=== PATIENT | male | born 1960 | race Caucasian/White ===

== ENCOUNTER 2022-06-15 10:22 | Inpatient (IN) ==
[2022-06-15] MEDS ORDERED: HALOPERIDOL LACTATE 5 MG/ML 1 ML VIAL IM STA (10:47)
[2022-06-15] MEDS ORDERED: CEROVITE ADV FORMULA TAB PO STA (10:47)
[2022-06-15] MEDS ORDERED: THIAMINE HCL 100 MG, FOLIC ACID 1 MG in SODIUM CHLORIDE 0.9% 1000ML 1,000 ML IV STA (10:47)
[2022-06-15] MEDS ORDERED: LORazepam 2 MG/1 ML VIAL IM STA (10:47)
[2022-06-15] MEDS ORDERED: HALOPERIDOL LACTATE 5 MG/ML 1 ML VIAL ONE (10:49)
[2022-06-15] MEDS ORDERED: LORazepam 2 MG/1 ML VIAL ONE (10:50)
--- NOTE | 2022-06-15 10:50 | Emergency Department Note ---
Impression & Plan Alcohol intoxication delirium ADMIT ED Provider Note HPI: The patient is a 61-year-old gentleman who presents emergency department with altered mental status and suspicion for alcohol intoxication. Patient states that he was "drinking Listerine" earlier today. He reportedly was found in an intoxicated appearing state at [facility] trying to get an appo intment with his primary care doctor. Police and EMS were contacted and the patient was transported to the ED for assessment. On arrival here to the ED the patient smells of alcohol, he is disoriented, he is unable to follow instructions clearly. He does not display any focal deficits, no outward evidence of trauma is noted. Patient is hemodynamically stable on arrival ROS: - Per HPI *Outpatient medications and allergy history reviewed. *Pertinent external medical records reviewed. 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 Medical Decision Making: The patient is a 61-year-old gentleman who presented to the emergency department with alcohol intoxication and delirium. Patient was placed on telemetry monitor, shortly after arrival the patient became increasingly agitated and aggressive towards staff, made threatening statements towards staff and then tried to elope, patient was therefore placed in restraints, given Haldol and Ativan for s edation. Alcohol level returned elevated at 399, CT imaging of the head was obtained that does not show any evidence of any acute intracranial process. Patient does have a history of similar visits to the ER for intoxication. Also has a history of passive suicidal thoughts and passive suicide attempt via alcohol ingestion and hiding in the attic of his cousin's house in 2018. Patient does tell me he was drinking mouthwash today. I was able to discuss the case with the patient's mother who does live locally, [place], states that the patient does live in his own efficiency apartment that she pays for, states that patient frequently will drink mouthwash and different kinds of soaps that contain alcohol or anything else he can get his "hands on" as he does not have any money to buy regular a lcohol typically. Given that the patient required sedation, his alcohol level is markedly elevated, I have concern that he is high risk for withdrawal, I do not see that he has a safe disposition from the emergency department now or in the near future. I did discuss the case with the on-call hospitalist, Dr. Cameron, who is in agreement to accept the patient for further management and observation. As the patient does have a stated history per his mother of drinking abnormal substances that contain alcohol I did also send off methanol and ethylene glycol levels. Patient was placed for admission in stable condition. Consultants: Hospitalist service, Dr. Cameron Disposition discussion held by myself with: Patient's mother on the phone * CRITICAL CARE TIME: ( 40 ) minutes -Management of alcohol intoxication with delirium and aggression requiring sedation with intramuscular medications Haldol and Ativan as well as four-point restraints, time spent at the bedside, discussion with family on the phone, interpretation of diagnostic studies, discussion with other physicians and arrangement of admission Diagnosis: 1. Alcohol intoxication with delirium 2. Agitated delirium Disposition: Admission Alber Yuan DO Emergency Medicine Past Med/Surg History Medical History (Updated 06/15/22 @ 14:49 by Alber Yuan DO) Alcoholic intoxication Fx medial malleolus-closed Mood disorder Psoriasis Surgical History (System 06/15/22 @ 12:24 by Yara Hightower) No pertinent past surgical history Family History (System 06/15/22 @ 12:24 by Yara Hightower) Other No pertinent family history Social History (System 06/15/22 @ 12:24 by Yara Hightower) Smoking Status: Never smoker Preferred Language: Congolese Communication Ability: Effective Beliefs That Will Affect Care: None Feels Safe at Home: Yes Assistive Devices: Denture - Upper and Glasses Allergies Allergies Allergy/AdvReac Type Severity Reaction Status Date / Time No Known Allergies Allergy Verified 06/15/22 12:24 Home Meds Home Medications Medication Instructions Recorded Confirmed No Known Home Medications 09/03/20 09/03/20 Results & Data (ED) Vital Signs Vital Signs - 24 hr 06/15/22 10:29 06/15/22 10:35 06/15/22 11:09 Temperature 36.4 C L Temperature Source Oral Pulse Rate 91 H 97 H Pulse Rate from SpO2 Sensor Pulse Rhythm Regular Pulse Strength Normal Respiratory Rate 15 24 Respiratory Effort / Characteristics Non-Labored Spontaneous Respiratory Depth Normal Respiratory Pattern Regular Blood Pressure 149/102 H Blood Pressure Mean 117 Pulse Oximetry 97 95 Oxygen Delivery Method Room Air Room Air Room Air Oxygen Flow Rate 0 Sepsis Recent Fever Within 48 Hours No Sepsis New/Unexplained Change in Mental Status N/A Sepsis Action Taken by Nursing No Action Required Oxygen Flow Rate - Titration 97 06/15/22 10:42 06/15/22 11:00 06/15/22 11:10 Temperature Temperature Source Pulse Rate 94 H 98 H 97 H Pulse Rate from SpO2 Sensor 94 H Pulse Rhythm Pulse Strength Respiratory Rate 18 14 14 Respiratory Effort / Characteristics Respiratory Depth Respiratory Pattern Blood Pressure Blood Pressure Mean Pulse Oximetry 98 Oxygen Delivery Method Oxygen Flow Rate Sepsis Recent Fever Within 48 Hours Sepsis New/Unexplained Change in Mental Status Sepsis Action Taken by Nursing Oxygen Flow Rate - Titration 06/15/22 11:10 06/15/22 12:12 06/15/22 11:30 Temperature Temperature Source Pulse Rate 103 H Pulse Rate from SpO2 Sensor Pulse Rhythm Pulse Strength Respiratory Rate Respiratory Effort / Characteristics Respiratory Depth Respiratory Pattern Blood Pressure 133/90 165/112 H Blood Pressure Mean 104 129 Pulse Oximetry Oxygen Delivery Method Oxygen Flow Rate Sepsis Recent Fever Within 48 Hours Sepsis New/Unexplained Change in Mental Status Sepsis Action Taken by Nursing Oxygen Flow Rate - Titration 06/15/22 11:30 06/15/22 11:45 06/15/22 11:45 Temperature Temperature Source Pulse Rate 103 H 91 H Pulse Rate from SpO2 Sensor 103 H 91 H Pulse Rhythm Pulse Strength Respiratory Rate 19 14 Respiratory Effort / Characteristics Respiratory Depth Respiratory Pattern Blood Pressure 129/88 Blood Pressure Mean 101 Pulse Oximetry 93 88 L Oxygen Delivery Method Nasal Cannula Oxygen Flow Rate 2 Sepsis Recent Fever Within 48 Hours Sepsis New/Unexplained Change in Mental Status Sepsis Action Taken by Nursing Oxygen Flow Rate - Titration 06/15/22 12:00 06/15/22 12:00 06/15/22 12:15 Temperature Temperature Source Pulse Rate 95 H Pulse Rate from SpO2 Sensor 95 H Pulse Rhythm Pulse Strength Respiratory Rate 14 Respiratory Effort / Characteristics Respiratory Depth Respiratory Pattern Blood Pressure 111/73 109/85 Blood Pressure Mean 85 93 Pulse Oximetry 92 Oxygen Delivery Method Oxygen Flow Rate Sepsis Recent Fever Within 48 Hours Sepsis New/Unexplained Change in Mental Status Sepsis Action Taken by Nursing Oxygen Flow Rate - Titration 06/15/22 12:15 06/15/22 12:30 06/15/22 12:30 Temperature Temperature Source Pulse Rate 105 H 112 H Pulse Rate from SpO2 Sensor 105 H 111 H Pulse Rhythm Pulse Strength Respiratory Rate 13 17 Respiratory Effort / Characteristics Respiratory Depth Respiratory Pattern Blood Pressure 98/76 L Blood Pressure Mean 83 Pulse Oximetry 94 94 Oxygen Delivery Method Oxygen Flow Rate Sepsis Recent Fever Within 48 Hours Sepsis New/Unexplained Change in Mental Status Sepsis Action Taken by Nursing Oxygen Flow Rate - Titration 06/15/22 12:45 06/15/22 12:45 06/15/22 13:00 Temperature Temperature Source Pulse Rate 101 H Pulse Rate from SpO2 Sensor 99 H Pulse Rhythm Pulse Strength Respiratory Rate 14 Respiratory Effort / Characteristics Respiratory Depth Respiratory Pattern Blood Pressure 113/66 134/92 Blood Pressure Mean 81 106 Pulse Oximetry 96 Oxygen Delivery Method Oxygen Flow Rate Sepsis Recent Fever Within 48 Hours Sepsis New/Unexplained Change in Mental Status Sepsis Action Taken by Nursing Oxygen Flow Rate - Titration 06/15/22 13:00 06/15/22 13:15 06/15/22 13:15 Temperature Temperature Source Pulse Rate 97 H 97 H Pulse Rate from SpO2 Sensor 96 H 97 H Pulse Rhythm Pulse Strength Respiratory Rate 12 14 Respiratory Effort / Characteristics Respiratory Depth Respiratory Pattern Blood Pressure 112/73 Blood Pressure Mean 86 Pulse Oximetry 98 97 Oxygen Delivery Method Nasal Cannula Oxygen Flow Rate 2 Sepsis Recent Fever Within 48 Hours Sepsis New/Unexplained Change in Mental Status Sepsis Action Taken by Nursing Oxygen Flow Rate - Titration 06/15/22 13:51 06/15/22 13:51 06/15/22 14:00 Temperature Temperature Source Pulse Rate 92 H Pulse Rate from SpO2 Sensor 90 92 H Pulse Rhythm Pulse Strength Respiratory Rate 19 Respiratory Effort / Characteristics Respiratory Depth Respiratory Pattern Blood Pressure 120/76 Blood Pressure Mean 90 Pulse Oximetry 98 97 Oxygen Delivery Method Nasal Cannula Oxygen Flow Rate 2 Sepsis Recent Fever Within 48 Hours Sepsis New/Unexplained Change in Mental Status Sepsis Action Taken by Nursing Oxygen Flow Rate - Titration 06/15/22 14:01 06/15/22 14:01 06/15/22 14:15 Temperature Temperature Source Pulse Rate 90 91 H Pulse Rate from SpO2 Sensor 91 H 90 Pulse Rhythm Pulse Strength Respiratory Rate 13 11 L Respiratory Effort / Characteristics Respiratory Depth Respiratory Pattern Blood Pressure 114/85 Blood Pressure Mean 94 Pulse Oximetry 94 96 Oxygen Delivery Method Oxygen Flow Rate Sepsis Recent Fever Within 48 Hours Sepsis New/Unexplained Change in Mental Status Sepsis Action Taken by Nursing Oxygen Flow Rate - Titration 06/15/22 14:15 06/15/22 14:30 Temperature Temperature Source Pulse Rate 87 Pulse Rate from SpO2 Sensor 86 Pulse Rhythm Pulse Strength Respiratory Rate 12 Respiratory Effort / Characteristics Respiratory Depth Respiratory Pattern Blood Pressure 130/84 Blood Pressure Mean 99 Pulse Oximetry 92 Oxygen Delivery Method Oxygen Flow Rate Sepsis Recent Fever Within 48 Hours Sepsis New/Unexplained Change in Mental Status Sepsis Action Taken by Nursing Oxygen Flow Rate - Titration Laboratory Data 06/15/22 10:37 06/15/22 10:37 Lab Results 06/15/22 06/15/22 06/15/22 Range/Units 10:37 10:37 10:37 WBC 5.78 (4.8-10.8) K/ul RBC 4.28 L (4.70-6.10) M/uL Hgb 13.5 L (14.0-18.0) g/dl Hct 41.0 L (42.0-52.0) % MCV 95.8 (80.0-100.0) fL MCH 31.5 (25.0-34.0) pg MCHC 32.9 (32.0-36.0) g/dL RDW Std Deviation 56.9 H (36.4-46.3) fL RDW Coeff of Ramona 16.3 H (11.5-14.5) % Plt Count 240 (130-400) K/uL MPV 10.7 (9.4-12.4) fL Immature Gran % (Auto) 0.3 % Neut % (Auto) 47.5 % Lymph % (Auto) 37.0 % [place] % (Auto) 10.9 % Eos % (Auto) 1.7 % Baso % (Auto) 2.6 % Neut # (Auto) 2.74 (1.40-6.50) K/uL Lymph # (Auto) 2.14 (1.2-3.4) K/uL [place] # (Auto) 0.63 H (0.11-0.59) K/uL Eos # (Auto) 0.10 (0-0.50) K/uL Baso # (Auto) 0.15 (0-0.2) K/uL Immature Gran # (Auto) 0.02 (0.01-0.20) K/uL Sodium 141 (136-145) mmol/L Potassium 3.4 L (3.5-5.1) mmol/L Chloride 106 (98-107) mmol/L Carbon Dioxide 23 (21-32) mmol/L Anion Gap 12 H (3-11) BUN 6 (6-23) mg/dl Creatinine 0.61 (0.6-1.4) mg/dl Est Cr Clr Drug Dosing 165.5 ml/min Est GFR ( Amer) 126.7 ml/min Est GFR (Non-Af Amer) 109.3 ml/min BUN/Creatinine Ratio 9.8 L (10-20) Glucose 135 H (70-99(Fasting)) mg/dl Osmolality (280-300) mOsm/kg Calcium 9.2 (8.6-10.3) mg/dl Total Bilirubin 0.7 (0.2-1.0) mg/dl AST 65 H (13-39) U/L ALT 66 H (7-52) U/L Alkaline Phosphatase 107 H (34-104) U/L Troponin I High Sens 7.6 (0-20) pg/ml Total Protein 8.7 H (6.0-8.3) gm/dl Albumin 4.0 (3.4-5.0) gm/dl Globulin 4.7 H (2.5-4.0) gm/dl Albumin/Globulin Ratio 0.9 (0.9-2) Ethyl Alcohol mg/dL 399.1 H (<10.0) mg/dl SARS-CoV-2, RNA, NAAT (NEGATIVE) 06/15/22 06/15/22 Range/Units 10:37 Unknown WBC (4.8-10.8) K/ul RBC (4.70-6.10) M/uL Hgb (14.0-18.0) g/dl Hct (42.0-52.0) % MCV (80.0-100.0) fL MCH (25.0-34.0) pg MCHC (32.0-36.0) g/dL RDW Std Deviation (36.4-46.3) fL RDW Coeff of Ramona (11.5-14.5) % Plt Count (130-400) K/uL MPV (9.4-12.4) fL Immature Gran % (Auto) % Neut % (Auto) % Lymph % (Auto) % [place] % (Auto) % Eos % (Auto) % Baso % (Auto) % Neut # (Auto) (1.40-6.50) K/uL Lymph # (Auto) (1.2-3.4) K/uL [place] # (Auto) (0.11-0.59) K/uL Eos # (Auto) (0-0.50) K/uL Baso # (Auto) (0-0.2) K/uL Immature Gran # (Auto) (0.01-0.20) K/uL Sodium (136-145) mmol/L Potassium (3.5-5.1) mmol/L Chloride (98-107) mmol/L Carbon Dioxide (21-32) mmol/L Anion Gap (3-11) BUN (6-23) mg/dl Creatinine (0.6-1.4) mg/dl Est Cr Clr Drug Dosing ml/min Est GFR ( Amer) ml/min Est GFR (Non-Af Amer) ml/min BUN/Creatinine Ratio (10-20) Glucose (70-99(Fasting)) mg/dl Osmolality 397 H* (280-300) mOsm/kg Calcium (8.6-10.3) mg/dl Total Bilirubin (0.2-1.0) mg/dl AST (13-39) U/L ALT (7-52) U/L Alkaline Phosphatase (34-104) U/L Troponin I High Sens (0-20) pg/ml Total Protein (6.0-8.3) gm/dl Albumin (3.4-5.0) gm/dl Globulin (2.5-4.0) gm/dl Albumin/Globulin Ratio (0.9-2) Ethyl Alcohol mg/dL (<10.0) mg/dl SARS-CoV-2, RNA, NAAT NEGATIVE (NEGATIVE) Administered Medications Discontinued Medications Haloperidol Lactate (Haloperidol Lactate 5 Mg/Ml 1 Ml Vial) 10 mg IM NOW STA Stop: 06/15/22 10:48 Last Admin: 06/15/22 11:07 Dose: 10 mg Documented By: AM Haloperidol Lactate (Haloperidol Lactate 5 Mg/Ml 1 Ml Vial) Confirm Administered Dose 10 mg .ROUTE .STK-MED ONE Stop: 06/15/22 10:50 Last Admin: 06/15/22 11:08 Dose: Not Given Documented By: AM Lorazepam (Lorazepam 2 Mg/1 Ml Vial) 2 mg IM NOW STA Stop: 06/15/22 10:48 Last Admin: 06/15/22 11:07 Dose: 2 mg Documented By: AM Lorazepam (Lorazepam 2 Mg/1 Ml Vial) Confirm Administered Dose 2 mg .ROUTE .STK- MED ONE Stop: 06/15/22 10:51 Last Admin: 06/15/22 11:08 Dose: Not Given Documented By: AM Imaging Data Radiologist's Impression: Head CT 06/15/22 10:47 CT head/brain wo con CLINICAL HISTORY: 61 years-old Male with AMS. Acutely altered mental status TECHNIQUE: Multiple axial CT images of the head were obtained without contrast. A dose lowering technique was utilized adhering to the principles of ALARA. CT DOSE: 690.05 mGycm COMPARISON: 09/03/2020 FINDINGS: No acute intracranial hemorrhage, midline shift, intracranial mass, hydrocephalus, territorial ischemia or abnormal extra-axial collection. Minimal white matter hypodensities are again noted which may represent chronic microvascular ischemic disease. The calvarium is intact. Minimal mucosal thickening of the left maxillary sinus. Prior left mastoidectomy. The right mastoid air cells are generally clear. IMPRESSION: No acute intracranial abnormality. ACT 112: Negative or not required by law. The above report was generated using voice recognition software. It may contain grammatical, syntax or spelling errors. Electronically signed by: Wagner Phillips M.D. 06/15/2022 1:52 PM Discharge Plan Visit Data Chief Complaint: Alcohol Intoxication Stated Complaint: ETOH, FALL ED Provider: Alber Yuan Discharge Problem: Alcohol intoxication delirium Forms Stand Alone Forms: [facility] [employer] Prescriptions Prescriptions: No Action No Known Home Medications Referrals Referrals: PCP,NO [Physician] -
[2022-06-15 11:27] LABS: Basophils # (auto) 0.15 K/uL (0-0.2); Basophils % (auto) 2.6 %; Eosinophils % (auto) 1.7 %; Hemoglobin 13.5 g/dl (14.0-18.0); Immature Granulocytes # (auto) 0.02 K/uL (0.01-0.20); Immature Granulocytes % (auto) 0.3 %; Lymphocytes # (auto) 2.14 K/uL (1.2-3.4); Mean Corpuscular Hemoglobin 31.5 pg (25.0-34.0); Mean Corpuscular Hgb Conc 32.9 g/dL (32.0-36.0); Mean Corpuscular Volume 95.8 fL (80.0-100.0); Mean Platelet Volume 10.7 fL (9.4-12.4); Monocytes # (auto) 0.63 K/uL (0.11-0.59); Monocytes % (auto) 10.9 %; Neutrophils # (auto) 2.74 K/uL (1.40-6.50); Neutrophils % (auto) 47.5 %; Platelet Count 240 K/uL (130-400); RDW Coefficient of Variation 16.3 % (11.5-14.5); RDW Standard Deviation 56.9 fL (36.4-46.3); Red Blood Count 4.28 M/uL (4.70-6.10); White Blood Count 5.78 K/ul (4.8-10.8)
[2022-06-15 11:32] LABS: Albumin Globulin Ratio 0.9 (0.9-2); BUN Creatinine Ratio 9.8 (10-20); Bilirubin,Total 0.7 mg/dl (0.2-1.0); Calcium 9.2 mg/dl (8.6-10.3); Creatinine Clr Calc Pharmacy 165.5 ml/min; Est GFR (African American) 126.7 ml/min; Est GFR (Non-African American) 109.3 ml/min; Globulin 4.7 gm/dl (2.5-4.0); Potassium 3.4 mmol/L (3.5-5.1); Total Protein 8.7 gm/dl (6.0-8.3)
[2022-06-15 11:38] LABS: Troponin I High Sensitivity 7.6 pg/ml (0-20)
--- NOTE | 2022-06-15 13:53 | CT Scan Report ---
CT head/brain wo con CLINICAL HISTORY: 61 years-old Male with AMS. Acutely altered mental status TECHNIQUE: Multiple axial CT images of the head were obtained without contrast. A dose lowering tech nique was utilized adhering to the principles of ALARA. CT DOSE: 690.05 mGycm COMPARISON: 09/03/2020 FINDINGS: No acute intracranial hemorrhage, midline shift, intracranial mass, hydrocephalus, territorial ischem ia or abnormal extra-axial collection. Minimal white matter hypodensities are again noted which may r epresent chronic microvascular ischemic disease. The calvarium is intact. Minimal mucosal thickening of the left maxillary sinus. Prior left mastoide ctomy. The right mastoid air cells are generally clear. IMPRESSION: No acute intracranial abnormality. ACT 112: Negative or not required by law. The above report was generated using voice recognition software. It may contain grammatical, syntax o r spelling errors. Electronically signed by: Wagner Phillips M.D. 06/15/2022 1:52 PM
--- NOTE | 2022-06-15 14:49 | History & Physical Report ---
Date of Service June 15, 2022 Assessment & Plan (1) Alcohol intoxication delirium: (2) HTN (hypertension): (3) Alcohol abuse: (4) Mood disorder: Plan Alcohol intoxication -Ethanol level 399 -Patient at high risk of alcohol withdrawal -AWSS ordered -thiamine, folic acid, MVT -psychiatry consulted, CM consulted -monitor on telemetry -UDS pending -Ethylene glycol and methanol levels pending Acute metabolic encephalopathy -due to above -aspiration, delirium protocol -briefly required 4 point restraint but none currently Hypokalemia -NSS +20mEq KCl at 100 cc/hr x 2 bags ordered -repeat BMP tomorrow Mood disorder -Prior hospitalization here in 2018 for treatment but patient had declined medications -uncertain if he is still taking his trazodone, will hold for now -appreciate psychiatry input DVT ppx SQ heparin Disposition PCU Code status -Presumed to be full, this was not discussed with patient due to his current inebriation History of Present Illness Chief Complaint: Intoxication Primary Care Provider: Gee Del Valle DO Mr Owen Kiser is a 61 year old man with a long standing history of alcohol abuse, mood disorder but had declined medications in the past was brought in by EMS after showing up to [facility] intoxicated because he thought he had an appointment with his PCP today (it's scheduled for tomorrow). Patient's last hospitalization here was from 12/28/17-12/30/17 for voluntary psychiatry admission for alcohol abuse and suicidal statements which patient later denied making. He has not been in to see his PCP for quite some time and his last 4 appointments there were "no show". Per ER physician who spoke with his mother, patient lives in an efficiency paid for by her and he continues to use alcohol and drinks anything containing alcohol that he can get himself on including mouthwash, etc. Per bedside nurse, patient had reported he was drinking listerine and isopropyl alcohol today. He was agitated and intoxicated and required to be placed into 4 point restraints. He received 10mg IM haldol and another 2mg IM ativan. He had a CT head which was negative for acute findings. He has since been taken off restraints. His labwork is significant for an ethanol level of 399. Hospitalist service was contacted for admission for further management. Patient currently is calm and not agitated, he knows he is in the hospital. He reports the last time he drank was at 130 (AM). When asked whether he knows why he is in the hospital, he replies "I don't want to talk about it." Allergies Allergy/AdvReac Type Severity Reaction Status Date / Time No Known Allergies Allergy Verified 06/15/22 12:24 Home Medications Medication Instructions Recorded Confirmed Type No Known Home Medications 09/03/20 09/03/20 History Past Med/Surg History Medical History (Updated 06/15/22 @ 14:49 by Alber Yuan DO) Alcoholic intoxication Fx medial malleolus-closed Mood disorder Psoriasis Surgical History (System 06/15/22 @ 12:24 by Yara Hightower) No pertinent past surgical history Family History (System 06/15/22 @ 12:24 by Yara Hightower) Other No pertinent family history Social History (System 06/15/22 @ 12:24 by Yara Hightower) Smoking Status: Never smoker Preferred Language: Dominican Communication Ability: Effective Beliefs That Will Affect Care: None Feels Safe at Home: Yes Assistive Devices: Denture - Upper and Glasses Review of Systems Review of Systems: Limited due to patient's mental status, intoxication Physical Exam Physical Exam: sleeping but arousable, able to answer simple questions, calm ENMT: Normocephalic, atraumatic, mucous membrane dry Respiratory: Breathing comfortably on NC, no wheezing/rhonchi/rales Cardiovascular: Regular rate and rhythm, no murmurs/rubs/gallops Gastrointestinal (Abdomen): soft, non tender, non distended Musculoskeletal: no edema, no cyanosis or clubbing Skin: psoriatic rash on arms, no redness noted, no bruising on face or arms Neurologic: drowsy but arousable, spontaneously moving extremities, answer simple questions, following commands Psychiatric: deferred due to intoxication currently Results & Data Results & Data Vital Signs (Past 12 Hours) Vital Signs Temp Pulse Resp BP Pulse Ox O2 Del Method O2 Flow Rate 06/15/22 14:30 87 12 92 06/15/22 14:15 130/84 06/15/22 14:15 91 H 11 L 96 06/15/22 14:01 90 13 94 06/15/22 14:01 114/85 06/15/22 14:00 92 H 19 97 06/15/22 13:51 98 Nasal Cannula 2 06/15/22 13:51 120/76 06/15/22 13:15 97 H 14 97 Nasal Cannula 2 06/15/22 13:15 112/73 06/15/22 13:00 97 H 12 98 06/15/22 13:00 134/92 06/15/22 12:45 113/66 06/15/22 12:45 101 H 14 96 06/15/22 12:30 112 H 17 94 06/15/22 12:30 98/76 L 06/15/22 12:15 105 H 13 94 06/15/22 12:15 109/85 06/15/22 12:00 95 H 14 92 06/15/22 12:00 111/73 06/15/22 11:45 129/88 06/15/22 11:45 91 H 14 88 L Nasal Cannula 2 06/15/22 11:30 103 H 19 93 06/15/22 11:30 165/112 H 06/15/22 12:12 103 H 06/15/22 11:10 133/90 06/15/22 11:10 97 H 14 06/15/22 11:00 98 H 14 06/15/22 10:42 94 H 18 98 06/15/22 11:09 97 H 24 95 Room Air 06/15/22 10:35 Room Air 0 06/15/22 10:29 36.4 C L 91 H 15 149/102 H 97 Room Air
[2022-06-15] MEDS ORDERED: ONDANSETRON INJ 2 MG/ML 2 ML VIAL IV PRN (17:10)
[2022-06-15] MEDS ORDERED: LORazepam 2 MG/1 ML VIAL IV PRN ×3 (17:10)
[2022-06-15] MEDS ORDERED: POLYETHYLENE (MIRALAX) 17 GM PACK PO PRN (17:10)
[2022-06-15] MEDS ORDERED: GABAPENTIN 1200MG ALCOHOL WITHDRAWAL LOAD PO STA (17:10)
[2022-06-15] MEDS ORDERED: Ativan IV Alcohol Withdrawal--Active Protocol IV PRN (17:10)
[2022-06-15] MEDS ORDERED: GABAPENTIN 600 MG TAB PO ONE (17:15)
[2022-06-15] MEDS: NSS + 20MEQ KCL 20 MEQ/1,000 ML BAG IV SCH (20:37)
[2022-06-15] MEDS: GABAPENTIN 600 MG TAB PO SCH (23:25)
[2022-06-15] MEDS: HEPARIN SOD 5,000 UNIT/0.5 ML VIAL SQ SCH (23:27)
[2022-06-15 23:51] LABS: Amphetamines+Metham, Urine Neg (Neg); Barbiturates, Urine Neg (Neg); Benzodiazepine, Urine Neg (Neg); Cocaine, Urine Neg (Neg); MDMA (Ecstacy), Urine Neg (Neg); Methadone, Urine Neg (Neg); Opiate, Urine Neg (Neg); Phencyclidine, Urine Neg (Neg)
[2022-06-16] MEDS: GABAPENTIN 600 MG TAB PO SCH (04:08)
[2022-06-16] MEDS: HEPARIN SOD 5,000 UNIT/0.5 ML VIAL SQ SCH (05:39)
[2022-06-16] MEDS: NSS + 20MEQ KCL 20 MEQ/1,000 ML BAG IV SCH (06:51)
[2022-06-16 07:44] LABS: Basophils # (auto) 0.13 K/uL (0-0.2); Basophils % (auto) 2.9 %; Hematocrit (blood only) 38.8 % (42.0-52.0); Hemoglobin 13.4 g/dl (14.0-18.0); Immature Granulocytes # (auto) 0.01 K/uL (0.01-0.20); Immature Granulocytes % (auto) 0.2 %; Lymphocytes # (auto) 0.99 K/uL (1.2-3.4); Lymphocytes % (auto) 22.1 %; Mean Corpuscular Hemoglobin 32.1 pg (25.0-34.0); Mean Corpuscular Hgb Conc 34.5 g/dL (32.0-36.0); Mean Corpuscular Volume 92.8 fL (80.0-100.0); Monocytes % (auto) 13.4 %; Neutrophils # (auto) 2.75 K/uL (1.40-6.50); Neutrophils % (auto) 61.4 %; Platelet Count 214 K/uL (130-400); RDW Coefficient of Variation 16.2 % (11.5-14.5); RDW Standard Deviation 55.5 fL (36.4-46.3); Red Blood Count 4.18 M/uL (4.70-6.10); White Blood Count 4.48 K/ul (4.8-10.8)
[2022-06-16 08:04] LABS: Albumin Globulin Ratio 0.9 (0.9-2); Albumin Level 3.7 gm/dl (3.4-5.0); BUN Creatinine Ratio 7.7 (10-20); Bilirubin,Total 0.8 mg/dl (0.2-1.0); Calcium 8.6 mg/dl (8.6-10.3); Creatinine Clr Calc Pharmacy 189.5 ml/min; Est GFR (African American) 135.3 ml/min; Est GFR (Non-African American) 116.7 ml/min; Potassium 3.8 mmol/L (3.5-5.1); Total Protein 7.7 gm/dl (6.0-8.3)
--- NOTE | 2022-06-16 08:52 | Hospitalist Progress Note ---
Date of Service June 16, 2022 Assessment & Plan (1) Alcohol intoxication delirium: Plan: Resolved. Patient recently abstained from ETOH for one month then drank again Tue and . He doesn't remember leaving the PCP office in an ambulance. He is open to rehab. He has some mild ETOH withdrawal evidenced by elevated BP and HR. Will plan to send him home with Librium over the next few days to avoid worsening of withdrawal symptoms. Thiamine, folic acid, MVI (2) HTN (hypertension): Plan: 2/2 ETOH withdrawal and should improve. Follow-up with PCP in one week. (3) Alcohol abuse: Plan: Chronic issue. Important to see counselor and undergo addiction help. He was seen by a counselor here in the hospital who will work with him on setting this up now. (4) Hypokalemia: Plan: likely 2/2 poor nutrition vs ETOH use. No reports of GI losses. Replaced. Heparin-declined Full code Dispo- to home today. Comfort Butt DO [facility] Hospitalist Admission and Anticipated Discharge Date Admission Date: June 15, 2022 Subjective 61 yo M with history of alcoholism presented with delirium 2.2 intoxication. Feels well today Doesn't remember last night at [facility] We had a long discussion about the root causes of his drinking including body shaming from his teeth, missing his "old life in [facility] and being consistently u nemployed. He feel shameful that he is on food stamps at the moment. He has tried counseling with [facility] and has tried rehab in the past but "it has not helped" Specifically the counselor didn't give him advice and only listened and wrote on her tablet. We discussed that he would be open to additional counseling and addiction help if that could be free as his insurance "doesn't cover" those services. He denies drinking anything else yesterday and reports not using any additional street drugs He reports he was at [facility] to see his PCP for a referral to dermatology for his psoriasis Review of Systems Review of Systems: all systems were reviewed and negative except as indicated above. Physical Exam Physical Exam: CONSTITUTIONAL: WNWD, vitals as above, generally well-appearing EYES: normal conjunctivae, no scleral icterus, ENT: external ear and nose normal, MMM, missing front tooth. NECK: trachea midline RESPIRATORY: clear to auscultation bilaterally, no crackles, rales or wheezes, normal respiratory effort CARDIOVASCULAR: regular rate and rhythm, S1 and 2 heard without murmurs, gallops or rubs, no JVD, no peripheral edema CHEST: inspection of chest was normal GASTROINTESTINAL: soft, nontender, no guarding, ND MUSCULOSKELETAL: strength 5/5 throughout, head is normocephalic and atraumatic SKIN: warm and dry, psoriatic plaques on back, extensor surfaces of arms and right hand over fingers. +rosacea on face NEUROLOGIC: CN 2-12 grossly intact, no sensory deficit, normal cognition, normal speech, no tremor PSYCHIATRIC: alert cooperative and oriented to person, place and time. Euthymic mood, makes good eye contact, language grossly intact, recent and remote memory grossly intact. Results & Data Results & Data Vital Signs (Past 12 Hours) Vital Signs Temp Pulse Pulse Resp BP Pulse Ox O2 Del Method 06/16/22 08:19 37.2 C 109 H 18 168/108 H 95 Room Air 06/16/22 07:36 105 H 06/16/22 00:04 88 06/16/22 03:24 36.8 C 99 H 20 167/105 H 96 Room Air 06/15/22 22:00 36.5 C 94 H 18 137/88 94 Room Air 06/15/22 22:45 36.5 C 101 H 16 145/90 H 97 Room Air Laboratory Results Short CBC 06/15/22 06/16/22 Range/Units 10:37 06:29 WBC 5.78 4.48 L (4.8-10.8) K/ul Hgb 13.5 L 13.4 L (14.0-18.0) g/dl Hct 41.0 L 38.8 L (42.0-52.0) % Plt Count 240 214 (130-400) K/uL BMP 06/15/22 06/16/22 10:37 06:29 Sodium 141 139 Potassium 3.4 L 3.8 Chloride 106 107 Carbon Dioxide 23 22 BUN 6 4 L Creatinine 0.61 0.52 L Glucose 135 H 104 H Calcium 9.2 8.6 Liver Function 06/15/22 06/16/22 Range/Units 10:37 06:29 Total Bilirubin 0.7 0.8 (0.2-1.0) mg/dl AST 65 H 83 H (13-39) U/L ALT 66 H 74 H (7-52) U/L Alkaline Phosphatase 107 H 88 (34-104) U/L Albumin 4.0 3.7 (3.4-5.0) gm/dl Medications Administered Current Inpatient Medications Folic Acid ([facility]olic Acid 1 Mg Tab) [facility]: 07/16/22 08:59 Gabapentin (Gabapentin 600 Mg Tab) 600 mg PO Q24H [facility] Stop: 06/19/22 03:46 Gabapentin (Gabapentin 600 Mg Tab) 600 mg PO Q12H [facility] Stop: 06/18/22 03:46 Gabapentin (Gabapentin 600 Mg Tab) 600 mg PO Q8H [facility] Stop: 06/17/22 03:46 Lorazepam (Lorazepam 2 Mg/1 Ml Vial) 2 mg IV UD PRN; Protocol PRN Reason: EtOH Withdrawal AWSS Score 8,9 Stop: 07/15/22 17:09 Lorazepam (Lorazepam 2 Mg/1 Ml Vial) 1 mg IV UD PRN; Protocol PRN Reason: EtOH Withdrawal AWSS Score 6,7 Stop: 07/15/22 17:09 Lorazepam (Lorazepam 2 Mg/1 Ml Vial) 3 mg IV ONCE PRN; Protocol PRN Reason: EtOH Withdrawal AWSS Score 10+ Multivitamins (Multivitamin Tab) 1 tab PO [facility] Stop: 07/16/22 08:59 Ondansetron HCl (Ondansetron Inj 2 Mg/Ml 2 Ml Vial) 4 mg IV Q6H PRN PRN Reason: Nausea Stop: 07/15/22 17:09 Polyethylene Glycol (Polyethylene (Miralax) 17 Gm Pack) 17 gm PO DAILY PRN PRN Reason: Constipation Stop: 07/15/22 17:09 Thiamine HCl (Thiamine Hcl 100 Mg Tab) 100 [facility] Stop: 07/16/22 08:59
[2022-06-16] MEDS ORDERED: FOLIC ACID 1 MG TAB PO SCH (09:00)
[2022-06-16] MEDS ORDERED: THIAMINE HCL 100 MG TAB PO SCH (09:00)
[2022-06-16] MEDS ORDERED: MULTIVITAMIN TAB PO SCH (09:00)
[2022-06-16] MEDS ORDERED: LORazepam 2 MG/1 ML VIAL IV PRN (11:18)
[2022-06-16] MEDS ORDERED: GABAPENTIN 600 MG TAB PO SCH (11:45)
--- NOTE | 2022-06-16 12:32 | Discharge Summary ---
Discharge Summary Date of Service June 16, 2022 Admission HPI Per Admitting Provider Mr Owen Kiser is a 61 year old man with a long standing history of alcohol abuse, mood disorder but had declined medications in the past was brought in by EMS after showing up to [place] intoxicated because he thought he had an appointment with his PCP today (it's scheduled for tomorrow). Patient's last hospitalization here was from 12/28/17-12/30/17 for voluntary psychiatry admission for alcohol abuse and suicidal statements which patient later denied making. He has not been in to see his PCP for quite some time and his last 4 appointments there were "no show". Per ER physician who spoke with his mother, patient lives in an efficiency paid for by her and he continues to use alcohol and drinks anything containing alcohol that he can get himself on including mouthwash, etc. Per bedside nurse, patient had reported he was drinking listerine and isopropyl alcohol today. He was agitated and intoxicated and required to be placed into 4 point rest raints. He received 10mg IM haldol and another 2mg IM ativan. He had a CT head which was negative for acute findings. He has since been taken off restraints. His labwork is significant for an ethanol level of 399. Hospitalist service was contacted for admission for further management. Patient currently is calm and not agitated, he knows he is in the hospital. He reports the last time he drank was at 130 (AM). When asked whether he knows why he is in the hospital, he replies "I don't want to talk about it." Principal Dx & Hospital Course #1 = Principal Diagnosis (1) Alcohol intoxication delirium: Resolved. Patient recently abstained from ETOH for one month then drank again Tue and . He doesn't remember leaving the PCP office in an ambulance. He is open to rehab. He has some mild ETOH withdrawal evidenced by elevated BP and HR. Will plan to send him home with Librium over the next few days to avoid worsening of withdrawal symptoms. Thiamine, folic acid, MVI (2) HTN (hypertension): 2/2 ETOH withdrawal and should improve. Follow-up with PCP in one week. (3) Alcohol abuse: Chronic issue. Important to see counselor and undergo addiction help. He was seen by a counselor here in the hospital who will work with him on setting this up now. (4) Hypokalemia: likely 2/2 poor nutrition vs ETOH use. No reports of GI losses. Replaced. Heparin-declined Full code Dispo- to home today. Comfort Butt DO [facility] Hospitalist Discharge Exam CONSTITUTIONAL: WNWD, vitals as above, generally well-appearing EYES: normal conjunctivae, no scleral icterus, ENT: external ear and nose normal, MMM, missing front tooth. NECK: trachea midline RESPIRATORY: clear to auscultation bilaterally, no crackles, rales or wheezes, normal respiratory effort CARDIOVASCULAR: regular rate and rhythm, S1 and 2 heard without murmurs, gallops or rubs, no JVD, no peripheral edema CHEST: inspection of chest was normal GASTROINTESTINAL: soft, nontender, no guarding, ND MUSCULOSKELETAL: strength 5/5 throughout, head is normocephalic and atraumatic SKIN: warm and dry, psoriatic plaques on back, extensor surfaces of arms and right hand over fingers. +rosacea on face NEUROLOGIC: CN 2-12 grossly intact, no sensory deficit, normal cognition, normal speech, no tremor PSYCHIATRIC: alert cooperative and oriented to person, place and time. Euthymic mood, makes good eye contact, language grossly intact, recent and remote memory grossly intact. Updated Medication List Medication Instructions Recorded Confirmed Type chlordiazepoxide HCl 25 mg capsule 25 mg PO DIRECTED #15 caps 06/16/22 Rx Hospital Stay Data Consultations 06/16/22 11:55 Consult Behavioral Health Liaison Routine 06/16/22 12:11 Consult Behavioral Health Liaison Routine Diagnostic Imagining Performed 06/15/22 10:47 CT head/brain wo con Stat Pending Results Patient Have Any Pending Studies at Discharge: No Discharge Instructions Given to Patient (Per Discharging Provider) Please take the Librium as instructed for alcohol withdrawal and to help keep you off alcohol: Take 25mg every 6 hours x 48 hours, then Take 25mg every 12 hours x 24 hours, then Take 25mg at bedtime, then stop Do not drink on this medication as you can black out and lose consciousness or cease to breathe. Do not drive a car while intoxicated or while using this medication. Please follow-up with your primary care physician in one week and discuss other treatments for alcoholism such as Vivitrol injections and counseling. It was a pleasure taking care of you! Please call if you have any questions or problems. You can reach a [facility] hospitalist on duty at [facility] 24 hours a day by calling [phone]. Take care of yourself. Comfort Butt, [place] Hospitalist Total Time Total Time Spent Total Time Spent (In Minutes): 60
--- NOTE | 2022-06-16 13:06 | Electrocardiogram Report ---
Test Reason : Blood Pressure : / mmHG Vent. Rate : 095 BPM Atrial Rate : 095 BPM P-R Int : 186 ms QRS Dur : 180 ms QT Int : 440 ms P-R-T Axes : 066 -66 057 degrees QTc Int : 552 ms Sinus rhythm with Premature atrial complexes with Aberrant conduction Right bundle branch block Left anterior fascicular block Bifascicular block Minimal voltage criteria for LVH, may be normal variant Abnormal ECG No previous ECGs available Confirmed by Aurelio Chau ([id number]) on 06/16/2022 1:06:15 PM Referred By: Confirmed By:Chemo Chau
[2022-06-17] MEDS ORDERED: GABAPENTIN 600 MG TAB PO SCH (15:45)
[2022-06-18 16:12] LABS: Methyl Alcohol Comment WHOLE BLOOD; Methyl Alcohol Level NONE DETECTED (NONE DETECTED)
[2022-06-19] MEDS ORDERED: GABAPENTIN 600 MG TAB PO SCH (03:45)
== END 2022-06-16 14:47 | disposition home or self-care (01) | DRG 896 ==
LOC: EDBD → ED 10:22 → MERGE 10:22 → SUATTDRO 15:32 → EDINP 15:32 → 2S 19:34

== ENCOUNTER 2023-10-15 18:17 | Inpatient (IN) ==
--- OUTSIDE RECORDS SUMMARY | 2023-10-15 18:24 | External Medical Summary | Summary of Care ---
Author Name Unknown Organization [facility] Address [address] [place] [address] Phone [phone] Care Team Providers Care Bakery Associate Name Role Phone Kamilah Torres MD Primary Care Provider [phone] Reason for Visit * Reason Onset Date Comments No Show 10/13/2023 [facility] No Show Auto mation Encounter Details Date Type Department Care Team (Late st Contact Info) Description 10/13/2023 Telephone Family Practice [facility] [address] [facility] [place] [address] Kamilah Torres MD [address] [place] [address] No Show ([place] No Show Automation) Allergies No known active allergiesdocumented as of this encounter (statuses as of 10/13/2023) Medications Medication Sig Dispensed Refills Start Date End Date Status Vitamin D3 25 MCG (1000 UT) Oral Capsule Take 1 Capsule by mouth once. Active Melatonin 3 MG Oral Tablet Disintegrating Take by mouth. Active hydrOXYzine Pamoate 50 MG Oral Capsule (Vistaril)Indication s:Generalized anxiety disorder Take 1 Capsule by mouth 2 times a day as needed for Anxiety. 60 Capsule 5 07/07/2023 Active Furosemide 40 MG Oral Tablet (Lasix) Take 1 Tablet by mouth daily as needed for Other (edema). 30 Tablet 5 08/03/2023 Active Additional Information Patient not taking.Reported on 08/23/2023 Triamcinolone Acetonide 0.1 % External Cream (Aristocort)Indicati ons:Plaque psoriasis Apply to psoriasis on the arms, legs, chest, and back twice daily 450 g 1 08/03/2023 Active DULoxetine HCl 20 MG Oral Capsule Delayed Release Particles (duloxetine)Indicati ons:Chronic midline low back pain without sciatica,Generalized anxiety disorder Take 1 Capsule by mouth in the morning. Do not cut, crush or chew. 30 Capsule 5 08/03/2023 Active Clobetasol Propionate 0.05 % External Gel (Temovate) Apply topically to affected area 2 times a day. Apply to scalp 60 g 5 08/05/2023 Active traZODone HCl 50 MG Oral Tablet (Desyrel)Indications :Alcohol-induced insomnia (HCC) Take 1 Tablet by mouth at bedtime as needed for Sleep. 30 Tablet 1 08/16/2023 Active documented as of this encounter (statuses as of 10/13/2023) Active Problems Problem Noted Date Diagnosed Date Alcoholic hepatitis without ascites 11/29/2022 Generalized anxiety disorder 11/05/2022 Alcohol abuse 11/05/2022 Plaque psoriasis Insomnia documented as of this encounter (statuses as of 10/13/2023) Immunizations No known immunizationsdocumented as of this encounter Social History Tobacco Use Types Packs/Day Years Used Date Smoking Tobacco: Never Smokeless Tobacco: Never Alcohol Use Standard Drinks/Week Comments No 0 (1 standard drink = 0.6 oz pure alcohol) Pt reports 1 pint of vodka a day for last month PHQ-2 Answer Date Recorded PHQ Adult Total Score 0 07/13/2023 Hunger Vital Sign Answer Date Recorded Within the past 12 months, y ou worried that your food would run out before you got the money to buy more. Never true 07/13/19 24 Within the past 12 months, t he food you bought just didn't last and you didn't have money to get more. Never true 07/13/2023 Childcare Answer Date Recorded Do you feel overwhelmed with taking care of a child, family member or friend? No 07/13/2023 Does your family need help f inding childcare? (Household - for ages 0-17 years) Not on file 07/13/2023 Clothing Answer Date Recorded Have you been unable to get clothing when it was really needed? No 07/13/2023 Is your family able to get c lothes or diapers when needed? (Household - for ages 0-17 years) Not on file 07/13/2023 Personal Safety Answer Date Recorded Do you feel unsafe or have concerns for your saf ety? No 07/13/2023 Do you have concerns for you r family's safety? (Household - for ages 0-17 years) Not on file 07/13/2023 Utilities Answer Date Recorded Do you have trouble paying y our heating, water, or electric bill? No 07/13/2023 Is your family able to pay t he heat, water, or electric bill? (Household - for ages 0-17 years) Not on file 07/13/2023 Does your family have access to good internet? (Household - for ages 0-17 years) Not on file 07/13/2023 Employment Status Answer Date Recorded Are you unemployed or without regular income? No 07/13/2023 Does the household have a [facility] source [facility] income? (Household - for ages 0-17 years) Not on file 07/13/2023 Social Connections Answer Date Recorded How often do you feel lonely or isolated from th ose around you? Never 07/13/2023 Financial Resource Strain Answer Date R ecorded Do you have any trouble payi ng for your medications, or do you think you might in the future? No 07/13/2023 Does your family have troubl e paying for medicine? (Household - for ages 0-17 years) Not on file 07/13/2023 Transportation Needs Answer Date Record ed READ ONLY Do you have troubl e getting a ride to medical visits or work? Never True 07/13/2023 Does your family have a hard time getting a ride to doctors visits? (Household - for ages 0-17 years) Not on file 07/13/2023 Has lack of transportation k ept you from medical appointments, meetings, work, or from getting things needed for daily living? Check all that apply. (Adult - for ages 18 years and over) Not on file 07/13/2023 Do you (or your family) have trouble finding or paying for a ride (transportation)? (Household - for ages 0-17 years) Not on file 07/13/2023 Housing Stability Answer Date Recorded Do you currently live in a s helter or have no steady place to sleep at night? No 07/13/2023 READ ONLY Do you think you a re at risk of becoming homeless? No 07/13/2023 Does your family worry about paying for your home or becoming homeless? (Household - for ages 0-17 years) Not on file 0 07/13/2023 Are you homeless or worried that you might be in the future? (Adult - for ages 18 years and over) Not on file Are you (or your family) brennan eless or worried that you might be in the future? (Household - for ages 0-17 years) Not on file Food Insecurity Answer Date Recorded Do you need food for this week? No 07/13/2023 Are you able to get enough f ood for your family? (Household - for ages 0-17 years) Not on file 07/13/2023 Does your family need food t his week? (Household - for ages 0-17 years) Not on file 07/13/2023 Do you always have enough fo od for your family? (Household - for ages 0-17 years) Not on file 07/13/2023 Sex and Gender Information Value Date Recorded Sex Assigned at Not on file Gender Identity Not on file Sexual Orientation Not on file Job Start Date Occupation Industry Not on file Not on file Not on file documented as of this encounter Miscellaneous Notes * Telephone Encounter - [facility], No Show - 10/13/2023 8:21 AM EDT Dear Owen Kiser, Looks like you missed an appointment with KAMILAH TORRES on 10/10/2023 at 12:40 PM. If you haven't already rescheduled, you have a couple of options: Reschedule in [email or web address] Call us at [phone] Can't make a future appointment? Cancel and let someone else have your spot! It's easy to do via [employer] or by calling us. Thanks for trusting [facility] with your care. We hope to see you back in our office soon. Sincerely, KAMILAH TORRES documented in this encounter Plan of Treatment Upcoming Encounters Date Type Department Care Team (Late st Contact Info) Description 11/24/2023 8:00 AM EDT Office Visit Interventional Pain Center, [facility] [address] [place] [address] August Brooks, DO [address] [place] [address] 11/30/2023 3:20 PM EDT Office Visit Family Practice [facility] [address] [facility] [place] [address] Gee Del Valle, DO [address] [facility] [place] [address] 12/09/2023 9:20 AM EDT Office Visit Hepatology, [facility] [address] [place] [address] Marah Bonner MD [address] [place] [id number] Health Maintenance Due Date Last Done Comments Pneumococcal Vaccine: Pediatrics (0 to 5 Years) and At-Risk Patients (6 to 64 Years) (1 of 2 - PCV) 1968 DTaP,Tdap,and Td Vaccines (1 - Tdap) 1981 Cologuard 12/29/2007 Colonoscopy 12/29/2007 Colorectal Cancer Screening 12/29/2007 Fecal Occult Blood Test 12/29/2007 Sigmoidoscopy 12/29/2007 Zoster Vaccines (1 of 2) 2012 COVID-19 Vaccine (1 - 2022-24 season) 2022 Hepatitis B Vaccine (1 of 3 - Risk 3-dose series) 2022 Influenza Vaccine (FLU shot) (#1) 2023 Depression Screening 07/12/2024 07/13/2023 Diabetes Screening 08/02/2026 08/03/2023, 0 07/07/2023, 07/07/2023, Additional history exists Lipid Panel 11/06/2027 11/05/2022, 11/15/2014 HPV (Gardasil) Vaccine Aged Out No lo nger eligible based on patient's age to complete this topic MENINGOCOCCAL (MENACTRA/MENVEO) Aged Out No longer eligible based on patient's age to complete this topic documented as of this encounter Medical Devices Not on filedocumented as of this encounter Care Teams Bakery Associate Relationship Specialty Start Date End Date Kamilah Torres MD [address] [facility] [place] [address] PCP - General Family Medicine 11/05/22 documented as of this encounter
--- OUTSIDE RECORDS SUMMARY | 2023-10-15 18:24 | External Medical Summary | Summary of Care ---
Author Name Unknown Organization [facility] Address [address] [place] [address] Phone [phone] Care Team Providers Care Featheredger And Reducer Machine Name Role Phone Kamilah Torres MD Primary Care Provider [phone] Reason for Visit * Reason Onset Date Comments Call Back 07/14/2023 Encounter Details Date Type Department Care Team (Late st Contact Info) Description 07/14/2023 Telephone Family Practice [facility] [address] [facility] [place] [address] Kamilah Torres MD [address] [place] [address] Call Back Allergies No known active allergiesdocumented as of this encounter (statuses as of 10/13/2023) Medications Medication Sig Dispensed Refills Start Date End Date Status Vitamin D3 25 MCG (1000 UT) Oral Capsule Take 1 Capsule by mouth once. Active Melatonin 3 MG Oral Tablet Disintegrating Take by mouth. Active hydrOXYzine Pamoate 50 MG Oral Capsule (Vistaril)Indications: Generalized anxiety disorder Take 1 Capsule by mouth 2 times a day as needed for Anxiety. 60 Capsule 5 07/07/2023 Active documented as of this encounter (statuses [...] No 07/13/2023 Does the household have a re gular source of income? (Household - for ages [...] encounter Miscellaneous Notes * Telephone Encounter - Renetta Connor LPN - 07/14/2023 2:53 PM EDT [place], father is calling. He lost Sofy's phone number. She is the case assembler. Would like a callback from her. documented in this encounter Plan of Treatment Upcoming Encounters Date Type Department Care Team (Late st Contact Info) Description 11/24/2023 8:00 AM EDT Office Visit Interventional Pain Center, [facility] [address] [place] [address] [facility] Brooks, DO [address] [facility] [address] 11/30/2023 3:20 PM EDT Office Visit Family Practice [facility] [address] [place] [address] Gee Del Valle DO [address] [facility] [place] [address] 12/09/2023 9:20 AM EDT Office Visit Hepatology, [facility] [address] [place] [address] Marah Bonner MD [address] [place] [id number] Health Maintenance Due Date Last Done Comments Pneumococcal Vaccine: Pediatrics (0 to 5 Years) and At-Risk Patients (6 to 64 Years) (1 of 2 - PCV) 1968 DTaP,Tdap,and Td Vaccines (1 - Tdap) 1981 Cologuard 12/29/2007 Colonoscopy 12/29/2007 Colorectal Cancer Screening 12/29/2007 Fecal Occult Blood Test 12/29/2007 Sigmoidoscopy 12/29/2007 Zoster Vaccines (1 of 2) 2012 COVID-19 Vaccine ( - 2023-24 season) 2022 Hepatitis B Vaccine (1 of [...] filedocumented as of this encounter Care Teams Featheredger And Reducer Machine Relationship Specialty Start Date End Date Kamilah Torres MD [address] [place] [address] PCP - General Family Medicine 11/05/22 documented as of this encounter
--- OUTSIDE RECORDS SUMMARY | 2023-10-15 18:25 | External Medical Summary | Summary of Care ---
Author Name Unknown Organization [facility] Address [address] [place] [address] Phone [phone] Care Team Providers Care Logistics Supply Officer Name Role Phone Kamilah Torres MD Primary Care Provider [phone] Reason for Visit * Reason Onset Date Comments Pre Cert/Prior Auth 09/23/2023 Encounter Details Date Type Department Care Team (Late st Contact Info) Description 09/23/2023 Telephone [facility] [address] [facility] [place] [address] Gee Del Valle, DO [address] [facility] [place] [address] Pre Cert/Prior Auth Allergies No known active allergiesdocumented as of this encounter (statuses as of 09/27/2023) Medications Medication Sig Dispensed Refills Start Date [...] as of this encounter (statuses as of 09/27/2023) Active Problems Problem Noted Date Diagnosed Date Alcoholic hepatitis without ascites 11/29/2022 Generalized anxiety disorder 11/05/2022 Alcohol abuse 11/05/2022 Plaque psoriasis Insomnia documented as of this encounter (statuses as of 09/27/2023) Immunizations No known immunizationsdocumented as of this [...] No 07/13/2023 Does the household have a [place] source of income? (Household - for ages [...] on file Are you (or your family) rbennan eless or worried that you might be [...] encounter Miscellaneous Notes * Telephone Encounter - Taran Mendez MED ASSIST - 09/27/2023 11:30 AM EDT Prior Auth ([facility]) ID: [id number] [facility] [place] family 24 hr turnover time. * Telephone Encounter - Katie Kaye PHARM Tech - 09/27/2023 9:54 AM EDT Pt calling to check on status of pa. Caller can be reached at [phone]. Thanks, Katie Kaye Wall [facility]aper [facility] 09/27/2023,9:54 AM * Telephone Encounter - Gee Del Valle DO - 09/26/2023 9:08 AM EDT Please complete prior auth * Telephone Encounter - Jossy Sanders CPhT - 09/23/2023 11:57 AM EDT Patient calling to inform doctor that the patient's insurance will not pay for this medication without a completed prior authorization. Did not confirm this information with the pharmacy. Out of medication Pt's current insurance information is as follows: Patient name: Owen Kiser ID number: [id number] BIN number: [id number] PCN number: [id number] Group number: [id number] Subscriber name: Owen Kiser Primary or Secondary Insurance:Primary Medication: Clobetasol Propionate Reason for Request: [place] Pharmacy and phone number: [id number] [address] [facility] Rx plan and phone number: na What alternative medications does the pharmacy have in stock?: na Thank you, Jossy Sanders Wall Taper I [facility] documented in this encounter Plan of Treatment Upcoming Encounters Date Type Department Care Team (Late st Contact Info) Description 10/10/2023 12:40 PM EDT Office Visit [facility] [address] [facility] [place] [address] Kamilah Torres MD [address] [facility] [place] [address] 11/30/2023 3:20 PM EDT Office Visit [facility] [address] [facility] [place] [address] Gee Del Valle DO [address] [facility] [place] [address] 12/09/2023 9:20 AM EDT Office Visit Hepatology, [facility] [address] [facility] [place] [address] Marah Bonner MD [address] [place], [place] [address] [address] Health Maintenance Due Date Last Done Comments [...] history exists Lipid Panel 11/06/2027 11/05/2022, 11/15/2014 HIV Screening Completed 11/05/2022 Hepatitis C Screening Completed 08/03/2023 , 11/05/2022, 11/05/2022, Additional history exists HPV (Gardasil) Vaccine Aged Out No lo nger eligible based on patient's age to complete this topic MENINGOCOCCAL (MENACTRA/MENVEO) Aged Out No longer eligible based on patient's age to complete this topic documented as of this encounter Medical Devices Not on filedocumented as of this encounter Care Teams Logistics Supply Officer Relationship Specialty Start Date End Date Kamilah Torres MD [address] [place] [address] PCP - General Family Medicine 11/05/22 documented as of this encounter
--- OUTSIDE RECORDS SUMMARY | 2023-10-15 18:25 | External Medical Summary | Summary of Care ---
Author Name Unknown Organization [facility] Address [address] [place] [address] Phone [phone] Care Team Providers Care Epic Analyst Name Role Phone Kamilah Torres MD Primary Care Provider [phone] Reason for Visit * Reason Onset Date Comments Advice 09/20/2023 Appointment 09/20/2023 Encounter Details Date Type Department Care Team (Late st Contact Info) Description 09/20/2023 Telephone Orthopaedics Spine Surgery, [facility] [address] [place] [address] Services, Scheduling [address] [place] [address] Advice; Appointment Allergies No known active allergiesdocumented as of this encounter (statuses as of 09/22/2023) Medications Medication Sig Dispensed Refills Start Date [...] as of this encounter (statuses as of 09/22/2023) Active Problems Problem Noted Date Diagnosed Date Alcoholic hepatitis without ascites 11/29/2022 Generalized anxiety disorder 11/05/2022 Alcohol abuse 11/05/2022 Plaque psoriasis Insomnia documented as of this encounter (statuses as of 09/22/2023) Immunizations No known immunizationsdocumented as of this [...] encounter Miscellaneous Notes * Telephone Encounter - Deneen Rivera OSA - 09/22/2023 8:40 AM EDT LMOM with updated appointment from a clinic visit to a telephone call. * Telephone Encounter - Niya Mcelroy LPN - 09/20/2023 2:53 PM EDT Patient was called message was left for patient to call the office Patient's appt was changed to Telemed on 09/27/2023 at 8:00 am please advised patient. * Telephone Encounter - Genevieve Valdez OSA - 09/20/2023 1:16 PM EDT Marvin says PAR told him he would get a phone call regarding the MRI results that he did not have to come back to the office. He does not have transportation for appt on 09/26 Please advise documented in this encounter Plan of Treatment Upcoming Encounters Date Type Department Care Team (Late st Contact Info) Description 09/27/2023 8:00 AM EDT Telemedicine Orthopaedics Spine Surgery, [facility] [address] [place] [address] [place] [address] Beny Troy MD [address] [place] [address] 10/10/2023 12:40 PM EDT Office Visit [facility] [address] [facility] [place] [address] Kamilah Torres MD [address] [facility] [place] [address] 12/09/2023 9:20 AM EDT Office Visit Hepatology, [facility] [address] [facility] [place] [address] Marah Bonner MD [address] [place] [address] Health Maintenance Due Date Last Done Comments Pneumococcal Vaccine: Pediatrics (0 to 5 Years) and At-Risk Patients (6 to 64 Years) (1 of 2 - PCV) 1968 DTaP,Tdap,and Td Vaccines (1 - Tdap) 1981 Cologuard 12/29/2007 Colonoscopy 12/29/2007 Colorectal Cancer Screening 12/29/2007 Fecal Occult Blood Test 12/29/2007 Sigmoidoscopy 12/29/2007 Zoster Vaccines (1 of 2) 2012 COVID-19 Vaccine (1 - 2022- season) 2022 Hepatitis B Vaccine (1 of [...] filedocumented as of this encounter Care Teams Epic Analyst Relationship Specialty Start Date End Date Kamilah Torres MD [address] [place] [address] PCP - General Family Medicine 11/05/22 documented as of this encounter
--- OUTSIDE RECORDS SUMMARY | 2023-10-15 18:25 | External Medical Summary | Summary of Care ---
Author Name Unknown Organization [facility] Address [address] [place] [address] Phone [phone] Care Team Providers Care Water Pump Assembler Name Role Phone Kamilah Torres MD Primary Care Provider [phone] Reason for Referral * Evaluate & Treat - Unlimited Visits (Within 10 days (routine)) - Authorized Specialty Diagnoses / Procedures Referred By Contac t Referred To Contact Physical Therapy / Physical Medicine And Rehab Diagnoses Lumbar back pain Beny Troy MD [address] [address] Referral ID Status Reason Start Date Expiration Date Visits Requested Visits Authorized [id number] Authorized Specialty Services Required 08/23/2023 999 999 Question Answer Referral Priority Within 10 days (routine) Where should this appointment be scheduled? Delores Comments Plan: Back core strengthening, stretching, ROM, conditioning, lower extremity strengthening as needed, topicals as needed 2 x a week for 6 weeks Modalities for pain relief * Precert (Within 10 days (routine)) - Pending Review Specialty Diagnoses / Procedures Referred By Contac t Referred To Contact Radiology Diagnoses Compression fracture of lumbar vertebra, unspecified lumbar vertebral level, initial encounter (HCC) Lumbar back pain Osteoporotic compression fracture of vertebra, initial encounter ([facility]) Procedures MRI L SPINE WO CONTRAST Beny Troy MD [address] [place] [address] Referral ID Status Reason Start Date Expiration Date V isits Requested Visits Authorized [id number] Pending Review 08/23/2023 999 999 Encounter Details Date Type Department Care Team (Late st Contact Info) Description 08/23/2023 1:30 PM EDT Office Visit Orthopaedics Spine Surgery, [facility] [address] [place] [address] [place] [address] Beny Troy MD [address] [place] [address] Lumbar back pain*; Compression fracture of lumbar vertebra, unspecified lumbar vertebral level, initial encounter (HCC); Osteoporotic compression fracture of vertebra, initial encounter (HCC) Allergies No known active allergiesdocumented as of this encounter (statuses as of 09/02/2023) Medications Medication Sig Dispensed Refills Start Date [...] as of this encounter (statuses as of 09/02/2023) Active Problems Problem Noted Date Diagnosed Date Alcoholic hepatitis without ascites 11/29/2022 Generalized anxiety disorder 11/05/2022 Alcohol abuse 11/05/2022 Plaque psoriasis Insomnia documented as of this encounter (statuses as of 09/02/2023) Immunizations No known immunizationsdocumented as of this [...] on file documented as of this encounter Progress Notes * Beny Troy MD - 08/23/2023 1:44 PM EDT Date of service: 08/23/2023 CHIEF COMPLAINT: Owen Kiser is a 62 year old male presents with complaints/concerns of persistent back pain in relation to multiple falls over the last few months. Patient [facility] by [facility] as well as by his primary care and was diagnosed to have a L1 compression fracture. He continues to have back pain and was referred to us for evaluation of the same. Patient denies any acute progressive neurological deficit, bowel bladder disturbances or constitutional symptoms New Referring physician: compression fracture of body of L1 vertebr 11/09/2022 Seen At [facility] ED HPI: Back - If both what is severe: Which side extremity: none Injury and date:11/09/2022 Onset, progress and duration: form fall Balance problems: none Bladder or bowel disturbances:none Hand dominance for cervical and hand function:right Workman compensation/ Litigation/ Lead Producer: Spine investigations done and date: Xray:08/03/2023 Mild L1 superior endplate compression fracture, age indeterminate. MRI: CT scan: EMG/ NCV: Spine treatment so far: Medications: Physical therapy within last year:none Chiropractor therapy:none Brace use:none Pain management and Spinal epidural injections:none Spine surgery - Surgeon and year:none Significant Medical history: If diabetic HbA1c:none On blood thinners:none Osteoporosis screening:none Tobacco/ Illicit drug use:none Work profile photography Allergies: Patient has no known allergies. The past medical, surgical, medication, family and social history was reviewed and is documented elsewhere in the chart. ROS: Negative except as outlined in HPI Vitals: There were no vitals taken for this visit. There is no height or weight on file to calculate BMI. Physical Exam: General: alert, healthy and no distress. The general appearance appears normal. Cardiovascular system: Vascularity grossly preserved Spine evaluation Cervical, thoracic and lumbar spine: No paraspinal swelling. No deformity. Mild tenderness in the lumbar spine. Neurological examination: Motor power upper extremities - Bilateral shoulder abductors, elbow flexors, triceps, wrist flexorsand extensors and intrinsic muscles of the hand is 5/5. Motor power lower extremities - Bilateral hip flexors, knee extensors, ankle dorsiflexors, plantar flexors, EHL/EDL, FHL/FDL is 5/5. The deep tendon reflexes - Bilateral Biceps, triceps, brachioradialis, Patellar tendon, Achilles tendon are 2+ Sensation are grossly preserved bilaterally in upper extremities. Sensation are grossly preserved bilaterally in the lower extremities. Radiological imaging: I independently reviewed the relevant radiological imaging including x-rays ordered at this visit and discussed it with the patient X-rays of the thoraco-lumbar spine show presence of age indeterminate L1 compression fracture. The fractures continues to be unchanged since the x-rays from 08/02/2023. There is anterolisthesis of L4-5. Assessment & Plan: Pt is a 62 year old male here for the following problems/concerns: Lumbar compression fracture Osteoporotic compression fracture Lumbar back pain Degenerative spondylolisthesis We discussed the diagnosis, the natural history and the treatment options. Based on the findings various treatment options including the risks, benefits and alternatives were discussed. Patient is neurologically stable but is symptomatic in relation to his back and possibly the L1 compression fracture. MRI of the lumbar spine will be beneficial in evaluating the cause of his symptoms and the fracturehealing. Patient was given a back brace for stabilization and support and the brace was applied under my supervision. Physical therapy was ordered and can be done as tolerated. Additional recommendations: Activity modification as tolerated Pain medications as per the primary care. If the patient has persistence or worsening of symptoms additional investigations will be recommended. Warning signs have been discussed. Follow up: 3-4 weeks . Reach out earlier if any neurological worsening. The patient expressed understanding and agreement to the plan. Complexity of decision making: High I spent 45 minutes on 08/23/2023 in preparation, delivery and documentation of the care provided to the patient, excluding any time spent on the performance of the procedure are separately billable service. Beny Troy MD This chart was completed in part utilizing [employer] Speech Voice Recognition Software. Grammatical errors, random word insertions, prounoun errors and incomplete sentences are an occasional consequence of this system due to software limitations, ambient noise, and hardware issues. Any formal questions or concerns about the content, text, or information contained within the body of this dictation should be directly addressed to the provider for clarification. documented in this encounter Nursing Notes * Niya Mcelroy LPN - 08/23/2023 1:25 PM EDT New Referring physician: compression fracture of body of L1 vertebr 11/09/2022 Seen At [facility] ED HPI: Back - If both what is severe: Which side extremity: none Injury and date:11/09/2022 Onset, progress and duration: form fall Balance problems: none Bladder or bowel disturbances:none Hand dominance for cervical and hand function:right Workman compensation/ Litigation/ Lead Producer: Spine investigations done and date: Xray:08/03/2023 Mild L1 superior endplate compression fracture, age indeterminate. MRI: CT scan: EMG/ NCV: Spine treatment so far: Medications: Physical therapy within last year:none Chiropractor therapy:none Brace use:none Pain management and Spinal epidural injections:none Spine surgery - Surgeon and year:none Significant Medical history: If diabetic HbA1c:none On blood thinners:none Osteoporosis screening:none Tobacco/ Illicit drug use:none Work profile photography documented in this encounter Miscellaneous Notes * Addendum Note - Varinder Collins CMA - 09/02/2023 2:57 PM EDTAddended by: VARINDER COLLINS on: 09/02/2023 02:57 PM Modules accepted: Orders documented in this encounter Plan of Treatment Upcoming Encounters Date Type Department Care Team (Late st Contact Info) Description 09/15/2023 2:15 PM EDT Imaging Radiology [address] [facility] [place] [address] 09/27/2023 8:00 AM EDT Office Visit Orthopaedics Spine Surgery, [facility] [address] [place] [address] [place] [address] Beny Troy MD [address] [place] [address] 10/10/2023 12:40 PM EDT Office Visit Family Practice [facility] [address] [facility] [place] [address] Kamilah Torres MD [address] [facility] [place] [address] 12/09/2023 9:20 AM EDT Office Visit Hepatology, [facility] [address] [facility] [place] [address] Marah Bonner MD [address] [place] [address] Scheduled Orders Name Type Priority Associated Diagnoses Orde r Schedule MRI L SPINE WO CONTRAST Medical Imaging Routine Compression fracture of lumbar vertebra, unspecified lumbar vertebral level, initial encounter (HCC) Lumbar back pain Osteoporotic compression fracture of vertebra, initial encounter (HCC) Expected: 08/23/2023, Expires: 09/21/2024 Scheduled Referrals Name Type Priority Associated Diagnoses Orde r Schedule PHYSICAL THERAPY REFERRAL OP Referral Within 10 days (routine) Lumbar back pain Ordered: 08/23/2023 Health Maintenance Due Date Last Done Comments Pneumococcal Vaccine: Pediatrics (0 to 5 Years) and At-Risk Patients (6 to 64 Years) (1 of 2 - PCV) 1968 DTaP,Tdap,and Td Vaccines (1 - Tdap) 1981 Cologuard 12/29/2007 Colonoscopy 12/29/2007 Colorectal Cancer Screening 12/29/2007 Fecal Occult Blood Test 12/29/2007 Sigmoidoscopy 12/29/2007 Zoster Vaccines (1 of 2) 2012 COVID-19 Vaccine (1 - season) 2022 Hepatitis B Vaccine (1 of [...] Not on filedocumented as of this encounter Procedures Procedure Name Priority Date/Time Associated Diagnosis Comments XR THORACOLUMBAR SPINE MIN 2 VIEWS Routine 08/23/2023 2:11 PM EDT Compression fracture of lumbar vertebra, unspecified lumbar vertebral level, initial encounter (HCC) Lumbar back pain documented in this encounter Results * XR THORACOLUMBAR SPINE MIN 2 VIEWS (08/23/2023 2:11 PM EDT) Anatomical Region Laterality Modality Vertebra, Spine, Tspine, Lspine Digital Radiography 08/30/2023 8:59 AM EDT Impressions 08/30/2023 8:56 AM EDT IMPRESSION 1. Unchanged L1 compression deformity. 2. Degenerative findings as above. Narrative 08/30/2023 8:56 AM EDT EXAM XR THORACOLUMBAR SPINE MIN 2 VIEWS- 08/23/2023 2:11 pm HISTORY Provided clinical history: "L1 compression fracture" TECHNIQUE AP and lateral views of the thoracolumbar spine were obtained. COMPARISON Lumbar spine radiographs dated August 03, 2023. FINDINGS Unchanged L1 compression deformity. Mild retrolisthesis of L1 on L2, L2 on L3, and L3 on L4. Mild grade 1 anterolisthesis of L4 on L5. Multilevel intervertebral disc degeneration, moderate near the thoracolumbar junction. Multilevel facet osteoarthritis, greatest near the lumbosacral junction. Procedure Note Sarbjit, Graeme Riley MD - 08/30/2023 EXAM XR THORACOLUMBAR SPINE MIN 2 VIEWS- 08/23/2023 2:11 pm HISTORY Provided clinical history: "L1 compression fracture" TECHNIQUE AP and lateral views of the thoracolumbar spine were obtained. COMPARISON Lumbar spine radiographs dated August 03, 2023. FINDINGS Unchanged L1 compression deformity. Mild retrolisthesis of L1 on L2, L2on L3, and L3 on L4. Mild grade 1 anterolisthesis of L4 on L5. Multilevelintervertebral disc degeneration, moderate near the thoracolumbarjunction. Multilevel facet osteoarthritis, greatest near the lumbosacraljunction. IMPRESSION IMPRESSION 1. Unchanged L1 compression deformity. 2. Degenerative findings as above. Beny Troy MD RADIOLOGY ([facility]) documented in this encounter Visit Diagnoses Diagnosis Lumbar back pain- Primary Lumbago Compression fracture of lumbar vertebra, unspecified lumbar vertebral level, initial encounter (HCC) Osteoporotic compression fracture of vertebra, initial encounter (HCC) documented in this encounter Care Teams Water Pump Assembler Relationship Specialty Start Date End Date Kamilah Torres MD [address] [place] [address] PCP - General Family Medicine 11/05/22 documented as of this encounter
--- OUTSIDE RECORDS SUMMARY | 2023-10-15 18:25 | External Medical Summary | Summary of Care ---
Author Name Unknown Organization [facility] Address [address] [place] [address] Phone [phone] Care Team Providers Care Ski Patrol Name Role Phone Kamilah Torres MD Primary Care Provider [phone] Reason for Visit * Reason Onset Date Comments Physical Therapy 09/27/2023 Encounter Details Date Type Department Care Team (Late st Contact Info) Description 09/27/2023 Telephone Orthopaedics Spine Surgery, [employer] Shirley Hernández [address] [place] [address] Beny Troy MD [address] [place] [id number] Physical Therapy Allergies No known active allergiesdocumented as of [...] No 07/13/2023 Does the household have a [facility] [facility] source of income? (Household - for ages [...] encounter Miscellaneous Notes * Telephone Encounter - Ivette Becker OSA - 09/27/2023 10:22 AM EDT Called and left a message to see where patient wants to go to PT. Patient is going to call back to let us know. Our office also gave patient the phone number to our office and to pain management. documented in this encounter Plan of Treatment Upcoming Encounters Date Type Department Care Team (Late st Contact Info) Description 10/10/2023 12:40 PM EDT Office Visit [facility] [address] [place] [address] [address] Kamilah Torres MD [address] [place] [address] [address] 11/30/2023 3:20 PM EDT Office Visit [facility] [place] [address] [place] [address] Gee Del Valle DO [address] [place] [address] 12/09/2023 9:20 AM EDT Office Visit Hepatology, [facility] [address] [place] [address] Marah Bonner MD [address] [place] [address] Health Maintenance Due Date Last Done Comments [...] filedocumented as of this encounter Care Teams Ski Patrol Relationship Specialty Start Date End Date Kamilah Torres MD [address] [place] [address] PCP - General Family Medicine 11/05/22 documented as of this encounter
--- OUTSIDE RECORDS SUMMARY | 2023-10-15 18:25 | External Medical Summary | Summary of Care ---
Author Name Unknown Organization [facility] Address [address] [place] [address] Phone [phone] Care Team Providers Care Youth Care Worker Name Role Phone Kamilah Torres MD Primary Care Provider [phone] Reason for Visit * Reason Onset Date Comments Appointment 08/18/2023 Closed compressi on fracture of body of L1 vertebra (HCC) [S32.010A] Encounter Details Date Type Department Care Team (Late st Contact Info) Description 08/18/2023 Telephone Access Center, [place] [address] [facility] *DO NOT REMOVE THIS DEPARTMENT* [place] [address] Services, Scheduling [address] [place] [address] Appointment (Closed compression fracture o... Allergies No known active allergiesdocumented as of this encounter (statuses as of 08/18/2023) Medications Medication Sig Dispensed Refills Start Date End Date Status Vitamin D3 25 MCG (1000 UT) Oral Capsule Take 1 Capsule by mouth once. Active Melatonin 3 MG Oral Tablet Disintegrating Take by mouth. Active hydrOXYzine Pamoate 50 MG Oral Capsule (Vistaril)Indications :Generalized anxiety disorder Take 1 Capsule by mouth 2 times a day as needed for Anxiety. 60 Capsule 5 07/07/2023 Active Furosemide 40 MG Oral Tablet (Lasix) Take 1 Tablet by mouth daily as needed for Other (edema). 30 Tablet 5 08/03/2023 Active Triamcinolone Acetonide 0.1 % External Cream (Aristocort)Indicatio ns:Plaque psoriasis Apply to psoriasis on the arms, legs, chest, and back twice daily 450 g 1 08/03/2023 Active DULoxetine HCl 20 MG Oral Capsule Delayed Release Particles (duloxetine)Indicatio ns:Chronic midline low back pain without sciatica,Generalized anxiety disorder Take 1 Capsule by mouth in the morning. Do not cut, crush or chew. 30 Capsule 5 08/03/2023 Active Clobetasol Propionate 0.05 % External Gel (Temovate) Apply topically to affected area 2 times a day. Apply to scalp 60 g 5 08/05/2023 Active traZODone HCl 50 MG Oral Tablet (Desyrel)Indications: Alcohol-induced insomnia (HCC) Take 1 Tablet by mouth at bedtime as needed for Sleep. 30 Tablet 1 08/16/2023 Active documented as of this encounter (statuses as of 08/18/2023) Active Problems Problem Noted Date Diagnosed Date Alcoholic hepatitis without ascites 11/29/2022 Generalized anxiety disorder 11/05/2022 Alcohol abuse 11/05/2022 Plaque psoriasis Insomnia documented as of this encounter (statuses as of 08/18/2023) Immunizations No known immunizationsdocumented as of this [...] 07/13/2023 Does the household have a re lar source of income? (Household - for ages [...] encounter Miscellaneous Notes * Telephone Encounter - Starla Morales OSA - 08/18/2023 11:37 AM EDT Patient is calling back and would like the 1:30 slot now if it is still available? Please advise Thank you, EDEN Luna * Telephone Encounter - Ivette Becker OSA - 08/18/2023 10:54 AM EDT Patient is scheduled. * Telephone Encounter - Ivette Becker OSA - 08/18/2023 9:54 AM EDT Images from the original note were not included. Beny Troy MD Robinson, Sarah, MED ASSIST; iNya Mcelroy LPN1 hour ago (8:32 AM) Good morning. We can see her on Tuesday08/23/2023 either at 12 noon or 1:30 p.m. at [place]. A in-person visit will be ideal but if the patient is not able to travel, a telephonic visit to at least start the management. Unfortunately the [facility] would schedule is already over booked at present. Thank you Called and left a message for patient if he could come for an appt on 08/22 at 12 Noon or 1:30 pm. * Telephone Encounter - Julianne Machado OSA - 08/18/2023 8:09 AM EDT Pt has a referral for Closed compression fracture of body of L1 vertebra (HCC) [S32.010A] Per his PCP x-ray does show the continued presence of the compression fracture in your back but that it is minor. If your pain is persisting we could send you to spnal surgery to consider kyphoplasty Pt is asking for the [facility] due to transportation. I didn't see any appointments until months out. Imaging in epic. No history of surgery. Pt states he has fallen a couple of times. Last one in the fall. Pt can't walk well. documented in this encounter Plan of Treatment Upcoming Encounters Date Type Department Care Team (Late st Contact Info) Description 08/23/2023 12:00 PM EDT Office Visit Orthopaedics Spine Surgery, [facility] [place] [address] [place] [address] Beny Troy MD [address] [place] [address] 10/10/2023 12:40 PM EDT Office Visit [facility] Gabriel [place] [address] [facility] [place] [address] Kamilah Torres MD [address] [facility] [place] [address] 12/09/2023 9:20 AM EDT Office Visit Hepatology, [facility] [address] [place] [address] Marah Bonner MD [address] [place] [address] Health Maintenance Due Date Last Done Comments Pneumococcal Vaccine: Pediatrics (0 to 5 Years) and At-Risk Patients (6 to 64 Years) (1 of 2 - PCV) 1968 DTaP,Tdap,and Td Vaccines (1 - Tdap) 1981 Cologuard 12/29/2007 Colonoscopy 12/29/2007 Colorectal Cancer Screening 12/29/2007 Fecal Occult Blood Test 12/29/2007 Sigmoidoscopy 12/29/2007 Zoster Vaccines (1 of 2) 2012 COVID-19 Vaccine (1 - season) 2022 Hepatitis B (1 of 3 - Risk 3-dose series) 2022 Influenza Vaccine (FLU shot) (Season Ended) 2023 Depression Screening 07/12/2024 07/13/2023 Diabetes Screening 08/02/2026 08/03/2023, 0 07/07/2023, 07/07/2023, Additional history exists Lipid Panel 11/06/2027 11/05/2022, 11/15/2014 GARDASIL-HPV IMMUNIZATION SERIES Aged Out No longer eligible based on patient's age to complete this topic MENINGOCOCCAL (MENACTRA/MENVEO) Aged Out No longer eligible based on patient's age to complete this topic documented as of this encounter Medical Devices Not on filedocumented as of this encounter Care Teams Youth Care Worker Relationship Specialty Start Date End Date Kamilah Torres MD [address] [facility] [place] [address] PCP - General Family Medicine 11/05/22 documented as of this encounter
--- OUTSIDE RECORDS SUMMARY | 2023-10-15 18:25 | External Medical Summary | Summary of Care ---
Author Name Unknown Organization [facility] Address [address] [place] [address] Phone [phone] Care Team Providers Care Nozzle Worker Name Role Phone Kamilah Torres MD Primary Care Provider [phone] Reason for Referral * Evaluate & Treat - Unlimited Visits (Within 10 days (routine)) - Authorized Specialty Diagnoses / Procedures Referred By Contac t Referred To Contact Physical Therapy / Physical Medicine And Rehab Diagnoses Lumbar back pain Beny Troy MD [address] [place] [address] Referral ID Status Reason Start Date Expiration Date Visits Requested Visits Authorized [id number] Authorized Specialty Services Required 08/23/2023 999 999 [...] Osteoporotic compression fracture of vertebra, initial encounter ([facility]) Procedures MRI L SPINE WO CONTRAST Beny Troy MD [address] [place] [address] Referral ID Status Reason Start Date Expiration Date V isits Requested Visits Authorized [id number] Pending Review 08/23/2023 999 999 Encounter Details Date Type Department Care Team (Late st Contact Info) Description 08/23/2023 1:30 PM EDT Office Visit Orthopaedics Spine Surgery, [place] Nino [address] [place] [address] Beny Troy MD [address] [place] [address] Lumbar back pain*; Compression fracture of lumbar vertebra, unspecified lumbar vertebral level, initial encounter (HCC); Osteoporotic compression fracture of vertebra, initial encounter (HCC) Allergies No known active allergiesdocumented as of this encounter (statuses as of 08/23/2023) Medications Medication Sig Dispensed Refills Start Date End Date Status Vitamin D3 25 MCG (1000 UT) Oral Capsule Take 1 Capsule by mouth once. Active Melatonin 3 MG Oral Tablet Disintegrating Take by mouth. Active hydrOXYzine Pamoate 50 MG Oral Capsule (Vistaril)Indication s:Generalized anxiety disorder Take 1 Capsule by mouth 2 times a day as needed for Anxiety. 60 Capsule 07/07/2023 Active Furosemide 40 MG Oral Tablet [...] as of this encounter (statuses as of 08/23/2023) Active Problems Problem Noted Date Diagnosed Date Alcoholic hepatitis without ascites 11/29/2022 Generalized anxiety disorder 11/05/2022 Alcohol abuse 11/05/2022 Plaque psoriasis Insomnia documented as of this encounter (statuses as of 08/23/2023) Immunizations No known immunizationsdocumented as of this [...] seen by for thisin the ED at [facility] as well as by his primary care and was diagnosed to have a L1 compression fracture. He continues to have back pain and was referred to us for evaluation of the same. Patient denies any acute progressive neurological deficit, bowel bladder disturbances or constitutional symptoms New Referring physician: compression fracture of body of L1 vertebr 11/09/2022 Seen At [facility] ED HPI: Back - If both what is severe: Which side extremity: none Injury and date:11/09/2022 Onset, progress and duration: form fall Balance problems: none Bladder or bowel disturbances:none Hand dominance for cervical and hand function:right Workman compensation/ Litigation/ Heavy Repairer: Spine investigations done and date: Xray:08/03/2023 Mild [...] This chart was completed in part utilizing [employer] Speech Voice Recognition Software. Grammatical errors, random [...] body of L1 vertebr 11/09/2022 Seen At [facility] ED HPI: Back - If both what is severe: Which side extremity: none Injury and date:11/09/2022 Onset, progress and duration: form fall Balance problems: none Bladder or bowel disturbances:none Hand dominance for cervical and hand function:right Workman compensation/ Litigation/ Heavy Repairer: Spine investigations done and date: Xray:08/03/2023 Mild [...] Work profile photography documented in this encounter Plan of Treatment Upcoming Encounters Date Type Department Care Team (Late st Contact Info) Description 09/15/2023 2:15 PM EDT Imaging Radiology [address], [address] [place] [address] 10/10/2023 12:40 PM EDT Office Visit Family Practice [facility] Radha [place] [address] [facility] [place] [address] Kamilah Torres MD 200 [facility] [place] [address] 12/09/2023 9:20 AM EDT Office Visit Hepatology, [facility] 132 [facility] [place] [address] Marah Bonner MD [address] [place] [address] Pending Results Name Type Priority Associated Diagnoses Date /Time XR THORACOLUMBAR SPINE MIN 2 VIEWS Medical Imaging Routine Compression fracture of lumbar vertebra, unspecified lumbar vertebral level, initial encounter (HCC) Lumbar back pain 08/23/2023 2:11 PM EDT Scheduled Orders Name Type Priority Associated Diagnoses [...] (1 - 2022- season) 2022 Hepatitis B (1 of 3 [...] Not on filedocumented as of this encounter Visit Diagnoses Diagnosis Lumbar back pain- Primary Lumbago Compression fracture of lumbar vertebra, unspecified lumbar vertebral level, initial encounter (HCC) Osteoporotic compression fracture of vertebra, initial encounter (HCC) documented in this encounter Care Teams Nozzle Worker Relationship Specialty Start Date End Date Kamilah Torres MD [address] [place] [address] PCP - General Family Medicine 11/05/22 documented as of this encounter
--- OUTSIDE RECORDS SUMMARY | 2023-10-15 18:25 | External Medical Summary | Summary of Care ---
Author Name Unknown Organization [facility] Address [address] [place] [address] Phone [phone] Care Team Providers Care Project Development Manager Name Role Phone Kamilah Torres MD Primary Care Provider [phone] Reason for Visit * Reason Onset Date Comments Pre Cert/Prior Auth 09/23/2023 Encounter Details Date Type Department Care Team (Late st Contact Info) Description 09/23/2023 Telephone [facility] 200 [facility] [place] [address] Gee Del Valle, DO [address] [facility] [place] [address] Pre Cert/Prior Auth Allergies No known active [...] No 07/13/2023 Does the household have a [facility] source of income? (Household - for ages [...] encounter Miscellaneous Notes * Telephone Encounter - Katie Kaye PHARM Tech - 09/27/2023 9:54 AM EDT Pt calling to check on status of pa. Caller can be reached at [phone]. ThanksKatie Stock Shaper [facility] 09/27/2023,9:54 AM [...] follows: Patient name: Owen Kiser ID number: [id number] BIN number: [id number] PCN number: [id number] Group number: [id number] Subscriber name: Owen Kiser Primary or Secondary Insurance:Primary Medication: Clobetasol Propionate Reason for Request: [place] Pharmacy and phone number: [id number] [address] [facility] Rx plan and phone number: na What alternative medications does the pharmacy have in stock?: na Thank you, Jossy Sanders Stock Shaper I [facility] documented in this encounter Plan of Treatment Upcoming Encounters Date Type Department Care Team (Late st Contact Info) Description 10/10/2023 12:40 PM EDT Office Visit [facility] [address] [facility] [place] [address] Kamilah Torres MD 200 [place] [address] 11/30/2023 3:20 PM EDT Office Visit [facility] 200 [facility] [place] [address] Gee Del Valle DO 200 [place] [address] 12/09/2023 9:20 AM EDT Office Visit Hepatology, [facility] 132 [facility] [place] [address] Marah Bonner MD 310 [facility] [place] [phone] Health Maintenance Due Date Last Done Comments [...] filedocumented as of this encounter Care Teams Project Development Manager Relationship Specialty Start Date End Date Kamilah Torres MD 200 [facility] [place] [address] PCP - General Family Medicine 11/05/22 documented as of this encounter
--- OUTSIDE RECORDS SUMMARY | 2023-10-15 18:25 | External Medical Summary | Summary of Care ---
Author Name Unknown Organization [facility] Address [address] [place] [address] Phone [phone] Care Team Providers Care Measurer Name Role Phone Kamilah Torres MD Primary Care Provider [phone] Reason for Visit * Reason Onset Date Comments Appointment 08/18/2023 Closed compressi on fracture of body of L1 vertebra (HCC) [S32.010A] Encounter Details Date Type Department Care Team (Late st Contact Info) Description 08/18/2023 Telephone Access Center, [place] [address] [facility] *DO NOT REMOVE THIS DEPARTMENT* [place] [address] Services, Scheduling [address] [place] [address] Appointment (Closed compression fracture o... Allergies No [...] Encounter - Ivette Becker OSA - 08/18/2023 11:55 AM EDT Patient was moved to 1:30 at 08/22 * Telephone Encounter - Starla Morales OSA [...] Beny Troy MD Robinson, Sarah, MED ASSIST; Niya Mcelroy, LPN1 hour ago (8:32 AM) Good morning. We can see her on Tuesday08/23/2023 either at 12 noon or 1:30 p.m. at [place]. A in-person visit will be ideal but if the patient is not able to travel, a telephonic visit to at least start the management. Unfortunately the [facility] would schedule is already over booked at [...] Nino [address] [place] [address] Beny Troy MD [address] [place] [address] 10/10/2023 12:40 PM EDT Office Visit Family Practice [facility] [place]ha [place] [address] [place] [address] Kamilah Torres MD [address] [place] [address] [address] 12/09/2023 9:20 AM EDT Office Visit [facility] [address] [facility] [place] [address] Marah Bonner MD [address] [place] [phone] Health Maintenance Due Date Last Done Comments [...] filedocumented as of this encounter Care Teams Measurer Relationship Specialty Start Date End Date Kamilah Torres MD [address] [place] [address] PCP - General Family Medicine 11/05/22 documented as of this encounter
--- OUTSIDE RECORDS SUMMARY | 2023-10-15 18:25 | External Medical Summary | Summary of Care ---
Author Name Unknown Organization [facility] Address [address] [place] [address] Phone [phone] Care Team Providers Care J2Ee Engineer Name Role Phone Kamilah Torres MD Primary Care Provider [phone] Reason for Visit * Reason Onset Date Comments Appointment 08/18/2023 Closed compressi on fracture of body of L1 vertebra (HCC) [S32.010A] Encounter Details Date Type Department Care Team (Late st Contact Info) Description 08/18/2023 Telephone Access Center, [place] [address] [facility] *DO NOT REMOVE THIS DEPARTMENT* [place] [address] Services, Scheduling [address] [place] [address] Appointment (Closed compression fracture o... Allergies No [...] at 12 noon or 1:30 p.m. at [place]. A in-person visit will be ideal but if the patient is not able to travel, a telephonic visit to at least start the management. Unfortunately the [facility] schedule is already over booked at present. [...] consider kyphoplasty Pt is asking for the [facility] due to transportation. I didn't see any [...] [address] [place] [address] Beny Troy MD [address] [place] [address] 10/10/2023 12:40 PM EDT Office Visit [facility] [place] [address] Kamilah Torres MD [address] [place] [address] 12/09/2023 9:20 AM EDT Office Visit Hepatology, [facility] 132 [facility] [place] [address] Marah Bonner MD [address] [place] [address] Health Maintenance Due Date Last Done Comments [...] filedocumented as of this encounter Care Teams J2Ee Engineer Relationship Specialty Start Date End Date Kamilah Torres MD [address] [facility] [place] [address] PCP - General Family Medicine 11/05/22 documented as of this encounter
--- OUTSIDE RECORDS SUMMARY | 2023-10-15 18:25 | External Medical Summary | Summary of Care ---
Author Name Unknown Organization [facility] Address [address] [place] [address] Phone [phone] Care Team Providers Care Respiratory Medicine Physician Name Role Phone Kamilah Torres MD Primary Care Provider [phone] Encounter Details Date Type Department Care Team (Latest Contact Info) Description 08/23/2023 1:53 PM EDT - 08/23/2023 11:59 PM EDT [facility] [address] [place], [place] [phone] Arrived Discharge Disposition: Home - Self Care Allergies No known active allergiesdocumented as of this encounter (statuses as of 08/24/2023) Medications Medication Sig Dispensed Refills Start Date [...] as of this encounter (statuses as of 08/24/2023) Active Problems Problem Noted Date Diagnosed Date Alcoholic hepatitis without ascites 11/29/2022 Generalized anxiety disorder 11/05/2022 Alcohol abuse 11/05/2022 Plaque psoriasis Insomnia documented as of this encounter (statuses as of 08/24/2023) Immunizations No known immunizationsdocumented as of this [...] on file documented as of this encounter Plan of Treatment Upcoming Encounters Date Type Department Care Team (Late st Contact Info) Description 09/15/2023 2:15 PM EDT Imaging Radiology [address] 132 [facility] [place] [address] 09/27/2023 8:00 AM EDT Office Visit Orthopaedics Spine Surgery, [place] Nino [address] [place] [address] Beny Troy MD [address] [place] [address] 10/10/2023 12:40 PM EDT Office Visit Family Practice [facility] [place] [address] [place] [address] Kamilah Torres MD [address] [place] [place] [address] 12/09/2023 9:20 AM EDT Office Visit Hepatology, [facility] [address] [place] [address] Marah Bonner MD [address] [place] [address] Pending Results Name Type Priority Associated Diagnoses Date /Time XR THORACOLUMBAR SPINE MIN 2 VIEWS Medical Imaging Routine Compression fracture of lumbar vertebra, unspecified lumbar vertebral level, initial encounter (HCC) Lumbar back pain 08/23/2023 2:11 PM EDT Health Maintenance Due Date Last Done Comments [...] filedocumented as of this encounter Care Teams Respiratory Medicine Physician Relationship Specialty Start Date End Date Kamilah Torres MD [address] [place] [address] PCP - General Family Medicine 11/05/22 documented as of this encounter
--- OUTSIDE RECORDS SUMMARY | 2023-10-15 18:25 | External Medical Summary | Summary of Care ---
Author Name Unknown Organization [facility] Address [address] [place] [address] Phone [phone] Care Team Providers Care Financial Director Name Role Phone Kamilah Torres MD Primary Care Provider [phone] Reason for Visit * Reason Onset Date Comments Appointment 08/18/2023 Closed compressi on fracture of body of L1 vertebra (HCC) [S32.010A] Encounter Details Date Type Department Care Team (Late st Contact Info) Description 08/18/2023 Telephone Access Center, [place] [address] [facility] *DO NOT REMOVE THIS DEPARTMENT* [place] [address] Services, Scheduling [address] [place] [address] Appointment (Closed compression fracture o... Allergies No [...] Troy MD Robinson, Sarah, MED ASSIST; Niya Mcelroy LPN1 hour ago (8:32 AM) Good morning. We can see her on Tuesday08/23/2023 either at 12 noon or 1:30 p.m. at [place]. A in-person visit will be ideal but [...] [address] [place] [address] Beny Troy MD [address] [place] [address] 10/10/2023 12:40 PM EDT Office Visit [facility] [place] 200 [facility] [place] [address] Kamilah Torres MD 200 [facility] [place] [address] 12/09/2023 9:20 AM EDT Office Visit Hepatology, [facility] [address] [place] [address] Marah Bonner MD [address] [place] [address] Health Maintenance Due Date Last Done Comments [...] filedocumented as of this encounter Care Teams Financial Director Relationship Specialty Start Date End Date Kamilah Torres MD 200 [facility] [place] [address] PCP - General Family Medicine 11/05/22 documented as of this encounter
--- OUTSIDE RECORDS SUMMARY | 2023-10-15 18:25 | External Medical Summary | Summary of Care ---
Author Name Unknown Organization [facility] Address [address] [place] [address] Phone [phone] Care Team Providers Care Planner Chief Name Role Phone Kamilah Torres MD Primary Care Provider [phone] Reason for Visit * Reason Onset Date Comments Appointment 09/14/2023 Encounter Details Date Type Department Care Team (Late st Contact Info) Description 09/14/2023 Telephone Radiology [address], [place] 132 [facility] [place] [address] Myesha Pascual, RT (M) Appointment Allergies No known active allergiesdocumented as of this encounter (statuses as of 09/14/2023) Medications Medication Sig Dispensed Refills Start Date [...] as of this encounter (statuses as of 09/14/2023) Active Problems Problem Noted Date Diagnosed Date Alcoholic hepatitis without ascites 11/29/2022 Generalized anxiety disorder 11/05/2022 Alcohol abuse 11/05/2022 Plaque psoriasis Insomnia documented as of this encounter (statuses as of 09/14/2023) Immunizations No known immunizationsdocumented as of this [...] encounter Miscellaneous Notes * Telephone Encounter - Myesha Pascual RT (M) - 09/14/2023 4:26 PM EDT If you answer "yes" to any of the following, please give us a call at before coming to your MRI appointment: Do you have a pacemaker/defibrillator? Do you have any electronic or mechanical implants? Have you had a recent colonoscopy in the last 30 days? Are you or ? Do you work around metal or ever gotten metal in your eyes? Any dermals or body piercing you cannot remove? Do you wear an insulin pump or diabetic monitor? Have you had any tattoos or permanent makeup in the last 4 weeks? LM to arrive at 1:45 PM on 09/15/23 documented in this encounter Plan of Treatment Upcoming Encounters Date Type Department Care Team (Late st Contact Info) Description 09/15/2023 2:15 PM EDT Imaging Radiology [address] 132 [place] [address] 09/27/2023 8:00 AM EDT Office Visit Orthopaedics Spine Surgery, Shirley Nino [address] [place] [address] [place] [address] Beny Troy MD [address] [place] [address] 10/10/2023 12:40 PM EDT Office Visit Family Practice [facility] 200 [place] [address] Kamilah Torres MD 200 [facility] [place] [address] 12/09/2023 9:20 AM EDT Office Visit Hepatology, [facility] 132 [facility] [place] [address] Marah Bonner MD [address] [place] [address] Health Maintenance Due Date Last Done Comments [...] filedocumented as of this encounter Care Teams Planner Chief Relationship Specialty Start Date End Date Kamilah Torres MD [address] [place] [address] PCP - General Family Medicine 11/05/22 documented as of this encounter
--- OUTSIDE RECORDS SUMMARY | 2023-10-15 18:25 | External Medical Summary | Summary of Care ---
Author Name Unknown Organization [facility] Address [address] [place] [address] Phone [phone] Care Team Providers Care Business Services Tech Name Role Phone Kamilah Torres MD Primary Care Provider [phone] Reason for Visit * Reason Onset Date Comments Fax 09/30/2023 Physical Therapy Encounter Details Date Type Department Care Team (Late st Contact Info) Description 09/30/2023 Telephone Orthopaedics Spine Surgery, [employer] Shirley Hernández [address] [place] [address] Beny Troy MD [address] [place] [phone] Fax (Physical Therapy) Allergies No known active allergiesdocumented as of this encounter (statuses as of 10/03/2023) Medications Medication Sig Dispensed Refills Start Date [...] as of this encounter (statuses as of 10/03/2023) Active Problems Problem Noted Date Diagnosed Date Alcoholic hepatitis without ascites 11/29/2022 Generalized anxiety disorder 11/05/2022 Alcohol abuse 11/05/2022 Plaque psoriasis Insomnia documented as of this encounter (statuses as of 10/03/2023) Immunizations No known immunizationsdocumented as of this [...] encounter Miscellaneous Notes * Telephone Encounter - Fidelia Meadows LPN - 10/03/2023 3:12 PM EDT Pt calling due to [employer] didn't receive the referral. Faxed to [email or web address], received confirmation that the transmission was successful. * Telephone Encounter - Ivette Becker OSA - 09/30/2023 9:29 AM EDT PT referral was sent successfully to [email or web address] * Telephone Encounter - Ashley Barraza OSA - 09/30/2023 8:53 AM EDT Caller requesting the following information to be faxed: Name/Company of caller: [employer] Information requested to be faxed: Physical Therapy Referral Fax number: [phone] Attention to Name/Company: [facility] Any additional information?: referral is required to schedule patient documented in this encounter Plan of Treatment Upcoming Encounters Date Type Department Care Team (Late st Contact Info) Description 10/10/2023 12:40 PM EDT Office Visit [facility] [address] [place] [address] Kamilah Torres MD 200 [facility] [place] [address] 11/24/2023 8:00 AM EDT Office Visit Interventional Pain Center, [facility] [address] [facility] [place] [address] August Brooks DO 132 [facility] [place] [phone] 11/30/2023 3:20 PM EDT Office Visit [facility] [address] [place] [address] Gee Del Valle, DO 200 [facility] [place] [address] 12/09/2023 9:20 AM EDT Office Visit Hepatology, [facility] [address] [place] [address] Marah Bonner MD [address] [place] [address] Health Maintenance Due Date Last Done Comments [...] filedocumented as of this encounter Care Teams Business Services Tech Relationship Specialty Start Date End Date Kamilah Torres MD [address] [place] [address] PCP - General Family Medicine 11/05/22 documented as of this encounter
--- OUTSIDE RECORDS SUMMARY | 2023-10-15 18:25 | External Medical Summary | Summary of Care ---
Author Name Unknown Organization [facility] Address [address] [place] [address] Phone [phone] Care Team Providers Care Aircraft Part Assembler Name Role Phone Kamilah Torres MD Primary Care Provider [phone] Reason for Visit * Reason Onset Date Comments TRIAGE 09/27/2023 Encounter Details Date Type Department Care Team (Late st Contact Info) Description 09/27/2023 Telephone Access Center, [place] 100 [address] [facility] *DO NOT REMOVE THIS DEPARTMENT* [place] [address] Services, Scheduling [address] [place] [address] TRIAGE Allergies No known active allergiesdocumented as of this encounter (statuses as of 09/28/2023) Medications Medication Sig Dispensed Refills Start Date [...] as of this encounter (statuses as of 09/28/2023) Active Problems Problem Noted Date Diagnosed Date Alcoholic hepatitis without ascites 11/29/2022 Generalized anxiety disorder 11/05/2022 Alcohol abuse 11/05/2022 Plaque psoriasis Insomnia documented as of this encounter (statuses as of 09/28/2023) Immunizations No known immunizationsdocumented as of this [...] 18 years and over) Not on file 4 Are you (or your family) brennan eless [...] encounter Miscellaneous Notes * Telephone Encounter - Micaela Garcia OSA - 09/27/2023 6:34 PM EDT Please triage referral for compression fracture. documented in this encounter Plan of Treatment Upcoming Encounters Date Type Department Care Team (Late st Contact Info) Description 10/10/2023 12:40 PM EDT Office Visit [facility] [address] [place] [address] Kamilah Torres MD [address] [place] [address] 11/30/2023 3:20 PM EDT Office Visit [facility] Radha [place] [address] [place] [address] [address] Gee Del Valle DO [address] [facility] [place] [address] 12/09/2023 9:20 AM EDT Office Visit Hepatology, [facility] 132 [place] [address] Marah Bonner MD [address] [place] [address] Health Maintenance Due Date Last Done Comments [...] filedocumented as of this encounter Care Teams Aircraft Part Assembler Relationship Specialty Start Date End Date Kamilah Torres MD [address] [place] [address] PCP - General Family Medicine 11/05/22 documented as of this encounter
--- OUTSIDE RECORDS SUMMARY | 2023-10-15 18:25 | External Medical Summary | Summary of Care ---
Author Name Unknown Organization [facility] Address [address] [place] [address] Phone [phone] Care Team Providers Care Safety Risk Lead Name Role Phone Kamilah Torres MD Primary Care Provider [phone] Reason for Visit * Reason Onset Date Comments Appointment 08/18/2023 Closed compressi on fracture of body of L1 vertebra (HCC) [S32.010A] Encounter Details Date Type Department Care Team (Late st Contact Info) Description 08/18/2023 Telephone Access Center, [place] 100 [address] [facility] *DO NOT REMOVE THIS DEPARTMENT* [place] [address] Services, Scheduling [address] [place] [address] Appointment (Closed compression fracture o... Allergies No [...] at 12 noon or 1:30 p.m. at [facility]. A in-person visit will be ideal but if the patient is not able to travel, a telephonic visit to at least start the management. Unfortunately the [facility] schedule is already over booked at present. [...] consider kyphoplasty [facility]. I didn't see any appointments until months out. Imaging in epic. No history of surgery. Pt states he has fallen a couple of times. Last one in the fall. Pt can't walk well. documented in this encounter Plan of Treatment Upcoming Encounters Date Type Department Care Team (Late st Contact Info) Description 10/10/2023 12:40 PM EDT Office Visit Family Practice [facility] 200 [facility] [place] [address] Kamilah Torres MD 200 [place] [address] 12/09/2023 9:20 AM EDT Office Visit Hepatology, [facility] 132 [facility] [place] [address] Marah Bonner MD [address] [place] [address] Health Maintenance Due Date Last Done Comments Pneumococcal Vaccine: Pediatrics (0 to 5 Years) and At-Risk Patients (6 to 64 Years) (1 of 2 - PCV) 1968 DTaP,Tdap,and Td Vaccines (1 - Tdap) 1981 Cologuard 12/29/2007 Colonoscopy 12/29/2007 Colorectal Cancer Screening 12/29/2007 Fecal Occult Blood Test 12/29/2007 Sigmoidoscopy 12/29/2007 Zoster Vaccines (1 of 2) 2012 COVID-19 Vaccine (1 - 24 season) 2022 Hepatitis B (1 of 3 [...] filedocumented as of this encounter Care Teams Safety Risk Lead Relationship Specialty Start Date End Date Kamilah Torres MD 200 [facility] [place] [address] PCP - General Family Medicine 11/05/22 documented as of this encounter
--- OUTSIDE RECORDS SUMMARY | 2023-10-15 18:25 | External Medical Summary | Summary of Care ---
Author Name Unknown Organization [facility] Address [address] [place] [address] Phone [phone] Care Team Providers Care Banquet Pilot Name Role Phone Kamilah Torres MD Primary Care Provider [phone] Reason for Visit * Reason Onset Date Comments Fax 09/30/2023 Physical Therapy Encounter Details Date Type Department Care Team (Late st Contact Info) Description 09/30/2023 Telephone Orthopaedics Spine Surgery, [employer] Shirley Hernández [address] [place] [address] Beny Troy MD [address] [place] [phone] Fax (Physical Therapy) Allergies No known active allergiesdocumented as of this encounter (statuses as of 09/30/2023) Medications Medication Sig Dispensed Refills Start Date [...] as of this encounter (statuses as of 09/30/2023) Active Problems Problem Noted Date Diagnosed Date Alcoholic hepatitis without ascites 11/29/2022 Generalized anxiety disorder 11/05/2022 Alcohol abuse 11/05/2022 Plaque psoriasis Insomnia documented as of this encounter (statuses as of 09/30/2023) Immunizations No known immunizationsdocumented as of this [...] EDT PT referral was sent successfully to [facility] * Telephone Encounter - Ashley Barraza OSA - 09/30/2023 8:53 AM EDT Caller requesting the following information to be faxed: Name/Company of caller: [facility] Information requested to be faxed: Physical Therapy Referral Fax number: [phone] Attention to Name/Company: [facility] Any additional information?: referral is required to schedule patient documented in this encounter Plan of Treatment Upcoming Encounters Date Type Department Care Team (Late st Contact Info) Description 10/10/2023 12:40 PM EDT Office Visit [facility] [address] [place] [address] Kamilah Torres MD [address] [place] [address] 11/24/2023 8:00 AM EDT Office Visit Interventional Pain Center, [facility] [address] [facility] [place] [address] August Brooks, DO 132 [facility] [place] [address] 11/30/2023 3:20 PM EDT Office Visit [facility] [address] [place] [address] Gee Del Valle DO 200 [facility] [place] [address] 12/09/2023 9:20 AM EDT Office Visit Hepatology, [facility] 132 [facility] [place] [address] Marah Bonner MD [address] [place] [address] [place] [id number] Health Maintenance Due Date Last Done Comments [...] filedocumented as of this encounter Care Teams Banquet Pilot Relationship Specialty Start Date End Date Kamilah Torres MD [address] [place] [address] PCP - General Family Medicine 11/05/22 documented as of this encounter
--- OUTSIDE RECORDS SUMMARY | 2023-10-15 18:25 | External Medical Summary | Summary of Care ---
Author Name Unknown Organization [facility] Address [address] [place] [address] Phone [phone] Care Team Providers Care Hotel Reservation Agent Name Role Phone Kamilah Torres MD Primary Care Provider [phone] Reason for Visit * Reason Onset Date Comments Pre Cert/Prior Auth 09/23/2023 Encounter Details Date Type Department Care Team (Late st Contact Info) Description 09/23/2023 Telephone [facility] Practice [facility] 200 [place] [address] Gee Del Valle, DO 200 [facility] [place] [address] Pre Cert/Prior Auth Allergies No known active [...] No 07/13/2023 Does the household have a [facility] source of income? (Household - for ages [...] - 09/27/2023 11:30 AM EDT Prior Auth ([facility]) ID: [id number] [facility] family 24 hr turnover time. * Telephone Encounter - Katie Kaye PHARM Tech - 09/27/2023 9:54 AM EDT Pt calling to check on status of pa. Caller can be reached at [phone]. Thanks, Katie Kaye Adult Basic Studies Teacher [facility] ([facility]) 09/27/2023,9:54 AM [...] follows: Patient name: Owen Kiser ID number: [id number] BIN number: [id number] PCN number: [id number] Group number: [id number] Subscriber name: Owen Kiser Primary or Secondary Insurance:Primary Medication: Clobetasol Propionate Reason for Request: [place] Pharmacy and phone number: [id number] [facility] Rx plan and phone number: na What alternative medications does the pharmacy have in stock?: na Thank you, Jossy Sanders Adult Basic Studies Teacher I [facility] documented in this encounter Plan of Treatment Upcoming Encounters Date Type Department Care Team (Late st Contact Info) Description 10/10/2023 12:40 PM EDT Office Visit [facility] 200 [facility] [place] [address] Kamilah Torres MD 200 [facility] [place] [address] 11/30/2023 3:20 PM EDT Office Visit [facility] 200 [facility] [place] [address] Gee Del Valle DO 200 [facility] [place] [address] 12/09/2023 9:20 AM EDT Office Visit Hepatology, [facility] 132 [facility] [place] [address] Marah Bonner MD [address] [place], [place] [address] [address] Health Maintenance Due Date Last Done Comments [...] filedocumented as of this encounter Care Teams Hotel Reservation Agent Relationship Specialty Start Date End Date Kamilah Torres MD [address] [place] [address] PCP - General Family Medicine 11/05/22 documented as of this encounter
--- OUTSIDE RECORDS SUMMARY | 2023-10-15 18:25 | External Medical Summary | Summary of Care ---
Author Name Unknown Organization [facility] Address [address] [place] [address] Phone [phone] Care Team Providers Care Bread Molder Name Role Phone Kamilah Torres MD Primary Care Provider [phone] Reason for Referral * Evaluate & Treat - Unlimited Visits (Within 10 days (routine)) - Authorized Specialty Diagnoses / Procedures Referred By Contac t Referred To Contact Physical Therapy / Physical Medicine And Rehab Diagnoses Lumbar back pain Degenerative spondylolisthesis Beny Troy MD [facility] [employer] [place] [address] Referral ID Status Reason Start Date Expiration Date Visits Requested Visits Authorized [id number] Authorized Specialty Services Required 09/27/2023 999 999 Question Answer Referral Priority Within 10 days (routine) Where should this appointment be scheduled? [facility] Comments Plan: Back core strengthening, stretching, ROM, conditioning, lower extremity strengthening as needed, topicals as needed 2 x a week for 6 weeks Modalities for pain relief * Evaluate & Treat - Unlimited Visits (Within 30 days (routine)) - Authorized Specialty Diagnoses / Procedures Referred By Contac t Referred To Contact Pain Management / Pain Medicine Diagnoses Compression fracture of lumbar vertebra, unspecified lumbar vertebral level, initial encounter (HCC) Lumbar back pain Osteoporotic compression fracture of vertebra, initial encounter ([facility]) Beny Troy MD [facility] [employer] [place] [address] Referral ID Status Reason Start Date Expiration Date Visits Requested Visits Authorized [id number] Authorized Specialty Services Required 09/27/2023 999 999 Question Answer Referral Priority Within 30 days (routine) [facility] this [facility] be scheduled? [facility] Reason for referral? Interventional Pain Management - (Injection) What condition is the patient being referred for? Back Axial What is the preferred location to have this test performed? [facility] Comments Patient Name: Owen Kiser Date of : 1960 Department Phone Number: MRI or CT (if unable to have a MRI) is recommended if any of the following apply: 1. Patient has neck or back pain with radiation to extremities. A previous MRI will be accepted if symptoms unchanged since prior MRI. 2. Spinal surgery since last MRI. If yes, order a MRI with and without contrast. 3. Hx or ongoing cancer treatment. Patient will need spine x-ray (Ap/Lat) for axial neck or back pain if not done previously. Fax No. [facility] [phone] or contact lockstitch front edge tape sewer [phone] Fax No. [facility] [phone] or contact lockstitch front edge tape sewer [phone] Fax No. [facility] [phone] or contact lockstitch front edge tape sewer [phone] Reason for Visit * Reason Comments Follow Up F/u the L1 compressi on fracture. Back brace MRI 4Patient is feeling about the same, back brace is helping a lot, able to walk with brace. Encounter Details Date Type Department Care Team (Late st Contact Info) Description 09/27/2023 8:00 AM EDT Telemedicine Orthopaedics Spine Surgery, Shirley Nino [address] [place] [address] Beny Troy MD 310 [place] [address] Degenerative spondylolisthesis*; Compression fracture of lumbar vertebra, unspecified lumbar vertebral level, initial encounter (HCC); Lumbar back pain; Osteoporotic compression fracture of vertebra, initial encounter [...] Progress Notes * Beny Troy MD - 09/27/2023 9:11 AM EDT After connecting to the patient via telephone, the patient was identified by name and date of . Patient was then informed that this was a telephone call only visit. The patient agreed to participate. Visit Disposition: Routine follow-up Total call duration was 12 minutes. This is a telephonic follow-up visit. Patient has a history of chronic low back pain. He had a history of fall last year which was treated conservatively. He most likely developed a L1 compression fracture in relation to that injury. He was referred to me as this fracture was found at the last ER visit at [facility]. Patient denies any new neurological worsening or acute worsening of his symptoms. He has chronic back pain. He is trying home based exercises. We discussed the diagnosis and treatment options. At this point of time it was agreed to try further conservative measures. Physical therapy and painmanagement referral was made. Role of back brace discussed. No urgent spine intervention indicated. Role of elective intervention was discussed. At this point patient is going to reach out as needed. He is going to reach out to his primary careto discuss various medical and social issues. Radiological imaging: I independently reviewed the relevant radiological imaging including x-rays ordered at this visit and discussed it with the patient X-rays of the thoraco-lumbar spine show presence of age indeterminate L1 compression fracture. The fractures continues to be unchanged since the x-rays from 08/02/2023. There is anterolisthesis of L4-5. MRI lumbar 09/15/2023: 1. Mild multilevel degenerative disc disease is seen throughout the lumbar spine, but is greatest at the L3-4 and L4-5 levels where results in mild narrowing of the spinal canal and mild bilateral neuroforaminal stenosis. 2. Chronic appearing compression deformity of L1. Assessment & Plan: Pt is a 62 year old male here for the following problems/concerns: Lumbar compression fracture Chronic Osteoporotic compression fracture Lumbar back pain Degenerative spondylolisthesis We discussed the diagnosis, the natural history and the treatment options. Based on the findings various treatment options including the risks, benefits and alternatives were discussed. documented in this encounter Nursing Notes * Niya Mcelroy LPN - 09/27/2023 7:40 AM EDT F/u the L1 compression fracture. Back brace MRI 09/15/2023 Patient is feeling about the same, back brace is helping a lot, able to walk with brace. documented in this encounter Plan of Treatment Upcoming Encounters Date Type Department Care Team (Late st Contact Info) Description 10/10/2023 12:40 PM EDT Office Visit Family Practice [facility] 200 [facility] [place] [address] Kamilah Torres MD 200 [facility] [place] [address] 12/09/2023 9:20 AM EDT Office Visit Hepatology, [facility] 132 [facility] [place] [address] Marah Bonner MD [address] [place] [address] Scheduled Referrals Name Type Priority Associated Diagnoses Orde r Schedule PAIN MEDICINE REFERRAL OP Referral Within 30 days (routine) Compression fracture of lumbar vertebra, unspecified lumbar vertebral level, initial encounter (HCC) Lumbar back pain Osteoporotic compression fracture of vertebra, initial encounter (HCC) Ordered: 09/27/2023 PHYSICAL THERAPY REFERRAL OP Referral Within 10 days (routine) Lumbar back pain Degenerative spondylolisthesis Ordered: 09/27/2023 Health Maintenance Due Date Last Done Comments [...] as of this encounter Visit Diagnoses Diagnosis Degenerative spondylolisthesis- Primary Acquired spondylolisthesis Compression fracture of lumbar vertebra, unspecified lumbar vertebral level, initial encounter (HCC) Lumbar back pain Lumbago Osteoporotic compression fracture of vertebra, initial encounter (HCC) documented in this encounter Care Teams Bread Molder Relationship Specialty Start Date End Date Kamilah Torres MD 200 [place] [address] PCP - General Family Medicine 11/05/22 documented as of this encounter
--- OUTSIDE RECORDS SUMMARY | 2023-10-15 18:26 | External Medical Summary | Summary of Care ---
Author Name Unknown Organization [facility] Address [address] [place] [address] Phone [phone] Care Team Providers Care Blanket Cutting Machine Operator Name Role Phone Kamilah Torres MD Primary Care Provider [phone] Reason for Visit * Reason Onset Date Comments Appointment 07/07/2023 New PT Hepatolog y Encounter Details Date Type Department Care Team (Late st Contact Info) Description 07/07/2023 Telephone Family Practice [facility] [address] [facility] [place] [address] Kamilah Torres MD [address] [place] [facility] [place] [address] Appointment (New PT Hepatology) Allergies No known active allergiesdocumented as of this encounter (statuses as of 07/27/2023) Medications Medication Sig Dispensed Refills Start Date End Date Status Vitamin D3 25 MCG (1000 UT) Oral Capsule Take 1 Capsule by mouth once. Active Clobetasol Propionate 0.05 % External SolutionIndications:P laque psoriasis Apply to psoriasis in scalp daily 50 mL 5 05/26/2023 Active Triamcinolone Acetonide 0.1 % External Cream (Aristocort)Indicatio ns:Plaque psoriasis Apply to psoriasis on the arms, legs, chest, and back twice daily 450 g 1 05/26/2023 Active Furosemide 40 MG Oral Tablet (Lasix) Take 1 Tablet by mouth in the morning. 06/20/2023 Active Melatonin 3 MG Oral Tablet Disintegrating Take by mouth. Active hydrOXYzine Pamoate 50 MG Oral Capsule (Vistaril)Indications :Generalized anxiety disorder Take 1 Capsule by mouth 2 times a day as needed for Anxiety. 60 Capsule 5 07/07/2023 Active traZODone HCl 50 MG Oral Tablet (Desyrel)Indications: Alcohol-induced insomnia (HCC) Take 1 Tablet by mouth at bedtime as needed for Sleep. 30 Tablet 1 07/07/2023 Active documented as of this encounter (statuses as of 07/27/2023) Active Problems Problem Noted Date Diagnosed Date Alcoholic hepatitis without ascites 11/29/2022 Generalized anxiety disorder 11/05/2022 Alcohol abuse 11/05/2022 Plaque psoriasis Insomnia documented as of this encounter (statuses as of 07/27/2023) Immunizations No known immunizationsdocumented as of this [...] money to get more. Never true 07/13/2023 Sex and Gender Information Value Date Recorded Sex Assigned at Not on file Gender Identity Not on file Sexual Orientation Not on file Job Start Date Occupation Industry Not on file Not on file Not on file documented as of this encounter Miscellaneous Notes * Telephone Encounter - Mary Wood OSA - 07/27/2023 10:24 AM EDT R/s'd EDEN Land 07/27/2023 10:24 AM * Telephone Encounter - Mary Wood OSA - 07/08/2023 11:59 AM EDT Lmm ED[place] 07/08/2023 12:00 PM * Telephone Encounter - Becky Meadows OSA - 07/07/2023 9:26 AM EDT When checking out the patient asked about the Hepatology appt that was previously scheduled in April. He would like to get this rescheduled but I am not able to schedule an appointment. Thank you! documented in this encounter Plan of Treatment Upcoming Encounters Date Type Department Care Team (Late st Contact Info) Description 07/27/2023 1:00 PM EDT Nurse Only Dermatology [facility] [address] [place] [address] Sp, Nurse Dermatology [facility] [address] [place] [address] 07/29/2023 1:30 PM EDT Nurse Only Dermatology [facility] [address] [place] [address] Sp, Nurse Dermatology [address] [place], [place] [address] 08/03/2023 11:00 AM EDT Office Visit [facility] [address] [place] [address] Gee Del Valle, [address] [place] [address] 10/10/2023 12:40 PM EDT Office Visit [facility] [address] [address] Kamilah Torres MD [address] [place] [address] 12/09/2023 9:20 AM EDT Office Visit Hepatology, [facility] [address] [facility] [place] [id number] Marah Bonner MD [address] [place] [address] [place] [id number] Health Maintenance Due Date Last Done Comments [...] 2023 Depression Screening 07/12/2024 07/13/2023 Diabetes Screening 07/06/2026 07/07/2023, 0 07/07/2023, 03/24/2023, Additional history exists Lipid Panel 11/06/2027 11/05/2022, 11/15/2014 GARDASIL-HPV IMMUNIZATION SERIES Aged Out No longer eligible based on patient's age to complete this topic MENINGOCOCCAL (MENACTRA/MENVEO) Aged Out No longer eligible based on patient's age to complete this topic documented as of this encounter Medical Devices Not on filedocumented as of this encounter Care Teams Blanket Cutting Machine Operator Relationship Specialty Start Date End Date Kamilah Torres MD [address] [place] [address] PCP - General Family Medicine 11/05/22 documented as of this encounter
--- OUTSIDE RECORDS SUMMARY | 2023-10-15 18:26 | External Medical Summary ---
Author Name Unknown Address Unknown Organization K01:[facility] [address] [place] [address] Laboratory Report Ordering Provider Test Date Status TAQUERIA HELMS 08/03/2023 11:56:53 Final Observation Date Value Abnormality Reference (Units) Status Hepatitis B virus surface Ab [Units/volume] in Serum or Plasma by Immunoassay 08/03/2023 11:56:53 <3.5 (mIU/mL) Final Hepatitis B virus surface Ab [Presence] in Serum by Immunoassay 08/03/2023 11:56:53 Negative Final HEPATITIS B SURFACE ANTIBODY, INTERPRETATION 08/03/2023 11:56:53 NOT immune to Hepatitis B Virus Final POSITIVE: >=11.5 mIU/mL
INDETERMINATE: 8.5-<11.5 mIU/mL
NEGATIVE: <8.5 mIU/mL Performing Location [facility] [address] [place] [address]
--- OUTSIDE RECORDS SUMMARY | 2023-10-15 18:26 | External Medical Summary | Summary of Care ---
Author Name Unknown Organization [facility] Address [address] [place] [address] Phone [phone] Care Team Providers Care Ward Nurse Name Role Phone Kamilah Torres MD Primary Care Provider [phone] Reason for Visit * Reason Onset Date Comments Medication Refill 08/05/2023 Encounter Details Date Type Department Care Team (Late st Contact Info) Description 08/05/2023 Telephone Family Practice [facility] 200 [facility] [place] [address] Kamilah Torres MD [address] [place] [address] Medication Refill Allergies No known active allergiesdocumented as of this encounter (statuses as of 08/05/2023) Medications Medication Sig Dispensed Refills Start Date [...] for Sleep. 30 Tablet 1 07/07/2023 Active Furosemide 40 MG Oral Tablet [...] to scalp 60 g 5 08/05/2023 Active documented as of this encounter (statuses as of 08/05/2023) Active Problems Problem Noted Date Diagnosed Date Alcoholic hepatitis without ascites 11/29/2022 Generalized anxiety disorder 11/05/2022 Alcohol abuse 11/05/2022 Plaque psoriasis Insomnia documented as of this encounter (statuses as of 08/05/2023) Immunizations No known immunizationsdocumented as of this [...] encounter Miscellaneous Notes * Telephone Encounter - Jcarlos Granger PHARM Tech - 08/05/2023 12:30 PM EDT Patient requesting refills for MG217 PSORIASIS MULTI-SYMPTOM 2 % OINT. Upon chart review, medication is listed as discontinued, with discontinuation reason as "none". Please advise if you wish to continue this therapy for the patient. Thank you, Low Granger, Post Hole Digging Machine Operator Sales Support Technician 1 [facility] ([facility]) (Formerly Telepharmacy) 08/05/2023,12:34 PM documented in this encounter Plan of Treatment Upcoming Encounters Date Type Department Care Team (Late st Contact Info) Description 10/10/2023 12:40 PM EDT Office Visit Family Practice [facility] 200 [facility] [place] [address] Kamilah Torres MD [address] [facility] [place] [address] 12/09/2023 9:20 AM EDT Office Visit Hepatology, [facility] [address] [facility] [place] [address] Marah Bonner MD [address] [place] [id number] Health Maintenance Due Date Last Done Comments [...] as of this encounter Visit Diagnoses Diagnosis Alcohol-induced insomnia (HCC) Alcohol induced sleep disorders Plaque psoriasis Other psoriasis documented in this encounter Care Teams Ward Nurse Relationship Specialty Start Date End Date Kamilah Torres MD [address] [place] [address] PCP - General Family Medicine 11/05/22 documented as of this encounter
--- OUTSIDE RECORDS SUMMARY | 2023-10-15 18:26 | External Medical Summary | Summary of Care ---
Author Name Unknown Organization [facility] Address [address] [place] [address] Phone [phone] Care Team Providers Care Bridge Maintainer Name Role Phone Kamilah Torres MD Primary Care Provider [phone] Reason for Referral * Evaluate & Treat - Unlimited Visits (Within 30 days (routine)) - Authorized Specialty Diagnoses / Procedures Referred By Syed t Referred To Contact Neuro/Ortho Surgery - Spine. / Neurological Surgery Diagnoses Closed compression fracture of body of L1 vertebra (HCC) Milton Looney DO [address] [place] [address] Referral ID Status Reason Start Date Expiration Date Visits Requested Visits Authorized [id number] Authorized Specialty Services Required 08/16/2023 999 999 Question Answer Referral Priority Within 30 days (routine) Where should this appointment be scheduled? [facility] spine region: Back - Thoracic/Lumbar Do you have any recent complete loss of bladder or bowel function? No Reason for Visit * Reason Onset Date Comments Test Results 08/05/2023 Referral for Kyp hoplasty Encounter Details Date Type Department Care Team (Late st Contact Info) Description 08/05/2023 Telephone Family Practice [facility] [place] [address] [place] [address] Milton Looney DO [address] [facility] [place] [address] Test Results (Referral for Kyphoplasty ) Allergies No known active allergiesdocumented as of this encounter (statuses as of 08/16/2023) Medications Medication Sig Dispensed Refills Start Date [...] as needed for Other (edema). 30 Tablet 08/03/2023 Active Triamcinolone Acetonide 0.1 % External Cream (Aristocort)Indicati ons:Plaque psoriasis Apply to psoriasis on the arms, legs, chest, and back twice daily 450 g 1 08/03/2023 Active DULoxetine HCl 20 MG Oral Capsule Delayed Release Particles (duloxetine)Indicati ons:Chronic midline low back pain without sciatica,Generalized anxiety disorder Take 1 Capsule by mouth in the morning. Do not cut, crush or chew. 30 Capsule 08/03/2023 Active Clobetasol Propionate 0.05 % External Gel (Temovate) Apply topically to affected area 2 times a day. Apply to scalp 60 g 08/05/2023 Active traZODone HCl 50 MG Oral Tablet (Desyrel)Indications :Alcohol-induced insomnia (HCC) Take 1 Tablet by mouth at bedtime as needed for Sleep. 30 Tablet 1 08/16/2023 Active traZODone HCl 50 MG Oral Tablet (Desyrel)Indications :Alcohol-induced insomnia (HCC) Take 1 Tablet by mouth at bedtime as needed for Sleep. 30 Tablet 1 07/07/2023 Discontinue d(Refill) documented as of this encounter (statuses as of 08/16/2023) Active Problems Problem Noted Date Diagnosed Date Alcoholic hepatitis without ascites 11/29/2022 Generalized anxiety disorder 11/05/2022 Alcohol abuse 11/05/2022 Plaque psoriasis Insomnia documented as of this encounter (statuses as of 08/16/2023) Immunizations No known immunizationsdocumented as of this [...] as of this encounter Miscellaneous Notes * Addendum Note - Milton Looney DO - 08/16/2023 4:09 PM EDTAddended by: MILTON LOONEY on: 08/16/2023 04:09 PM Modules accepted: Orders * Telephone Encounter - Milton Looney DO - 08/16/2023 4:09 PM EDT Please call to schedule with spine surgery * Addendum Note - Shelia Hammer LPN - 08/16/2023 12:11 PM EDTAddended by: SHELIA HAMMER on: 08/16/2023 12:11 PM Modules accepted: Orders * Telephone Encounter - Cindi Campuzano OSA - 08/15/2023 3:08 PM EDT Owen called, and he would like to go forward with the referral for the kyphoplasty. Also the trazodone was not sent into the pharmacy. Please send a refill on this medication, for hisinsomnia. Please call Owen at [phone], you can leave a message. * Telephone Encounter - Nahum Mcintyre, MED ASSIST - 08/05/2023 3:01 PM EDT ----- Message from Milton Looney DO sent at 08/05/2023 2:28 PM EDT ----- Letter: Your x-ray does show the continued presence of the compression fracture in your back but that it isminor. If your pain is persisting we could send you to spnal surgery to consider kyphoplasty if youare open to talking to them. Let me know if you want a referral placed? * Telephone Encounter - Nahum Mcintyre MED ASSIST - 08/05/2023 2:58 PM EDT ----- Message from Milton Looney DO sent at 08/05/2023 2:28 PM EDT ----- Letter: Your x-ray does show the continued presence of the compression fracture in your back but that it isminor. If your pain is persisting we could send you to spnal surgery to consider kyphoplasty if youare open to talking to them. Let me know if you want a referral placed? documented in this encounter Plan of Treatment Upcoming Encounters Date Type Department Care Team (Late st Contact Info) Description 10/10/2023 12:40 PM EDT Office Visit Family Practice [facility] 200 [facility] [place] [address] Kamilah Torres MD 200 [facility] [place] [address] 12/09/2023 9:20 AM EDT Office Visit Hepatology, [facility] 132 [facility] [place] [address] Marah Bonner MD [address] [place] [phone] Scheduled Referrals Name Type Priority Associated Diagnoses Orde r Schedule SPINE SURGERY REFERRAL OP Referral Within 30 days (routine) Closed compression fracture of body of L1 vertebra (HCC) Ordered: 08/16/2023 Health Maintenance Due Date Last Done Comments Pneumococcal Vaccine: Pediatrics (0 to 5 Years) and At-Risk Patients (6 to 64 Years) (1 of 2 - PCV) 1968 DTaP,Tdap,and Td Vaccines (1 - Tdap) 1981 Cologuard 12/29/2007 Colonoscopy 12/29/2007 Colorectal Cancer Screening 12/29/2007 Fecal Occult Blood Test 12/29/2007 Sigmoidoscopy 12/29/2007 Zoster Vaccines (1 of 2) 2012 COVID-19 Vaccine ( season) 2022 Hepatitis B (1 of 3 [...] as of this encounter Visit Diagnoses Diagnosis Closed compression fracture of body of L1 vertebra (HCC)- Primary Alcohol-induced insomnia (HCC) Alcohol induced sleep disorders documented in this encounter Care Teams Bridge Maintainer Relationship Specialty Start Date End Date Kamilah Torres MD [address] [place] [address] PCP - General Family Medicine 11/05/22 documented as of this encounter
--- OUTSIDE RECORDS SUMMARY | 2023-10-15 18:26 | External Medical Summary | Summary of Care ---
Author Name Unknown Organization [facility] Address [address] [place] [address] Phone [phone] Care Team Providers Care Machine Operator Hay Stacker Name Role Phone Kamilah Torres MD Primary Care Provider [phone] Reason for Visit * Reason Comments Outpatient Testing Encounter Details Date Type Department Care Team (Late st Contact Info) Description 08/03/2023 12:00 PM EDT Laboratory Laboratory [facility] [address] [place] [address] [facility] [address] [place] [address] Alcohol abuse Allergies No known active allergiesdocumented as of this encounter (statuses as of 08/03/2023) Medications Medication Sig Dispensed Refills Start Date [...] twice daily 450 g 1 08/03/2023 Active Clobetasol Propionate 0.05 % External SolutionIndications:P laque psoriasis Apply to psoriasis in scalp daily 50 mL 5 08/03/2023 Active DULoxetine HCl 20 MG Oral Capsule Delayed Release Particles (duloxetine)Indicatio ns:Chronic midline low back pain without sciatica,Generalized anxiety disorder Take 1 Capsule by mouth in the morning. Do not cut, crush or chew. 30 Capsule 5 08/03/2023 Active documented as of this encounter (statuses as of 08/03/2023) Active Problems Problem Noted Date Diagnosed Date Alcoholic hepatitis without ascites 11/29/2022 Generalized anxiety disorder 11/05/2022 Alcohol abuse 11/05/2022 Plaque psoriasis Insomnia documented as of this encounter (statuses as of 08/03/2023) Immunizations No known immunizationsdocumented as of this [...] 12:40 PM EDT Office Visit [facility] [address] [place] [address] Kamilah Torres MD [address] [place] [address] 12/09/2023 9:20 AM EDT Office Visit Hepatology, [facility] [address] [place] [address] Marah Bonner MD [address] [place] [address] Pending Results Name Type Priority Associated Diagnoses Date /Time PT INR Lab Routine Alcohol abuse 08/03/2023 11:56 AM EDT Health Maintenance Due Date Last Done [...] as of this encounter Visit Diagnoses Diagnosis Alcohol abuse Alcohol abuse, unspecified documented in this encounter Care Teams Machine Operator Hay Stacker Relationship Specialty Start Date End Date Kamilah Torres MD [address] [place] [address] PCP - General Family Medicine 11/05/22 documented as of this encounter
--- OUTSIDE RECORDS SUMMARY | 2023-10-15 18:26 | External Medical Summary | Summary of Care ---
Author Name Unknown Organization [facility] Address [address] [place] [address] Phone [phone] Care Team Providers Care Economic Research Assistant Name Role Phone Kamilah Torres MD Primary Care Provider [phone] Reason for Visit * Reason Onset Date Comments Medication Refill 08/04/2023 Advice 08/04/2023 Encounter Details Date Type Department Care Team (Late st Contact Info) Description 08/04/2023 Refill Family Practice [facility] 200 [place] [address] Kamilah Torres MD [address] [place] [address] Allergies No known active allergiesdocumented as of [...] encounter Miscellaneous Notes * Telephone Encounter - Alyssa Wesley PHARM Tech - 08/05/2023 10:27 AM EDT Pt calling in to request a dose change on their traZODone HCl 50 MG Oral Tablet (Desyrel) . Current dose: 50mg at bedtime Requested dose: 100mg at bedtime Reason for request: no longer working Preferred pharmacy: [id number] [address] [facility] Warm-transferred pt to pharmacist for consultation. Thank you, Alyssa Wesley CPhT Geographic Information Systems Analyst Flea Market Seller [facility] ([facility]) 08/05/2023,10:27 AM * Telephone Encounter - Katelyn Avilez CPhT - 08/04/2023 3:32 PM EDT [facility]15 for 30 days. Scheduled for 08/12 Pt calling to request trazodone. Informed pt that RX is available at their pharmacy. Pt verbalized understanding and stated they will check with their pharmacy regarding this medication. Thank you, Katelyn Avilez CPhT II Ground Products Director [facility] ([facility]) 08/04/2023, 3:32 PM documented in this encounter Plan of Treatment Upcoming Encounters Date Type Department Care Team (Late st Contact Info) Description 10/10/2023 12:40 PM EDT Office Visit Family Practice [facility] 200 [facility] [place] [address] Kamilah Torres MD [address] [facility] [place] [address] 12/09/2023 9:20 AM EDT Office Visit Hepatology, [facility] 132 [facility] [place] [address] Marah Bonner MD [address] [place] [address] Health Maintenance Due Date Last Done Comments Pneumococcal Vaccine: Pediatrics (0 to 5 Years) and At-Risk Patients (6 to 64 Years) (1 of 2 - PCV) 1968 DTaP,Tdap,and Td Vaccines (1 - Tdap) 1981 Cologuard 12/29/2007 Colonoscopy 12/29/2007 Colorectal Cancer Screening 12/29/2007 Fecal Occult Blood Test 12/29/2007 Sigmoidoscopy 12/29/2007 Zoster Vaccines (1 of 2) 2012 COVID-19 Vaccine ( - season) 2022 Hepatitis B (1 of [...] filedocumented as of this encounter Care Teams Economic Research Assistant Relationship Specialty Start Date End Date Kamilah Torres MD [address] [place] [address] PCP - General Family Medicine 11/05/22 documented as of this encounter
--- OUTSIDE RECORDS SUMMARY | 2023-10-15 18:26 | External Medical Summary | Summary of Care ---
Author Name Unknown Organization [facility] Address [address] [place] [address] Phone [phone] Care Team Providers Care Principal Technical Architect Name Role Phone Kamilah Torres MD Primary Care Provider [phone] Reason for Visit * Reason Comments Outpatient Testing Encounter Details Date Type Department Care Team (Late st Contact Info) Description 07/07/2023 9:10 AM EDT Laboratory Laboratory [facility] [address] [place] [address] [facility] [address] [place] [address] Elevated glucose; Alcohol abuse; Alcoholic hepatitis without ascites; Lower extremity edema; Plaque psoriasis; Erythroderma Allergies No known active allergiesdocumented as of this encounter (statuses as of 07/21/2023) Medications Medication Sig Dispensed Refills Start Date [...] as of this encounter (statuses as of 07/21/2023) Active Problems Problem Noted Date Diagnosed Date Alcoholic hepatitis without ascites 11/29/2022 Generalized anxiety disorder 11/05/2022 Alcohol abuse 11/05/2022 Plaque psoriasis Insomnia documented as of this encounter (statuses as of 07/21/2023) Immunizations No known immunizationsdocumented as of this encounter Social History Tobacco Use Types Packs/Day Years Used Date Smoking Tobacco: Never Smokeless Tobacco: Never Alcohol Use Standard Drinks/Week Comments No 0 (1 standard drink = 0.6 oz pure alcohol) Pt reports 1 pint of vodka a day for last month PHQ-2 Answer Date Recorded PHQ-2 Score 9 01/04/2018 Sex and Gender Information Value Date Recorded Sex Assigned at Not on file Gender Identity Not on file Sexual Orientation Not on file Job Start Date Occupation Industry Not on file Not on file Not on file documented as of this encounter Plan of Treatment Upcoming Encounters Date Type Department Care Team (Late st Contact Info) Description 07/22/2023 1:00 PM EDT Nurse Only Dermatology [facility] [address] [place] [address] Sp, Nurse Dermatology [address] [facility] [place] [address] 07/27/2023 1:00 PM EDT Nurse Only Dermatology [facility] [address] [place] [address] Sp, Nurse Dermatology [address] [place] [address] 07/29/2023 1:30 PM EDT Nurse Only Dermatology [facility] [place] [address] [place] [address] Sp, Nurse Dermatology [address] [place] [address] 10/10/2023 12:40 PM EDT Office Visit Family Practice [facility] [address] [facility] [place] [address] Kamilah Torres MD [address] [place] [address] 12/09/2023 9:20 AM EDT Office Visit Hepatology, [facility] [address] [place] [address] Marah Bonner MD [address] [place] [id number] Scheduled Orders Name Type Priority Associated Diagnoses Orde r Schedule CBC Lab Routine Plaque psoriasis Erythroderma Ordered: 07/07/2023 DIFFERENTIAL, AUTOMATED Lab Routine Plaque psoriasis Erythroderma Ordered: 07/07/2023 Health Maintenance Due Date Last Done Comments [...] Procedure Name Priority Date/Time Associated Diagnosis Comments HEMOGLOBIN A1C Routine 07/07/2023 9:19 AM EDT Elevated glucose COMPREHENSIVE METABOLIC PANEL Routine 07/07/2023 9:19 AM EDT Alcohol abuse Alcoholic hepatitis without ascites Lower extremity edema documented in this encounter Results * (ABNORMAL) COMPREHENSIVE METABOLIC PANEL (07/07/2023 9:19 AM EDT) BUN 9 6 - 20 mg/dL 07/07/2023 11:08 AM EDT [place] [address] Creatinine 0.7 0.6 - 1.2 mg/dL 07/07/2023 11:08 AM EDT [place] [address] Estimated Glomerular Filtration Rate >90 >=60 mL/min 07/07/2023 11:08 AM T [place] [address] Comment:eGFR is calculated b ased on the CKD-EPI 2020 equation Sodium 137 135 - 146 mmol/L 07/07/2023 11:[address] Potassium 4.3 3.5 - 5.1 mmol/L 07/07/2023 11:08 AM T [address] Chloride 100 98 - 107 mmol/L 07/07/2023 11:08 AM EDT [facility] 56 CO2 25 22 - 32 mmol/L 07/07/2023 11:08 AM T [address] Anion Gap 12 7 - 15 mmol/L 07/07/2023 11:08 AM T [address] Glucose 132(H) 70 - 120 mg/dL 07/07/2023 11:08 AM T [address] Albumin 3.4(L) 3.8 - 5.0 g/dL 07/07/2023 11:08 AM T [address] AST 38 10 - 50 U/L 07/07/2023 11:08 AM EDT [address] Alkaline Phosphatase 135(H) 35 - 130 U/L 07/07/2023 11:08 AM T [address] Bilirubin, Total 0.8 <=1.2 mg/dL 07/07/2023 11:08 AM EDT [facility] 56- Calcium 9.4 8.4 - 10.2 mg/dL 07/07/2023 11:08 AM EDT [facility] 56- Protein 9.1(H) 6.0 - 8.3 g/dL 07/07/2023 11:08 AM EDT [facility] 56- ALT 19 10 - 50 U/L 07/07/2023 11:08 AM EDT [facility] 56- Blood Venous blood specimen / Unknown Venipuncture / Unknown 07/07/2023 9:19 AM EDT 07/07/2023 9:19 AM EDT Kamilah Torres MD LAB BLOOD ORDERABLES [facility] [address] [place] [address] * HEMOGLOBIN A1C (07/07/2023 9:19 AM EDT) Pathologist [facility] Hemoglobin A1C 5.5 4.0 - 5.6 % 07/07/2023 2:22 PM EDT [facility] Comment:The use of HbA1c to monitor glycemic status is based on normal hemoglobin and HbA composition. This test should not be used in patients with abnormal hemoglobin that affects the half life of the red blood cell or the in vivo glycation rates. Estimated Average Glucose 111 <126 mg/dL 07/07/2023 2:22 PM EDT [facility] Blood Venous blood specimen / Unknown Venipuncture / Unknown 07/07/2023 9:19 AM EDT 07/07/2023 9:19 AM EDT Kamilah Torres MD LAB BLOOD ORDERABLES [facility] [address] [place] [address] documented in this encounter Visit Diagnoses Diagnosis Elevated glucose Other abnormal glucose Alcohol abuse Alcohol abuse, unspecified Alcoholic hepatitis without ascites Acute alcoholic hepatitis Lower extremity edema Edema Plaque psoriasis Other psoriasis Erythroderma Unspecified erythematous condition documented in this encounter Care Teams Principal Technical Architect Relationship Specialty Start Date End Date Kamilah Torres MD [address] [place] [address] PCP - General Family Medicine 11/05/22 documented as of this encounter
--- OUTSIDE RECORDS SUMMARY | 2023-10-15 18:26 | External Medical Summary ---
Author Name Unknown Address Unknown Organization K09:[facility] [address] [place] [address] Laboratory Report Ordering Provider Test Date Status TAQUERIA HELMS 08/03/2023 11:56:53 Final Observation Date Value Abnormality Reference (Units ) Status BUN 08/03/2023 11:56:53 11 6-20 (mg/dL) Final Creatinine 08/03/2023 11:56:53 0.7 0.6-1.2 (mg/dL) Final Glomerular filtration rate/1.73 sq M.predicted [Volume Rate/Area] in Serum, Plasma or Blood by Creatinine-based formula (CKD-EPI) 08/03/2023 11:56:53 >90 >=60 (mL/min) Final eGFR is calculated based on the CKD-EPI 2020 equation Sodium 08/03/2023 11:56:53 140 135-146 (m mol/L) Final Potassium 08/03/2023 11:56:53 4.7 3.5-5.1 (m mol/L) Final Cl 08/03/2023 11:56:53 101 98-107 (mm ol/L) Final CO2 08/03/2023 11:56:53 29 22-32 (mmo l/L) Final Anion gap 08/03/2023 11:56:53 10 7-15 (mmol /L) Final Glucose 08/03/2023 11:56:53 121 Above high normal 70 -120 (mg/dL) Final Albumin 08/03/2023 11:56:53 3.8 3.8-5.0 (g /dL) Final AST (Aspartate aminotransferase) 08/03/2023 11:56:53 31 10-50 (U/L) Fin al Alk Phos 08/03/2023 11:56:53 103 35-130 (U/ L) Final Bilirubin, Total 08/03/2023 11:56:53 0.6 <=1 .2 (mg/dL) Final Calcium 08/03/2023 11:56:53 9.1 8.4-10.2 ( mg/dL) Final Protein 08/03/2023 11:56:53 8.4 Above high normal 6. 0-8.3 (g/dL) Final ALT (Alanine aminotransferase) 08/03/2023 11:56:53 15 10-50 (U/L) Mahad ignacio Performing Location [facility] [address] [place] [address]
--- OUTSIDE RECORDS SUMMARY | 2023-10-15 18:26 | External Medical Summary ---
Author Name Unknown Address Unknown Organization K01:[facility] [address] [place] [address] [place] [address] Laboratory Report Ordering Provider Test Date Status TAQUERIA HELMS 08/03/2023 11:56:53 Final Observation Date Value Abnormality Reference (Units ) Status Hep A IgM 08/03/2023 11:56:53 Negative Negative Final Hep B Core IgM 08/03/2023 11:56:53 Negative Negat elena Final Hep B surface Ag 08/03/2023 11:56:53 Negative Neg ative Final Hep C Ab 08/03/2023 11:56:53 Negative Negative Final Performing Location [facility] - [address] [place] [address]
--- OUTSIDE RECORDS SUMMARY | 2023-10-15 18:26 | External Medical Summary | Summary of Care ---
Author Name Unknown Organization [facility] Address [address] [place] [address] Phone [phone] Care Team Providers Care Woodwind Reeds Cutter Name Role Phone Kamilah Torres MD Primary Care Provider [phone] Reason for Visit * Reason Onset Date Comments Test Results 08/05/2023 Encounter Details Date Type Department Care Team (Late st Contact Info) Description 08/05/2023 Telephone Family Practice [facility] [address] [place] [address] Gee Del Valle, DO [address] [place] [address] Test Results Allergies No known active allergiesdocumented as of [...] encounter Miscellaneous Notes * Telephone Encounter - Nahum Mcintyre MED MERVIN - 08/05/2023 3:01 PM EDT ----- Message from Gee Del Valle DO sent at 08/05/2023 2:28 PM EDT [...] 08/05/2023 2:58 PM EDT ----- Message from Gee Del Valle DO sent at 08/05/2023 2:28 PM EDT [...] 12:40 PM EDT Office Visit Family Practice [facility] [address] [facility] [place] [address] Kamilah Torres MD [address] [facility] [place] [address] 12/09/2023 9:20 AM EDT Office Visit Hepatology, [facility] [address] [facility] [place] [address] Marah Bonner MD [address] [place] [address] Health Maintenance Due Date Last Done Comments [...] filedocumented as of this encounter Care Teams Woodwind Reeds Cutter Relationship Specialty Start Date End Date Kamilah Torres MD [address] [place] [address] PCP - General Family Medicine 11/05/22 documented as of this encounter
--- OUTSIDE RECORDS SUMMARY | 2023-10-15 18:26 | External Medical Summary | Summary of Care ---
Author Name Unknown Organization [facility] Address [address] [place] [address] Phone [phone] Care Team Providers Care Legal Instruments Examiner Name Role Phone Kamilah Torres MD Primary Care Provider [phone] Reason for Visit * Reason Onset Date Comments Test Results 08/05/2023 Referral for Kyp hoplasty Encounter Details Date Type Department Care Team (Late st Contact Info) Description 08/05/2023 Telephone Family Practice [facility] [place] [address] [place] [address] Gee Del Valle, DO [address] [place] [address] Test Results (Referral for Kyphoplasty ) Allergies No known active allergiesdocumented as of this encounter (statuses as of 08/15/2023) Medications Medication Sig Dispensed Refills Start Date [...] as of this encounter (statuses as of 08/15/2023) Active Problems Problem Noted Date Diagnosed Date Alcoholic hepatitis without ascites 11/29/2022 Generalized anxiety disorder 11/05/2022 Alcohol abuse 11/05/2022 Plaque psoriasis Insomnia documented as of this encounter (statuses as of 08/15/2023) Immunizations No known immunizationsdocumented as of this [...] encounter Miscellaneous Notes * Telephone Encounter - Cindi Campuzano OSA - 08/15/2023 3:08 PM EDT Owen called, and he would like to go forward with the referral for the kyphoplasty. Also the trazodone was not sent into the pharmacy. Please send a refill on this medication, for hisinsomnia. Please call Owen at [phone], you can leave a message. * Telephone Encounter - Nahum Mcintyre MED ASSIST - 08/05/2023 3:01 PM EDT [...] EDT Office Visit Family Practice [facility] [place] [address] [place] [address] Kamilah Torres MD [address] [place] [address] 12/09/2023 9:20 AM EDT Office Visit Hepatology, [facility] [address] [place] [address] Marah Bonner MD [address] [place] [address] Health Maintenance Due Date Last Done Comments [...] filedocumented as of this encounter Care Teams Legal Instruments Examiner Relationship Specialty Start Date End Date Kamilah Torres MD [address] [address] PCP - General Family Medicine 11/05/22 documented as of this encounter
--- OUTSIDE RECORDS SUMMARY | 2023-10-15 18:26 | External Medical Summary ---
Author Name Unknown Address Unknown Organization [facility] [address] [place] [address] Laboratory Report Ordering Provider Test Date Status TAQUERIA HELMS 08/03/2023 11:56:53 Final Observation Date Value Abnormality Reference (Units ) Status WBC, Total 08/03/2023 11:56:53 4.04 4.00-10.8 0 (K/uL) Final RBC 08/03/2023 11:56:53 3.88 4.50-5.25 (M/uL) Final Hemoglobin 08/03/2023 11:56:53 11.1 Below low normal 14 .0-16.8 (g/dL) Final HCT 08/03/2023 11:56:53 34.9 Below low normal 40. 0-48.4 (%) Final MCV 08/03/2023 11:56:53 89.9 82.0-99.5 (fL) Final MCH 08/03/2023 11:56:53 28.6 27.0-34.0 (pg) Final MCHC 08/03/2023 11:56:53 31.8 32.0-36.0 (g/dL) Final RDW 08/03/2023 11:56:53 18.0 11.5-15.5 (%) Final Platelets 08/03/2023 11:56:53 135 Below low normal 140 -400 (K/uL) Final MPV 08/03/2023 11:56:53 8.4 6.6-11.1 ( fL) Final Performing Location [facility] [address] [place] [address]
--- OUTSIDE RECORDS SUMMARY | 2023-10-15 18:26 | External Medical Summary | Summary of Care ---
Author Name Unknown Organization [facility] Address [address] [place] [address] Phone [phone] Care Team Providers Care Review Consultant Name Role Phone Kamilah Torres MD Primary Care Provider [phone] Reason for Visit * Reason Onset Date Comments Other 08/05/2023 Encounter Details Date Type Department Care Team (Late st Contact Info) Description 08/05/2023 Telephone Care Coordination and Integration [address] [place] [address] Perlita Cody OSA [address] [place], [place] [id number] Other Allergies No known active allergiesdocumented as of [...] encounter Miscellaneous Notes * Telephone Encounter - Perlita Cody OSA - 08/05/2023 2:05 PM EDT Received a PC from with the members dad on the back line looking to speak to the Sofy Lemus. CM is not available right now. I leyt the CS Rep know I would send this to the CM and have her call him when she is able His best contact number is [phone] documented in this encounter Plan of Treatment Upcoming Encounters Date Type Department Care Team (Late st Contact Info) Description 10/10/2023 12:40 PM EDT Office Visit Family Practice [facility] [address] [place] [address] Kamilah Torres MD [address] [place] [address] 12/09/2023 9:20 AM EDT Office Visit Hepatology, [facility] [address] [facility] [place] [address] Marah Bonner MD [address] [place] [address] Health Maintenance Due Date Last Done Comments [...] filedocumented as of this encounter Care Teams Review Consultant Relationship Specialty Start Date End Date Kamilah Torres MD [address] [place] [address] PCP - General Family Medicine 11/05/22 documented as of this encounter
--- OUTSIDE RECORDS SUMMARY | 2023-10-15 18:26 | External Medical Summary | Summary of Care ---
Author Name Unknown Organization [facility] Address [address] [place] [address] Phone [phone] Care Team Providers Care Machine Boss Name Role Phone Kamilah Torres MD Primary Care Provider [phone] Reason for Visit * Reason Onset Date Comments Medication Refill 08/04/2023 Advice 08/04/2023 Encounter Details Date Type Department Care Team (Late st Contact Info) Description 08/04/2023 Telephone Family Practice [facility] 200 [facility] [place] [address] Kamilah Torres MD 200 [place] [address] Medication Refill; Advice Allergies No known active allergiesdocumented as of [...] encounter Miscellaneous Notes * Telephone Encounter - Portia Owusu, [facility] - 08/05/2023 12:10 PM EDT Tried calling patient LMOVM. IF patient returns call to [facility] Please transfer to [facility] Attempt to schedule OV if patient amenable to this to discuss trazodone Assess willingness to est with psych. Thank you, Portia Owusu PharmD Clinical Pharmacist [facility] 08/05/23 12:10 PM [phone] * Telephone Encounter - Kamilah Torres MD - 08/05/2023 10:55 AM EDT Discussed at last appointment that trazodone meant to be a short-term medication while he continuesto address alcohol abuse which is causing the insomnia. I will not increase the dose without seeinghim or refill especially if he sounds intoxicated. He has the option of seeing psychiatry if he would like a referral. * Telephone Encounter - Portia Owusu RPh - 08/05/2023 10:30 AM EDT Trazodone 50mg effective for about 4 hrs Waking up every night at 2-3 am. Tried doubling dose a couple nights with no improvement in sleep Patient sounded intoxicated or confused on the phone. Difficult to gather any additional information as he kept going off on tangents as well. Please advise. Thank you, Portia Owusu PharmD Clinical Pharmacist [facility] 08/05/23 10:38 AM [phone] * Telephone Encounter - Alyssa Wesley PHARM Tech - 08/05/2023 10:27 AM EDT Pt calling in to request a dose change on their traZODone HCl 50 MG Oral Tablet (Desyrel) . Current dose: 50mg at bedtime Requested dose: 100mg at bedtime Reason for request: no longer working Preferred pharmacy: [id number] [place] [address] Warm-transferred pt to pharmacist for consultation. Thank you, Alyssa Wesley, [facility] Machine Sign Writer Foot Doctor [facility] 08/05/2023,10:27 AM [...] medication. Thank you, Katelyn Avilez CPhT II Restaurant And Bar Manager [facility] 08/04/2023, 3:32 PM documented in this encounter Plan of Treatment Upcoming Encounters Date Type Department Care Team (Late st Contact Info) Description 10/10/2023 12:40 PM EDT Office Visit Family Practice [facility] [address] [facility] [place] [address] Kamilah Torres MD [address] [facility] [place] [address] 12/09/2023 9:20 AM EDT Office Visit Hepatology, [facility] [address] [facility] [place] [address] Marah Bonner MD [address] [place] [...] (1 - 2022-24 season) 2022 Hepatitis B (1 of 3 [...] filedocumented as of this encounter Care Teams Machine Boss Relationship Specialty Start Date End Date Kamilah Torres MD [address] [facility] [place] [address] PCP - General Family Medicine 11/05/22 documented as of this encounter
--- OUTSIDE RECORDS SUMMARY | 2023-10-15 18:26 | External Medical Summary | Summary of Care ---
Author Name Unknown Organization [facility] Address [address] [place] [address] Phone [phone] Care Team Providers Care Hem Marker Name Role Phone Kamilah Torres MD Primary Care Provider [phone] Reason for Visit * Reason Onset Date Comments Medication Refill 08/04/2023 Advice 08/04/2023 Encounter Details Date Type Department Care Team (Late st Contact Info) Description 08/04/2023 Telephone Family Practice [facility] 200 [facility] [place] [address] Kamilah Torres MD 200 [place] [address] Medication Refill; Advice Allergies No known active [...] encounter Miscellaneous Notes * Telephone Encounter - Blaine Maher PHARM Tech - 08/05/2023 12:25 PM EDT Pt calling back, xfrd to scheduling Blaine Guadalupe CPht Railroad Supervisor Of Engines [facility] 08/05/2023,12:25 PM * Telephone Encounter - Portia Owusu [facility] - 08/05/2023 12:10 PM EDT Tried calling patient LMOVM. IF patient returns call to [facility] Please transfer to [facility] Attempt to schedule OV if patient amenable to this to discuss trazodone Assess willingness to est with psych. Thank you, Portia Owusu PharmD Clinical Pharmacist [facility] 08/05/23 12:10 PM [phone] * Telephone Encounter - Kamilah Torres MD [...] referral. * Telephone Encounter - Portia Owusu [facility] - 08/05/2023 10:30 AM EDT Trazodone 50mg [...] Clinical Pharmacy Services ([facility]) 08/05/23 10:38 AM [phone] * Telephone Encounter - Alyssa Wesley PHARM Tech - 08/05/2023 10:27 AM EDT Pt calling in to request a dose change on their traZODone HCl 50 MG Oral Tablet (Desyrel) . Current dose: 50mg at bedtime Requested dose: 100mg at bedtime Reason for request: no longer working Preferred pharmacy: [id number] [facility] Warm-transferred pt to pharmacist for consultation. Thank you, Alyssa Wesley CPhT Administrative Judge Smash Hand [facility] 08/05/2023,10:27 AM * Telephone Encounter - Katelyn Avilez CPhT - 08/04/2023 3:32 PM EDT Called [facility]- last filled 07/15 for 30 days. Scheduled for 08/12 Pt calling to request trazodone. Informed pt that RX is available at their pharmacy. Pt verbalized understanding and stated they will check with their pharmacy regarding this medication. Thank you, Katelyn Avilez CPhT II Railroad Supervisor Of Engines [facility] 08/04/2023, 3:32 PM documented in this encounter Plan of Treatment Upcoming Encounters Date Type Department Care Team ([facility] st Contact Info) Description 10/10/2023 12:40 PM EDT Office Visit Family Practice [facility] 200 [facility] [place] [address] Kamilah Torres MD 200 [place] [address] 12/09/2023 9:20 AM EDT Office Visit Hepatology, [facility] [address] [place] [address] Marah Bonner MD [address] [facility] [place] [address] Health Maintenance Due Date [...] filedocumented as of this encounter Care Teams Hem Marker Relationship Specialty Start Date End Date Kamilah Torres MD [address] [place] [address] PCP - General Family Medicine 11/05/22 documented as of this encounter
--- OUTSIDE RECORDS SUMMARY | 2023-10-15 18:26 | External Medical Summary | Summary of Care ---
Author Name Unknown Organization [facility] Address [address] [place] [address] Phone [phone] Care Team Providers Care Customer Care Consultant Name Role Phone Kamilah Torers MD Primary Care Provider [phone] Reason for Visit * Reason Onset Date Comments Medication Refill 08/04/2023 Advice 08/04/2023 Encounter Details Date Type Department Care Team (Late st Contact Info) Description 08/04/2023 Telephone Family Practice [facility] [address] [facility] [place] [place] [address] Kamilah Torres MD [address] [facility] [address] Medication Refill; Advice Allergies No known active [...] encounter Miscellaneous Notes * Telephone Encounter - Kamilah Torres MD [...] Clinical Pharmacy Services ([facility]PS) 08/05/23 10:38 AM [phone] * Telephone Encounter - Alyssa Wesley PHARM Tech - 08/05/2023 10:27 AM EDT Pt calling in to request a dose change on their traZODone HCl 50 MG Oral Tablet (Desyrel) . Current dose: 50mg at bedtime Requested dose: 100mg at bedtime Reason for request: no longer working Preferred pharmacy: [id number] [address] [place] [address] Warm-transferred pt to pharmacist for consultation. Thank you, Alyssa Wesley CPhT Management Intern Fence Erector Supervisor Centralized Clinical Pharmacy Services ([facility]PS) 08/05/2023,10:27 AM * Telephone Encounter - Katelyn Avilez CPhT - 08/04/2023 3:32 PM EDT Called [facility]- last filled 07/15 for 30 days. Scheduled for 08/12 Pt calling to request trazodone. Informed pt that RX is available at their pharmacy. Pt verbalized understanding and stated they will check with their pharmacy regarding this medication. Thank you, Katelyn Avilez CPhT II Mixing Plant Operator Centralized Clinical Pharmacy Services ([facility]PS) 08/04/2023, 3:32 PM documented in this encounter Plan of Treatment Upcoming Encounters Date Type Department Care Team (Late st Contact Info) Description 10/10/2023 12:40 PM EDT Office Visit Family Practice [facility] 200 [facility] [place] [address] Kamilah Torres MD 200 [facility] [place] [address] 12/09/2023 9:20 AM EDT Office Visit Hepatology, [facility] [address] [facility] [place] [address] Marah Bonner MD [address] [place] [id number] Health Maintenance Due Date Last Done Comments [...] filedocumented as of this encounter Care Teams Customer Care Consultant Relationship Specialty Start Date End Date Kamilah Torres MD [address] [place] [address] PCP - General Family Medicine 11/05/22 documented as of this encounter
--- OUTSIDE RECORDS SUMMARY | 2023-10-15 18:26 | External Medical Summary | Summary of Care ---
Author Name Unknown Organization [facility] Address [address] [place] [address] Phone [phone] Care Team Providers Care Measurement And Sensing Technician Name Role Phone Kamilah Torres MD Primary Care Provider [phone] Reason for Visit * Reason Onset Date Comments Medication Refill 08/04/2023 Encounter Details Date Type Department Care Team (Late st Contact Info) Description 08/04/2023 Refill Family [facility] [address] [facility] [place] [address] Kamilah Torres MD 200 [place] [address] Allergies No known active allergiesdocumented as of this encounter (statuses as of 08/04/2023) Medications Medication Sig Dispensed Refills Start Date [...] as of this encounter (statuses as of 08/04/2023) Active Problems Problem Noted Date Diagnosed Date Alcoholic hepatitis without ascites 11/29/2022 Generalized anxiety disorder 11/05/2022 Alcohol abuse 11/05/2022 Plaque psoriasis Insomnia documented as of this encounter (statuses as of 08/04/2023) Immunizations No known immunizationsdocumented as of this [...] encounter Miscellaneous Notes * Telephone Encounter - Katelyn Avilez CPhT - 08/04/2023 3:32 PM EDT Called [facility]- last filled 07/15 for 30 days. Scheduled for 08/12 Pt calling to request trazodone. Informed pt that RX is available at their pharmacy. Pt verbalized understanding and stated they will check with their pharmacy regarding this medication. Thank you, Katelyn Avilez CPhT II Barrel Endshake Adjuster Centralized Clinical Pharmacy Services ([facility]PS) 08/04/2023, 3:32 PM documented in this encounter Plan of Treatment Upcoming Encounters Date Type Department Care Team (Late st Contact Info) Description 10/10/2023 12:40 PM EDT Office Visit [facility] [address] [facility] [place] [address] Kamilah Torres MD [address] [facility] [place] [address] 12/09/2023 9:20 AM EDT Office Visit Hepatology, [facility] 132 [facility] [place] [address] Marah Bonner MD [address] [place] [id number] Health Maintenance Due Date Last Done Comments [...] filedocumented as of this encounter Care Teams Measurement And Sensing Technician Relationship Specialty Start Date End Date Kamilah Torres MD 200 [facility] [place] [address] PCP - General Family Medicine 11/05/22 documented as of this encounter
--- OUTSIDE RECORDS SUMMARY | 2023-10-15 18:26 | External Medical Summary | Summary of Care ---
Author Name Unknown Organization [facility] Address [address] [place] [address] Phone [phone] Care Team Providers Care Lettuce Trimmer Name Role Phone Kamilah Torres MD Primary Care Provider [phone] Encounter Details Date Type Department Care Team (Late st Contact Info) Description 07/12/2023 Telephone Family [facility] 200 [facility] [address] Kamilah Torres MD 200 [facility] [place] [address] Allergies No known active allergiesdocumented as of this encounter (statuses as of 07/20/2023) Medications Medication Sig Dispensed Refills Start Date [...] as of this encounter (statuses as of 07/20/2023) Active Problems Problem Noted Date Diagnosed Date Alcoholic hepatitis without ascites 11/29/2022 Generalized anxiety disorder 11/05/2022 Alcohol abuse 11/05/2022 Plaque psoriasis Insomnia documented as of this encounter (statuses as of 07/20/2023) Immunizations No known immunizationsdocumented as of this [...] encounter Miscellaneous Notes * Telephone Encounter - Sofy Lemus RN - 07/12/2023 3:55 PM EDT T/C from Jenny at [facility]. They do not take any medicaid insurance at this time. * Telephone Encounter - Sofy Lemus RN - 07/12/2023 3:46 PM EDT Orders for home health PT/OT faxed to [facility]: [phone] and to [facility]: [phone] T/C to pt and VMM left. If he calls back in you can provide with CM's direct number: [phone] Thanks! * Telephone Encounter - Kamilah Torres MD - 07/12/2023 2:59 PM EDT Looks like case management (Aby) left a message for Owen today. He frequently does not answer hisphone. She can also check on home health PT for him. Would need follow-up to discuss BP, falls, nosebleeds. From cirrhosis, may be low platelets/INR. I ordered lab work for him but appears only some of it was done? * Telephone Encounter - Fidelia Meadows LPN - 07/12/2023 1:46 PM EDT Father calling with many concerns about pt. Pt was seen on 07/06 for hospital f/u. 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 physical therapy was to be set up. He has never been contacted. 3. He has not able to get the trazodone from the pharm. [facility] indicates trazodone was sent to an in house pharm at [facility] in [place] on 07/04. [facility] is not able to fill until 07/20. Father has attempted to contact [facility] but has never been able to get a response back. Pt is having trouble sleeping without the trazodone. 4. Pt had a fall last night he tripped over is untie shojoesph lace. Pt has to call EMT to get up. He refused to eval at Er. No injury from the fall. He didn't hit his head. EMT check Bp 150/98. This his second fall in last 7 days. He is concerned as pt gets weak and lightheaded prior to fall. Father did give the pt a walker to use but at the time of falls he was not using it. 5. Lastly pt has c/o of frequent nosebleeds that start while admitted to [facility] for rehab. He is not currently having nosebleed. Last bleed occurred while in bed last night. He gets slight headache prior to bleed. Father concerned it is his Bp. At last OV bp was 128/90, he doesn't check Bp himself. Acute or chronic problem: chronic Nosebleed started 1 month(s) ago. While admitted to [facility] for rehab Were you able to stop the bleeding: Yes How long did it take to stop the bleeding // how long has nose been bleeding: few minutes Any injury to the nose: No Any current cold symptoms: No Any medication changes recently: No Migraine or headache prior to or with nosebleed: Yes mild headache Hx of nasal abnormalities: No Hx of high blood pressure: Yes If applicable, taking medications as prescribed: No (review med list) BP readin/98 checked by EMT on 07/10. Hx of blood clotting disorders: No Currently taking any blood thinners, Aspirin, NSAIDs, cold or allergy medications, steroid nasal sprays, or using oxygen: No What have you done or taken for this problem? Uses tissue into nostril to pack and apply pressure. Call Dad back at [phone] documented in this encounter Plan of Treatment Upcoming Encounters Date Type Department Care Team (Late st Contact Info) Description 07/21/2023 7:20 AM EDT Laboratory Lab Mobile Phlebotomy [facility] [address] [address] [facility], [facility] Mobile Home Draw [address] [address] 07/22/2023 1:00 PM EDT Nurse Only Dermatology [facility] [place] [address] [place] [address] Sp, Nurse Dermatology 200 [facility] [place] [address] 07/27/2023 1:00 PM EDT Nurse Only Dermatology [facility] [address] [place] [address] Sp, Nurse Dermatology 200 [facility] [place] [address] 07/29/2023 1:30 PM EDT Nurse Only Dermatology [facility] 200 [facility] [place] [address] Sp, Nurse Dermatology 200 [facility] [place] [address] 10/10/2023 12:40 PM EDT Office Visit Family Practice [facility] 200 [facility] [place] [address] Kamilah Torres MD 200 [facility] [place] [address] 12/09/2023 9:20 AM EDT Office Visit Hepatology, [facility] 132 [facility] [place] [address] Marah Bonner MD [address] [place] [id number] Health Maintenance Due Date Last Done Comments [...] filedocumented as of this encounter Care Teams Lettuce Trimmer Relationship Specialty Start Date End Date Kamilah Torres MD [address] [place] [address] PCP - General Family Medicine 11/05/22 documented as of this encounter
--- OUTSIDE RECORDS SUMMARY | 2023-10-15 18:26 | External Medical Summary ---
Author Name Unknown Address Unknown Organization [facility] [place] [address] Laboratory Report Ordering Provider Test Date Status TAQUERIA HELMS 08/03/2023 11:56:53 Final Observation Date Value Abnormality Reference (Units ) Status SYNC LEUKOCYTES IN BLOOD BY AUTOMATED COUNT 08/03/2023 11:56:53 4.04 4.00-10.80 (K/uL) Final Segs 08/03/2023 11:56:53 46.8 40.0-75.0 (%) Final Lymphs % 08/03/2023 11:56:53 33.4 18.0-42.0 (%) Final Monos 08/03/2023 11:56:53 10.1 1.0-11.0 (%) Final Eosinophils 08/03/2023 11:56:53 8.2 Above high normal 0.0-6.0 (%) Final Basos 08/03/2023 11:56:53 1.5 0.0-2.0 (%) Final Absolute Segs 08/03/2023 11:56:53 1.89 1.80-7.70 (K/uL) Final Lymphs, absolute 08/03/2023 11:56:53 1.35 1.00-4.80 (K/ul) Final Monos, Abs 08/03/2023 11:56:53 0.41 0.00-1.10 (K/uL) Final Eos, Abs 08/03/2023 11:56:53 0.33 0.00-0.70 (K/uL) Final Basos, Abs 08/03/2023 11:56:53 0.06 0.00-0.20 (K/uL) Final Performing Location [facility] [place] [address]
--- OUTSIDE RECORDS SUMMARY | 2023-10-15 18:26 | External Medical Summary | Summary of Care ---
Author Name Unknown Organization [facility] Address [address] [place] [address] Phone [phone] Care Team Providers Care Embalmer Assistant Name Role Phone Kamilah Torres MD Primary Care Provider [phone] Reason for Visit * Reason Onset Date Comments Medication Refill 08/04/2023 Advice 08/04/2023 Encounter Details Date Type Department Care Team (Late st Contact Info) Description 08/04/2023 Telephone Family Practice [facility] 200 [facility] [place] [address] Kamilah Torres MD 200 [place] [address] Medication Refill; Advice Allergies No known active [...] Notes * Telephone Encounter - Portia Owusu, [facility] - 08/05/2023 10:30 AM EDT Trazodone 50mg [...] Clinical Pharmacy Services (CCPS) 08/05/23 10:38 AM [phone] * Telephone Encounter - Alyssa Wesley PHARM Tech - 08/05/2023 10:27 AM EDT Pt calling in to request a dose change on their traZODone HCl 50 MG Oral Tablet (Desyrel) . Current dose: 50mg at bedtime Requested dose: 100mg at bedtime Reason for request: no longer working Preferred pharmacy: [id number] Warm-transferred pt to pharmacist for consultation. Thank you, Alyssa Wesley CPhT Senior C Software Engineer Banquet Waiter/Waitress Centralized Clinical Pharmacy Services ([facility]PS) 08/05/2023,10:27 AM * Telephone Encounter - Katelyn Avilez CPhT - 08/04/2023 3:32 PM EDT Called [facility]- last filled 07/15 for 30 days. Scheduled for 08/12 Pt calling to request trazodone. Informed pt that RX is available at their pharmacy. Pt verbalized understanding and stated they will check with their pharmacy regarding this medication. Thank you, Katelyn Avilez CPhT II White Washer Centralized Clinical Pharmacy Services ([facility]PS) 08/04/2023, 3:32 PM documented in this encounter Plan of Treatment Upcoming Encounters Date Type Department Care Team ([facility] st Contact Info) Description 10/10/2023 12:40 PM EDT Office Visit Family Practice [facility] [place] [address] [place] [address] Kamilah Torres MD [address] [place] [address] 12/09/2023 9:20 AM EDT Office Visit Hepatology, [facility] [address] [place] [address] Marah Bonner MD [address] [place] [address] Health Maintenance Due Date Last Done Comments [...] filedocumented as of this encounter Care Teams Embalmer Assistant Relationship Specialty Start Date End Date Kamilah Torres MD 200 [facility] [place] [address] PCP - General Family Medicine 11/05/22 documented as of this encounter
--- OUTSIDE RECORDS SUMMARY | 2023-10-15 18:26 | External Medical Summary | Summary of Care ---
Author Name Unknown Organization [facility] Address [address] [place] [address] Phone [phone] Care Team Providers Care Atm Manager Name Role Phone Kamilah Torres MD Primary Care Provider [phone] Reason for Visit * Reason Onset Date Comments Medication Refill 08/04/2023 Encounter Details Date Type Department Care Team (Late st Contact Info) Description 08/04/2023 Telephone Family Practice [facility] [address] [place] [address] Gee Del Valle, DO [address] [place] [address] Medication Refill Allergies No known active allergiesdocumented as of this encounter (statuses as of 08/05/2023) Medications Medication Sig Dispensed Refills Start Date End Date Status Vitamin D3 25 MCG (1000 UT) Oral Capsule Take 1 Capsule by mouth once. Active Melatonin 3 MG Oral Tablet Disintegrating Take by mouth. Active hydrOXYzine Pamoate 50 MG Oral Capsule (Vistaril)Indicatio ns:Generalized anxiety disorder Take 1 Capsule by mouth 2 times a day as needed for Anxiety. 60 Capsule 5 07/07/2023 Active traZODone HCl 50 MG Oral Tablet (Desyrel)Indication s:Alcohol-induced insomnia (HCC) Take 1 Tablet by mouth at bedtime as needed for Sleep. 30 Tablet 1 07/07/2023 Active Furosemide 40 MG Oral Tablet (Lasix) Take 1 Tablet by mouth daily as needed for Other (edema). 30 Tablet 5 08/03/2023 Active Triamcinolone Acetonide 0.1 % External Cream (Aristocort)Indicat ions:Plaque psoriasis Apply to psoriasis on the arms, legs, chest, and back twice daily 450 g 1 08/03/2023 Active DULoxetine HCl 20 MG Oral Capsule Delayed Release Particles (duloxetine)Indicat ions:Chronic midline low back pain without sciatica,Generalize d anxiety disorder Take 1 Capsule by mouth in the morning. Do not cut, crush or chew. 30 Capsule 5 08/03/2023 Active Clobetasol Propionate 0.05 % External Gel (Temovate) Apply topically to affected area 2 times a day. Apply to scalp 60 g 5 08/05/2023 Active Clobetasol Propionate 0.05 % External SolutionIndications :Plaque psoriasis Apply to psoriasis in scalp daily 50 mL 5 08/03/2023 08/05/19 24 Discontinued documented as of this encounter (statuses as [...] encounter Miscellaneous Notes * Telephone Encounter - Gee Del Valle DO - 08/05/2023 12:38 PM EDT Clobetasol gel sent * Telephone Encounter - Gemma Benavides LPN - 08/05/2023 10:33 AM EDT Patient called in stating he would rather have gel/ ointment not solution. Please advise if willingto send new script for gel * Telephone Encounter - Alyssa Wesley PHARM Tech - 08/05/2023 10:20 AM EDT Pt requesting as high priority. Pt stating that the solution is not what he was looking for. Pt says he needs gel/ointment. Pt calling to check on status of clobetasol 0.05% gel . Caller can be reached at [phone]. Thank you, Alyssa Wesley CPhT Detail Supervisor Manager Advertising Centralized Clinical Pharmacy Services ([facility]) 08/05/2023,10:20 AM * Telephone Encounter - Katelyn Avilez CPhT - 08/04/2023 3:24 PM EDT Pt calling in - he thought he was supposed to be getting clobetasol 0.05% gel for his face called in. Please advise- [id number] [facility] Thank you, Katelyn Avilez CPhT II Polymerization Oven Tender Centralized Clinical Pharmacy Services ([facility]PS) 08/04/2023, 3:29 PM documented in this encounter Plan of Treatment Upcoming Encounters Date Type Department Care Team ([facility] st Contact Info) Description 10/10/2023 12:40 PM EDT Office Visit Family [facility] [place] [address] [place] [address] Kamilah Torres MD [address] [place] [address] 12/09/2023 9:20 AM EDT Office Visit Hepatology, [facility] [address] [place] [address] Marah Bonner MD [address] [...] filedocumented as of this encounter Care Teams Atm Manager Relationship Specialty Start Date End Date Kamilah Torres MD [address] [place] [address] PCP - General Family Medicine 11/05/22 documented as of this encounter
--- OUTSIDE RECORDS SUMMARY | 2023-10-15 18:26 | External Medical Summary | Summary of Care ---
Author Name Unknown Organization [facility] Address [address] [place] [address] Phone [phone] Care Team Providers Care Edger Technician Name Role Phone Kamilah Torres MD Primary Care Provider [phone] Reason for Visit * Reason Onset Date Comments Test Results 08/05/2023 Referral for Kyp hoplasty Encounter Details Date Type Department Care Team (Late st Contact Info) Description 08/05/2023 Telephone Family Practice [facility] [place] [address] [place] [address] Gee eDl Valle, DO [address] [place] [address] Test Results (Referral for Kyphoplasty ) Allergies [...] encounter Miscellaneous Notes * Addendum Note - Shelia Hammer LPN [...] medication, for hisinsomnia. Please call Owen at [phone], you can leave a message. * Telephone [...] 10/10/2023 12:40 PM EDT Office Visit Family [facility] [place] 200 [facility] [place] [address] Kamilah Torres MD [address] [place] [address] 12/09/2023 9:20 AM EDT Office Visit Hepatology, [facility] [address] [place] [address] Marah Bonner MD [address] [place] [...] disorders documented in this encounter Care Teams Edger Technician Relationship Specialty Start Date End Date Kamilah Torres MD [address] [place] [address] PCP - General Family Medicine 11/05/22 documented as of this encounter
--- OUTSIDE RECORDS SUMMARY | 2023-10-15 18:26 | External Medical Summary ---
Author Name Unknown Address Unknown Organization : Laboratory Report Ordering Provider Test Date Status TAQUERIA HELMS 08/03/2023 11:56:53 Final Observation Date Value Abnormality Reference (Units ) Status Mycobacterium tuberculosis stimulated gamma interferon [Interpretation] in Blood Qualitative 08/03/2023 11:56:53 NEGATIVE NEGATIVE Final Negative test result. M. tub erculosis complex
infection unlikely. Gamma interferon background [Units/volume] in Blood by Immunoassay 08/03/2023 11:56:53 0.08 (IU/mL) Final Mitogen stimulated gamma int erferon [Units/volume] corrected for background in Blood 08/03/2023 11:56:53 6.08 (IU/mL) Final Mycobacterium tuberculosis s timulated gamma interferon release by CD4+ T-cells [Units/volume] corrected for background in Blood 08/03/2023 11:56:53 <0.00 (IU/mL) Final Mycobacterium tuberculosis s timulated gamma interferon release by CD4+ and CD8+ T-cells [Units/volume] corrected for background in Blood 08/03/2023 11:56:53 <0.00 (IU/mL) Final The Nil tube value reflects the background interferon
gamma immune response of the patient's blood sample.
This value has been subtracted from the patient's
displayed TB and Mitogen results.
Lower than expected results with the Mitogen tube
prevent false-negative Quantiferon readings by detect-
ing a patient with a potential immune suppressive
condition and/or suboptimal pre-analytical specimen
handling.
The TB1 Antigen tube is coated with the M.
tuberculosis-specific antigens designed to elicit
responses from TB antigen primed CD4+ helper
T-lymphocytes.
The TB2 Antigen tube is coated with the M.
tuberculosis-specific antigens designed to elicit
responses from TB antigen primed CD4+ helper and CD8+
cytotoxic T-lymphocytes.
For additional information, please refer to
http://education.SUNDAYTOZ.DwellAware/faq/XOZ995
(This link is being provided for information/
educational purposes only.)

Test Performed at:
[facility]
[address] [facility]
[place] [address]
Joe Montenegro M.D., Ph.D.,Director of Laboratories Performing Location
--- OUTSIDE RECORDS SUMMARY | 2023-10-15 18:26 | External Medical Summary ---
Author Name Unknown Address Unknown Organization K[facility] [place] [place] [address] Laboratory Report Ordering Provider Test Date Status AURE ROSE 08/03/2023 11:56:53 Final Warfarin Therapy
INR: 2 .0-3.0 conventional anticoagulation
INR: 2.5- 3.5 high intensity anticoagulation Observation Date Value Abnormality Reference (Units ) Status PT 08/03/2023 11:56:53 16.3 Above high normal 11 .6-15.2 (seconds) Final INR 08/03/2023 11:56:53 1.3 Above high normal 0. 8-1.2 Final Performing Location [facility] [place] [address]
--- OUTSIDE RECORDS SUMMARY | 2023-10-15 18:26 | External Medical Summary | Summary of Care ---
Author Name Unknown Organization [facility] Address [address] [place] [address] Phone [phone] Care Team Providers Care Manager Field Name Role Phone Kamilah Torres MD Primary Care Provider [phone] Reason for Visit * Reason Comments Hospital Follow-Up Encounter Details Date Type Department Care Team (Late st Contact Info) Description 08/03/2023 11:00 AM EDT Office Visit Family [facility] [address] [place] [address] Gee Del Valle, DO [address] [place] [address] Alcohol abuse*; Plaque psoriasis; Chronic midline low back pain without sciatica; Generalized anxiety disorder Allergies No known active allergiesdocumented as of [...] 08/03/2023 Active Clobetasol Propionate 0.05 % External SolutionIndications: Plaque psoriasis Apply to psoriasis in scalp daily 50 mL 5 08/03/2023 Active DULoxetine HCl 20 MG Oral Capsule Delayed Release Particles (duloxetine)Indicati ons:Chronic midline low back pain without sciatica,Generalized anxiety disorder Take 1 Capsule by mouth in the morning. Do not cut, crush or chew. 30 Capsule 5 08/03/2023 Active Clobetasol Propionate 0.05 % External SolutionIndications: Plaque psoriasis Apply to psoriasis in scalp daily 50 mL 5 05/26/2023 4 Discontinue d(Refill) Triamcinolone Acetonide 0.1 % External Cream (Aristocort)Indicati ons:Plaque psoriasis Apply to psoriasis on the arms, legs, chest, and back twice daily 450 g 1 05/26/2023 4 Discontinue d(Refill) Furosemide 40 MG Oral Tablet (Lasix) Take 1 Tablet by mouth in the morning. 06/20/2023 4 Discontinue d(Refill) documented as of this encounter [...] Date Smoking Tobacco: Never Smokeless Tobacco: Never Tobacco Cessation:Counseling Given: Not Answered Alcohol Use Standard Drinks/Week Comments No 0 [...] on file documented as of this encounter Last Filed Vital Signs Vital Sign Reading Time Taken Comments Blood Pressure 124/83 08/03/2023 11:05 AM EDT Pulse 85 08/03/2023 11:05 AM EDT Temperature 37 C (98.6 F) 08/03/2023 11:05 AM EDT Respiratory Rate 16 08/03/2023 11:05 AM EDT Oxygen Saturation - - Inhaled Oxygen Concentration - - Weight 102.1 kg (225 lb) 08/03/2023 11:05 AM EDT Height - - Body Mass Index 32.28 07/07/2023 8:29 AM EDT documented in this encounter Progress Notes * Gee Del Valle, DO - 08/03/2023 11:23 AM EDT Subjective: Owen Kiser is a 62 year old male. Chief Complaint Patient presents with Hospital Follow-Up HPI: Pt here in follow-up. He says he is getting near daily nosebleeds. He stopped Furosemide because of urinary issues. He isworried about supplements that were stopped. He fell getting out of the shower to get a towel back in November. HE says he had 3 cracked ribs. He asks about his spine. He is keeping his legs up and that is helping. He asks about Vistaril and it was sent a month ago. He did get it he says. He is doing better with alcohol then before he says. He does not drink every day. We discussed thathe should not be drinking at all. We discussed the potential for Wernicke's. He relates this to his low back. HE is having chrnic pain overall. Mood discussed. He tries to remain optimistic. He does try to do stretching. His mother brings up disability. She talked to a test pilot who said to give them paperwork but didn't say what or from where. PMHx, meds, and allergies reviewed Patient Active Problem List Diagnosis Plaque psoriasis Insomnia Generalized anxiety disorder Alcohol abuse Alcoholic hepatitis without ascites Current Outpatient Medications Medication Sig Dispense Refill Vitamin D3 25 MCG (1000 UT) Oral Capsule Take 1 Capsule by mouth once. Clobetasol Propionate 0.05 % External Solution Apply to psoriasis in scalp daily 50 mL 5 Triamcinolone Acetonide 0.1 % External Cream (Aristocort) Apply to psoriasis on the arms, legs, chest, and back twice daily 450 g 1 Melatonin 3 MG Oral Tablet Disintegrating Take by mouth. hydrOXYzine Pamoate 50 MG Oral Capsule (Vistaril) Take 1 Capsule by mouth 2 times a day as needed for Anxiety. 60 Capsule 5 traZODone HCl 50 MG Oral Tablet (Desyrel) Take 1 Tablet by mouth at bedtime as needed for Sleep. 30Tablet 1 Furosemide 40 MG Oral Tablet (Lasix) Take 1 Tablet by mouth in the morning. (Patient not taking: Reported on 08/03/2023) No current facility-administered medications for this visit. Review of patient's allergies indicates: No Known Allergies OBJECTIVE: BP 124/83 | Pulse 85 | Temp 37 C (98.6 F) | Resp 16 | Wt 102.1 kg (225 lb) | BMI 32.28 kg/m |BSA 2.25 m Estimated body mass index is 32.28 kg/m as calculated from the following: Height as of 07/07/23: 1.778 m (5' 10"). Weight as of this encounter: 102.1 kg (225 lb). BP Readings from Last 3 Encounters: 08/03/23 124/83 07/07/23 128/90 03/24/23 132/88 Wt Readings from Last 3 Encounters: 08/03/23 102.1 kg (225 lb) 07/07/23 96.2 kg (212 lb) 03/24/23 98 kg (216 lb 0.6 oz) ROS: Negative except for above PHYSICAL EXAM: General: alert, healthy, and no distress Head: Normocephalic, No masses, lesions, tenderness or abnormalities Skin: B/L hands with silvery plaques ASSESSMENT/Plan Alcohol abuse (Primary) - COMPREHENSIVE METABOLIC PANEL; Future; Expected date: 08/03/2023 - PT INR; Future; Expected date: 08/03/2023 - CBC; Future; Expected date: 08/03/2023 Plaque psoriasis - Triamcinolone Acetonide 0.1 % External Cream (Aristocort); Apply to psoriasis on the arms, legs, chest, and back twice daily - Clobetasol Propionate 0.05 % External Solution; Apply to psoriasis in scalp daily Chronic midline low back pain without sciatica - XR L SPINE COMPLETE - DULoxetine HCl 20 MG Oral Capsule Delayed Release Particles (duloxetine); Take 1 Capsule by mouthin the morning. Do not cut, crush or chew. Generalized anxiety disorder - DULoxetine HCl 20 MG Oral Capsule Delayed Release Particles (duloxetine); Take 1 Capsule by mouthin the morning. Do not cut, crush or chew. Other orders - Furosemide 40 MG Oral Tablet (Lasix); Take 1 Tablet by mouth daily as needed for Other (edema). I spent a total of 45 minutes on the date of service in preparation, delivery, and documentation ofthe care provided to this patient, excluding any time spent on the performance of any procedure or separately billable services. Owen is still drinking and we discussed that he needs to go to none. It is obvious how much it effects his memory now as our conversations veer in different directions without a chance to complete them. I need to do a lot of redirecting. I do think that working would be very difficult for him at this point. We discussed getting forms from the social security office if he would like me to fill them out. Owen can be somewhat refractory towards services and people trying to help him. He does not like medications or medical staff telling him what to take. I do think his mood and pain are part of this and I'm hoping that Cymbalta can make a difference for him. The above was discussed and understanding was expressed. Gee Del Valle DO * Blanka Patel RN - 08/03/2023 11:05 AM EDT Pt was at [facility] re[facility] in [place] last month. Wants clobetasol gel prescribed. Has been having daily nosebleeds. documented in this encounter Plan of Treatment Upcoming Encounters Date Type Department Care Team (Late st Contact Info) Description 10/10/2023 12:40 PM EDT Office Visit Family Practice [facility] [place] [address] [facility] [place] [address] Kamilah Torres MD [address] [place] [address] 12/09/2023 9:20 AM EDT Office Visit Hepatology, [facility] [address] [facility] [place] [address] Marah Bonner MD [address] [place] [address] Pending Results Name Type Priority Associated Diagnoses Date /Time PT INR Lab Routine Alcohol abuse 08/03/2023 11:56 AM EDT XR L SPINE COMPLETE Medical Imaging Routine Chronic midline low back pain without sciatica 08/03/2023 11:50 AM EDT Scheduled Orders Name Type Priority Associated Diagnoses Orde r Schedule PT INR Lab Routine Alcohol abuse Expected: 08/03/2023 (Approximate), Expires: 08/02/2024 Health Maintenance Due Date Last Done Comments [...] of this encounter Visit Diagnoses Diagnosis Alcohol abuse- Primary Alcohol abuse, unspecified Plaque psoriasis Other psoriasis Chronic midline low back pain without sciatica Generalized anxiety disorder documented in this encounter Care Teams Manager Field Relationship Specialty Start Date End Date Kamilah Torres MD [address] [place] [address] PCP - General Family Medicine 11/05/22 documented as of this encounter
--- OUTSIDE RECORDS SUMMARY | 2023-10-15 18:26 | External Medical Summary | Summary of Care ---
Author Name Unknown Organization [facility] Address [address] [place] [address] Phone [phone] Care Team Providers Care Buyer Tobacco Head Name Role Phone Kamilah Torres MD Primary Care Provider [phone] Reason for Visit * Reason Onset Date Comments Medication Question 08/04/2023 Encounter Details Date Type Department Care Team (Late st Contact Info) Description 08/04/2023 Telephone Family Practice [facility] [address] [place] [address] Gee Del Valle, DO [address] [place] [address] Medication Question Allergies No known active allergiesdocumented as of [...] Encounter - Katelyn Avilez CPhT - 08/04/2023 3:27 PM EDT Pt asking if he can have grapefruit with duloxetine. Spoke with [facility]acorta, informed me to inform ptto avoid grapefruit. Thank you, Katelyn Avilez CPhT II Childbirth Educator [facility] 08/04/2023, 3:28 PM documented in this encounter Plan of Treatment Upcoming Encounters Date Type Department Care Team (Late st Contact Info) Description 10/10/2023 12:40 PM EDT Office Visit Family Practice [facility] [address] [facility] [place] [address] Kamilah Torres MD [address] [facility] [place] [address] 12/09/2023 9:20 AM EDT Office Visit Hepatology, [facility] [address] [facility] [place] [address] Marah Bonner MD [address] [place] [id number] Health Maintenance Due Date Last Done Comments [...] filedocumented as of this encounter Care Teams Buyer Tobacco Head Relationship Specialty Start Date End Date Kamilah Torres MD [address] [place] [address] PCP - General Family Medicine 11/05/22 documented as of this encounter
--- OUTSIDE RECORDS SUMMARY | 2023-10-15 18:27 | External Medical Summary | Summary of Care ---
Author Name Unknown Organization [facility] Address [address] [place] [address] Phone [phone] Care Team Providers Care Larriman Helper Name Role Phone Kamilah Torres MD Primary Care Provider [phone] Reason for Referral * Evaluate & Treat - Unlimited Visits (Within 30 days (routine)) - Authorized Specialty Diagnoses / Procedures Referred By Contac t Referred To Contact [facility] Nurse / Home Care Diagnoses Alcohol abuse Alcoholic hepatitis without ascites Lower extremity edema Generalized anxiety disorder Alcohol-induced insomnia (HCC) Elevated glucose Generalized weakness Kamilah Torres MD [address] [facility] [place] [address] Referral ID Status Reason Start Date Expiration Date Visits Requested Visits Authorized [id number] Authorized Specialty Services Required 07/07/2023 999 999 Question Answer Referral Priority Within 30 days (routine) Where should this appointment be scheduled? [facility] Comments Referred for Medical Home Care Management * Evaluate & Treat - Unlimited Visits (Within 10 days (routine)) - Authorized Specialty Diagnoses / Procedures Referred By Contac t Referred To Contact HOME CARE / Home Care Diagnoses Generalized weakness Kamilah Torres MD [address] [facility] [place] [address] Referral ID Status Reason Start Date Expiration Date Visits Requested Visits Authorized [id number] Authorized Specialty Services Required 07/07/2023 999 999 Question Answer Referral Priority Within 10 days (routine) Where should this appointment be scheduled? [facility] Comments Documentation of Skkd-cp-Aack Encounter Addendum Patient Name: Owen Alonsoney I certify that this patient is under my care and that I, or a nurse practitioner or physician's bricklayer's assistant working with me, had a [id number] encounter that meets the physician syzd-[id number] encounter requirements with this patient on: 07/07/23 The encounter with the patient was in whole, or in part, for the following medical condition, which is the primary reason for home health care (List medical condition): Gait dysfunction I certify that, based on my findings, the following services are medically necessary home health services: Physical Therapy To provide the following care/treatments: (All hospitalists not following the patient after discharge should complete this section): PT Primary Care Physician to follow home care plan of care after discharge: Dr. Torres My clinical findings support the need for the above services because: Generalized weakness, deconditioning from alcohol use and hospitalization Further, I certify that my clinical findings support that this patient is homebound (i.e. Absences from home require considerable and taxing effort and are for medical reasons or taoist services or infrequently or of short duration when for other reason) because: Unable to leave house/drive due to alcohol use Physician Signature: Date of Signature: Physician Printed Name: Kamilah Torres MD Reason for Visit * Reason Comments Hospital Follow-Up Encounter Details Date Type Department Care Team (Late st Contact Info) Description 07/07/2023 8:20 AM EDT Office Visit [facility] [address] [place] [address] Kamilah Torres MD [address] [place] [id number] Alcohol abuse*; Alcoholic hepatitis without ascites; Lower extremity edema; Generalized anxiety disorder; Alcohol-induced insomnia (HCC); Elevated glucose; Generalized weakness Allergies No known active allergiesdocumented as of this encounter (statuses as of 07/07/2023) Medications Medication Sig Dispensed Refills Start Date End Date Status Vitamin D3 25 MCG (1000 UT) Oral Capsule Take 1 Capsule by mouth once. 0 Active Clobetasol Propionate 0.05 % External SolutionIndication s:Plaque psoriasis Apply to psoriasis in scalp daily 50 mL 5 4 Active Triamcinolone Acetonide 0.1 % External Cream (Aristocort)Indica tions:Plaque psoriasis Apply to psoriasis on the arms, legs, chest, and back twice daily 450 g 1 4 Active Furosemide 40 MG Oral Tablet (Lasix) Take 1 Tablet by mouth in the morning. 0 4 Active Melatonin 3 MG Oral Tablet Disintegrating Take by mouth. 0 Active hydrOXYzine Pamoate 50 MG Oral Capsule (Vistaril)Indicati ons:Generalized anxiety disorder Take 1 Capsule by mouth 2 times a day as needed for Anxiety. 60 Capsule 5 4 Active traZODone HCl 50 MG Oral Tablet (Desyrel)Indicatio ns:Alcohol-induced insomnia (HCC) Take 1 Tablet by mouth at bedtime as needed for Sleep. 30 Tablet 1 4 Active Vitamin B-1 100 MG Oral Tablet Take 1 Tablet by mouth in the morning. 0 3 07/07/19 24 Discontinued Milk Thistle 200 MG Oral Capsule Take by mouth. 0 07/07/19 24 Discontinued NAC 600 MG Oral Capsule (Acetylcysteine) Take 1 Capsule by mouth in the morning. 0 07/07/19 24 Discontinued Turmeric 450 MG Oral Capsule Take 1 Capsule by mouth once. 0 07/07/19 24 Discontinued cloNIDine HCl 0.1 MG Oral Tablet (Catapres) Take 1 Tablet by mouth 2 times a day as needed. 0 4 07/07/19 24 Discontinued hydrOXYzine Pamoate 50 MG Oral Capsule (Vistaril) Take 1 Capsule by mouth 4 times a day as needed for Anxiety. 0 4 07/07/19 24 Discontinued(Ref ill) traZODone HCl 50 MG Oral Tablet (Desyrel) Take 1 Tablet by mouth at bedtime as needed for Sleep. 0 4 07/07/19 24 Discontinued(Ref ill) documented as of this encounter (statuses as of 07/07/2023) Active Problems Problem Noted Date Diagnosed Date Alcoholic hepatitis without ascites 11/29/2022 Generalized anxiety disorder 11/05/2022 Alcohol abuse 11/05/2022 Plaque psoriasis Insomnia documented as of this encounter (statuses as of 07/07/2023) Immunizations No known immunizationsdocumented as of this [...] Sign Reading Time Taken Comments Blood Pressure 128/90 07/07/2023 8:29 AM EDT Pulse 82 07/07/2023 8:29 AM EDT Temperature 36.7 C (98.1 F) 07/07/2023 8:29 AM ED T Respiratory Rate 16 07/07/2023 8:29 AM EDT Oxygen Saturation - - Inhaled Oxygen Concentration - - Weight 96.2 kg (212 lb) 07/07/2023 8:29 AM EDT Height 177.8 cm (5' 10") 07/07/2023 8:29 AM EDT Body Mass Index 30.42 07/07/2023 8:29 AM EDT documented in this encounter Progress Notes * Kamilah Torres MD - 07/07/2023 8:30 AM EDT Subjective Chief Complaint Patient presents with Hospital Follow-Up HPI: Owen Kiser is a 62 year old male. Patient is accompanied by his father. The following issues were addressed today: Patient with alcohol use disorder, history of alcoholic hepatitis presents today for hospital follow-up. I do not have any records. States he was at [facility] for detox program. Was there for about 3 weeks and got back on Tuesday. Dad states he went to visit him yesterday and found him on the floor next to his bed. Feeling very weak and unsteady. Has increased edema in his legs that is making it more difficult to get around. Overall improving some with Lasix. Was told at [facility] his blood glucose was >400. Hgb A1c in October 2022 was 5.7%. Will update. Was started on trazodone for insomnia and hydroxyzine 50mg BID PRN for anxiety. Would like to continue these medications. He was also prescribed clonidine 0.1mg, written to take as needed for blood pressure. Unclear of when he is to take this and does not take his blood pressure at home. Will discontinue. Review of Systems: See HPI Objective BP 128/90 | Pulse 82 | Temp 36.7 C (98.1 F) | Resp 16 | Ht 1.778 m (5' 10") | Wt 96.2 kg (212 lb) | BMI 30.42 kg/m | BSA 2.18 m Wt Readings from Last 3 Encounters: 07/07/23 96.2 kg (212 lb) 03/24/23 98 kg (216 lb 0.6 oz) 01/13/23 97.1 kg (214 lb) BP Readings from Last 3 Encounters: 07/07/23 128/90 03/24/23 132/88 01/13/23 132/84 General: No acute distress Head: Normocephalic and atraumatic Eyes: No conjunctival injection, (+) scleral icterus, extraocular movements are intact Cardiovascular: Regular rate and rhythm, no murmur Respiratory: Good respiratory effort, breath sounds equal and clear to auscultation bilaterally Extremities: 1+ bilateral edema in ankles and feet Skin: Scattered psoriatic plaques on hands and lower extremities, telangiectasis on face Neurological: Alert and oriented Psychiatric: Appropriate mood and affect, somewhat tangential speech but redirectable Assessment & Plan 1. Alcohol abuse - COMPREHENSIVE METABOLIC PANEL; Future - MEDICAL HOME CASE MANAGEMENT REFERRAL OP 2. Alcoholic hepatitis without ascites - COMPREHENSIVE METABOLIC PANEL; Future - MEDICAL HOME CASE MANAGEMENT REFERRAL OP 3. Lower extremity edema - COMPREHENSIVE METABOLIC PANEL; Future - MEDICAL HOME CASE MANAGEMENT REFERRAL OP 4. Generalized anxiety disorder - MEDICAL HOME CASE MANAGEMENT REFERRAL OP - hydrOXYzine Pamoate 50 MG Oral Capsule (Vistaril); Take 1 Capsule by mouth 2 times a day as needed for Anxiety. Dispense: 60 Capsule; Refill: 5 5. Alcohol-induced insomnia (HCC) - MEDICAL HOME CASE MANAGEMENT REFERRAL OP - traZODone HCl 50 MG Oral Tablet (Desyrel); Take 1 Tablet by mouth at bedtime as needed for Sleep.Dispense: 30 Tablet; Refill: 1 6. Elevated glucose - HEMOGLOBIN A1C; Future - MEDICAL HOME CASE MANAGEMENT REFERRAL OP 7. Generalized weakness - HOME HEALTH REFERRAL OP - MEDICAL HOME CASE MANAGEMENT REFERRAL OP Update labs. We discussed establishing with case management and patient is agreeable. Also recommended home PT due to deconditioning and generalized weakness. He is not interested in inpatient rehab. Referral ordered. Encouraged to re-establish with hepatology. He missed initial appointment. Return in about 3 months (around 10/07/2023) for routine follow-up. This note was electronically signed by Kamilah Torres MD documented in this encounter Nursing Notes * Chaparrita Hebert LPN - 07/07/2023 8:29 AM EDT The patient has been properly identified by confirmation of name and date of . Chief Complaint Patient presents with Hospital Follow-Up documented in this encounter Plan of Treatment Upcoming Encounters Date Type Department Care Team (Late st Contact Info) Description 10/10/2023 12:40 PM EDT Office Visit Family [facility] [place] [address] [place] [place] [address] Kamilah Torres MD [address] [facility] [place] [address] Pending Results Name Type Priority Associated Diagnoses Date /Time HEMOGLOBIN A1C Lab Routine Elevated glucose 07/07/2023 9:19 AM EDT Scheduled Orders Name Type Priority Associated Diagnoses Orde r Schedule HEMOGLOBIN A1C Lab Routine Elevated glucose Expected: 07/07/2023 (Approximate), Expires: 07/06/2024 Scheduled Referrals Name Type Priority Associated Diagnoses Orde r Schedule HOME HEALTH REFERRAL OP Referral Within 10 days (routine) Generalized weakness Ordered: 07/07/2023 MEDICAL HOME CASE MANAGEMENT REFERRAL OP Referral Within 30 days (routine) Alcohol abuse Alcoholic hepatitis without ascites Lower extremity edema Generalized anxiety disorder Alcohol-induced insomnia (HCC) Elevated glucose Generalized weakness Ordered: 07/07/2023 Health Maintenance Due Date Last Done Comments Pneumococcal Vaccine: Pediatrics (0 to 5 Years) and At-Risk Patients (6 to 64 Years) (1 of 2 - PCV) 1968 DTaP,Tdap,and Td Vaccines (1 - Tdap) 1981 Cologuard 12/29/2007 Colonoscopy 12/29/2007 Colorectal Cancer Screening 12/29/2007 Fecal Occult Blood Test 12/29/2007 Sigmoidoscopy 12/29/2007 Zoster Vaccines (1 of 2) 2012 Depression Screening 01/18/2018 01/18/2017 COVID-19 Vaccine (1 - season) 2022 Hepatitis B (1 of 3 - Risk 3-dose series) 2022 Influenza Vaccine (FLU shot) (Season Ended) 2023 Diabetes Screening 07/06/2026 07/07/2023, 0 03/24/2023, 12/10/2022, Additional history exists Lipid Panel 11/06/2027 11/05/2022, 11/15/2014 GARDASIL-HPV IMMUNIZATION SERIES Aged Out No longer eligible based on patient's age to complete this topic MENINGOCOCCAL (MENACTRA/MENVEO) Aged Out No longer eligible based on patient's age to complete this topic documented as of this encounter Medical Devices Not on filedocumented as of this encounter Results * (ABNORMAL) COMPREHENSIVE METABOLIC PANEL (07/07/2023 9:19 AM EDT) BUN 9 6 - 20 mg/dL 07/07/2023 11:08 AM EDT [facility] Creatinine 0.7 0.6 - 1.2 mg/dL 07/07/2023 11:08 AM EDT [facility] Estimated Glomerular Filtration Rate >90 >=60 mL/min 07/07/2023 11:08 AM EDT [facility] Comment:eGFR is calculated b ased on the CKD-EPI 2020 equation Sodium 137 135 - 146 mmol/L 07/07/2023 11:[address] Potassium 4.3 3.5 - 5.1 mmol/L 07/07/2023 11:08 AM T [address] Chloride 100 98 - 107 mmol/L 07/07/2023 11:08 [address] CO2 25 22 - 32 mmol/L 07/07/2023 11:08 AM T [address] Anion Gap 12 7 - 15 mmol/L 07/07/2023 11:08 AM EDT [address] Glucose 132(H) 70 - 120 mg/dL 07/07/2023 11:[address] Albumin 3.4(L) 3.8 - 5.0 g/dL 07/07/2023 11:[address] AST 38 10 - 50 U/L 07/07/2023 11:[address] Alkaline Phosphatase 135(H) 35 - 130 U/L 07/07/2023 11:08 [address] Bilirubin, Total 0.8 <=1.2 mg/dL 07/07/2023 11:08 AM T [address] Calcium 9.4 8.4 - 10.2 mg/dL 07/07/2023 11:[address] Protein 9.1(H) 6.0 - 8.3 g/dL 07/07/2023 11:[address] ALT 19 10 - 50 U/L 07/07/2023 11:08 [address] Blood Venous blood specimen / Unknown Venipuncture / Unknown 07/07/2023 9:19 AM EDT 07/07/2023 9:19 AM EDT Kamilah Torres MD LAB BLOOD ORDERABLES [facility] [address] [place] [address] documented in this encounter Visit Diagnoses Diagnosis Alcohol abuse- Primary Alcohol abuse, unspecified Alcoholic hepatitis without ascites Acute alcoholic hepatitis Lower extremity edema Edema Generalized anxiety disorder Alcohol-induced insomnia (HCC) Alcohol induced sleep disorders Elevated glucose Other abnormal glucose Generalized weakness Other malaise and fatigue documented in this encounter Care Teams Larriman Helper Relationship Specialty Start Date End Date Kamilah Torres MD [address] [place] [id number] PCP - General Family Medicine 11/05/22 documented as of this encounter
--- OUTSIDE RECORDS SUMMARY | 2023-10-15 18:27 | External Medical Summary | Summary of Care ---
Author Name Unknown Organization [facility] Address [address] [place] [address] Phone [phone] Care Team Providers Care Minister Name Role Phone Kamilah Torres MD Primary Care Provider [phone] Reason for Referral * Evaluate & Treat - Unlimited Visits (Within 10 days (routine)) - Authorized Specialty Diagnoses / Procedures Referred By Contac t Referred To Contact Physical Therapy / Physical Medicine And Rehab Diagnoses Alcohol abuse Physical deconditioning Generalized weakness Kamilah Torres MD [address] [facility] [place] [address] Referral ID Status Reason Start Date Expiration Date Visits Requested Visits Authorized [id number] Authorized Specialty Services Required 07/13/2023 999 999 Question Answer Referral Priority Within 10 days (routine) Where should this appointment be scheduled? [facility] Reason for Visit * Reason Onset Date Comments FYI 07/06/2023 Encounter Details Date Type Department Care Team (Late st Contact Info) Description 07/06/2023 Telephone Family Practice [facility] [address] [place] [address] [address] Kamilah Torres MD [address] [facility] [place] [address] FY Allergies No known active allergiesdocumented as of this encounter (statuses as of 07/13/2023) Medications Medication Sig Dispensed Refills Start Date End Date Status Vitamin D3 25 MCG (1000 UT) Oral Capsule Take 1 Capsule by mouth once. 0 Active Clobetasol Propionate 0.05 % External SolutionIndications:P laque psoriasis Apply to psoriasis in scalp daily 50 mL 5 05/26/2023 Active Triamcinolone Acetonide 0.1 % External Cream (Aristocort)Indicatio ns:Plaque psoriasis Apply to psoriasis on the arms, legs, chest, and back twice daily 450 g 1 05/26/2023 Active documented as of this encounter (statuses as of 07/13/2023) Active Problems Problem Noted Date Diagnosed Date Alcoholic hepatitis without ascites 11/29/2022 Generalized anxiety disorder 11/05/2022 Alcohol abuse 11/05/2022 Plaque psoriasis Insomnia documented as of this encounter (statuses as of 07/13/2023) Immunizations No known immunizationsdocumented as of this [...] encounter Miscellaneous Notes * Addendum Note - Kamilah Torres MD - 07/13/2023 8:30 PM EDTAddended by: KAMILAH TORRES on: 07/13/2023 08:30 PM Modules accepted: Orders * Telephone Encounter - Kamilah Torres MD - 07/13/2023 8:28 PM EDT PT referral ordered. Please follow-up with him on location of back pain, length of symptoms, any red flags (fever, chills, trauma or injury, urinary incontinence or retention, fecal incontinence, saddle anesthesia, or lower extremity weakness). Has the incontinence stopped since he stopped the Lasix? He can take ibuprofen as needed for pain. * Telephone Encounter - Sofy Lemus RN - 07/13/2023 11:10 AM EDT Can you put in an order for outpatient PT as well? I'm having a had time finding home health that takes his insurance but there are some outpatient PT providers who will work with patients in their home like [facility] or [facility]. Patient is not taking his lasix d/t incontinence of bowel and bladder-which is embarrassing. He does have briefs he is wearing. Also, pt is complaining of having a lot of back pain and wants to know 1. Can he get his back looked at to see what is going on and 2. What he can take. He can't take tylenol d/t his liver. Could he take Ibuprofen or aleve? Thank you again in advanced! * Telephone Encounter - Kamilah Torres MD - 07/07/2023 10:00 AM EDT He does not want to do inpatient therapy so I think home PT would be fine. Thank you! * Telephone Encounter - Sofy Lemus RN - 07/07/2023 9:31 AM EDT I got the referral for this pt. Do you think he needs home health or somewhere like [facility]? I'm also going to get the addiction coordinator involved with him as well. * Telephone Encounter - Fidelia Meadows LPN - 07/06/2023 3:02 PM EDT Dad [place] calling about appt tomorrow, pt is having trouble walking. His legs are very weak. Dad and pt spoke about the need for physical therapy to strengthen his legs. Pt would be willing to be admitted to a rehab center like [facility] for in patient therapy or doing HH therapy. Dad would like this discussed at his appt tomorrow. This is FYI documented in this encounter Plan of Treatment Upcoming Encounters Date Type Department Care Team (Late st Contact Info) Description 07/15/2023 2:30 PM EDT Nurse Only Dermatology [facility] [place] [address] [place] [address] Sp, Nurse Dermatology [address] [place] [address] 07/20/2023 1:00 PM EDT Nurse Only Dermatology [facility] [place] [address] [place] [address] Sp, Nurse Dermatology [address] [place] [address] 07/22/2023 1:00 PM EDT Nurse Only Dermatology [facility] [place] [address] [place] [address] Sp, Nurse Dermatology [address] [place] [address] 07/27/2023 1:00 PM EDT Nurse Only Dermatology [facility] [place] [address] [place] [address] Sp, Nurse Dermatology [address] [place] [address] 07/29/2023 1:30 PM EDT Nurse Only Dermatology [facility] [place] [address] [place] [address] Sp, Nurse Dermatology [address] [place] [address] 10/10/2023 12:40 PM EDT Office Visit Family Practice [facility] [place] [address] [facility] [place] [address] Kamilah Torres MD [address] [facility] [place] [address] 12/09/2023 9:20 AM EDT Office Visit Hepatology, [facility] [address] [facility] [place] [address] Marah Bonner MD [address] [place] [address] Scheduled Referrals Name Type Priority Associated Diagnoses Orde r Schedule PHYSICAL THERAPY REFERRAL OP Referral Within 10 days (routine) Alcohol abuse Physical deconditioning Generalized weakness Ordered: 07/13/2023 Health Maintenance Due Date Last Done Comments [...] Diagnosis Alcohol abuse- Primary Alcohol abuse, unspecified Physical deconditioning Debility, unspecified Generalized weakness Other malaise and fatigue documented in this encounter Care Teams Minister Relationship Specialty Start Date End Date Kamilah Torres MD [address] [facility] [place] [address] PCP - General Family Medicine 11/05/22 documented as of this encounter
--- OUTSIDE RECORDS SUMMARY | 2023-10-15 18:27 | External Medical Summary | Summary of Care ---
Author Name Unknown Organization [facility] Address [address] [place] [address] Phone [phone] Care Team Providers Care Warp Hand Name Role Phone Kamilah Torres MD Primary Care Provider [phone] Reason for Visit * Reason Onset Date Comments Medication Refill 07/14/2023 Encounter Details Date Type Department Care Team (Late st Contact Info) Description 07/13/2023 Refill General Internal Medicine [facility] [address] [place] [address] Emory Marroquin, RN [address] [place] [address] Plaque psoriasis Allergies No known active allergiesdocumented as of this encounter (statuses as of 07/14/2023) Medications Medication Sig Dispensed Refills Start Date [...] Tablet by mouth in the morning. 0 06/20/2023 Active Melatonin 3 MG Oral Tablet [...] as of this encounter (statuses as of 07/14/2023) Active Problems Problem Noted Date Diagnosed Date Alcoholic hepatitis without ascites 11/29/2022 Generalized anxiety disorder 11/05/2022 Alcohol abuse 11/05/2022 Plaque psoriasis Insomnia documented as of this encounter (statuses as of 07/14/2023) Immunizations No known immunizationsdocumented as of this [...] encounter Miscellaneous Notes * Addendum Note - Emory Marroquin RN - 07/14/2023 8:32 AM EDTAddended by: EMORY MARROQUIN on: 07/14/2023 08:32 AM Modules accepted: Orders * Telephone Encounter - Emory Marroquin RN - 07/14/2023 8:32 AM EDT Order pended below. Thank you! * Telephone Encounter - Kamilah Torres MD - 07/14/2023 8:14 AM EDT I don't see the mobile phlebotomy order pended and not sure of the correct order details-- can you pend again in this encounter? Should just need those labs you listed. * Telephone Encounter - Bethany Ma PA-C - 07/13/2023 3:11 PM EDT Pt has refills on the scripts, can get it refilled at the pharmacy * Telephone Encounter - Bethany Ma PA-C - 07/13/2023 3:11 PM EDT Refused Prescriptions: Disp Refills Clobetasol Propionate 0.05 % External Solu*50 mL 5 Sig: Apply to psoriasis in scalp daily Refused By: BETHANY MA Reason for Refusal: Too soon Triamcinolone Acetonide 0.1 % External Cre*450 g 1 Sig: Apply to psoriasis on the arms, legs, chest, and back twice daily Refused By: BETHANY MA Reason for Refusal: Too soon * Telephone Encounter - Emory Marroquin RN - 07/13/2023 12:32 PM EDT Could we order the labs that were not collected through mobile phlebotomy. It's not easy for dad toget him here. I pended the mobile lab order (Acute Hepatitis panel, Quantiferon TB, CBC with Diff, Hepatitis B surface antibody) Do we need any other labs done for him? documented in this encounter Plan of Treatment Upcoming Encounters Date Type Department Care Team (Late st Contact Info) Description 07/15/2023 2:30 PM EDT Nurse Only Dermatology [facility]jandro Radha [place] [address] [place] [address] Sp, Nurse Dermatology [address] [place] [address] 07/20/2023 1:00 PM EDT Nurse Only Dermatology Alejandro Radha [place] [address] [place] [address] Sp, Nurse Dermatology [address] [place] [address] 07/22/2023 1:00 PM EDT Nurse Only Dermatology Gabriel Garcia [place] [address] [place] [address] Sp, Nurse Dermatology [address] [place] [address] 07/27/2023 1:00 PM EDT Nurse Only Dermatology Gabriel Garcia [place] [address] [place] [address] Sp, Nurse Dermatology [address] [place] [address] 07/29/2023 1:30 PM EDT Nurse Only Dermatology Gabriel Garcia [place] [address] [place] [address] Sp, Nurse Dermatology [address] [place] [address] 10/10/2023 12:40 PM EDT Office Visit Family [facility] Alejandro Radha [place] [address] [place] [address] Kamilah Torres MD [address] [place] [address] 12/09/2023 9:20 AM EDT Office Visit Hepatology, [facility] [address] [place] [address] Marah Bonner MD [address] [place] [address] Health Maintenance Due Date Last Done Comments [...] as of this encounter Visit Diagnoses Diagnosis Plaque psoriasis Other psoriasis documented in this encounter Care Teams Warp Hand Relationship Specialty Start Date End Date Kamilah Torres MD [address] [place] [address] PCP - General Family Medicine 11/05/22 documented as of this encounter
--- OUTSIDE RECORDS SUMMARY | 2023-10-15 18:27 | External Medical Summary | Summary of Care ---
Author Name Unknown Organization [facility] Address [address] [place] [address] Phone [phone] Care Team Providers Care Household Chores Name Role Phone Kamilah Torres MD Primary Care Provider [phone] Reason for Visit * Reason Comments Light treatment Areas of body covere d or protected during treatment: eyes and genitals. Narrow Band UVB 101millijoules. Patient receives treatment three times weekly. Narrow Band UVB dose to be increased by 100 millijoules each treatment. The patient has not been seen in over a month and the treatment was resent to 100mj. Encounter Details Date Type Department Care Team (Late st Contact Info) Description 07/13/2023 1:00 PM EDT Nurse Only Dermatology [facility] [address] [place] [address] Sp, Nurse Dermatology [address] [place] [address] Light treatment ( Areas of body covered or... Allergies No known active allergiesdocumented as of [...] 07/15/2023 2:30 PM EDT Nurse Only Dermatology [place] [address] [place] [address] Sp, Nurse Dermatology 200 [facility] [place] [address] 07/20/2023 1:00 PM EDT Nurse Only Dermatology [facility] [address] [place] [address] Sp, Nurse Dermatology [address] [place] [place] [address] 07/22/2023 1:00 PM EDT Nurse Only Dermatology [facility] [place] [address] [place] [place] [address] Sp, Nurse Dermatology [address] [place] [address] 07/27/2023 1:00 PM EDT Nurse Only Dermatology [facility] [place] [address] [place] [address] Sp, Nurse Dermatology [address] [place] [address] 07/29/2023 1:30 PM EDT Nurse Only Dermatology [facility] [place] [address] [place] [address] Sp, Nurse Dermatology 200 [facility] [place] [address] 10/10/2023 12:40 PM EDT Office Visit Family Practice [facility] [address] [place] [address] Kamilah Torres MD [address] [place] [address] 12/09/2023 9:20 AM EDT Office Visit Hepatology, [facility] [address] [facility] [place] [address] Marah Bonner MD 310 [facility] [place] [address] Health Maintenance Due Date [...] as of this encounter Visit Diagnoses Diagnosis Psoriasis vulgaris- Primary Other psoriasis documented in this encounter Care Teams Household Chores Relationship Specialty Start Date End Date Kamilah Torres MD [address] [facility] [place] [address] PCP - General Family Medicine 11/05/22 documented as of this encounter
--- OUTSIDE RECORDS SUMMARY | 2023-10-15 18:27 | External Medical Summary | Summary of Care ---
Author Name Unknown Organization [facility] Address [address] [place] [address] Phone [phone] Care Team Providers Care Cooker Sulfate Name Role Phone Kamilah Torres MD Primary Care Provider [phone] Reason for Visit * Reason Comments Outpatient Testing Encounter Details Date Type Department Care Team (Late st Contact Info) Description 07/07/2023 9:10 AM EDT Laboratory Laboratory [facility] [address] [place] [address] [facility] [address] [place] [address] Elevated glucose; Alcohol abuse; Alcoholic hepatitis without [...] 12:40 PM EDT Office Visit [facility] [address] [place] [address] Kamilah Torres MD 200 [facility] [place] [address] Pending Results Name Type Priority Associated Diagnoses Date /Time HEMOGLOBIN A1C Lab Routine Elevated glucose 07/07/2023 9:19 AM EDT COMPREHENSIVE METABOLIC PANEL Lab Routine Alcohol abuse Alcoholic hepatitis without ascites Lower extremity edema 07/07/2023 9:19 AM EDT Scheduled Orders Name [...] (FLU shot) (Season Ended) 2023 Diabetes Screening 03/24/2026 03/24/2023, 1 , 11/05/2022, Additional history exists Lipid Panel 11/06/2027 11/05/2022, 11/15/2014 GARDASIL-HPV IMMUNIZATION SERIES Aged Out No longer eligible based on patient's age to complete this topic MENINGOCOCCAL (MENACTRA/MENVEO) Aged Out No longer eligible based on patient's age to complete this topic documented as of this encounter Medical Devices Not on filedocumented as of this encounter Visit Diagnoses Diagnosis Elevated glucose Other abnormal glucose Alcohol abuse Alcohol abuse, unspecified Alcoholic hepatitis without ascites Acute alcoholic hepatitis Lower extremity edema Edema Plaque psoriasis Other psoriasis Erythroderma Unspecified erythematous condition documented in this encounter Care Teams Cooker Sulfate Relationship Specialty Start Date End Date Kamilah Torres MD [address] [place] [address] PCP - General Family Medicine 11/05/22 documented as of this encounter
--- OUTSIDE RECORDS SUMMARY | 2023-10-15 18:27 | External Medical Summary | Summary of Care ---
Author Name Unknown Organization [facility] Address [address] [place] [address] Phone [phone] Care Team Providers Care Helmet Hat Puncher Name Role Phone Kamilah Torres MD Primary Care Provider Encounter Details Date Type Department Care Team (Late st Contact Info) Description 07/12/2023 Telephone Family [facility] 200 [facility] [place] [address] Kamilah Torres MD 200 [facility] [place] [address] Allergies No known active allergiesdocumented as of [...] 3:55 PM EDT T/C from Jenny at [facility]. They do not take any medicaid insurance at this time. * Telephone Encounter - Sofy Lemus RN - 07/12/2023 3:46 PM EDT Orders for home health PT/OT faxed to [facility]: [phone] and to [facility]: [phone] T/C to pt and VMM left. If he calls back in you can provide with CM's direct number: [phone] Thanks! * Telephone Encounter - Kamilah Torres [...] f/u. Pt was to be assigned a child welfare caseworker, he has never heard anything about this. physical therapy was to be set up. He has never been contacted. 3. He has not able to get the trazodone from the pharm. [facility] indicates trazodone was sent to an in house pharm at [facility] in [place] on 07/04. [facility] is not able to fill until 07/20. Father has attempted to contact [facility] but has never been able to get [...] frequent nosebleeds that start while admitted to [facility] for rehab. He is not currently having nosebleed. Last bleed occurred while in bed last night. He gets slight headache prior to bleed. Father concerned it is his Bp. At last OV bp was 128/90, he doesn't check Bp himself. Acute or chronic problem: chronic Nosebleed started 1 month(s) ago. While admitted to [facility] for rehab Were you able to stop [...] and apply pressure. Call Dad back at [phone] documented in this encounter Plan of Treatment Upcoming Encounters Date Type Department Care Team (Late st Contact Info) Description 07/21/2023 7:20 AM EDT Laboratory Lab Mobile Phlebotomy [facility] [address] [place] [address] [facility] [address] [place] [address] 07/22/2023 1:00 PM EDT Nurse Only Dermatology [facility] Radha [place] [address] [place] [address] Sp, Nurse Dermatology 200 [facility] [place] [address] 07/27/2023 1:00 PM EDT Nurse Only Dermatology [place] [address] [place] [address] Sp, Nurse Dermatology 200 [facility] [place] [address] 07/29/2023 1:30 PM EDT Nurse Only Dermatology [facility] [address] [facility] [place] [address] Sp, Nurse Dermatology 200 [facility] [place] [address] 10/10/2023 12:40 PM EDT Office Visit Family Practice [facility] 200 [facility] [place] [address] Kamilah Torres MD 200 [facility] [place] [address] 12/09/2023 9:20 AM EDT Office Visit Hepatology, [facility] 132 [facility] [place] [address] Marah Bonner MD [address] [place] [id number] Health Maintenance Due Date Last Done Comments [...] filedocumented as of this encounter Care Teams Helmet Hat Puncher Relationship Specialty Start Date End Date Kamilah Torres MD [address] [place] [address] PCP - General Family Medicine 11/05/22 documented as of this encounter
--- OUTSIDE RECORDS SUMMARY | 2023-10-15 18:27 | External Medical Summary | Summary of Care ---
Author Name Unknown Organization [facility] Address [address] [place] [address] Phone [phone] Care Team Providers Care Bowling Alley Manager Name Role Phone Kamilah Torres MD Primary Care Provider [phone] Reason for Visit * Reason Onset Date Comments FYI 07/06/2023 Encounter Details Date Type Department Care Team (Late st Contact Info) Description 07/06/2023 Telephone Family Practice [facility] 200 [place] [address] Kamilah Torres MD 200 [place] [address] FYI Allergies No known active allergiesdocumented as of [...] work with patients in their home like [employer] or [employer]. Patient is not taking his lasix d/t [...] LPN - 07/06/2023 3:02 PM EDT Dad Newton calling about appt tomorrow, pt is having trouble walking. His legs are very weak. Dad and pt spoke about the need for physical therapy to strengthen his legs. Pt would be willing to be admitted to a rehab center like [facility] for in patient therapy or doing HH therapy. Dad would like this discussed at his appt tomorrow. This is FYI documented in this encounter Plan of Treatment Upcoming Encounters Date Type Department Care Team (Late st Contact Info) Description 07/13/2023 1:00 PM EDT Nurse Only Dermatology [facility] [address] [place] [address] Sp, Nurse Dermatology [address] [place] [address] 10/10/2023 12:40 PM EDT Office Visit Family Practice [facility] [address] [facility] [place] [address] Kamilah Torres MD 200 [place] [address] 12/09/2023 9:20 AM EDT Office Visit Hepatology, [facility] [address] [facility] [place] [address] Marah Bonner MD [address] [place] [...] Ended) 2023 Diabetes Screening 07/06/2026 07/07/2023, 0 07/07/2023, 03/24/2023, Additional history exists Lipid Panel 11/06/2027 11/05/2022, 11/15/2014 GARDASIL-HPV IMMUNIZATION SERIES Aged Out No longer eligible based on patient's age to complete this topic MENINGOCOCCAL (MENACTRA/MENVEO) Aged Out No longer eligible based on patient's age to complete this topic documented as of this encounter Medical Devices Not on filedocumented as of this encounter Care Teams Bowling Alley Manager Relationship Specialty Start Date End Date Kamilah Torres MD [address] [place] [address] PCP - General Family Medicine 11/05/22 documented as of this encounter
--- OUTSIDE RECORDS SUMMARY | 2023-10-15 18:27 | External Medical Summary | Summary of Care ---
Author Name Unknown Organization [facility] Address [address] [place] [address] Phone [phone] Care Team Providers Care Senior Quality Control Inspector Name Role Phone Kamilah Torres MD Primary Care Provider [phone] Reason for Visit * Reason Onset Date Comments Medication Pre-auth 05/26/2023 Dupixent Encounter Details Date Type Department Care Team (Late st Contact Info) Description 05/26/2023 Telephone Dermatology [facility] [place] [address] [place] [id number] Brady Vega MD [address] [place] [address] Medication Pre-auth (Dupixent) Allergies No known active allergiesdocumented as of this encounter (statuses as of 06/24/2023) Medications Medication Sig Dispensed Refills Start Date End Date Status Vitamin B-1 100 MG Oral Tablet Take 1 Tablet by mouth in the morning. 0 11/29/2022 Active Milk Thistle 200 MG Oral Capsule Take by mouth. 0 Active NAC 600 MG Oral Capsule (Acetylcysteine) Take 1 Capsule by mouth in the morning. 0 Active Vitamin D3 25 MCG (1000 UT) Oral Capsule Take 1 Capsule by mouth once. 0 Active Turmeric 450 MG Oral Capsule Take 1 [...] as of this encounter (statuses as of 06/24/2023) Active Problems Problem Noted Date Diagnosed Date Alcoholic hepatitis without ascites 11/29/2022 Generalized anxiety disorder 11/05/2022 Alcohol abuse 11/05/2022 Plaque psoriasis Insomnia documented as of this encounter (statuses as of 06/24/2023) Immunizations No known immunizationsdocumented as of this [...] encounter Miscellaneous Notes * Telephone Encounter - Abe Nelson RPh - 06/24/2023 9:06 AM EDT Loulou Vega, We are routing you to make aware that despite 3+ attempts to reach patient, labs have not been completed. We will close out this case but will be available to re-open once patient obtains labs Abe Nelson RPh [facility] Clinical Pharmacist Rheumatology/Dermatology Department 06/24/2023,9:06 AM * Telephone Encounter - Babar Madison RPh - 06/17/2023 10:11 AM EDT 3rd voicemail left to remind patient to obtain labs. Babar Madison, ReneeD Medication Therapy Disease Management Dermatology/Rheumatology Clinical Pharmacist 06/17/2023, 10:11 AM * Telephone Encounter - Babar Madison RPh - 06/10/2023 11:55 AM EDT 2nd voicemail left for patient to obtain labs. Babar Madison PharmD Medication Therapy Disease Management Dermatology/Rheumatology Clinical Pharmacist 06/10/2023, 12:02 PM * Telephone Encounter - Babar Madison RPh - 06/03/2023 9:55 AM EDT Called and left message reminding patient to obtain labs. Babar Madison PharmD Medication Therapy Disease Management Dermatology/Rheumatology Clinical Pharmacist 06/03/2023, 9:56 AM * Telephone Encounter - Babar Madison RPh - 05/30/2023 8:19 AM EDT Will submit upon completion of labs. Babar Madison PharmD Medication Therapy Disease Management Dermatology/Rheumatology Clinical Pharmacist 05/30/2023, 8:19 AM * Telephone Encounter - Abe Nelson [facility] - 05/27/2023 11:54 AM EDT [facility] Dermatology Pre-cert Request Medication/Disease State Information: Medication: Ixekizumab (Taltz) Initiation PsO - 80mg/ml Pen - 160mg x 1 dose then, 80mg every 2 weeks x 6 doses then, 80mg every 4 weeks [3mL per 28 day supply] Diagnosis (including ICD-10): Psoriasis - Psoriasis vulgaris L40.0 Office Information: Prescriber: Brady Vega MD Additional Clinical Information: Face, scalp, chest, back, arms, legs - thick pink coalescing plaques with silvery micaceous scale BSA: 46-55%, Therapies previously tried: Avoiding Methotrexate due to Use of alcohol and potential hepatotoxicity Starting UVB therapy but recommended systemic treatment Clobetasol 0.05% ointment Triamcinolone 0.1% ointment Required Screening Information: Labs: PPD/Quant: ordered CBC/D: ordered CMP: ordered Acute Hepatitis Panel: ordered Hep B Surface Antibody: ordered Immunizations: Up to date immunizations: None Facilitated administration of: Influenza, Pneumonia - , HepB series, and Shingles Vaccination(s): Plan in place for CDC/ACIP vaccination guidelines using Health Maintenance Topics, Best Practice Alerts, and Anticipatory Management Reports within EHR Abe Nelson RPh Medication Therapy Disease Management Dermatology Department 05/27/2023, 11:55 AM * Telephone Encounter - Abe Nelson RPh - 05/27/2023 8:[address] Vega: Taltz is the formulary preference for [employer] Plans. Can we submit for Taltz instead? Waiting for labs to be completed. * Telephone Encounter - Brady Vega MD - 05/26/2023 9:20 PM EDT Dermatology Pre-Cert Request Medication/Disease State Information: Medication: Secukinumab (Cosentyx) Initiation 150mg/ml Pen - 300mg weekly x 5 doses (Day Supply: 8mL per 28 days) then 300mg every 4 weeks (Day Supply: 2mL per 28 day supply) Diagnosis (including ICD-10): Psoriasis - Psoriasis vulgaris L40.0 Site of Care: specialty medication - route to [id number]. Referral to pharmacist for: Pharmacist Co-management See corresponding visit note(s) for additional supporting clinical information. Administration Location if Injection: Patient Administered at Home Is the patient in a facility?: No Nearly erythrodermic psoriasis. Awaiting labs Office Information: Prescriber: Brady Vega MD documented in this encounter Plan of Treatment Health Maintenance Due Date Last Done Comments [...] filedocumented as of this encounter Care Teams Senior Quality Control Inspector Relationship Specialty Start Date End Date Kamilah Torres MD [address] [facility] [place] [address] PCP - General Family Medicine 11/05/22 documented as of this encounter
--- OUTSIDE RECORDS SUMMARY | 2023-10-15 18:27 | External Medical Summary | Summary of Care ---
Author Name Unknown Organization [facility] Address [address] [place] [address] Phone [phone] Care Team Providers Care Bisque Grader Name Role Phone Kamilah Torres MD Primary Care Provider [phone] Encounter Details Date Type Department Care Team (Late st Contact Info) Description 07/12/2023 Telephone Family Practice [facility] [address] [place] [address] Kamilah Torres MD [address] [place] [address] Allergies No known active allergiesdocumented as of this encounter (statuses as of 07/12/2023) Medications Medication Sig Dispensed Refills Start Date [...] as of this encounter (statuses as of 07/12/2023) Active Problems Problem Noted Date Diagnosed Date Alcoholic hepatitis without ascites 11/29/2022 Generalized anxiety disorder 11/05/2022 Alcohol abuse 11/05/2022 Plaque psoriasis Insomnia documented as of this encounter (statuses as of 07/12/2023) Immunizations No known immunizationsdocumented as of this [...] 3:55 PM EDT T/C from Jenny at [facility]. They do not take any medicaid insurance at this time. * Telephone Encounter - Sofy Lemus RN - 07/12/2023 3:46 PM EDT Orders for home health PT/OT faxed to [facility]: [phone] and to [facility]: [phone] T/C to pt and VMM left. If he calls back in you can provide with ARMANDO's direct number: [phone] Thanks! * Telephone Encounter - Kamilah Torres MD - 07/12/2023 2:59 PM EDT Looks like case management (Aby) left a message for [place] today. He frequently does not answer hisphone. She can also check on home health PT for him. Would need follow-up to discuss BP, falls, nosebleeds. From cirrhosis, may be low platelets/INR. I ordered lab work for him but appears only some of it was done? * Telephone Encounter - AbdielFidelia LPN - 07/12/2023 1:46 PM EDT Father calling with many concerns about pt. Pt was seen on 07/06 for hospital f/u. Pt was to be assigned a case monitor, he has never heard anything about this. physical therapy was to be set up. He has never been contacted. 3. He has not able to get the trazodone from the pharm. [facility] indicates trazodone was sent to an in house pharm at [facility] in [place] on 07/04. [facility] is not able to fill until 07/20. Father has attempted to contact [facility] but has never been able to get a response back. Pt is having trouble sleeping without the trazodone. 4. Pt had a fall last night he tripped over is untie shoe lace. Pt has to call EMT to [...] frequent nosebleeds that start while admitted to [facility] for rehab. He is not currently having nosebleed. Last bleed occurred while in bed last night. He gets slight headache prior to bleed. Father concerned it is his Bp. At last OV bp was 128/90, he doesn't check Bp himself. Acute or chronic problem: chronic Nosebleed started 1 month(s) ago. While admitted to [facility] for rehab Were you able to stop [...] and apply pressure. Call Dad back at [phone] documented in this encounter Plan of Treatment Upcoming Encounters Date Type Department Care Team (Late st Contact Info) Description 07/13/2023 1:00 PM EDT Nurse Only Dermatology [address] [place] [address] Sp, Nurse Dermatology [address] [place] [address] [place] [address] 10/10/2023 12:40 PM EDT Office Visit Family Practice [facility] [address] [facility] [place] [address] Kamilah Torres MD [address] [place] [address] 12/09/2023 9:20 AM EDT Office Visit Hepatology, [facility] 132 [facility] [place] [address] Marah Bonner MD 310 [facility] [place] [id number] Health Maintenance Due Date Last Done Comments [...] filedocumented as of this encounter Care Teams Bisque Grader Relationship Specialty Start Date End Date Kamilah Torres MD [address] [place] [address] PCP - General Family Medicine 11/05/22 documented as of this encounter
--- OUTSIDE RECORDS SUMMARY | 2023-10-15 18:27 | External Medical Summary | Summary of Care ---
Author Name Unknown Organization [facility] Address [address] [place] [address] Phone [phone] Care Team Providers Care Cow Tester Name Role Phone Kamilah Torres MD Primary Care Provider [phone] Reason for Visit * Reason Onset Date Comments Information 07/15/2023 Encounter Details Date Type Department Care Team (Late st Contact Info) Description 07/15/2023 Telephone Family Practice [facility] 200 [facility] [place] [address] Kamilah Torres MD 200 [place] [address] Information Allergies No known active allergiesdocumented as of this encounter (statuses as of 07/15/2023) Medications Medication Sig Dispensed Refills Start Date [...] as of this encounter (statuses as of 07/15/2023) Active Problems Problem Noted Date Diagnosed Date Alcoholic hepatitis without ascites 11/29/2022 Generalized anxiety disorder 11/05/2022 Alcohol abuse 11/05/2022 Plaque psoriasis Insomnia documented as of this encounter (statuses as of 07/15/2023) Immunizations No known immunizationsdocumented as of this [...] encounter Miscellaneous Notes * Telephone Encounter - Bernie Little PHARM Tech - 07/15/2023 10:00 AM EDT Pt called stating that there was an issue with his trazodone, [facility]. Pt is aware and understands Thank you, Bernie Littlewaitstaff captain Short Filler Bunch Machine Operator II [facility] ([facility]) 07/15/2023,10:01 AM documented in this encounter Plan of Treatment Upcoming Encounters Date Type Department Care Team (Late st Contact Info) Description 07/18/2023 7:00 AM EDT Laboratory Lab Mobile Phlebotomy [facility] [address] [facility] [place] [address] [facility], [facility] Mobile Home Draw [address] [facility] [place] [address] 07/20/2023 1:00 PM EDT Nurse Only Dermatology [facility] [place] [address] [place] [address] Sp, Nurse Dermatology [address] [place] [address] 07/22/2023 1:00 PM EDT Nurse Only Dermatology [facility] [place] [address] [place] [address] Sp, Nurse Dermatology [address] [place] [address] 07/27/2023 1:00 PM EDT Nurse Only Dermatology [facility] [place] [address] [place] [address] Sp, Nurse Dermatology [address] [place] [address] 07/29/2023 1:30 PM EDT Nurse Only Dermatology [facility] [place] [address] [place] [address] Sp, Nurse Dermatology [address] [place] [address] 10/10/2023 12:40 PM EDT Office Visit Family Practice [facility] [address] [address] Kamilah Torres MD [address] [place] [address] 12/09/2023 9:20 AM EDT Office Visit Hepatology, [facility] 132 [facility] [place] [address] Marah Bonner MD [address] [place] [address] [place] [address] Health Maintenance Due Date [...] filedocumented as of this encounter Care Teams Cow Tester Relationship Specialty Start Date End Date Kamilah Torres MD [address] [place] [address] PCP - General Family Medicine 11/05/22 documented as of this encounter
--- OUTSIDE RECORDS SUMMARY | 2023-10-15 18:27 | External Medical Summary | Summary of Care ---
Author Name Unknown Organization [facility] Address [address] [place] [address] Phone [phone] Care Team Providers Care Cosmetic Manager Name Role Phone Kamilah Torres MD Primary Care Provider [phone] Reason for Visit * Reason Onset Date Comments Appointment 07/07/2023 New PT Hepatolog y Encounter Details Date Type Department Care Team (Late st Contact Info) Description 07/07/2023 Telephone Family Practice [facility] 200 [place] [address] Kamilah Torres MD 200 [facility] [place] [address] Appointment (New PT Hepatology) Allergies No known active allergiesdocumented as of this encounter (statuses as of 07/08/2023) Medications Medication Sig Dispensed Refills Start Date [...] as of this encounter (statuses as of 07/08/2023) Active Problems Problem Noted Date Diagnosed Date Alcoholic hepatitis without ascites 11/29/2022 Generalized anxiety disorder 11/05/2022 Alcohol abuse 11/05/2022 Plaque psoriasis Insomnia documented as of this encounter (statuses as of 07/08/2023) Immunizations No known immunizationsdocumented as of this [...] Description 10/10/2023 12:40 PM EDT Office Visit [address] [place] [address] Kamilah Torres MD [address] [place] [address] Health Maintenance Due Date Last Done Comments [...] filedocumented as of this encounter Care Teams Cosmetic Manager Relationship Specialty Start Date End Date Kamilah Torres MD [address] [place] [address] PCP - General Family Medicine 11/05/22 documented as of this encounter
--- OUTSIDE RECORDS SUMMARY | 2023-10-15 18:27 | External Medical Summary | Summary of Care ---
Author Name Unknown Organization [facility] Address [address] [place] [address] Phone [phone] Care Team Providers Care Shuttle Preparation Supervisor Name Role Phone Kamilah Torres MD Primary Care Provider [phone] Reason for Visit * Reason Comments Light [...] 07/13/2023 1:00 PM EDT Nurse Only Dermatology [facility] 200 [place] [address] Sp, Nurse Dermatology [address] [place] [phone] Light treatment ( Areas of body covered [...] Only Dermatology [place] [facility] [place] [address] [place] [address] [address] Sp, Nurse Dermatology 200 [facility] [place] [address] 07/20/2023 1:00 PM EDT Nurse Only Dermatology [facility] [address] [place] [address] Sp, Nurse Dermatology [address] [place] [address] 07/22/2023 1:00 PM EDT Nurse Only Dermatology [facility] [place] [address] [place] [address] Sp, Nurse Dermatology [address] [place] [address] 07/27/2023 1:00 PM EDT Nurse Only Dermatology [facility] [place] [address] [place] [address] Sp, Nurse Dermatology [address] [place] [address] 07/29/2023 1:30 PM EDT Nurse Only Dermatology [facility] [place] [address] [place] [address] Sp, Nurse Dermatology 200 [facility] [place] [address] 10/10/2023 12:40 PM EDT Office Visit Family Practice [facility] [address] [place] [address] Kamilah Torres MD [address] [place] [address] 12/09/2023 9:20 AM EDT Office Visit [facility] 132 [facility] [place] [address] Marah Bonner MD 310 [facility] [place] [address] Health Maintenance Due Date [...] psoriasis documented in this encounter Care Teams Shuttle Preparation Supervisor Relationship Specialty Start Date End Date Kamilah Torres MD 200 [facility] [place] [address] PCP - General Family Medicine 11/05/22 documented as of this encounter
--- OUTSIDE RECORDS SUMMARY | 2023-10-15 18:27 | External Medical Summary ---
Author Name Unknown Address Unknown Organization K01:LABORATORY [facility] - [address] [facility] [address] Laboratory Report Ordering Provider Test Date Status JASE AMARO 07/07/2023 09:19:23 Final Observation Date Value Abnormality Reference (Units ) Status HbA1C 07/07/2023 09:19:23 5.5 4.0-5.6 (% ) Final The use of HbA1c to monitor glycemic status is based on normal hemoglobin and HbA composition. This test should not be used in patients with abnormal hemoglobin that affects the half life of the red blood cell or the in vivo glycation rates. Glucose, estimated average 07/07/2023 09:19:23 111 <126 (mg/dL) Final Performing Location LABORATORY [facility] - [address] [facility] [address]
--- OUTSIDE RECORDS SUMMARY | 2023-10-15 18:27 | External Medical Summary ---
Author Name Unknown Address Unknown Organization K09:[facility]ATORY [place] [facility] - [address] [place] [address] Laboratory Report Ordering Provider Test Date Status JASE AMARO 07/07/2023 09:19:23 Final Observation Date Value Abnormality Reference (Units ) Status BUN 07/07/2023 09:19:23 9 6-20 (mg/dL) Final Creatinine 07/07/2023 09:19:23 0.7 0.6-1.2 (mg/dL) Final Glomerular filtration rate/1.73 sq M.predicted [Volume Rate/Area] in Serum, Plasma or Blood by Creatinine-based formula (CKD-EPI) 07/07/2023 09:19:23 >90 >=60 (mL/min) Final eGFR is calculated based on the CKD-EPI 2020 equation Sodium 07/07/2023 09:19:23 137 135-146 (m mol/L) Final Potassium 07/07/2023 09:19:23 4.3 3.5-5.1 (m mol/L) Final Cl 07/07/2023 09:19:23 100 98-107 (mm ol/L) Final CO2 07/07/2023 09:19:23 25 22-32 (mmo l/L) Final Anion gap 07/07/2023 09:19:23 12 7-15 (mmol /L) Final Glucose 07/07/2023 09:19:23 132 Above high normal 70 -120 (mg/dL) Final Albumin 07/07/2023 09:19:23 3.4 Below low normal 3.8 -5.0 (g/dL) Final AST (Aspartate aminotransferase) 07/07/2023 09:19:23 38 10-50 (U/L) Fin al Alk Phos 07/07/2023 09:19:23 135 Above high normal 35 -130 (U/L) Final Bilirubin, Total 07/07/2023 09:19:23 0.8 <=1 .2 (mg/dL) Final Calcium 07/07/2023 09:19:23 9.4 8.4-10.2 ( mg/dL) Final Protein 07/07/2023 09:19:23 9.1 Above high normal 6. 0-8.3 (g/dL) Final ALT (Alanine aminotransferase) 07/07/2023 09:19:23 19 10-50 (U/L) Mahad ignacio Performing Location LABORATORY [place] [address] [place] [address]
--- OUTSIDE RECORDS SUMMARY | 2023-10-15 18:27 | External Medical Summary | Summary of Care ---
Author Name Unknown Organization [facility] Address [address] [place] [address] Phone [phone] Care Team Providers Care Fly Fishing Guide Name Role Phone Kamilah Torres MD Primary Care Provider [phone] Reason for Visit * Reason Onset Date Comments Medication Refill 07/14/2023 Encounter Details Date Type Department Care Team (Late st Contact Info) Description 07/13/2023 Refill General Internal Medicine [facility] [address] [place] [address] Sofy Lemus, RN [address] [place] [address] Plaque psoriasis Allergies No known [...] at the pharmacy * Telephone Encounter - Btehany Ma PA-C - 07/13/2023 3:11 PM EDT [...] Refusal: Too soon * Telephone Encounter - Sofy Lemus RN - 07/13/2023 12:32 PM EDT Could [...] 07/15/2023 2:30 PM EDT Nurse Only Dermatology Gabriel Garcia [address] [place] [address] Sp, Nurse Dermatology [address] [place] [address] [place] [address] 07/20/2023 1:00 PM EDT Nurse Only Dermatology Gabriel Garcia [place] [address] [place] [address] Sp, Nurse Dermatology [address] [place], [place] [address] 07/22/2023 1:00 PM EDT Nurse Only Dermatology [facility] [place] [address] [place] [address] Sp, Nurse Dermatology [address] [place] [address] 07/27/2023 1:00 PM EDT Nurse Only Dermatology [facility] [place] [address] [place] [address] Sp, Nurse Dermatology [address] [place] [address] 07/29/2023 1:30 PM EDT Nurse Only Dermatology [facility] [place] [address] [place] [address] Sp, Nurse Dermatology [address] [place] [address] 10/10/2023 12:40 PM EDT Office Visit Family Practice [facility] [place] [address] [place] [address] Kamilah Torres MD [address] [place], [place] [address] 12/09/2023 9:20 AM EDT Office Visit Hepatology, [facility] 132 [facility] [place] [address] Marah Bonner MD [address] [place] [id number] Health Maintenance Due Date Last Done Comments [...] psoriasis documented in this encounter Care Teams Fly Fishing Guide Relationship Specialty Start Date End Date Kamilah Torres MD [address] [place] [address] PCP - General Family Medicine 11/05/22 documented as of this encounter
--- OUTSIDE RECORDS SUMMARY | 2023-10-15 18:27 | External Medical Summary | Summary of Care ---
Author Name Unknown Organization [facility] Address [address] [place] [address] Phone [phone] Care Team Providers Care Cloth Cutting Machine Operator Name Role Phone Sondra Torres MD Primary Care Provider [phone] Reason for Referral * Ancillary Services (Within 10 days (routine)) - Authorized Specialty Diagnoses / Procedures Referred By Contac t Referred To Contact Tug Hand Diagnoses Alcoholic hepatitis without ascites Sondra Torres MD [address] [place] [address] Referral ID Status Reason Start Date Expiration Date Visits Requested Visits Authorized [id number] Authorized Ancillary Services Required 07/14/2023 999 999 Question Answer Referral Priority Within 10 days (routine) Where should this appointment be scheduled? [facility]ores Comments Is Patient homebound? Yes All sections of this form must be filled out completely. Forms with missing or illegible information will be returned for completion. This form should not be modified in any way. Forms that have been modified will be returned. This form may not be submitted by a home health agency. It must be complete and submitted by the ordering provider. One full business day lead time is required and service will be scheduled based on the next service day for the [facility] Home Phlebotomy does not service every geographical location on a daily basis. Contact [facility] Client Services at to find out service days for a specific location. Medical Laboratory [facility] Patient Name: Owen Kiser : 1960 Sex: male Address [address] [facility] [address] Provider: None? Sondra Torres MD? Diagnosis: L40.0 Plaque psoriasis Tests Requested Acute Hepatitis panel, Quantiferon TB, CBC with Diff, Hepatitis B surface antibody - Once Reason for Visit * Reason Onset Date Comments Medication Refill 07/14/2023 Encounter Details Date Type Department Care Team (Late st Contact Info) Description 07/13/2023 Refill General Internal Medicine [facility] [place] [address] [place] [address] Sofy Marroquin, SONJA [address] [place] [address] Alcoholic hepatitis without ascites*; Plaque psoriasis Allergies No known active allergiesdocumented [...] Miscellaneous Notes * Telephone Encounter - Sofy Marroquin RN - 07/14/2023 1:25 PM EDT Please see orders for mobile lab below. Please contact pt's father, Irving ([place]), to arrange as pt often sleeps and does not hear his phone: [phone] Thank you! * Addendum Note - Sondra Torres MD - 07/14/2023 10:28 AM EDTAddended by: SONDRA TORRES on: 07/14/2023 10:28 AM Modules accepted: Orders * Addendum Note - Sofy Marroquin RN - 07/14/2023 8:32 AM EDTAddended by: SOFY MARROQUIN on: 07/14/2023 08:32 AM Modules accepted: Orders * Telephone Encounter - Sofy Marroquin RN - 07/14/2023 8:32 AM EDT Order pended below. Thank you! * Telephone Encounter - Sondra Torres MD - 07/14/2023 8:14 AM EDT I don't see the mobile phlebotomy order pended and not sure of the correct order details-- can you pend again in this encounter? Should just need those labs you listed. * Telephone Encounter - Zoya Ma PA-C - 07/13/2023 3:11 PM EDT Pt has refills on the scripts, can get it refilled at the pharmacy * Telephone Encounter - Zoya Ma PA-C - 07/13/2023 3:11 PM EDT Refused Prescriptions: Disp Refills Clobetasol Propionate 0.05 % External Solu*50 mL 5 Sig: Apply to psoriasis in scalp daily Refused By: ZOYA MA Reason for Refusal: Too soon Triamcinolone Acetonide 0.1 % External Cre*450 g 1 Sig: Apply to psoriasis on the arms, legs, chest, and back twice daily Refused By: ZOYA MA Reason for Refusal: Too soon * Telephone Encounter - Sofy Marroquin RN - 07/13/2023 12:32 PM EDT [...] PM EDT Nurse Only Dermatology [place] [address] [place] [address] Sp, Nurse Dermatology [address] [place] [address] 07/18/2023 7:00 AM EDT Laboratory Lab Mobile Phlebotomy [facility] [address] [place] [address] [facility], [facility] Mobile Home Draw [address] [place] [address] 07/20/2023 1:00 PM EDT Nurse Only Dermatology Gabriel Garcia [place] [address] [place] [address] Sp, Nurse Dermatology [address] [place] [address] 07/22/2023 1:00 PM EDT Nurse Only Dermatology Gabriel Garcia [place] [address] [place] [address] Sp, Nurse Dermatology [address] [place] [address] 07/27/2023 1:00 PM EDT Nurse Only Dermatology Gabriel Garcia [place] [address] [place] [address] Sp, Nurse Dermatology [address] [place] [address] 07/29/2023 1:30 PM EDT Nurse Only Dermatology [place]ha [place] [address] [place] [address] Sp, Nurse Dermatology 200 [facility] [place] [address] 10/10/2023 12:40 PM EDT Office Visit Family Practice [facility] [place] 200 [facility] [place] [address] Sondra Torres MD 200 [facility] [place] [address] 12/09/2023 9:20 AM EDT Office Visit Hepatology, [facility] 132 [facility] [place] [address] Marah Bonner MD [address] [place] [address] Scheduled Referrals Name Type Priority Associated Diagnoses Orde r Schedule HOME PHLEBOTOMY REFERRAL OP Referral Within 10 days (routine) Alcoholic hepatitis without ascites Ordered: 07/14/2023 Health Maintenance Due Date Last Done Comments [...] as of this encounter Visit Diagnoses Diagnosis Alcoholic hepatitis without ascites- Primary Acute alcoholic hepatitis Plaque psoriasis Other psoriasis documented in this encounter Care Teams Cloth Cutting Machine Operator Relationship Specialty Start Date End Date Sondra Torres MD [address] [place] [address] PCP - General Family Medicine 11/05/22 documented as of this encounter
--- OUTSIDE RECORDS SUMMARY | 2023-10-15 18:27 | External Medical Summary | Summary of Care ---
Author Name Unknown Organization [facility] Address [address] [place] [address] Phone [phone] Care Team Providers Care Algebraist Name Role Phone Kamilah Torres MD Primary Care Provider [phone] Reason for Visit * Reason Comments Light [...] 07/13/2023 1:00 PM EDT Nurse Only Dermatology [facility] 200 [place] [address] Sp, Nurse Dermatology [address] [place] [address] Light treatment ( Areas of body covered [...] [place] [address] [place] [address] Sp, Nurse Dermatology 200 [facility] [place] [address] 07/20/2023 1:00 PM EDT Nurse Only Dermatology [facility] [address] [place] [address] Sp, Nurse Dermatology [address] [place] [address] 07/22/2023 1:00 PM EDT Nurse Only Dermatology [facility] [place] [address] [place] [place] [address] Sp, Nurse Dermatology [address] [place] [address] 07/27/2023 1:00 PM EDT Nurse Only Dermatology [facility] [place] [address] [place] [address] Sp, Nurse Dermatology [address] [place] [address] 07/29/2023 1:30 PM EDT Nurse Only Dermatology [facility] [place] [address] [place] [address] Sp, Nurse Dermatology 200 [facility] [place] [address] 10/10/2023 12:40 PM EDT Office Visit Family Practice [facility] [address] [address] Kamilah Torres MD [address] [place] [address] 12/09/2023 9:20 AM EDT Office Visit Hepatology, [facility] 132 [facility] [place] [address] Marah Bonner MD 310 [facility] [place] [address] Health Maintenance Due Date [...] psoriasis documented in this encounter Care Teams Algebraist Relationship Specialty Start Date End Date Kamilah Torres MD 200 [facility] [place] [address] PCP - General Family Medicine 11/05/22 documented as of this encounter
--- OUTSIDE RECORDS SUMMARY | 2023-10-15 18:27 | External Medical Summary | Summary of Care ---
Author Name Unknown Organization [facility] Address [address] [place] [address] Phone [phone] Care Team Providers Care Clinical Quality Assurance Associate Name Role Phone Kamilah Torres MD Primary Care Provider [phone] Encounter Details Date Type Department Care Team (Late st Contact Info) Description 07/12/2023 Telephone Family Practice [facility] [address] [facility] [place] [address] Kamilah Torres MD [address] [place] [address] Allergies No known active allergiesdocumented as of [...] f/u. Pt was to be assigned a transplant case manager, he has never heard anything about this. physical therapy was to be set up. He has never been contacted. 3. He has not able to get the trazodone from the pharm. [facility] to an [facility] pharm at [facility] in [place] on [facility]04[facility]. Father has attempted to contact [facility] but has never been able [...] frequent nosebleeds that start while admitted to [facility] for rehab. He is not currently having nosebleed. Last bleed occurred while in bed last night. He gets slight headache prior to bleed. Father concerned it is his Bp. At last OV bp was 128/90, he doesn't check Bp himself. Acute or chronic problem: chronic Nosebleed started 1 month(s) ago. While admitted to [facility] for rehab Were you able [...] and apply pressure. Call Dad back at [phone] documented in this encounter Plan of Treatment Upcoming Encounters Date Type Department Care Team (Late st Contact Info) Description 07/13/2023 1:00 PM EDT Nurse Only Dermatology [facility] [address] [facility] [place] [address] Sp, Nurse Dermatology [address] [facility] [place] [address] 10/10/2023 12:40 PM EDT Office Visit Family Practice [facility] [address] [facility] [place] [address] Kamilah Torres MD [address] [facility] [place] [address] 12/09/2023 9:20 AM EDT Office Visit Hepatology, [facility] [address] [facility] [place] [address] Marah Bonner MD [address] [place] [address] Health Maintenance Due Date Last Done Comments Pneumococcal Vaccine: Pediatrics (0 to 5 Years) and At-Risk Patients (6 to 64 Years) (1 of 2 - PCV) 1968 DTaP,Tdap,and Td Vaccines (1 - Tdap) 1981 Cologuard 12/29/2007 Colonoscopy 12/29/2007 Colorectal Cancer Screening 12/29/2007 Fecal Occult Blood Test 12/29/2007 Sigmoidoscopy 12/29/2007 Zoster Vaccines (1 of 2) 2012 Depression Screening 01/18/2018 01/18/2017 COVID-19 Vaccine ( - season) 2022 Hepatitis [...] filedocumented as of this encounter Care Teams Clinical Quality Assurance Associate Relationship Specialty Start Date End Date Kamilah Torres MD [address] [place] [address] PCP - General Family Medicine 11/05/22 documented as of this encounter
--- OUTSIDE RECORDS SUMMARY | 2023-10-15 18:27 | External Medical Summary | Summary of Care ---
Author Name Unknown Organization [facility] Address [address] [place] [address] Phone [phone] Care Team Providers Care Travel Agent Name Role Phone Kamilah Torres MD Primary Care Provider [phone] Reason for Visit * Reason Onset Date Comments Medication Pre-auth 05/26/2023 Dupixent Encounter Details Date Type Department Care Team (Late st Contact Info) Description 05/26/2023 Telephone Dermatology [facility] [place] [address] [place] [id number] Brady Vega MD [address] [place] [address] Medication Pre-auth (Dupixent) Allergies No known active allergiesdocumented as of this encounter (statuses as of 06/17/2023) Medications Medication Sig Dispensed Refills Start Date [...] as of this encounter (statuses as of 06/17/2023) Active Problems Problem Noted Date Diagnosed Date Alcoholic hepatitis without ascites 11/29/2022 Generalized anxiety disorder 11/05/2022 Alcohol abuse 11/05/2022 Plaque psoriasis Insomnia documented as of this encounter (statuses as of 06/17/2023) Immunizations No known immunizationsdocumented as of this [...] encounter Miscellaneous Notes * Telephone Encounter - Babar Madison RPh - 06/17/2023 10:11 AM EDT 3rd voicemail left to remind patient to obtain labs. Babar Madison PharmD [...] Encounter - Abe Nelson RPh - 05/27/2023 11:54 AM EDT [facility] Dermatology Pre-cert Request Medication/Disease State Information: Medication: [...] for [employer] Plans. Can we submit for Gabinotz instead? Waiting for labs to be completed. Electronically signed by Abe Nelson [facility] at 05/27/2023 8:35 AM EDT * Telephone Encounter - Brady Vega MD [...] of Care: specialty medication - route to [id number]. Referral to pharmacist for: Pharmacist Co-management See corresponding visit note(s) for additional supporting clinical information. Administration Location if Injection: Patient Administered at Home Is the patient in a facility?: No Nearly erythrodermic psoriasis. Awaiting labs Office Information: Prescriber: Brady Vega MD documented in this encounter Plan of Treatment Upcoming Encounters Date Type Department Care Team (Late st Contact Info) Description 06/17/2023 11:00 AM EDT Nurse Only Dermatology [place] [address] [facility] [place] [address] Sp, Nurse Dermatology 200 [facility] [place] [address] 06/17/2023 11:45 AM EDT Office Visit Dermatology [place] [address] [facility] [place] [address] Brady Vega MD 200 [facility] [place] [address] Health Maintenance Due Date Last Done Comments [...] filedocumented as of this encounter Care Teams Travel Agent Relationship Specialty Start Date End Date Kamilah Torres MD [address] [place] [address] PCP - General Family Medicine 11/05/22 documented as of this encounter
--- OUTSIDE RECORDS SUMMARY | 2023-10-15 18:27 | External Medical Summary | Summary of Care ---
Author Name Unknown Organization [facility] Address [address] [place] [address] Phone [phone] Care Team Providers Care Diesel Truck Technician Name Role Phone Kamilah Torres MD Primary Care Provider Reason for Visit * Reason Onset Date Comments FYI 07/06/2023 Encounter Details Date Type Department Care Team (Late st Contact Info) Description 07/06/2023 Telephone Family Practice [facility] 200 [facility] [place] [address] Kamilah Torres MD 200 [place] [address] FYI Allergies No known active allergiesdocumented as [...] he needs home health or somewhere like [facility]? I'm also going to get the addiction coordinator involved with him as well. * Telephone Encounter - Fidelia Meadows LPN - 07/06/2023 3:02 PM EDT Dad Mehoopany calling about appt tomorrow, pt is having trouble walking. His legs are very weak. Dad and pt spoke about the need for physical therapy to strengthen his legs. Pt would be willing to be admitted to a rehab center like [facility] for in patient therapy or doing HH therapy. Dad would like this discussed at his appt tomorrow. This is FYI documented in this encounter Plan of Treatment Upcoming Encounters Date Type Department Care Team (Late st Contact Info) Description 10/10/2023 12:40 PM EDT Office Visit Family Practice [facility] [place] [address] [place] [address] Kamilah Torres MD [address] [place] [address] Health Maintenance Due Date Last Done Comments [...] filedocumented as of this encounter Care Teams Diesel Truck Technician Relationship Specialty Start Date End Date Kamilah Torres MD [address] [place] [address] PCP - General Family Medicine 11/05/22 documented as of this encounter
--- OUTSIDE RECORDS SUMMARY | 2023-10-15 18:27 | External Medical Summary | Summary of Care ---
Author Name Unknown Organization [facility] Address [address] [place] [address] Phone [phone] Care Team Providers Care Animal Husbandry Teacher Name Role Phone Kamilah Torres MD Primary Care Provider [phone] Encounter Details Date Type Department Care Team (Late st Contact Info) Description 07/12/2023 Telephone Family Practice [facility] [address] [facility] [place] [address] Kamilah Torres MD 200 [place] [address] Allergies No known active allergiesdocumented as of [...] PT/OT faxed to [facility]: [phone] and to [facility]: [phone] T/C to pt and VMM left. If he calls back in you can provide with 's direct number: [phone] Thanks! * Telephone Encounter - Kamilah Torres [...] was done? * Telephone Encounter - Fidelia Meadows, BILL OF LADING CLERK - 07/12/2023 1:46 PM EDT Father calling with many concerns about pt. Pt was seen on 07/06 for hospital f/u. Pt was to be assigned a caseworker, he has never heard anything about this. physical therapy was to be set up. He has never been contacted. 3. He has not able to get the trazodone from the pharm. [facility] to an in house pharm at [facility] in [place] on 07/04. [facility] is not able to fill until 07/20. Father has attempted to contact [facility] but has never been able to [...] frequent nosebleeds that start while admitted to [facility] for rehab. He is not currently having nosebleed. Last bleed occurred while in bed last night. He gets slight headache prior to bleed. Father concerned it is his Bp. At last OV bp was 128/90, he doesn't check Bp himself. Acute or chronic problem: chronic Nosebleed started 1 month(s) ago. While [facility] Were you able to [...] and apply pressure. Call Dad back at [phone] documented in this encounter Plan of Treatment Upcoming Encounters Date Type Department Care Team (Late st Contact Info) Description 07/13/2023 1:00 PM EDT Nurse Only Dermatology [facility] [address] [place] [address] Sp, Nurse Dermatology [address] [facility] [place] [address] 10/10/2023 12:40 PM EDT Office Visit Family Practice [facility] [address] [facility] [place] [address] Kamilah Torres MD [address] [facility] [place] [address] 12/09/2023 9:20 AM EDT Office Visit Hepatology, [facility] [address] [facility] [place] [id number] Marah Bonner MD [address] [place] [address] Health Maintenance Due Date [...] Screening 01/18/2018 01/18/2017 COVID-19 Vaccine (1 - 2022-24 season) 2022 [...] filedocumented as of this encounter Care Teams Animal Husbandry Teacher Relationship Specialty Start Date End Date Kamilah Torres MD [address] [place] [address] PCP - General Family Medicine 11/05/22 documented as of this encounter
--- OUTSIDE RECORDS SUMMARY | 2023-10-15 18:27 | External Medical Summary | Summary of Care ---
Author Name Unknown Organization [facility] Address [address] [place] [address] Phone [phone] Care Team Providers Care Publishing Director Name Role Phone Kamilah Torres MD Primary Care Provider [phone] Reason for Referral * Ancillary Services (Within 10 days (routine)) - Authorized Specialty Diagnoses / Procedures Referred By Contac t Referred To Contact Paint Prep Technician Diagnoses Alcoholic hepatitis without ascites Kamilah Torres MD [address] [place] [address] Referral ID Status Reason Start Date Expiration Date Visits Requested Visits Authorized [id number] Authorized Ancillary Services Required 07/14/2023 999 999 [...] on the next service day for the [facility] Home Phlebotomy does not service every geographical location on a daily basis. Contact [facility] Client Services at to find out service days for a specific location. [facility] Name: Owen Kiser : 1960 Sex: male Address [address] [facility] [address] Provider: None? Kamilah Torres MD? Diagnosis: L40.0 Plaque psoriasis Tests Requested Acute Hepatitis panel, Quantiferon TB, CBC with Diff, Hepatitis B surface antibody - Once Reason for Visit * Reason Onset Date Comments Medication Refill 07/14/2023 Encounter Details Date Type Department Care Team (Late st Contact Info) Description 07/13/2023 Refill General Internal Medicine [facility] [place] [address] [place] [address] Emory Marroquin, SONJA [address] [place] [address] Alcoholic hepatitis without ascites*; Plaque psoriasis Allergies [...] Addendum Note - Kamilah Torres MD - 07/14/2023 10:28 AM EDTAddended by: KAMILAH TORRES on: 07/14/2023 10:28 AM Modules accepted: Orders * Addendum Note - Emory Marroquin RN [...] 07/15/2023 2:30 PM EDT Nurse Only Dermatology [facility] [place] [address] [place] [address] Sp, Nurse Dermatology [address] [place] [place] [address] 07/20/2023 1:00 PM EDT Nurse Only Dermatology [facility] [place] [address] [place] [address] Sp, Nurse Dermatology [address] [place] [address] 07/22/2023 1:00 PM EDT Nurse Only Dermatology [facility] [place] [address] [place] [address] Sp, Nurse Dermatology [address] [place] [address] 07/27/2023 1:00 PM EDT Nurse Only Dermatology [facility] [place] [address] [place] [address] Sp, Nurse Dermatology [address] [place] [address] 07/29/2023 1:30 PM EDT Nurse Only Dermatology [facility] [place] [address] [place] [address] Sp, Nurse Dermatology [address] [place] [address] 10/10/2023 12:40 PM EDT Office Visit Family Practice [facility] [place] [address] [place] [address] Kamilah Torres MD [address] [place] [address] 12/09/2023 9:20 AM EDT Office Visit Hepatology, [facility] [address] [facility] [place] [address] Marah Bonner MD [address] [place] [address] Scheduled Referrals Name Type Priority Associated Diagnoses [...] psoriasis documented in this encounter Care Teams Publishing Director Relationship Specialty Start Date End Date Kamilah Torres MD [address] [place] [address] PCP - General Family Medicine 11/05/22 documented as of this encounter
--- OUTSIDE RECORDS SUMMARY | 2023-10-15 18:27 | External Medical Summary | Summary of Care ---
Author Name Unknown Organization [facility] Address [address] [place] [address] Phone [phone] Care Team Providers Care Stock Plan Administrator Name Role Phone Kamilah Torres MD Primary Care Provider [phone] Encounter Details Date Type Department Care Team (Late st Contact Info) Description 07/12/2023 Telephone Family Practice [facility] 200 [facility] [place] [address] Kamilah Torres MD [address] [place] [address] Allergies No known active allergiesdocumented as of [...] Pt was to be assigned a case packer and sealer, he has never heard anything about this. physical therapy was to be set up. He has never been contacted. 3. He has not able to get the trazodone from the pharm. [facility] to an in house pharm at [facility] in [place] on 07[facility]04. [facility]. Father has attempted to contact [facility] but has never been able to get a response back. Pt is having trouble sleepingwithout the trazodone. 4. Pt had a fall [...] frequent nosebleeds that start while admitted to [facility] for rehab. He is not currently having nosebleed. Last bleed occurred while in bed last night. He gets slight headache prior to bleed. Father concerned it is his Bp. At last OV bp was 128/90, he doesn't check Bp himself. Acute or chronic problem: chronic Nosebleed started 1 month(s) ago. While admitted to [facility] for rehab Were you able [...] and apply pressure. Call Dad back at [phone] documented in this encounter Plan of Treatment Upcoming Encounters Date Type Department Care Team (Late st Contact Info) Description 07/13/2023 1:00 PM EDT Nurse Only Dermatology [facility] 200 [facility] [place] [address] Sp, Nurse Dermatology 200 [facility] [place] [address] 10/10/2023 12:40 PM EDT Office Visit Family Practice [facility] 200 [facility] [place] [address] Kamilah Torres MD 200 [facility] [place] [address] 12/09/2023 9:20 AM EDT Office Visit Hepatology, [facility] [address] [facility] [place] [address] Marah Bonner MD [address] [place] [address] Health Maintenance Due Date Last Done Comments [...] filedocumented as of this encounter Care Teams Stock Plan Administrator Relationship Specialty Start Date End Date Kamilah Torres MD [address] [place] [address] PCP - General Family Medicine 11/05/22 documented as of this encounter
--- NOTE | 2023-10-15 18:28 | Emergency Department Note ---
Impression & Plan Alcohol abuse, Alcoholic intoxication ADMIT ED Provider Note HPI: History obtained from patient and EMS report. The patient is a 62-year-old gentleman who presents the emergency department over concern for intoxication. Patient reportedly was slurring his words and having some ambulatory issues today when he was at the grocery store. He was picked up by a bus that took him home and he fell in his yard when he was trying to get back into the house. EMS was contacted and the patient was brought to the ED for assessment. On arrival here to the ED the patient does appear to be intoxicated, per EMS they found him with a bottle of mouthwash in his bag that was partially consumed. Patient is otherwise cooperative on arrival, he does appear to be well-groomed, he otherwise appears to be in no acute distress, he does ambulate his extremities spontaneously without issue. ROS: - Per HPI Differential Diagnosis: Alcohol intoxication, stroke, intracranial hemorrhage, critical electrolyte abnormalities, amongst other potential pathologies. *Outpatient medications and allergy history reviewed. PE: General: Alert, intoxicated appearing, smells of alcohol HEENT: Normocephalic, trachea midline Eyes: Extraocular eye movement is intact, no scleral erythema Pulmonary: Clear to auscultation bilaterally, no wheezing Cardio: Regular rate and rhythm GI: Abdomen is soft to palpation : No suprapubic tenderness MSK: No evidence of trauma or malformation of the extremities, no edema Skin: No evidence of rash Neuro: Alert, no focal deficits, equal bilateral reproductive endocrinologist strength, symmetrical facial movements are appreciated, patient ambulates all extremities without issue Psychiatric: Intoxicated, overall cooperative INDEPENDENT INTERPRETATIONS: surveillance monitor: (As interpreted by myself): - An order was placed for continuous cardiac monitoring - Patient was noted to be in sinus rhythm with a rate of 90 Interventions provided in ED: -IV fluid bolus, IV folic acid, IV thiamine Medical Decision Making: IV was established and lab work obtained, patient was placed on hospital monitor. Lab work shows no leukocytosis, hemoglobin is stable at 11.5, platelet count is slightly reduced at 121, CMP does not show any evidence of any critical findings. Lab work does confirm suspicions of alcohol intoxication with ethyl alcohol level markedly elevated at 347. CT imaging of the head was obtained that does not show any evidence of any acute process. Patient did become agitated during his stay and demanded to leave. He was redirectable and I explained to him that this is not possible because he is intoxicated. He does not have any family that lives in the area aside from his mother who he states lives several hours away. I did attempt to contact her by phone and there was no answer. I do not feel the patient will be safe for discharge at any point this evening I feel it would be best for him to be admitted to the hospital for overnight observation given his intoxication. I do also have concern that he may go into withdrawal. Patient was given Haldol and Ativan for his agitation to help assist with his admission. I discussed the patient's presentation to the on-call hospitalist, Dr. Rebolledo, the patient was placed for admission in stable condition. Consultants/Discussions held with other healthcare providers: -Hospitalist, Dr. Rebolledo Disposition discussion held by myself with: -Patient * CRITICAL CARE TIME: ( 36 ) minutes -Administration of Ativan and Haldol for agitation associated with alcohol intoxication ultimately requiring admission overnight for observation and safety concerns. Discussion with other physicians and arrangement of admission. Diagnosis: 1. Alcohol intoxication, acute 2. Agitation, acute Disposition: Admission Alber Yuan DO Emergency Medicine Past Med/Surg History Problem List (Updated 10/15/23 @ 20:48 by Alber Yuan DO) Alcoholic intoxication (Acute) Alcoholic hepatitis Acute hypokalemia (Acute) Transaminitis (Acute) Hypokalemia Lab test negative for COVID-19 virus (Acute) Alcohol intoxication delirium (Acute) HTN (hypertension) Alcohol abuse (Acute) Mood disorder (Acute) Medical History Alcoholic intoxication Fx medial malleolus-closed Hypokalemia Mood disorder Psoriasis Surgical History No pertinent past surgical history Family History Other Colorectal cancer No pertinent family history Social History Smoking Status: Never smoker Second Hand Exposure: Yes; Do You Dip or Chew Tobacco: No; Hx Alcohol Use: Yes Alcohol type: hard liquor Alcohol Intake Frequency: 4 or More x per/Week Hx Substance Use: No Preferred Language: [place] Communication Ability: Effective Websphere Commerce Developer Required: No Beliefs That Will Affect Care: None Current Living Situation: Alone Feels Safe at Home: Yes Assistive Devices: None Allergies Allergies Allergy/AdvReac Type Severity Reaction Status Date / Time No Known Allergies Allergy Verified 10/15/23 19:56 Home Meds Home Medications Medication Instructions Recorded Confirmed furosemide 40 mg tablet 40 mg PO DAILY PRN Edema 10/15/23 10/15/23 hydroxyzine pamoate 50 mg capsule 50 mg PO BID PRN Anxiety 10/15/23 10/15/23 trazodone 50 mg tablet 50 mg PO HS PRN Sleep 10/15/23 10/15/23 Results & Data (ED) Vital Signs Vital Signs - 24 hr 10/15/23 18:25 10/15/23 19:07 10/15/23 19:30 Temperature 36.7 C Temperature Source Oral Pulse Rate 92 H 89 Pulse Rate from SpO2 Sensor 91 H Respiratory Rate 18 18 Blood Pressure 114/79 Blood Pressure Mean 90 Pulse Oximetry 98 95 Oxygen Delivery Method Room Air Sepsis Recent Fever Within 48 Hours No Sepsis New/Unexplained Change in Mental Status No Sepsis Action Taken by Nursing No Action Required 10/15/23 20:12 Temperature Temperature Source Pulse Rate Pulse Rate from SpO2 Sensor 94 H Respiratory Rate Blood Pressure 120/84 Blood Pressure Mean 96 Pulse Oximetry 93 Oxygen Delivery Method Sepsis Recent Fever Within 48 Hours Sepsis New/Unexplained Change in Mental Status Sepsis Action Taken by Nursing Laboratory Data 10/15/23 19:00 10/15/23 19:00 Lab Results 10/15/23 Range/Units 19:00 WBC 4.86 (4.8-10.8) K/ul RBC 4.14 L (4.70-6.10) M/uL Hgb 11.5 L (14.0-18.0) g/dl Hct 35.0 L (42.0-52.0) % MCV 84.5 (80.0-100.0) fL MCH 27.8 (25.0-34.0) pg MCHC 32.9 (32.0-36.0) g/dL RDW Std Deviation 62.2 H (36.4-46.3) fL RDW Coeff of Ramona 20.3 H (11.5-14.5) % Plt Count 121 L (130-400) K/uL MPV 8.9 L (9.4-12.4) fL Immature Gran % (Auto) 0.2 % Neut % (Auto) 53.5 % Lymph % (Auto) 32.9 % Gaines % (Auto) 11.1 % Eos % (Auto) 0.2 % Baso % (Auto) 2.1 % Neut # (Auto) 2.60 (1.40-6.50) K/uL Lymph # (Auto) 1.60 (1.20-3.40) K/uL Gaines # (Auto) 0.54 (0.11-0.59) K/uL Eos # (Auto) 0.01 (0.00-0.50) K/uL Baso # (Auto) 0.10 (0.00-0.20) K/uL Immature Gran # (Auto) 0.01 (0.01-0.20) K/uL Polychromasia 1+ Anisocytosis Present PT 11.9 (9.0-12.0) Seconds INR 1.1 (0.9-1.1) Sodium 134 L (136-145) mmol/L Potassium 3.9 (3.5-5.1) mmol/L Chloride 103 (98-107) mmol/L Carbon Dioxide 23 (21-32) mmol/L Anion Gap 8 (3-11) BUN 12 (6-23) mg/dl Creatinine 0.69 (0.6-1.4) mg/dl Est Cr Clr Drug Dosing Not Reportable Est GFR ( Amer) 119.6 ml/min Est GFR (Non-Af Amer) 103.2 ml/min BUN/Creatinine Ratio 17.4 (10-20) Glucose 129 H (70-99(Fasting)) mg/dl Calcium 8.7 (8.6-10.3) mg/dl Total Bilirubin 0.5 (0.2-1.0) mg/dl AST 52 H (13-39) U/L ALT 28 (7-52) U/L Alkaline Phosphatase 119 H (34-104) U/L Troponin I High Sens 21.2 H (0-20) pg/ml Total Protein 8.6 H (6.0-8.3) gm/dl Albumin 4.1 (3.4-5.0) gm/dl Globulin 4.5 H (2.5-4.0) gm/dl Albumin/Globulin Ratio 0.9 (0.9-2) Lipase 18 (11-82) U/L Ethyl Alcohol mg/dL 347.2 H (<10.0) mg/dl Administered Medications Discontinued Medications Haloperidol Lactate (Haloperidol Lactate 5 Mg/Ml 1 Ml Vial) 5 mg IV NOW STA Stop: 10/15/23 20:18 Last Admin: 10/15/23 20:41 Dose: 5 mg Documented By: DANELLE Sodium Chloride (Nss) 1,000 mls @ 999 mls/hr IV .Q1H1M STA Stop: 10/15/23 19:23 Last Admin: 10/15/23 19:00 Dose: 999 mls/hr Documented By: BS Thiamine HCl 100 mg/ Syringe 10 mls @ 2 mls/min IV NOW STA Stop: 10/15/23 19:59 Last Admin: 10/15/23 20:33 Dose: 2 mls/min Documented By: DANELLE Folic Acid 1 mg/ Syringe 10 mls @ 5 mls/min IV NOW STA Stop: 10/15/23 19:56 Last Admin: 10/15/23 20:41 Dose: 5 mls/min Documented By: DANELLE Lorazepam (Lorazepam 1 Mg/1 Ml Syr Ed Inj Use) 1 mg IV ONE STA Stop: 10/15/23 20:18 Last Admin: 10/15/23 20:31 Dose: 1 mg Documented By: DANELLE Imaging Data Radiologist's Impression: Head CT 10/15/23 18:23 CT SCAN OF THE BRAIN WITHOUT IV CONTRAST CLINICAL HISTORY: Change in mental status. COMPARISON STUDY: CT of the brain dated 11/14/2022. TECHNIQUE: Unenhanced axial CT scan of the brain is performed from the vertex to the skull base. A dose lowering technique was utilized adhering to the principles of ALARA. CT DOSE: 625.8 mGy.cm FINDINGS: Brain parenchyma: There is minimal microangiopathic change. There is no hemorrhage, mass effect, or evidence of acute territorial ischemia by CT criteria. Sotelo-white matter differentiation is preserved. No extra-axial fluid collection is seen. Ventricles, sulci, cisterns: Normal in configuration. Intracranial vasculature: There is moderate atherosclerotic calcification of the cavernous carotid arteries. Calvarium: Unremarkable. Sinuses and mastoids: The visualized paranasal sinuses are clear. There is evidence of previous left mastoid surgery. The right mastoid air cells are well pneumatized. Orbits: The bony orbits are grossly intact. IMPRESSION: There is no hemorrhage, mass effect, or evidence of acute territorial ischemia by CT criteria. ACT 112: Negative or not required by law. Electronically signed by: Adam Hercules M.D. 10/15/2023 7:03 PM Discharge Plan Visit Data Chief Complaint: Alcohol Intoxication Stated Complaint: ETOH ED Provider: Alber Yuan Discharge Problem: Alcohol abuse, Alcoholic intoxication Forms Stand Alone Forms: [facility] Prescriptions Prescriptions: No Action furosemide 40 mg tablet 40 mg PO DAILY PRN (Reason: Edema) hydroxyzine pamoate 50 mg capsule 50 mg PO BID PRN (Reason: Anxiety) trazodone 50 mg tablet 50 mg PO HS PRN (Reason: Sleep) Referrals Referrals: PCP,NO [Physician] -
--- OUTSIDE RECORDS SUMMARY | 2023-10-15 18:28 | External Medical Summary | Summary of Care ---
Author Name Unknown Organization [facility] Address [address] [place] [address] Phone [phone] Care Team Providers Care Tail Dogger Name Role Phone Kamilah Torres MD Primary Care Provider [phone] Reason for Visit * Reason Onset Date Comments Medication Pre-auth 05/26/2023 Dupixent Encounter Details Date Type Department Care Team (Late st Contact Info) Description 05/26/2023 Telephone Dermatology [facility] [place] [address] [place] [id number] Brady Vega MD [address] [place] [address] Medication Pre-auth (Dupixent) Allergies No known active allergiesdocumented as of this encounter (statuses as of 06/03/2023) Medications Medication Sig Dispensed Refills Start Date [...] as of this encounter (statuses as of 06/03/2023) Active Problems Problem Noted Date Diagnosed Date Alcoholic hepatitis without ascites 11/29/2022 Generalized anxiety disorder 11/05/2022 Alcohol abuse 11/05/2022 Plaque psoriasis Insomnia documented as of this encounter (statuses as of 06/03/2023) Immunizations No known immunizationsdocumented as of this [...] Notes * Telephone Encounter - Babar Madison [facility] - 06/03/2023 9:55 AM EDT Called and left message reminding patient to obtain labs. Babar Madison PharmD Medication Therapy Disease Management Dermatology/Rheumatology Clinical Pharmacist 06/03/2023, 9:56 AM * Telephone Encounter - Babar Madison [facility] - 05/30/2023 8:19 AM EDT Will submit upon completion of labs. Babar Madison PharmD Medication Therapy Disease Management Dermatology/Rheumatology Clinical Pharmacist 05/30/2023, 8:19 AM * Telephone Encounter - Abe Nelson [facility] - 05/27/2023 11:54 AM EDT [facility] Dermatology Pre-cert Request Medication/Disease State Information: Medication: [...] of Care: specialty medication - route to [id number]. Referral to pharmacist for: Pharmacist Co-management See corresponding visit note(s) for additional supporting clinical information. Administration Location if Injection: Patient Administered at Home Is the patient in a facility?: No Nearly erythrodermic psoriasis. Awaiting labs Office Information: Prescriber: Brady Vega MD documented in this encounter Plan of Treatment Upcoming Encounters Date Type Department Care Team (Late st Contact Info) Description 06/06/2023 11:00 AM EDT Nurse Only Dermatology [facility] [place] [address] [place] [address] Sp, Nurse Dermatology [address] [place] [address] 06/08/2023 11:00 AM EDT Nurse Only Dermatology [facility] [place] [address] [place] [address] Sp, Nurse Dermatology [address] [place] [address] 06/10/2023 11:00 AM EDT Nurse Only Dermatology [facility] [place] [address] [place] [address] Sp, Nurse Dermatology [address] [place] [address] 06/13/2023 11:00 AM EDT Nurse Only Dermatology [place] [address] [place] [address] Sp, Nurse Dermatology [address] [place] [address] 06/15/2023 10:30 AM EDT Nurse Only Dermatology [place] [address] [place] [address] Sp, Nurse Dermatology [address] [place] [address] 06/15/2023 11:00 AM EDT [facility] [address] [place] [address] Negra Meeks MD [address] [place] [address] 06/17/2023 11:00 AM EDT Nurse Only Dermatology [facility] [place] [address] [place] [address] Sp, Nurse Dermatology 200 [facility] [place] [address] 06/17/2023 11:45 AM EDT Office Visit Dermatology [facility] [place] [address] [place] [address] Brady Vega MD [address] [place] [address] Health Maintenance Due Date Last Done Comments Pneumococcal Vaccine: Pediatrics (0 to 5 Years) and At-Risk Patients (6 to 64 Years) (1 of 2 - PCV) 1968 DTaP,Tdap,and Td Vaccines (1 - Tdap) 1981 Cologuard 12/29/2007 Colonoscopy 12/29/2007 Colorectal Cancer Screening 12/29/2007 Fecal Occult Blood Test 12/29/2007 Sigmoidoscopy 12/29/2007 Zoster Vaccines (1 of 2) 2012 Depression Screening 01/18/2018 01/18/2017 COVID-19 Vaccine (1 - 2022- season) 2022 [...] filedocumented as of this encounter Care Teams Tail Dogger Relationship Specialty Start Date End Date Kamilah Torres MD [address] [place] [address] PCP - General Family Medicine 11/05/22 documented as of this encounter
--- OUTSIDE RECORDS SUMMARY | 2023-10-15 18:28 | External Medical Summary | Summary of Care ---
Author Name Unknown Organization [facility] Address [address] [place] [address] Phone [phone] Care Team Providers Care Esol Teacher Assistant Name Role Phone Kamilah Torres MD Primary Care Provider [phone] Encounter Details Date Type Department Care Team (Late st Contact Info) Description 05/26/2023 Telephone Dermatology [facility] [address] [place] [id number] Brady Vega MD [address] [facility] [place] [phone] Allergies No known active allergiesdocumented as of this encounter (statuses as of 05/26/2023) Medications Medication Sig Dispensed Refills Start Date [...] as of this encounter (statuses as of 05/26/2023) Active Problems Problem Noted Date Diagnosed Date Alcoholic hepatitis without ascites 11/29/2022 Generalized anxiety disorder 11/05/2022 Alcohol abuse 11/05/2022 Plaque psoriasis Insomnia documented as of this encounter (statuses as of 05/26/2023) Immunizations No known immunizationsdocumented as of this [...] encounter Miscellaneous Notes * Telephone Encounter - Brady Vega MD [...] of Care: specialty medication - route to [id number]. Referral to pharmacist for: Pharmacist Co-management See corresponding visit note(s) for additional supporting clinical information. Administration Location if Injection: Patient Administered at Home Is the patient in a facility?: No Nearly erythrodermic psoriasis. Awaiting labs Office Information: Prescriber: Brady Vega MD documented in this encounter Plan of Treatment Upcoming Encounters Date Type Department Care Team (Late st Contact Info) Description 05/30/2023 11:30 AM EDT Nurse Only Dermatology [facility] [address] [place] [address] Sp, Nurse Dermatology 200 [facility] [place] [address] 06/01/2023 11:30 AM EDT Nurse Only Dermatology [facility] [place] [address] [place] [address] Sp, Nurse Dermatology [address] [place] [address] 06/06/2023 11:00 AM EDT Nurse Only D[facility] [place] [address] [place] [address] Sp, Nurse Dermatology [address] [place] [address] 06/08/2023 11:00 AM EDT Nurse Only Dermatology [facility] [place] [address] [place] [address] Sp, Nurse Dermatology [address] [place] [address] 06/10/2023 11:00 AM EDT Nurse Only Dermatology [facility] [place] [address] [place] [address] Sp, Nurse Dermatology [address] [place] [address] 06/13/2023 11:00 AM EDT Nurse Only Dermatology [facility] [place] [address] [place] [address] Sp, Nurse Dermatology [address] [place] [address] 06/15/2023 11:00 AM EDT Office Visit Infectious Disease [facility] [address] [place] [address] Negra Meeks MD [address] [place] [address] 06/17/2023 11:45 AM EDT Office Visit Dermatology [facility] [address] [place] [address] Brady Vega MD [address] [place] [address] Health Maintenance Due Date Last Done Comments [...] COVID-19 Vaccine (1 - 2022- season) 2022 Influenza Vaccine (FLU shot) (#1) 2022 Hepatitis B (1 of 3 - Risk 3-dose series) 2022 Diabetes Screening 03/24/2026 03/24/2023, 1 , 11/05/2022, Additional history exists Lipid Panel 11/06/2027 11/05/2022, 11/15/2014 GARDASIL-HPV IMMUNIZATION SERIES Aged Out No longer eligible based on patient's age to complete this topic MENINGOCOCCAL (MENACTRA/MENVEO) Aged Out No longer eligible based on patient's age to complete this topic documented as of this encounter Medical Devices Not on filedocumented as of this encounter Care Teams Esol Teacher Assistant Relationship Specialty Start Date End Date Kamilah Torres MD [address] [place] [address] PCP - General Family Medicine 11/05/22 documented as of this encounter
--- OUTSIDE RECORDS SUMMARY | 2023-10-15 18:28 | External Medical Summary | Summary of Care ---
Author Name Unknown Organization [facility] Address [address] [place] [address] Phone [phone] Care Team Providers Care Department Head [employer] Name Role Phone Kamilah Torres MD Primary Care Provider [phone] Reason for Visit * Reason Onset Date Comments Medication Pre-auth 05/26/2023 Dupixent Encounter Details Date Type Department Care Team (Late st Contact Info) Description 05/26/2023 Telephone Dermatology [facility] [place] [address] [place] [phone] Brayd Vega MD [address] [place] [address] Medication Pre-auth (Dupixent) Allergies No known active allergiesdocumented as of this encounter (statuses as of 05/30/2023) Medications Medication Sig Dispensed Refills Start Date [...] as of this encounter (statuses as of 05/30/2023) Active Problems Problem Noted Date Diagnosed Date Alcoholic hepatitis without ascites 11/29/2022 Generalized anxiety disorder 11/05/2022 Alcohol abuse 11/05/2022 Plaque psoriasis Insomnia documented as of this encounter (statuses as of 05/30/2023) Immunizations No known immunizationsdocumented as of this [...] Will submit upon completion of labs. Babar Madison, PharmD Medication Therapy Disease Management Dermatology/Rheumatology Clinical Pharmacist 05/30/2023, 8:19 AM * Telephone Encounter - Abe Nelson [facility] - 05/27/2023 11:54 AM EDT [facility] Dermatology Pre-cert Request Medication/Disease State Information: Medication: [...] of Care: specialty medication - route to [id number]. Referral to pharmacist for: Pharmacist Co-management See corresponding visit note(s) for additional supporting clinical information. Administration Location if Injection: Patient Administered at Home Is the patient in a facility?: No Nearly erythrodermic psoriasis. Awaiting labs Office Information: Prescriber: Brady Vega MD documented in this encounter Plan of Treatment Upcoming Encounters Date Type Department Care Team (Fletcher Contact Info) Description 05/30/2023 11:30 AM EDT Nurse Only Dermatology [facility] [place] [address] [place] [address] Sp, Nurse Dermatology [address] [place] [address] 06/01/2023 11:30 AM EDT Nurse Only Dermatology [facility] [place] [address] [place] [address] Sp, Nurse Dermatology [address] [place] [address] 06/06/2023 11:00 AM EDT Nurse Only Dermatology [facility] [place] [address] [place] [address] Sp, Nurse Dermatology [address] [place] [address] 06/08/2023 11:00 AM EDT Nurse Only Dermatology [facility] [place] [address] [place] [address] Sp, Nurse Dermatology [address] [place] [address] 06/10/2023 11:00 AM EDT Nurse Only Dermatology [facility] [place] [address] [place] [address] Sp, Nurse Dermatology [address] [place] [address] 06/13/2023 11:00 AM EDT Nurse Only Dermatology [facility] [place] [address] [place] [address] Sp, Nurse Dermatology [address] [place] [address] 06/15/2023 11:00 AM EDT Office Visit Infectious Disease [facility] [place] [address] [place] [address] Ngera Meeks MD [address] [place] [address] 06/17/2023 11:45 AM EDT Office Visit Dermatology [facility] [address] [place] [address] Brady Vega MD [address] [place] [address] Health Maintenance Due Date Last Done Comments [...] filedocumented as of this encounter Care Teams Department Head College [employer] Relationship Specialty Start Date End Date Kamilah Torres MD [address] [place] [address] PCP - General Family Medicine 11/05/22 documented as of this encounter
--- OUTSIDE RECORDS SUMMARY | 2023-10-15 18:28 | External Medical Summary | Summary of Care ---
Author Name Unknown Organization [facility] Address [address] [place] [address] Phone [phone] Care Team Providers Care Concrete Stone Finishing Supervisor Name Role Phone Kamilah Torres MD Primary Care Provider [phone] Reason for Visit * Reason Onset Date Comments Medication Pre-auth 05/26/2023 Encounter Details Date Type Department Care Team (Late st Contact Info) Description 05/26/2023 Telephone Dermatology [facility] [address] [place] [address] Brady Vega MD [address] [place] [address] Medication Pre-auth Allergies No known active allergiesdocumented as of this encounter (statuses as of 05/27/2023) Medications Medication Sig Dispensed Refills Start Date [...] as of this encounter (statuses as of 05/27/2023) Active Problems Problem Noted Date Diagnosed Date Alcoholic hepatitis without ascites 11/29/2022 Generalized anxiety disorder 11/05/2022 Alcohol abuse 11/05/2022 Plaque psoriasis Insomnia documented as of this encounter (statuses as of 05/27/2023) Immunizations No known immunizationsdocumented as of this [...] of Care: specialty medication - route to [id number]. Referral to pharmacist for: Pharmacist Co-management See [...] 05/30/2023 11:30 AM EDT Nurse Only Dermatology [facility] [address] [place] [address] Sp, Nurse Dermatology [address] [place] [address] 06/01/2023 11:30 AM EDT Nurse Only Dermatology [facility] [place] [address] [place] [address] Sp, Nurse Dermatology [address] [place] [address] 06/06/2023 11:00 AM EDT Nurse Only Dermatology [facility] [place] [address] [place] [address] Sp, Nurse Dermatology [address] [place] [address] 06/08/2023 11:00 AM EDT Nurse Only Dermatology [facility] [place] [address] [place] [address] Sp, Nurse Dermatology [address] [place] [address] 06/10/2023 11:00 AM EDT Nurse Only Dermatology [facility] [place] [address] [place] [address] Sp, Nurse Dermatology [address] [place] [address] 06/13/2023 11:00 AM EDT Nurse Only Dermatology [facility] [place] [address] [place] [address] Sp, Nurse Dermatology [address] [place] [address] 06/15/2023 11:00 AM EDT Office Visit Infectious Disease [facility] [place] [address] [place] [address] Negra Meeks MD [address] [facility] [address] 06/17/2023 11:45 AM EDT Office Visit Dermatology [facility] [place] [address] [place] [address] Brady Vega MD [address] [place] [address] Health Maintenance Due Date Last Done Comments [...] filedocumented as of this encounter Care Teams Concrete Stone Finishing Supervisor Relationship Specialty Start Date End Date Kamilah Torres MD [address] [place] [address] PCP - General Family Medicine 11/05/22 documented as of this encounter
--- OUTSIDE RECORDS SUMMARY | 2023-10-15 18:28 | External Medical Summary | Summary of Care ---
Author Name Unknown Organization [facility] Address [address] [place] [address] Phone [phone] Care Team Providers Care Loop Puller Name Role Phone Kamilah Torres MD Primary Care Provider [phone] Reason for Visit * Reason Comments NEW PATIENT Discuss Psoriasis Light treatment Areas of body covere d or protected during treatment: eyes and genitals. Narrow Band UVB 101millijoules. Patient receives treatment three times weekly. Narrow Band UVB dose to be increased by 100 millijoules each treatment. Today was the patient's first treatment. The treatment was started at 100mj, increasing by 100mj 3x per week. The patient is skin type 2. The patient states he is not taking any antibiotics at this time. * Evaluate & Treat - Unlimited Visits (Within 30 days (routine)) - Authorized Specialty Diagnoses / Procedures Referred By Syed tineo Referred To Contact Dermatology Diagnoses Plaque psoriasis Kamilah Torres MD [address] [facility] [address] Referral ID Status Reason Start Date Expiration Date Visits Requested Visits Authorized [id number] Authorized Specialty Services Required 03/24/2023 [id number] Encounter Details Date Type Department Care Team (Late st Contact Info) Description 05/26/2023 8:00 AM EDT Office Visit Dermatology [facility] [place] [address] [place] [address] Brady Vega MD [address] [place] [address] Plaque psoriasis*; Erythroderma; Scalp psoriasis Allergies No known active allergiesdocumented as of this encounter (statuses as of 05/26/2023) Medications Medication Sig Dispensed Refills Start Date End Date Status Vitamin B-1 100 MG Oral Tablet Take 1 Tablet by mouth in the morning. 0 11/29/2022 Active Milk Thistle 200 MG Oral Capsule Take by mouth. 0 Activ e NAC 600 MG Oral Capsule (Acetylcysteine) Take 1 Capsule by mouth in the morning. 0 Active Vitamin D3 25 MCG (1000 UT) Oral Capsule Take 1 Capsule by mouth once. 0 Active Turmeric 450 MG Oral Capsule Take 1 Capsule by mouth once. 0 Active Clobetasol Propionate 0.05 % External SolutionIndicatio ns:Plaque psoriasis Apply to psoriasis in scalp daily 50 mL 5 05/26/2023 Active Triamcinolone Acetonide 0.1 % External Cream (Aristocort)Indic ations:Plaque psoriasis Apply to psoriasis on the arms, legs, chest, and back twice daily 450 g 1 05/26/2023 Active Clobetasol Propionate 0.05 % External Ointment (Temovate) Apply topically to affected area 2 times a day. 15 g 1 04/05/2023 05/26/2023 Discontinued Triamcinolone Acetonide 0.1 % External Cream (Aristocort)Indic ations:Plaque psoriasis Apply to psoriasis on the arms, legs, chest, and back twice daily 450 g 1 05/26/2023 05/26/2023 Discontinued Clobetasol Propionate 0.05 % External SolutionIndicatio ns:Plaque psoriasis Apply to psoriasis in scalp daily 50 mL 5 05/26/2023 05/26/2023 Discontinued documented as of this encounter (statuses [...] as of this encounter Progress Notes * Brady Veag MD - 05/26/2023 8:16 AM EDT SUBJECTIVE: Chief Complaint: Chief Complaint Patient presents with NEW PATIENT Discuss Psoriasis HPI: Owen Kiser is a 62 year old male seen for psoriasis. Tells me he's had this for years. Off and on. Seems to go away mostly in the summer. Scalp, hands, back, ankles, and feet However has flared over last 2 weeks. Worse then it's ever been. Almost all over body Lots of stress in life. Feels this has caused it to flare Was hospitalized in the fall Treating with clobetasol currently but small container, not enough OBJECTIVE: GEN: Alert, tearful, but in no distress, appears oriented, pleasant, and cooperative SKIN: Problem focused exam reveals: Face, scalp, chest, back, arms, legs - thick pink coalescing plaques with silvery micaceous scale BSA: 46-55%, Special Site: Scalp: moderate, Genitalia/Buttocks; moderate, and Face; moderate; Status: initial. ASSESSMENT/PLAN: Severe plaque psoriasis - Approaching erythroderma - will need aggressive treatment - topicals: Start TMC to whole body, clobetasol soln to scalp - will start light therapy today. Three times weekly - Will need systemic treatment. Limited by severe alcohol abuse - Recommend cosentyx based on safety profile and speed of improvement - CBC,CMP, quant gold, Hepatitis panel today - stressed to patient that he needs to get labs done jose. Recommended he walk upstairs immediatelyto lab to get this done so that prior auth can be filed Brady Vega MD Ref: KAMILAH TORRES[[id number]] [address] [facility] [place] [address] (office) [phone] (fax) PCP: KAMILAH TORRES [address] [facility] [place] [address] [phone] documented in this encounter Nursing Notes * Franca Guzman LPN - 05/26/2023 8:09 AM EDT Patient identified by name and date of . Do you have any concerns about pain management for today's visit? No Living Will or Advance Directive for Health Care as noted on problem list. [employer] is a way you can talk to your provider online through e-mail. Would you like to sign up? I can activate it for you? NO Chief Complaint Patient presents with NEW PATIENT Discuss Psoriasis documented in this encounter Plan of Treatment Upcoming Encounters Date Type Department Care Team (Late st Contact Info) Description 05/30/2023 11:30 AM EDT Nurse Only Dermatology [facility] [place] [address] [place] [address] Sp, Nurse Dermatology [address] [facility] [place] [address] 06/01/2023 11:30 AM EDT Nurse Only Dermatology [facility] [place] [address] [place] [address] Sp, Nurse Dermatology [address] [facility] [place] [address] 06/06/2023 11:00 AM EDT Nurse Only Dermatology [facility] [place] [address] [place] [address] Sp, Nurse Dermatology [address] [place] [address] 06/08/2023 11:00 AM EDT Nurse Only Dermatology [facility] [place] [address] [place] [address] Sp, Nurse Dermatology [address] [place] [address] 06/10/2023 11:00 AM EDT Nurse Only Dermatology [facility] [place] [address] [place] [address] Sp, Nurse Dermatology [address] [place] [address] 06/13/2023 11:00 AM EDT Nurse Only Dermatology [facility] [place] [address] [place] [address] Sp, Nurse Dermatology [address] [place] [address] 06/15/2023 11:00 AM EDT Office Visit Infectious Disease [facility] [place] [address] [place] [address] Negra Meeks MD [address] [place] [address] 06/17/2023 11:45 AM EDT Office Visit Dermatology [facility] [place] [address] [place] [address] Brady Vega MD [address] [place] [address] Scheduled Orders Name Type Priority Associated Diagnoses Orde r Schedule ACUTE HEPATITIS PANEL Lab Routine Plaque psoriasis Erythroderma Expected: 05/26/2023, Expires: 05/25/2024 HEPATITIS B SURFACE ANTIBODY Lab Routine Plaque psoriasis Erythroderma Expected: 05/26/2023, Expires: 05/25/2024 QUANTIFERON TB GOLD PLUS Lab Routine Plaque psoriasis Erythroderma Expected: 05/26/2023, Expires: 05/25/2024 CBC WITH WBC DIFFERENTIAL Lab Routine Plaque psoriasis Erythroderma Expected: 05/26/2023, Expires: 05/25/2024 COMPREHENSIVE METABOLIC PANEL Lab Routine Plaque psoriasis Erythroderma Expected: 05/26/2023, Expires: 05/25/2024 ACTINOTHERAPY (ULTRAVIOLET LIGHT) Procedures Routine Plaque psoriasis Other, Please specify in Comments field for 36 Occurrences starting 05/26/2023 until 05/25/2024 Health Maintenance Due Date Last Done Comments [...] COVID-19 Vaccine (1 - 2022-24 season) 2022 Influenza Vaccine (FLU shot) (#1) [...] of this encounter Visit Diagnoses Diagnosis Plaque psoriasis- Primary Other psoriasis Erythroderma Unspecified erythematous condition Scalp psoriasis Other psoriasis documented in this encounter Care Teams Loop Puller Relationship Specialty Start Date End Date Kamilah Torres MD [address] [place] [address] PCP - General Family Medicine 11/05/22 documented as of this encounter
--- OUTSIDE RECORDS SUMMARY | 2023-10-15 18:28 | External Medical Summary | Summary of Care ---
Author Name Unknown Organization [facility] Address [address] [place] [address] Phone [phone] Care Team Providers Care Resaw Operator Name Role Phone Kamilah Torres MD Primary Care Provider [phone] Reason for Visit * Reason Onset Date Comments Medication Pre-auth 05/26/2023 Dupixent Encounter Details Date Type Department Care Team (Late st Contact Info) Description 05/26/2023 Telephone Dermatology [facility] [place] [address] [place] [id number] Brady Vega MD [address] [place] [address] Medication Pre-auth (Dupixent) Allergies No known active allergiesdocumented as of this encounter (statuses as of 06/10/2023) Medications Medication Sig Dispensed Refills Start Date [...] as of this encounter (statuses as of 06/10/2023) Active Problems Problem Noted Date Diagnosed Date Alcoholic hepatitis without ascites 11/29/2022 Generalized anxiety disorder 11/05/2022 Alcohol abuse 11/05/2022 Plaque psoriasis Insomnia documented as of this encounter (statuses as of 06/10/2023) Immunizations No known immunizationsdocumented as of this [...] AM * Telephone Encounter - Abe Nelson [facility] - 05/27/2023 11:54 AM EDT [facility] Dermatology Pre-cert Request Medication/Disease State Information: Medication: [...] AM * Telephone Encounter - Abe Nelson RP - 05/27/2023 8:[address] Vega: Kiersten is the formulary preference for [facility] Plans. [...] of Care: specialty medication - route to [id number]. Referral to pharmacist for: Pharmacist Co-management See corresponding visit note(s) for additional supporting clinical information. Administration Location if Injection: Patient Administered at Home Is the patient in a facility?: No Nearly erythrodermic psoriasis. Awaiting labs Office Information: Prescriber: Brady Vega MD documented in this encounter Plan of Treatment Upcoming Encounters Date Type Department Care Team (Late st Contact Info) Description 06/13/2023 11:00 AM EDT Nurse Only Dermatology [facility] [place] [address] [place] [address] Sp, Nurse Dermatology 200 [facility] [place] [address] 06/15/2023 10:30 AM EDT Nurse Only Dermatology [facility] [place] [address] [place] [address] Sp, Nurse Dermatology [address] [facility] [place] [address] 06/15/2023 11:00 AM EDT Office Visit Infectious Disease [facility] [place] [address] [place] [address] Negra Meeks MD [address] [place] [address] 06/17/2023 11:00 AM EDT Nurse Only Dermatology [facility] [place] [address] [place] [address] Sp, Nurse Dermatology [address] [place] [address] 06/17/2023 11:45 AM EDT Office Visit Dermatology [facility] [address] [place] [address] Brady Vega MD [address] [place] [address] [address] Health Maintenance Due Date Last Done Comments [...] filedocumented as of this encounter Care Teams Resaw Operator Relationship Specialty Start Date End Date Kamilah Torres MD [address] [place] [address] [address] PCP - General Family Medicine 11/05/22 documented as of this encounter
--- OUTSIDE RECORDS SUMMARY | 2023-10-15 18:28 | External Medical Summary | Summary of Care ---
Author Name Unknown Organization [facility] Address [address] [place] [address] Phone [phone] Care Team Providers Care Executive Office Manager Name Role Phone Kamilah Torres MD Primary Care Provider [phone] Reason for Visit * Reason Onset Date Comments Medication Pre-auth 05/26/2023 Encounter Details Date Type Department Care Team (Late st Contact Info) Description 05/26/2023 Telephone Dermatology [facility] [address] [place] [address] Brady Vega MD [address] [place] [address] Medication Pre-auth Allergies No known active allergiesdocumented [...] of Care: specialty medication - route to [id number]. Referral to pharmacist for: Pharmacist Co-management See [...] 05/30/2023 11:30 AM EDT Nurse Only Dermatology [facility] [place] [address] [place], [place] [id number] Sp, Nurse Dermatology [address] [place] [address] 06/01/2023 11:30 AM EDT Nurse Only Dermatology [facility] [place] [address] [place] [address] Sp, Nurse Dermatology [address] [place] [address] 06/06/2023 11:00 AM EDT Nurse Only Dermatology [facility] [place] [address] [place] [address] Sp, Nurse Dermatology [address] [place] [address] 06/08/2023 11:00 AM EDT Nurse Only Dermatology [facility] [place] [address] [place] [address] Sp, Nurse Dermatology [address] [place] [address] 06/10/2023 11:00 AM EDT Nurse Only Dermatology [facility] [place] [address] [place] [address] Sp, Nurse Dermatology [address] [place] [address] 06/13/2023 11:00 AM EDT Nurse Only Dermatology [facility] [place] [address] [place] [address] Sp, Nurse Dermatology [address] [place] [address] 06/15/2023 11:00 AM EDT Office Visit Infectious Disease [facility] [address] [place] [address] Negra Meeks MD [address] [place] [address] 06/17/2023 11:45 AM EDT Office Visit Dermatology [facility] 200 [facility] [place] [address] Brady Vega MD [address] [place] [place] [address] Health Maintenance Due Date Last Done Comments [...] filedocumented as of this encounter Care Teams Executive Office Manager Relationship Specialty Start Date End Date Kamilah Torres MD [address] [facility] [address] PCP - General Family Medicine 11/05/22 documented as of this encounter
--- OUTSIDE RECORDS SUMMARY | 2023-10-15 18:28 | External Medical Summary | Summary of Care ---
Author Name Unknown Organization [facility] Address [address] [place] [address] Phone [phone] Care Team Providers Care Proof Technician Helper Name Role Phone Kamilah Torres MD Primary Care Provider [phone] Encounter Details Date Type Department Care Team (Late st Contact Info) Description 04/27/2023 Telephone Family Practice [facility] 200 [facility] [place] [address] Kamilah Torres MD [address] [place] [address] Allergies No known active allergiesdocumented as of this encounter (statuses as of 05/02/2023) Medications Medication Sig Dispensed Refills Start Date [...] 0 Active Clobetasol Propionate 0.05 % External Ointment (Temovate) Apply topically to affected area 2 times a day. 15 g 1 04/05/2023 Active documented as of this encounter (statuses as of 05/02/2023) Active Problems Problem Noted Date Diagnosed Date Alcoholic hepatitis without ascites 11/29/2022 Generalized anxiety disorder 11/05/2022 Alcohol abuse 11/05/2022 Plaque psoriasis Insomnia documented as of this encounter (statuses as of 05/02/2023) Immunizations No known immunizationsdocumented as of this [...] Telephone Encounter - Kamilah Torres MD - 05/02/2023 3:53 PM EST Can discuss with Dr. Del Valle at appointment on 05/24/23. Scheduled with dermatology 08/03/23. * Telephone Encounter - Snow Snyder OSA - 04/27/2023 1:19 PM EST Pt's dad Irving calling in about his Clobetasol ointment. Stating that the ointment isn't working at all for him and wondering if there is anything else you could recommend. Please advise. documented in this encounter Plan of Treatment Upcoming Encounters Date Type Department Care Team (Late st Contact Info) Description 05/24/2023 1:40 PM EDT Office Visit Family Practice [facility] [place] [address] [place] [address] Gee Del Valel, DO [address] [place] [address] 06/15/2023 11:00 AM EDT Office Visit Infectious Disease [facility] [place] [address] [place] [address] Negra Meeks MD [address] [place] [address] 08/03/2023 9:20 AM EDT Office Visit Dermatology [facility] [address] [place] [address] Zoya Yuan PA-C [address] [place] [address] Health Maintenance Due Date Last Done Comments [...] filedocumented as of this encounter Care Teams Proof Technician Helper Relationship Specialty Start Date End Date Kamilah Torres MD [address] [place] [address] PCP - General Family Medicine 11/05/22 documented as of this encounter
--- OUTSIDE RECORDS SUMMARY | 2023-10-15 18:28 | External Medical Summary | Summary of Care ---
Author Name Unknown Organization [facility] Address [address] [place] [address] Phone [phone] Care Team Providers Care Nickel Plant Operator Name Role Phone Kamilah Torres MD Primary Care Provider [phone] Reason for Visit * Reason Comments NEW [...] Diagnoses Plaque psoriasis Kamilah Torres MD 200 [facility] [place] [address] Referral ID Status Reason Start Date Expiration Date Visits Requested Visits Authorized [id number] Authorized Specialty Services Required 03/24/2023 [id number] Encounter Details Date Type Department Care Team (Late st Contact Info) Description 05/26/2023 8:00 AM EDT Office Visit Dermatology [facility] [place] [address] [place] [address] Brady Vega MD [address] [place] [address] Plaque psoriasis*; Erythroderma; Scalp psoriasis; Psoriasis vulgaris Allergies No known active allergiesdocumented as of [...] of this encounter Progress Notes * Brady Vega MD - 05/26/2023 8:16 AM EDT SUBJECTIVE: [...] be filed Brady Vega MD Ref: KAMILAH TORRES[[id number]] 200 [facility] [place] [address] (office) [phone] (fax) PCP: KAMILAH TORRES 200 [facility] [place] [address] [phone] documented in this encounter Nursing Notes * Franca Guzman LPN - 05/26/2023 8:09 AM EDT Patient identified by name and date of . Do you have any concerns about pain management for today's visit? No Living Will or Advance Directive for Health Care as noted on problem list. [facility] is a way you can talk to your provider online through e-mail. Would you like to sign up? I can activate it for you? NO Chief Complaint Patient presents with NEW PATIENT Discuss Psoriasis documented in this encounter Miscellaneous Notes * Addendum Note - Franca Guzman LPN - 05/27/2023 9:07 AM EDTAddended by: FRANCA GUZMAN on: 05/27/2023 09:07 AM Modules accepted: Level of Service documented in this encounter Plan of Treatment Upcoming Encounters Date Type Department Care Team (Late st Contact Info) Description 05/30/2023 11:30 AM EDT Nurse Only Dermatology [facility] [place] [address] [facility] [place] [address] Sp, Nurse Dermatology [address] [facility] [place] [address] 06/01/2023 11:30 AM EDT Nurse Only [facility] [place] [address] [place] [address] Sp, Nurse Dermatology [address] [place] [address] 06/06/2023 11:00 AM EDT Nurse Only [facility] [place] [address] [place] [address] Sp, Nurse Dermatology [address] [place] [address] 06/08/2023 11:00 AM EDT Nurse Only Dermatology [facility] [place] [address] [place] [address] Sp, Nurse Dermatology [address] [place] [address] 06/10/2023 11:00 AM EDT Nurse Only Dermatology [facility] [place] [address] [place] [address] Sp, Nurse Dermatology [address] [place] [address] 06/13/2023 11:00 AM EDT Nurse Only Dermatology [facility] [place] [address] [place] [address] Sp, Nurse Dermatology [address] [place] [address] 06/15/2023 11:00 AM EDT Office Visit Infectious Disease [facility] [place] [address] [place] [address] Negra Meeks MD [address] [place], [place] [id number] 06/17/2023 11:45 AM EDT Office Visit Dermatology [facility] [place] [address] [place] [address] Brady Vega MD [address] [place] [address] Scheduled Orders Name Type Priority Associated Diagnoses [...] Unspecified erythematous condition Scalp psoriasis Other psoriasis Psoriasis vulgaris Other psoriasis documented in this encounter Care Teams Nickel Plant Operator Relationship Specialty Start Date End Date Kamilah Torres MD 200 [facility] [place] [address] PCP - General Family Medicine 11/05/22 documented as of this encounter
--- OUTSIDE RECORDS SUMMARY | 2023-10-15 18:28 | External Medical Summary | Summary of Care ---
Author Name Unknown Organization [facility] Address [address] [place] [address] Phone [phone] Care Team Providers Care Data Communications Analyst Name Role Phone Kamilah Torres MD Primary Care Provider [phone] Reason for Visit * Reason Onset Date Comments Medication Pre-auth 05/26/2023 Dupixent Encounter Details Date Type Department Care Team (Late st Contact Info) Description 05/26/2023 Telephone Dermatology [facility] [place] [address] [place] [id number] Brady Vega MD [address] [place] [address] Medication Pre-auth (Dupixent) Allergies No known active [...] Miscellaneous Notes * Telephone Encounter - Abe Nelson, [facility] - 05/27/2023 11:54 AM EDT [facility] Dermatology Pre-cert Request Medication/Disease State [...] of Care: specialty medication - route to [id number]. Referral to pharmacist for: Pharmacist Co-management See [...] Nurse Only Dermatology [facility] [address] [place] [address] Sp, Nurse Dermatology [address] [place] [address] [place] [address] 06/01/2023 11:30 AM EDT Nurse Only Dermatology [facility] [address] [place] [address] Sp, Nurse Dermatology [address] [place] [address] 06/06/2023 11:00 AM EDT Nurse Only Dermatology [facility] [place] [address] [place] [address] Sp, Nurse Dermatology [address] [place] [address] 06/08/2023 11:00 AM EDT Nurse Only Dermatology [facility] [place] [address] [place] [address] Sp, Nurse Dermatology [address] [place] [address] 06/10/2023 11:00 AM EDT Nurse Only Dermatology [facility] [place] [address] [place] [address] Sp, Nurse Dermatology [address] [place] [address] 06/13/2023 11:00 AM EDT Nurse Only Dermatology [facility] [place] [address] [place] [address] Sp, Nurse Dermatology [address] [place] [address] 06/15/2023 11:00 AM EDT Office Visit Infectious Disease [facility] [place] [address] [address] Negra Meeks MD [address] [place], [place] [id number] 06/17/2023 11:45 AM EDT Office Visit Dermatology [facility] [place] [address] [place] [address] Brady Vega MD [address] [place] [address] Health Maintenance Due Date Last Done Comments [...] filedocumented as of this encounter Care Teams Data Communications Analyst Relationship Specialty Start Date End Date Kamilah Torres MD [address] [place] [address] PCP - General Family Medicine 11/05/22 documented as of this encounter
--- OUTSIDE RECORDS SUMMARY | 2023-10-15 18:28 | External Medical Summary | Summary of Care ---
Author Name Unknown Organization [facility] Address [address] [place] [address] Phone [phone] Care Team Providers Care Hydraulic Rock Drill Operator Name Role Phone Kamilah Torres MD Primary Care Provider [phone] Reason for Visit * Reason Comments Phototherapy NBUVB 207 mj Encounter Details Date Type Department Care Team (Late st Contact Info) Description 05/30/2023 11:30 AM EDT Nurse Only Dermatology [facility] [address] [place] [address] Sp[facility] [address] [facility] (NBUVB 207 mj) Allergies No known active allergiesdocumented as of [...] on file documented as of this encounter Nursing Notes * Carolina Granger LPN - 05/30/2023 11:12 AM EDT No skin reaction from previous treatment. Areas of body covered or protected during treatment: eyesand genitals. Narrow Band UVB 207 millijoules. Patient receives treatment three times weekly. Narrow Band UVB dose to be increased by 100 millijoules each treatment. Max dose 3000 mj documented in this encounter Plan of Treatment Upcoming Encounters Date Type Department Care Team (Late st Contact Info) Description 06/01/2023 11:30 AM EDT Nurse Only Dermatology [facility] [place] [address] [place] [address] Sp, Nurse Dermatology [address] [place] [address] 06/06/2023 11:00 AM EDT Nurse Only Dermatology [facility] [address] [place] [address] Sp, Nurse Dermatology [address] [place] [address] 06/08/2023 11:00 AM EDT Nurse Only Dermatology [facility] [place] [address] [place] [address] Sp, Nurse Dermatology [address] [place] [address] 06/10/2023 11:00 AM EDT Nurse Only Dermatology [facility] [place] [address] [place] [address] Sp, Nurse Dermatology [address] [place] [address] 06/13/2023 11:00 AM EDT Nurse Only Dermatology [facility] [place] [address] [place] [address] Sp, Nurse Dermatology [address] [place] [address] 06/15/2023 10:30 AM EDT Nurse Only Dermatology [facility] [place] [address] [place] [address] Sp, Nurse Dermatology [address] [place] [address] 06/15/2023 11:00 AM EDT Office Visit Infectious Disease [facility] [place] [address] [place] [address] Negra Meeks MD [address] [place] [address] 06/17/2023 11:00 AM EDT Nurse Only Dermatology [facility] [place] [address] [place] [address] Sp, Nurse Dermatology [address] [place] [address] 06/17/2023 11:45 AM EDT Office Visit Dermatology [facility] [address] [place] [address] Brady Vega MD [address] [place] [address] Health Maintenance Due Date Last Done Comments [...] Diagnoses Diagnosis Plaque psoriasis- Primary Other psoriasis documented in this encounter Care Teams Hydraulic Rock Drill Operator Relationship Specialty Start Date End Date Kamilah Torres MD [address] [place] [address] PCP - General Family Medicine 11/05/22 documented as of this encounter
--- OUTSIDE RECORDS SUMMARY | 2023-10-15 18:28 | External Medical Summary | Summary of Care ---
Author Name Unknown Organization [facility] Address [address] [place] [address] Phone [phone] Care Team Providers Care Food And Beverage Assistant Manager Name Role Phone Kamilah Torres MD Primary Care Provider [phone] Encounter Details Date Type Department Care Team (Late st Contact Info) Description 05/28/2023 Orders Only PATIENT PORTAL DO NOT DELETE [facility] [id number] Allergies No known active allergiesdocumented as of this encounter (statuses as of 05/28/2023) Medications Medication Sig Dispensed Refills Start Date [...] as of this encounter (statuses as of 05/28/2023) Active Problems Problem Noted Date Diagnosed Date Alcoholic hepatitis without ascites 11/29/2022 Generalized anxiety disorder 11/05/2022 Alcohol abuse 11/05/2022 Plaque psoriasis Insomnia documented as of this encounter (statuses as of 05/28/2023) Immunizations No known immunizationsdocumented as of this [...] AM EDT Nurse Only Dermatology [facility] [place] [address] [place] [address] Sp, Nurse Dermatology [address] [place] [address] 06/01/2023 11:30 AM EDT Nurse Only Dermatology [facility] [place] [address] [place] [address] Sp, Nurse Dermatology [address] [place] [address] [address] 06/06/2023 11:00 AM EDT Nurse Only Dermatology [facility] [place] [address] [place] [address] Sp, Nurse Dermatology [address] [place] [address] 06/08/2023 11:00 AM EDT Nurse Only Dermatology [facility] [place] [address] [place] [address] Sp, Nurse Dermatology [address] [place], [place] [address] 06/10/2023 11:00 AM EDT Nurse Only Dermatology [facility] [place] [address] [place] [address] Sp, Nurse Dermatology [address] [place] [address] 06/13/2023 11:00 AM EDT Nurse Only Dermatology [facility] 200 [facility] [place] [address] Sp, Nurse Dermatology [address] [place] [address] [place] [address] 06/15/2023 11:00 AM EDT Office Visit Infectious Disease [facility] [place] [address] [facility] [place] [address] Negra Meeks MD [address] [place], [place] [id number] 06/17/2023 11:45 AM EDT Office Visit Dermatology [facility] [place] [address] [facility] [place] [address] Brady Vega MD [address] [facility] [place] [address] Health Maintenance Due Date Last Done Comments [...] filedocumented as of this encounter Care Teams Food And Beverage Assistant Manager Relationship Specialty Start Date End Date Kamilah Torres MD [address] [place] [address] PCP - General Family Medicine 11/05/22 documented as of this encounter
--- OUTSIDE RECORDS SUMMARY | 2023-10-15 18:28 | External Medical Summary | Summary of Care ---
Author Name Unknown Organization [facility] Address [address] [place] [address] Phone [phone] Care Team Providers Care Media Relations Intern Name Role Phone Kamilah Torres MD Primary Care Provider [phone] Encounter Details Date Type Department Care Team (Late st Contact Info) Description 04/27/2023 Telephone Family Practice [facility] [address] [facility] [place] [address] Kamilah Torres MD [address] [place] [address] Allergies No known active allergiesdocumented as of this encounter (statuses as of 05/06/2023) Medications Medication Sig Dispensed Refills Start Date [...] as of this encounter (statuses as of 05/06/2023) Active Problems Problem Noted Date Diagnosed Date Alcoholic hepatitis without ascites 11/29/2022 Generalized anxiety disorder 11/05/2022 Alcohol abuse 11/05/2022 Plaque psoriasis Insomnia documented as of this encounter (statuses as of 05/06/2023) Immunizations No known immunizationsdocumented as of this [...] encounter Miscellaneous Notes * Telephone Encounter - Shelia Francis LPN - 05/06/2023 11:29 AM EST Left message for pt to call back. * Telephone Encounter - Shelia Francis LPN - 05/03/2023 9:02 AM EST Left message for pt to call back. * Telephone Encounter - Kamilah Torres MD [...] 1:40 PM EDT Office Visit Family Practice [facility] [address] [facility] [place] [address] Gee Del Valle DO 200 [facility] [place] [address] 06/15/2023 11:00 AM EDT Office Visit Infectious Disease [facility] 200 [facility] [place] [address] Negra Meeks MD [address] [place] [address] 08/03/2023 9:20 AM EDT Office Visit Dermatology [facility] 200 [facility] [place] [address] Zoya Yuan PA-C [address] [facility] [place] [address] Health Maintenance Due Date Last Done [...] filedocumented as of this encounter Care Teams Media Relations Intern Relationship Specialty Start Date End Date Kamilah Torres MD [address] [facility] [place] [place] [address] PCP - General Family Medicine 11/05/22 documented as of this encounter
--- OUTSIDE RECORDS SUMMARY | 2023-10-15 18:28 | External Medical Summary | Summary of Care ---
Author Name Unknown Organization [facility] Address [address] [place] [address] Phone [phone] Care Team Providers Care Bath Steward Name Role Phone Kamilah Torres MD Primary Care Provider [phone] Encounter Details Date Type Department Care Team (Late st Contact Info) Description 04/27/2023 Telephone Family Practice [facility] [address] [place] [address] Kamilah Torres MD [address] [place] [address] Allergies No known active allergiesdocumented as of this encounter (statuses as of 05/03/2023) Medications Medication Sig Dispensed Refills Start Date [...] as of this encounter (statuses as of 05/03/2023) Active Problems Problem Noted Date Diagnosed Date Alcoholic hepatitis without ascites 11/29/2022 Generalized anxiety disorder 11/05/2022 Alcohol abuse 11/05/2022 Plaque psoriasis Insomnia documented as of this encounter (statuses as of 05/03/2023) Immunizations No known immunizationsdocumented as of this [...] 1:40 PM EDT Office Visit Family Practice [facility] [place] [address] [facility] [place], [place] [address] Gee Del Valle, [address] [facility] [place] [address] 06/15/2023 11:00 AM EDT Office Visit Infectious Disease [facility] [place] [address] [place] [address] Negra Meeks MD [address] [place] [address] 08/03/2023 9:20 AM EDT [facility] [place] [address] [facility] [place] [address] Zoya Yuan PA-C [address] [facility] [place] [address] Health Maintenance Due [...] filedocumented as of this encounter Care Teams Bath Steward Relationship Specialty Start Date End Date Kamilah Torres MD [address] [place] [address] PCP - General Family Medicine 11/05/22 documented as of this encounter
[2023-10-15] MEDS: SODIUM CHLORIDE 0.9% 1,000 ML IV STA (19:00)
--- NOTE | 2023-10-15 19:04 | CT Scan Report ---
CT SCAN OF THE BRAIN WITHOUT IV CONTRAST CLINICAL HISTORY: Change in mental status. COMPARISON STUDY: CT of the brain dated 11/14/2022. TECHNIQUE: Unenhanced axial CT scan of the brain is performed from the vertex to the skull base. A d ose lowering technique was utilized adhering to the principles of ALARA. CT DOSE: 625.8 mGy.cm FINDINGS: Brain parenchyma: There is minimal microangiopathic change. There is no hemorrhage, mass effect, or e vidence of acute territorial ischemia by CT criteria. Sotelo-white matter differentiation is preserved. No extra-axial fluid collection is seen. Ventricles, sulci, cisterns: Normal in configuration. Intracranial vasculature: There is moderate atherosclerotic calcification of the cavernous carotid ar teries. Calvarium: Unremarkable. Sinuses and mastoids: The visualized paranasal sinuses are clear. There is evidence of previous left mastoid surgery. The right mastoid air cells are well pneumatized. Orbits: The bony orbits are grossly intact. IMPRESSION: There is no hemorrhage, mass effect, or evidence of acute territorial ischemia by CT sandra markham. ACT 112: Negative or not required by law. Electronically signed by: Adam Hercules M.D. 10/15/2023 7:03 PM
[2023-10-15 19:15] LABS: Basophils % (auto) 2.1 %; Eosinophils # (auto) 0.01 K/uL (0.00-0.50); Eosinophils % (auto) 0.2 %; Hemoglobin 11.5 g/dl (14.0-18.0); Immature Granulocytes # (auto) 0.01 K/uL (0.01-0.20); Immature Granulocytes % (auto) 0.2 %; Lymphocytes % (auto) 32.9 %; Mean Corpuscular Hemoglobin 27.8 pg (25.0-34.0); Mean Corpuscular Hgb Conc 32.9 g/dL (32.0-36.0); Mean Corpuscular Volume 84.5 fL (80.0-100.0); Mean Platelet Volume 8.9 fL (9.4-12.4); Monocytes # (auto) 0.54 K/uL (0.11-0.59); Monocytes % (auto) 11.1 %; Neutrophils % (auto) 53.5 %; Platelet Count 121 K/uL (130-400); RDW Coefficient of Variation 20.3 % (11.5-14.5); RDW Standard Deviation 62.2 fL (36.4-46.3); Red Blood Count 4.14 M/uL (4.70-6.10); White Blood Count 4.86 K/ul (4.8-10.8)
[2023-10-15 19:33] LABS: Alanine Aminotransferase 28 U/L (7-52); Albumin Globulin Ratio 0.9 (0.9-2); Albumin Level 4.1 gm/dl (3.4-5.0); Alkaline Phosphatase 119 U/L (34-104); Anion Gap 8 (3-11); Aspartate Aminotransferase 52 U/L (13-39); BUN Creatinine Ratio 17.4 (10-20); Bilirubin,Total 0.5 mg/dl (0.2-1.0); Blood Urea Nitrogen 12 mg/dl (6-23); Calcium 8.7 mg/dl (8.6-10.3); Carbon Dioxide 23 mmol/L (21-32); Chloride 103 mmol/L (98-107); Est GFR (African American) 119.6 ml/min; Est GFR (Non-African American) 103.2 ml/min; Globulin 4.5 gm/dl (2.5-4.0); Glucose 129 mg/dl (70-99(Fasting)); Lipase 18 U/L (11-82); Potassium 3.9 mmol/L (3.5-5.1); Sodium 134 mmol/L (136-145); Total Protein 8.6 gm/dl (6.0-8.3)
[2023-10-15 19:34] LABS: Anisocytosis Present; Polychromasia 1+
[2023-10-15 19:39] LABS: Troponin I High Sensitivity 21.2 pg/ml (0-20)
[2023-10-15 19:43] LABS: INR 1.1 (0.9-1.1); Prothrombin Time 11.9 Seconds (9.0-12.0)
[2023-10-15] MEDS: LORazepam 1 MG/1 ML SYR ED Inj Use IV STA (20:31)
[2023-10-15] MEDS: THIAMINE HCL 100 MG in SYRINGE 9 ML IV STA (20:33)
[2023-10-15] MEDS: HALOPERIDOL LACTATE 5 MG/ML 1 ML VIAL IV STA (20:41)
[2023-10-15] MEDS: FOLIC ACID 1 MG in SYRINGE 9.8 ML IV STA (20:41)
[2023-10-15] MEDS ORDERED: chlordiazePOXIDE ALCOHOL WITHDRAWL 50MG PO STA (22:46)
[2023-10-15] MEDS ORDERED: ACETAMINOPHEN 325 MG TAB PO PRN (22:46)
[2023-10-15] MEDS ORDERED: Ativan IV Alcohol Withdrawal--Active Protocol IV PRN (22:46)
[2023-10-15] MEDS ORDERED: NITROGLYCERIN SL 0.4 MG/TAB TAB SL PRN (22:46)
[2023-10-15] MEDS ORDERED: POLYETHYLENE (MIRALAX) 17 GM PACK PO PRN (22:46)
[2023-10-15] MEDS ORDERED: LORazepam 2 MG in SYRINGE 1 ML IV PRN (22:46)
[2023-10-15] MEDS ORDERED: LORazepam 3 MG in SYRINGE 1.5 ML IV PRN (22:46)
[2023-10-15] MEDS: MULTI-VITAMIN INFUSION 10 ML, THIAMINE HCL 100 MG, FOLIC ACID 1 MG in SODIUM CHLORIDE 0... IV ONE (23:33)
[2023-10-15] MEDS: traZODone HCL 50 MG TAB PO PRN (23:34)
[2023-10-15] MEDS: chlordiazePOXIDE HCl 25 MG CAP PO SCH (23:34)
--- NOTE | 2023-10-15 23:36 | History & Physical Report ---
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 Seems patient was in grocery store and was slurring words and was having ambulatory issues and was picked up by the bus that the took him to his home and he fell in the yard when trying to get back to the house. EMS was called and patient was brought to the hospital. EMS also found a bottle of mouthwash in the bag that was partially consumed. In the ER patient was trying to go home. Saying his mother is going to come to pick him and he wants to go home. And is given Ativan and Haldol to help with agitation. Patient currently alert and oriented. States he went to groceries store as he was feeling better for last few days. Says he fell last year and has lower back pain. Recently had a telemetry conference with orthopedics per [facility]. Lumbar MRI spine from 09/15/2023 shows chronic appearing compression deformity of L1. And multilevel level degenerative disease more pronounced at L3/L4 and L4/L5 levels. Patient states he is going to see orthopedics soon at [facility]. States he is using walker. Has brace for his low back. He denies any drinking. Denies smoking. States Eating food okay. Denies any fevers. Denies any chest pain or shortness of breath. Denies cough. Currently no headache. Vision is okay. No runny nose or sore throat. No difficulty swallowing. Normal bowel and bladder movements. Hemodynamics are okay. Acute alcohol intoxication Alcohol level 347 Some agitation in the ER Received Ativan and Haldol banana bag IV thiamine and IV folic acid and multivitamins Alcohol withdrawal protocol with Librium and IV Ativan as needed Close monitor Follow labs Mild elevation of troponin First troponin 21-second 22 Asymptomatic we will follow serial enzymes Prolonged QTc Avoid QT prolonging drugs Follow repeat EKG in a.m. Psoriasis Some flareup on the back Triamcinolone cream Will monitor Thrombocytopenia Platelets 121 Possibly from alcoholism Follow repeat labs in a.m. Back pain PT OT Ortho follow-up DVT prophylaxis Lovenox Monitor platelets Disposition Telemetry Full code. 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 Seems patient was in grocery store and was slurring words and was having ambulatory issues and was picked up by the bus that the took him to his home and he fell in the yard when trying to get back to the house. EMS was called and patient was brought to the hospital. EMS also found a bottle of mouthwash in the bag that was partially consumed. In the ER patient was trying to go home. Saying his mother is going to come to pick him and he wants to go home. And is given Ativan and Haldol to help with agitation. Patient currently alert and oriented. States he went to groceries store as he was feeling better for last few days. Says he fell last year and has lower back pain. Recently had a telemetry conference with orthopedics per [facility]. Lumbar MRI spine from 09/15/2023 shows chronic appearing compression deformity of L1. And multilevel level degenerative disease more pronounced at L3/L4 and L4/L5 levels. Patient states he is going to see orthopedics soon at [facility]. States he is using walker. Has brace for his low back. He denies any drinking. Denies smoking. States Eating food okay. Denies any fevers. Denies any chest pain or shortness of breath. Denies cough. Currently no headache. Vision is okay. No runny nose or sore throat. No difficulty swallowing. Normal bowel and bladder movements. Hemodynamics are okay. Past medical history as mentioned above. Past surgical history. Reconstruction of middle ear and mastoid Social history. Denies smoking. Denies alcohol was alcohol was 347 in the ER. Denies any drugs. Lives alone. Family history. Aunt had colon cancer. Maternal grandmother had cancer. Allergies Allergy/AdvReac Type Severity Reaction Status Date / Time No Known Allergies Allergy Verified 10/15/23 19:56 Home Medications Medication Instructions Recorded Confirmed Type furosemide 40 mg tablet 40 mg PO DAILY PRN Edema 10/15/23 10/15/23 History hydroxyzine pamoate 50 mg capsule 50 mg PO BID PRN Anxiety 10/15/23 10/15/23 History trazodone 50 mg tablet 50 mg PO HS PRN Sleep 10/15/23 10/15/23 History Past Med/Surg History Problem List (Updated 10/15/23 @ 20:48 by Alber Yuan, ) Alcoholic intoxication (Acute) Alcoholic hepatitis Acute hypokalemia (Acute) Transaminitis (Acute) Hypokalemia Lab test negative for COVID-19 virus (Acute) Alcohol intoxication delirium (Acute) HTN (hypertension) Alcohol abuse (Acute) Mood disorder (Acute) Medical History Alcoholic intoxication Fx medial malleolus-closed Hypokalemia Mood disorder Psoriasis Surgical History No pertinent past surgical history Family History Other Colorectal cancer No pertinent family history Social History Smoking Status: Never smoker Second Hand Exposure: Yes; Do You Dip or Chew Tobacco: No; Hx Alcohol Use: Yes Alcohol type: hard liquor and other Alcohol Intake Frequ ency: 4 or More x per/Week Hx Substance Use: No Preferred Language: French Communication Ability: Effective Rough Rice Grader Required: No Beliefs That Will Affect Care: None Current Living Situation: Alone Other Information That Helps Us Care for You: No Feels Safe at Home: Yes Safety Concerns: Feels Safe At This Time Assistive Devices: Walker Review of Systems Review of Systems: All systems reviewed & are unremarkable except as noted in HPI & below Physical Exam Physical Exam: General-Not in distress Head- atraumatic Eyes- PERRL. ENT- oropharynx clear Neck- supple, no JVD. Lungs- clear to auscultation no wheezing or crackles. Heart- regular rhythm; no murmur, no gallop. Abdomen- normal bowel sounds, soft, nontender, no distension. Extremities- no pretibial edema, no erythema seen. Neuro- alert, oriented x 3; PERRL, no facial palsy; no dysarthria; moves extremities. Skin- warm & dry Results & Data Results & Data Vital Signs (Past 12 Hours) Vital Signs Temp Pulse Resp BP Pulse Ox O2 Del Method 10/15/23 20:12 120/84 93 10/15/23 19:30 18 95 10/15/23 19:07 89 10/15/23 18:25 36.7 C 92 H 18 114/79 98 Room Air Diagnostic Findings Laboratory Results WBC 4.86 K/ul (4.8-10.8) 10/15/23 19:00 RBC 4.14 M/uL (4.70-6.10) L 10/15/23 19:00 Hgb 11.5 g/dl (14.0-18.0) L 10/15/23 19:00 Hct 35.0 % (42.0-52.0) L 10/15/23 19:00 MCV 84.5 fL (80.0-100.0) 10/15/23 19:00 MCH 27.8 pg (25.0-34.0) 10/15/23 19:00 MCHC 32.9 g/dL (32.0-36.0) 10/15/23 19:00 RDW Std Deviation 62.2 fL (36.4-46.3) H 10/15/23 19:00 RDW Coeff of Ramona 20.3 % (11.5-14.5) H 10/15/23 19:00 Plt Count 121 K/uL (130-400) L 10/15/23 19:00 MPV 8.9 fL (9.4-12.4) L 10/15/23 19:00 Immature Gran % (Auto) 0.2 % 10/15/23 19:00 Neut % (Auto) 53.5 % 10/15/23 19:00 Lymph % (Auto) 32.9 % 10/15/23 19:00 [place] % (Auto) 11.1 % 10/15/23 19:00 Eos % (Auto) 0.2 % 10/15/23 19:00 Baso % (Auto) 2.1 % 10/15/23 19:00 Neut # (Auto) 2.60 K/uL (1.40-6.50) 10/15/23 19:00 Lymph # (Auto) 1.60 K/uL (1.20-3.40) 10/15/23 19:00 [place] # (Auto) 0.54 K/uL (0.11-0.59) 10/15/23 19:00 Eos # (Auto) 0.01 K/uL (0.00-0.50) 10/15/23 19:00 Baso # (Auto) 0.10 K/uL (0.00-0.20) 10/15/23 19:00 Immature Gran # (Auto) 0.01 K/uL (0.01-0.20) 10/15/23 19:00 Polychromasia 1+ 10/15/23 19:00 Anisocytosis Present 10/15/23 19:00 PT 11.9 Seconds (9.0-12.0) 10/15/23 19:00 INR 1.1 (0.9-1.1) 10/15/23 19:00 Sodium 134 mmol/L (136-145) L 10/15/23 19:00 Potassium 3.9 mmol/L (3.5-5.1) 10/15/23 19:00 Chloride 103 mmol/L (98-107) 10/15/23 19:00 Carbon Dioxide 23 mmol/L (21-32) 10/15/23 19:00 Anion Gap 8 (3-11) 10/15/23 19:00 BUN 12 mg/dl (6-23) 10/15/23 19:00 Creatinine 0.69 mg/dl (0.6-1.4) 10/15/23 19:00 Est Cr Clr Drug Dosing Not Reportable 10/15/23 19:00 Est GFR ( Amer) 119.6 ml/min 10/15/23 19:00 Est GFR (Non-Af Amer) 103.2 ml/min 10/15/23 19:00 BUN/Creatinine Ratio 17.4 (10-20) 10/15/23 19:00 Glucose 129 mg/dl (70-99(Fasting)) H 10/15/23 19:00 Calcium 8.7 mg/dl (8.6-10.3) 10/15/23 19:00 Total Bilirubin 0.5 mg/dl (0.2-1.0) 10/15/23 19:00 AST 52 U/L (13-39) H 10/15/23 19:00 ALT 28 U/L (7-52) 10/15/23 19:00 Alkaline Phosphatase 119 U/L (34-104) H 10/15/23 19:00 Troponin I High Sens 22.1 pg/ml (0-20) H 10/15/23 21:20 Total Protein 8.6 gm/dl (6.0-8.3) H 10/15/23 19:00 Albumin 4.1 gm/dl (3.4-5.0) 10/15/23 19:00 Globulin 4.5 gm/dl (2.5-4.0) H 10/15/23 19:00 Albumin/Globulin Ratio 0.9 (0.9-2) 10/15/23 19:00 Lipase 18 U/L (11-82) 10/15/23 19:00 Ethyl Alcohol mg/dL 347.2 mg/dl (<10.0) H 10/15/23 19:[address] 10/15/23 18:23 CT SCAN OF THE BRAIN WITHOUT IV CONTRAST CLINICAL HISTORY: Change in mental status. COMPARISON STUDY: CT of the brain dated 11/14/2022. TECHNIQUE: Unenhanced axial CT scan of the brain is performed from the vertex to the skull base. A dose lowering technique was utilized adhering to the principles of ALARA. CT DOSE: 625.8 mGy.cm FINDINGS: Brain parenchyma: There is minimal microangiopathic change. There is no hemorrhage, mass effect, or evidence of acute territorial ischemia by CT criteria. Sotelo-white matter differentiation is preserved. No extra-axial fluid collection is seen. Ventricles, sulci, cisterns: Normal in configuration. Intracranial vasculature: There is moderate atherosclerotic calcification of the cavernous carotid arteries. Calvarium: Unremarkable. Sinuses and mastoids: The visualized paranasal sinuses are clear. There is evidence of previous left mastoid surgery. The right mastoid air cells are well pneumatized. Orbits: The bony orbits are grossly intact. IMPRESSION: There is no hemorrhage, mass effect, or evidence of acute territorial ischemia by CT criteria. ACT 112: Negative or not required by law. Electronically signed by: Adam Hercules M.D. 10/15/2023 7:03 PM ECG Additional Comments: ECG. Normal sinus rhythm at a rate of 90. Right bundle branch block. Left anterior fascicular block. Bifascicular block. QTc 535. Code Status & VTE Plan VTE Prophylaxis Plan VTE Prophylaxis will be ordered: Yes
[2023-10-15] MEDS: SODIUM CHLORIDE 0.9% 1,000 ML IV SCH (23:40)
[2023-10-16 04:57] LABS: Appearance Urine Clear (Clear); Bacteria Urine Automated None Seen (None Seen); Bilirubin Urine Negative (Negative); Blood Urine Trace (Negative); Color Urine Yellow; Epithelial Cell Urine Auto 0-2 /hpf (0-2); Glucose Urine UA Negative (Negative); Ketones Urine Negative (Negative); Leukocyte Esterase Urine Negative (Negative); Mucus Urine Present (None Prsent); Nitrite Urine Negative (Negative); Protein Urine Trace (Negative); RBC Urine Automated 0-2 /hpf (0-2); Specific Gravity Urine 1.014 (1.000-1.030); Urobilinogen Urine Negative (Negative); WBC Urine Automated 0-5 /hpf (0-5); pH Urine 5.5 (4.5-7.5)
[2023-10-16 06:59] LABS: Albumin Level 3.3 gm/dl (3.4-5.0); BUN Creatinine Ratio 16.4 (10-20); Bilirubin Direct 0.2 mg/dl (0-0.2); Bilirubin,Total 0.6 mg/dl (0.2-1.0); Calcium 7.6 mg/dl (8.6-10.3); Creatinine Clr Calc Pharmacy 177.3 ml/min; Est GFR (African American) 131.3 ml/min; Est GFR (Non-African American) 113.3 ml/min; Magnesium 1.4 mg/dl (1.7-2.4); Potassium 3.5 mmol/L (3.5-5.1); Total Protein 6.9 gm/dl (6.0-8.3)
[2023-10-16 07:08] LABS: Anisocytosis Present; Basophils # (auto) 0.04 K/uL (0.00-0.20); Basophils % (auto) 1.1 %; Eosinophils % (auto) 2.8 %; Hematocrit (blood only) 30.1 % (42.0-52.0); Hemoglobin 9.9 g/dl (14.0-18.0); Immature Granulocytes # (auto) 0.01 K/uL (0.01-0.20); Immature Granulocytes % (auto) 0.3 %; Lymphocytes # (auto) 1.11 K/uL (1.20-3.40); Lymphocytes % (auto) 30.7 %; Mean Corpuscular Hgb Conc 32.9 g/dL (32.0-36.0); Mean Corpuscular Volume 85.3 fL (80.0-100.0); Mean Platelet Volume 8.9 fL (9.4-12.4); Monocytes # (auto) 0.56 K/uL (0.11-0.59); Monocytes % (auto) 15.5 %; Neutrophils % (auto) 49.6 %; Platelet Count 97 K/uL (130-400); Platelet Estimate Decreased (Normal); Polychromasia 1+; RDW Coefficient of Variation 20.1 % (11.5-14.5); RDW Standard Deviation 63.3 fL (36.4-46.3); Red Blood Count 3.53 M/uL (4.70-6.10); White Blood Count 3.62 K/ul (4.8-10.8)
[2023-10-16 07:41] LABS: Folate (Folic Acid),Ser orPlas > 22.30 ng/ml (>5.38); Vitamin B12 400 pg/ml (180-914)
[2023-10-16] MEDS: TRIAMCINOLONE ACET 0.1% CR 15 GM TUBE EXT SCH (08:11)
[2023-10-16] MEDS: MAGNESIUM SULFATE / D5W 1 GM/100 ML BAG IV SCH (08:12)
[2023-10-16] MEDS: FOLIC ACID 1 MG in SYRINGE 9.8 ML IV SCH (08:12)
[2023-10-16] MEDS: CEROVITE ADV FORMULA TAB PO SCH (08:13)
[2023-10-16] MEDS: ENOXAPARIN INJ 40 MG/0.4 ML SYR SQ SCH (08:13)
[2023-10-16 08:15] LABS: Troponin I High Sensitivity 32.1 pg/ml (0-20)
--- NOTE | 2023-10-16 08:23 | Hospitalist Progress Note ---
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 Acute alcohol intoxication Alcohol use disorder Alcohol withdrawal Patient is 62-year-old male with past medical history of alcohol use disorder brought to the hospital after he was found to be intoxicated and was found to have fall Alcohol level of 347 mg per DL on admission Last admission in October 2022 with alcoholic hepatitis During the hospitalization, he was treated with alcohol withdrawal protocol with Ativan and Librium. PT OT evaluation was ordered. Patient reported that he is feeling much better; he reports being able to ambulate back and forth to the bathroom. He is alert oriented x 3. He denies any anxiety, hallucinations, tremors, chest pain, visual changes, abdominal pain or shortness of breath. Patient wants to go home. I advised the patient to stay in the hospital and undergo physical therapy and Occupational Therapy evaluation and be monitored for signs and symptoms of alcohol withdrawal. The signs and symptoms of alcohol withdrawal which can include tremors, imbalance, ambulatory dysfunction( leading to falls, injury or ), hallucination and paranoia. I also recommended that physical therapy and Occupational Therapy evaluation will help assess his ambulatory status. Mild elevation of troponin First troponin 21-second 22 Denies chest pain, shortness of breath or dizziness Prolonged QTc Avoid QT prolonging drugs Will benefit from outpatient follow-up with PCP and subsequent cardiology referral for evaluation Psoriasis Some flareup on the back Triamcinolone cream Will monitor Thrombocytopenia Platelets 121 Possibly from alcoholism Monitor Back pain PT OT evaluation Ortho follow-up DVT prophylaxis Lovenox Monitor platelets Disposition Telemetry Full code. Time spent evaluating patient, direct bedside care, chart review, placing orders, interpretation of diagnostic studies, discussion with consultants, patient, and family members, as well as other required patient management activities is 50 minutes Please note the above document was generated using voice recognition software. It may contain grammatical, syntax or spelling errors. Any formal questions or concerns about the content, text or information contained within the body of this dictation should be directly addressed to the provider for clarification Admission and Anticipated Discharge Date Admission Date: October 15, 2023 Subjective Patient seen and examined at bedside. He does not have significant withdrawal symptoms; appears alert oriented x 3. He reports that he wants to go home. He denies any pain, reports that he has been walking to the bathroom and forth. He denies anxiety, hallucination, chest pain or shortness of breath. No significant events overnight Review of Systems Review of Systems: All systems reviewed & are unremarkable except as noted in Subjective Physical Exam Physical Exam: General-Not in distress Lungs- clear to auscultation no wheezing or crackles. Heart- regular rhythm; no murmur, no gallop. Abdomen- normal bowel sounds, soft, nontender, no distension. Extremities- no pretibial edema, no erythema seen. Neuro- alert, oriented x 3; PERRL, no facial palsy; no dysarthria; moves extremities. Skin- warm & dry Results & Data Results & Data Vital Signs (Past 12 Hours) Vital Signs Temp Pulse Pulse Resp BP BP BP 10/16/23 07:44 37.0 C 94 H 21 129/78 10/16/23 03:24 37.0 C 96 H 18 133/88 10/15/23 23:00 88 10/15/23 23:00 10/15/23 23:00 36.5 C 91 H 20 134/79 10/15/23 22:06 102 H 16 125/81 10/15/23 21:45 96 H 13 10/15/23 21:36 93 H 13 10/15/23 21:12 90 16 10/15/23 20:51 89 16 Pulse Ox O2 Del Method O2 Flow Rate 10/16/23 07:44 93 Room Air 10/16/23 03:24 92 Nasal Cannula 2.0 10/15/23 23:00 10/15/23 23:00 Room Air 10/15/23 23:00 94 Room Air 10/15/23 22:06 94 10/15/23 21:45 93 10/15/23 21:36 95 10/15/23 21:12 97 10/15/23 20:51 95
[2023-10-16] MEDS: THIAMINE HCL 250 MG in SODIUM CHLORIDE 0.9% 50 ML IV SCH (08:51)
[2023-10-16] MEDS ORDERED: THIAMINE HCL 100 MG in SYRINGE 9 ML IV SCH (09:00)
--- NOTE | 2023-10-16 11:58 | Electrocardiogram Report ---
Test Reason : Blood Pressure : */* mmHG Vent. Rate : 90 BPM Atrial Rate : 90 BPM P-R Int : 194 ms QRS Dur : 176 ms QT Int : 438 ms P-R-T Axes : 24 -66 56 degrees QTcB Int : 535 ms Poor data quality, interpretation may be adversely affected Normal sinus rhythm Right bundle branch block Left anterior fascicular block Left ventricular hypertrophy with QRS widening Abnormal ECG When compared with ECG of 18-Nov-2022 10:33, QRS duration has increased Confirmed by Ross Nguyen ([id number]) on 10/16/2023 11:57:50 AM Referred By: Confirmed By: Ross Nguyen
--- NOTE | 2023-10-16 12:05 | Electrocardiogram Report ---
Test Reason : Blood Pressure : */* mmHG Vent. Rate : 91 BPM Atrial Rate : 91 BPM P-R Int : 192 ms QRS Dur : 164 ms QT Int : 438 ms P-R-T Axes : 35 -64 26 degrees QTcB Int : 538 ms Normal sinus rhythm Right bundle branch block Left anterior fascicular block Abnormal ECG When compared with ECG of 15-Oct-2023 18:28, No significant change Confirmed by Ross Nguyen ([id number]) on 10/16/2023 12:05:22 PM Referred By: REFERRED SELF Confirmed By: Ross Nguyen
[2023-10-16] MEDS: LORazepam 1 MG in SYRINGE 0.5 ML IV PRN (12:16)
[2023-10-16 15:43] VITALS: PULSE 89
--- NOTE | 2023-10-16 18:35 | Discharge Summary ---
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 Seems patient was in grocery store and was slurring words and was having ambulatory issues and was picked up by the bus that the took him to his home and he fell in the yard when trying to get back to the house. EMS was called and patient was brought to the hospital. EMS also found a bottle of mouthwash in the bag that was partially consumed. In the ER patient was trying to go home. Saying his mother is going to come to pick him and he wants to go home. And is given Ativan and Haldol to help with agitation. Patient currently alert and oriented. States he went to groceries store as he was feeling better for last few days. Says he fell last year and has lower back pain. Recently had a telemetry conference with orthopedics per [facility]. Lumbar MRI spine from 09/15/2023 shows chronic appearing compression deformity of L1. And multilevel level degenerative disease more pronounced at L3/L4 and L4/L5 levels. Patient states he is going to see orthopedics soon at [facility]. States he is using walker. Has brace for his low back. He denies any drinking. Denies smoking. States Eating food okay. Denies any fevers. Denies any chest pain or shortness of breath. Denies cough. Currently no headache. Vision is okay. No runny nose or sore throat. No difficulty swallowing. Normal bowel and bladder movements. Hemodynamics are okay. Past medical history as mentioned above. Past surgical history. Reconstruction of middle ear and mastoid Social history. Denies smoking. Denies alcohol was alcohol was 347 in the ER. Denies any drugs. Lives alone. Family history. Aunt had colon cancer. Maternal grandmother had cancer. Admission Exam Per Admitting Provider General-Not in distress Head- atraumatic Eyes- PERRL. ENT- oropharynx clear Neck- supple, no JVD. Lungs- clear to auscultation no wheezing or crackles. Heart- regular rhythm; no murmur, no gallop. Abdomen- normal bowel sounds, soft, nontender, no distension. Extremities- no pretibial edema, no erythema seen. Neuro- alert, oriented x 3; PERRL, no facial palsy; no dysarthria; moves extremities. Skin- warm & dry Principal Diagnosis Alcohol intoxication Ambulatory dysfunction Discharge Exam General-comfortable, not in any distress Lungs- clear to auscultation no wheezing or crackles. Heart- regular rhythm; no murmur, no gallop. Abdomen- normal bowel sounds, soft, nontender, no distension. Extremities- no pretibial edema, no erythema seen. Neuro- alert, oriented x 3; PERRL, no facial palsy; no dysarthria; moves extremities. 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 Acute alcohol intoxication Alcohol use disorder Alcohol withdrawal Patient is 62-year-old male with past medical history of alcohol use disorder brought to the hospital after he was found to be intoxicated and was found to have fall Alcohol level of 347 mg per DL on admission Last admission in October 2022 with alcoholic hepatitis During the hospitalization, he was treated with alcohol withdrawal protocol with Ativan and Librium. PT OT evaluation was ordered. Patient reported that he is feeling much better; he reports being able to ambulate back and forth to the bathroom. He is alert oriented x 3. He denies any anxiety, hallucinations, tremors, chest pain, visual changes, abdominal pain or shortness of breath. Patient wants to go home. I advised the patient to stay in the hospital and undergo physical therapy and Occupational Therapy evaluation and be monitored for signs and symptoms of alcohol withdrawal. The signs and symptoms of alcohol withdrawal which can include tremors, imbalance, ambulatory dysfunction( leading to falls, injury or ), hallucination and paranoia. I also recommended that physical therapy and Occupational Therapy evaluation will help assess his ambulatory status. Patient still decided to leave hospital against medical advice. Please note the above document was generated using voice recognition software. It may contain grammatical, syntax or spelling errors. Any formal questions or concerns about the content, text or information contained within the body of this dictation should be directly addressed to the provider for clarification Total Time Total Time Spent Total Time Spent (In Minutes): 35 Total Time Includes: Examination of the Patient, Discharge Planning, Medication Reconciliation, Communication With Other Providers and Other Discharge Plan Discharge Items Patient Disposition: Against Medical Advice Reason For Visit: ALCOHOL INTOXICATION Activity: Resume your previous activity Non-emergency contact: Primary Care Provider Follow-up/Referrals: Kamilah Torres MD [Primary Care Provider] - Pending Studies at Discharge: No Stand-Alone Forms: [facility] AWID, Smoking Cessation Medications and DC Order Prescriptions: Continued furosemide 40 mg tablet 40 mg PO DAILY PRN (Reason: Edema) hydroxyzine pamoate 50 mg capsule 50 mg PO BID PRN (Reason: Anxiety) trazodone 50 mg tablet 50 mg PO HS PRN (Reason: Sleep) Discharge Orders: Left Against Medical Advice (Routine); Ordered 10/16/23 Ordered By: Nael Olmos Admission Data Admit Date/Time: 10/15/23 21:03 Attending Provider: Nael Olmos Admit Provider: Lucius Rebolledo Primary Care Provider: Kamilah Torres
[2023-10-16 18:37] VITALS: RESP 18
[2023-10-16 19:04] VITALS: TEMP 98.1; O2SAT 96
[2023-10-16 19:11] VITALS: BP 159/92
[2023-10-16] MEDS ORDERED: chlordiazePOXIDE HCl 25 MG CAP PO SCH (23:00)
[2023-10-17] MEDS ORDERED: chlordiazePOXIDE HCl 25 MG CAP PO SCH (23:00)
== END 2023-10-16 20:26 | disposition left against medical advice (07) | DRG 894 ==
LOC: ED 18:17 → 2S 21:03

== ENCOUNTER 2024-05-05 16:55 | Inpatient (IN) ==
--- OUTSIDE RECORDS SUMMARY | 2024-05-05 17:02 | External Medical Summary | Summary of Care ---
Author Name Unknown Organization [facility] Address [address] [place] [address] Phone [phone] Care Team Providers Care Aligner Name Role Phone Gee Del Valle DO Primary Care Provider [phone] Reason for Visit * Reason Onset Date Comments Advice 01/20/2024 01/25/24 left me ssage on answering machine Encounter Details Date Type Department Care Team (Late st Contact Info) Description 01/20/2024 Telephone Family Practice [facility] [address] [place] [address] Gee Del Valle DO 200 [facility] [place] [address] Advice (01/25/24 left message on answering... Allergies No known active allergiesdocumented as of this encounter (statuses as of 04/21/2024) Medications Vitamin D3 25 MCG (1000 UT) Oral Capsule Take 1 Capsule by mouth once. Active Melatonin 3 MG Oral Tablet Disintegrating Take by mouth. Active Triamcinolone Acetonide 0.1 % External Cream (Aristocort)Indic ations:Plaque psoriasis Apply to psoriasis on the arms, legs, chest, and back twice daily 450 g 1 08/03/19 24 Active Clobetasol Propionate 0.05 % External Cream (Temovate) Apply topically to affected area 2 times a day. 60 g 5 11/01/19 24 Active B Complex Formula 1 (Lipotrop) Oral Tablet Take by mouth. Active Milk Thistle 87.5 MG Oral Capsule Take by mouth. Active Turmeric 500 MG Oral Capsule Take 1 Capsule by mouth in the morning. Active hydrOXYzine Pamoate 50 MG Oral Capsule (Vistaril)Indicat ions:Generalized anxiety disorder TAKE 1 CAPSULE BY MOUTH 2 TIMES A DAY NEEDED FOR ANXIETY. 60 Capsule 5 12/19/19 24 Active NAC 600 MG Oral Capsule (Acetylcysteine) Take 1 Capsule by mouth in the morning. Active Triamcinolone Acetonide 0.1 % External Ointment (Aristocort) Apply topically to affected area 2 times a day. 30 g 5 01/11/20 24 Active Clobetasol Propionate 0.05 % External Ointment (Temovate) Apply topically to affected area 2 times a day. Apply to affected area. 60 g 5 01/11/20 24 Active Diclofenac Sodium 75 MG Oral Tablet Delayed Release (Voltaren) Take 1 Tablet by mouth in the morning and 1 Tablet before bedtime. With food.. 60 Tablet 3 01/20/20 24 Active traZODone HCl 50 MG Oral Tablet (Desyrel)Indicati ons:Alcohol-induc ed insomnia (HCC) Take 1 Tablet by mouth at bedtime as needed for Sleep. 30 Tablet 5 01/11/20 24 025 Discontinued documented as of this encounter (statuses as of 04/21/2024) Active Problems Problem Noted Date Diagnosed Date Alcoholic hepatitis without ascites 11/29/2022 Generalized anxiety disorder 11/05/2022 Alcohol abuse 11/05/2022 Plaque psoriasis Insomnia documented as of this encounter (statuses as of 04/21/2024) Immunizations No known immunizationsdocumented as of this [...] money to buy more. Never true 07/13/19 Within the past 12 months, t he [...] ages 0-17 years) Not on file 07/13/2023 Food Insecurity Answer Date Recorded Within the past 12 months, y ou worried that your food would run out before you got the money to buy more. Never true 07/13/19 24 Within the past 12 months, t he food you bought just didn't last and you didn't have money to get more. Never true 07/13/2023 Do you need food for this week? 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 Left call back number . * Telephone Encounter - Gee Del Valle DO - 01/20/2024 4:02 PM EST I sent for a medication over to [facility] for him to start. * Telephone Encounter - Renetta Connor LPN - 01/20/2024 8:13 AM EST Patient is calling. He doesn't see pain management until the . He is having severe back pain Pain is an 8 out of 10. Having problems walking. He fell in the shower about a year ago. He fractured his back and his ribs then and has not been right since. He has a back brace and a walker. Asking if he can have a sooner appt. With pain management? He has been using bio-freeze cream and pads. Patient calling with c/o of pain- Located low spine Is this a new acute pain: No Is this a chronic problem that has changed: No Symptoms started 12 month(s) ago. What has the patient taken for pain relief: bio-freeze, is not effective for relief. Physical Therapy has made it worse. Pharmacy selected Please advise documented in this encounter Plan of Treatment Upcoming Encounters Date Type Department Care Team (Latest Contact Info) Description 05/02/2024 3:40 PM EST Office Visit Family Practice [facility] [address] [place] [address] Gee Del Valle DO [address] [place] [address] 05/14/2024 10:00 AM EDT Office Visit Interventional Pain Center [facility] [address] [place] [phone] Natasha Lamar PA-C [address] [place] [address] 05/14/2024 11:45 AM EDT Hospital Encounter ENDO [facility], Endoscopy Room [facility] [address] [place] [phone] Madison Recinos, DO [address] [place] [address] 05/14/2024 11:45 AM EDT - 05/14/2024 12:15 PM EDT Surgery ENDO [facility], Endoscopy Room [facility] [address] [place] [phone] Madison Recinos, [address] [place] [address] COLONOSCOPY FLEXIBLE PROXIMAL DIAGNOSTIC 05/22/2024 2:40 PM EDT Office Visit Family Practice [facility] [address] [facility] [place] [address] Marta Bateman PA-C 200 [facility] [place] [address] 06/05/2024 3:00 PM EDT Office Visit Hepatology, [facility] [address] [place] [address] Marah Bonner MD [facility] [address] [place] [address] Scheduled Procedures Name Priority Associated Diagnoses Date/Ti me COLONOSCOPY FLEXIBLE PROXIMAL DIAGNOSTIC Colon cancer screening 05/14/2024 11:45 AM EDT Health Maintenance Due Date Last Done Comments DTap/Tdap Vaccines (1 - Tdap) 1981 Pneumococcal Vaccine: 50+ Years (1 of 2 - PCV) 1981 Cologuard 12/29/2007 Colonoscopy 12/29/2007 Colorectal Cancer Screening 12/29/2007 Fecal Occult Blood Test 12/29/2007 Sigmoidoscopy 12/29/2007 Zoster Vaccines (1 of 2) 2012 Hepatitis B Vaccine (1 of 3 - Risk 3-dose series) 2022 COVID-19 Vaccine (1 - season) 2023 Influenza Vaccine (FLU shot) (#1) 2023 Depression Screening 07/12/2024 07/13/2023 Diabetes Screening 12/08/2026 12/09/2023, 0 08/03/2023, 07/07/2023, Additional history exists Lipid Panel 11/06/2027 11/05/2022, 11/15/2014 HPV (Gardasil) Vaccine Aged Out No lo nger eligible based on patient's age to complete this topic MENINGOCOCCAL (MENACTRA/MENVEO) Aged Out No longer eligible based on patient's age to complete this topic Meningitis B Vaccine (Bexsero/Trumemba) Aged Out No longer eligible based on patient's age to complete this topic documented as of this encounter Medical Devices Not on filedocumented as of this encounter Care Teams Aligner Relationship Specialty Start Date End Date Gee Del Valle DO [address] [place] [address] PCP - General Family Medicine 10/20/23 documented as of this encounter
--- OUTSIDE RECORDS SUMMARY | 2024-05-05 17:02 | External Medical Summary | Summary of Care ---
Author Name Unknown Organization [facility] Address [address] [place] [address] Phone [phone] Care Team Providers Care Brake Lining Curer Name Role Phone Milton Del Valle DO Primary Care Provider [phone] Reason for Visit * Reason Onset Date Comments Med Request 04/10/2024 Encounter Details Date Type Department Care Team (Late st Contact Info) Description 04/10/2024 Refill Family Practice [facility] [address] [place] [address] Milton Del Valle DO [address] [place] [address] Alcohol-induced insomnia (HCC) Allergies No known active allergiesdocumented as of this encounter (statuses as of 04/11/2024) Medications Vitamin D3 25 MCG (1000 UT) [...] MG Oral Capsule (Vistaril)Indicati ons:Generalized anxiety disorder TAKE 1 CAPSULE BY MOUTH [...] Oral Tablet (Desyrel)Indicatio ns:Alcohol-induced insomnia (HCC) Take 2 Tablets by mouth at bedtime. 180 Tablet 1 04/10/19 25 Active traZODone HCl 50 MG Oral Tablet (Desyrel)Indicatio ns:Alcohol-induced insomnia (HCC) TAKE 1 TABLET BY MOUTH EVERY DAY AT BEDTIME NEEDED FOR SLEEP 90 Tablet 1 04/07/19 25 025 Discontin ued(Refil l) documented as of this encounter (statuses as of 04/11/2024) Active Problems Problem Noted Date Diagnosed Date Alcoholic hepatitis without ascites 11/29/2022 Generalized anxiety disorder 11/05/2022 Alcohol abuse 11/05/2022 Plaque psoriasis Insomnia documented as of this encounter (statuses as of 04/11/2024) Immunizations No known immunizationsdocumented as of this [...] 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 Authorizing Provider: MILTON DEL VALLE * Telephone Encounter - Arline Gallegos RPh - 04/10/2024 4:32 PM EST Pt is asking high priority. Pt calling in to request a dose change on their traZODone HCl 50 MG Oral Tablet (Desyrel) . Current dose: 50 MG once a day Requested dose: twice a day or 100 MG Reason for request: Pt was advised by his PCP that he can increase to taking 2. Rx pended for review if appropriate Pending Prescriptions: Disp Refills traZODone HCl 50 MG Oral Tablet (Desyrel) 180 Ta*1 Sig: Take 2 Tablets by mouth at bedtime. Thanks, Arline Gallegos, PharmD Clinical Pharmacist [facility] ([facility]) [phone] 04/10/2024 4:32 PM * Telephone Encounter - Patito Mancilla CPhT - 04/10/2024 4:19 PM EST Pt is asking high priority. Pt calling in to request a dose change on their traZODone HCl 50 MG Oral Tablet (Desyrel) . Current dose: 50 MG once a day Requested dose: twice a day or 100 MG Reason for request: Pt was advised by his PCP that he can increase to taking 2. Preferred pharmacy: [id number] [id number] [facility] [place] Patient unwilling to speak with pharmacist at this time. Routing to pharmacist pool to advise. Thank you, Adriana Mancilla CPhT Ruling Machine Operator II [facility] ([facility]) 04/10/2024,4:19 PM documented in this encounter Plan of Treatment Upcoming Encounters Date Type Department Care Team (Latest Contact Info) Description 05/02/2024 3:40 PM EST Office Visit [facility] [address] [place] [address] Milton Del Valle, DO 200 [facility] [place] [address] 05/14/2024 10:00 AM EDT Office Visit Interventional Pain Center [facility] [address] [place] [phone] Natasha Lamar PA-C [address] [place] [address] 05/14/2024 11:45 AM EDT Hospital Encounter [facility], Endoscopy Room [facility] [address] [place] [phone] Madison Recinos DO [address] [place] [address] 05/14/2024 11:45 AM EDT - 05/14/2024 12:15 PM EDT Surgery [facility], Endoscopy Room [facility] [address] [place] [phone] Madison Recinos DO [address] [place] [address] COLONOSCOPY FLEXIBLE PROXIMAL DIAGNOSTIC 05/22/2024 2:40 PM EDT Office Visit [facility] [address] [place] [address] Marta Bateman PA-C [address] [place] [address] 06/05/2024 3:00 PM EDT Office Visit Hepatology, [facility] [address] [place] [address] Marah Bonner MD [address] [place] [address] Scheduled Procedures Name Priority Associated Diagnoses Date/Ti [...] Alcohol-induced insomnia (HCC) Alcohol induced sleep disorders Colon cancer screening Special screening for malignant neoplasms, colon documented in this encounter Care Teams Brake Lining Curer Relationship Specialty Start Date End Date Milton Del Valle DO [address] [place] [address] PCP - General Family Medicine 10/20/23 documented as of this encounter
--- OUTSIDE RECORDS SUMMARY | 2024-05-05 17:02 | External Medical Summary | Summary of Care ---
Author Name Unknown Organization [facility] Address [address] [place] [address] Phone [phone] Care Team Providers Care Training Project Manager Name Role Phone Gee Del Valle DO Primary Care Provider [phone] Reason for Visit * Reason Onset Date Comments Med Request 04/12/2024 Encounter Details Date Type Department Care Team (Late st Contact Info) Description 04/12/2024 Telephone Family Practice [facility] [address] [facility] [place] [address] Gee Del Valle DO 200 [facility] [address] Med Request Allergies No known active allergiesdocumented as of this encounter (statuses as of 04/23/2024) Medications Vitamin D3 25 MCG (1000 UT) Oral Capsule Take 1 Capsule by mouth once. Active Melatonin 3 MG Oral Tablet Disintegrating Take by mouth. Active Triamcinolone Acetonide 0.1 % External Cream (Aristocort)Indica tions:Plaque psoriasis Apply to psoriasis on the arms, legs, chest, and back twice daily 450 g 1 4 Active Clobetasol Propionate 0.05 % External Cream (Temovate) Apply topically to affected area 2 times a day. 60 g 5 4 Active B Complex Formula 1 (Lipotrop) Oral Tablet Take by mouth. Active Milk Thistle 87.5 MG Oral Capsule Take by mouth. Active Turmeric 500 MG Oral Capsule Take 1 Capsule by mouth in the morning. Active hydrOXYzine Pamoate 50 MG Oral Capsule (Vistaril)Indicati ons:Generalized anxiety disorder TAKE 1 CAPSULE BY MOUTH 2 TIMES A DAY NEEDED FOR ANXIETY. 60 Capsule 5 4 Active NAC 600 MG Oral Capsule (Acetylcysteine) Take 1 Capsule by mouth in the morning. Active Triamcinolone Acetonide 0.1 % External Ointment (Aristocort) Apply topically to affected area 2 times a day. 30 g 5 4 Active Clobetasol Propionate 0.05 % External Ointment (Temovate) Apply topically to affected area 2 times a day. Apply to affected area. 60 g 5 4 Active Diclofenac Sodium 75 MG Oral Tablet Delayed Release (Voltaren) Take 1 Tablet by mouth in the morning and 1 Tablet before bedtime. With food.. 60 Tablet 3 4 Active traZODone HCl 50 MG Oral Tablet (Desyrel)Indicatio ns:Alcohol-induced insomnia (HCC) Take 2 Tablets by mouth at bedtime. 180 Tablet 1 5 Active Gabapentin 300 MG Oral Capsule (Neurontin) Take 1 Capsule by mouth in the morning and 1 Capsule before bedtime. 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 * Telephone Encounter - Blanka Patel RN - 04/21/2024 11:28 AM EST Voice mail box is full. * Telephone Encounter - Shasha Hardy LPN - 04/20/2024 8:48 AM EST Contacted pt. No answer. Mailbox full. * Telephone Encounter - Qi Vincent LPN - 04/16/2024 4:50 PM EST Left message for patient to return call. Please make him aware of Dr. Del Valle's message below. * Telephone Encounter - Qi Vincent LPN - 04/13/2024 1:27 PM EST Called patient. Received an automated message that the call cannot be completed at this time and needs to be attempted later. * Telephone Encounter - Gee Del Valle DO - 04/13/2024 8:34 AM EST Please call: I sent for Gabapentin for him to take twice daily. We can increase the frequency or dose if it does not help enough. * Telephone Encounter - Madison Bhakta, neck band setter - 04/12/2024 4:17 PM EST Patient calling requesting pain medication until seen by the pain center. States the pain in his back is unrelenting and he is have severe spasms. Patient states that he almost fell at the store today. Pharmacy is [id number] [address] [facility] Thank you, Madison Bhakta Manager Of Business I [facility] ([facility]) 04/12/2024,4:18 PM documented in this encounter Plan of Treatment Upcoming Encounters Date Type Department Care Team (Latest Contact Info) Description 05/02/2024 3:40 PM EST Office Visit [facility] 200 [facility] [place] [address] Gee Del Valle, DO 200 [facility] [place] [address] 05/14/2024 10:00 AM EDT Office Visit Interventional Pain Center [facility] [address] [place] [phone] Natasha Lamar PA-C [address] [place] [address] 05/14/2024 11:45 AM EDT Hospital Encounter [facility], Endoscopy Room [facility] [address] [place] [phone] Madison Recinos DO [address] [place] [address] 05/14/2024 11:45 AM EDT - 05/14/2024 12:15 PM EDT Surgery [facility], Endoscopy Room [facility] [address] [place] [phone] Madison Recinos DO [address] [place] [address] COLONOSCOPY FLEXIBLE PROXIMAL DIAGNOSTIC 05/22/2024 2:40 PM EDT Office Visit Family Practice [facility] 200 [facility] [place] [address] Marta Bateman PA-C 200 [facility] [place] [place] [address] 06/05/2024 3:00 PM EDT Office Visit Hepatology, [facility] [address] [place] [address] Marah Bonner MD [address] [place] [address] Scheduled Procedures Name Priority Associated Diagnoses Date/Ti [...] filedocumented as of this encounter Care Teams Training Project Manager Relationship Specialty Start Date End Date Gee Del Valle DO [address] [place] [address] PCP - General Family Medicine 10/20/23 documented as of this encounter
--- OUTSIDE RECORDS SUMMARY | 2024-05-05 17:02 | External Medical Summary | Summary of Care ---
Author Name Unknown Organization [facility] Address [address] [place] [address] Phone [phone] Care Team Providers Care Camera Systems Engineer Name Role Phone Gee Del Valle DO Primary Care Provider [phone] Reason for Visit * Reason Onset Date Comments Fax 01/17/2024 Encounter Details Date Type Department Care Team (Late st Contact Info) Description 01/17/2024 Telephone Family Practice [facility] [address] [place] [address] Gee Del Valle DO 200 [facility] [place] [address] Fax Allergies No known active allergiesdocumented as of this encounter (statuses as of 04/18/2024) Medications Vitamin D3 25 MCG (1000 UT) [...] area. 60 g 5 01/11/20 24 Active traZODone HCl 50 MG Oral Tablet (Desyrel)Indicati ons:Alcohol-induc ed insomnia (HCC) Take 1 Tablet by mouth at bedtime as needed for Sleep. 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 documented in this encounter Plan of Treatment Upcoming Encounters Date Type Department Care Team (Latest Contact Info) Description 05/02/2024 3:40 PM EST Office Visit [facility] 200 [facility] [place] [address] Gee Del Valle, [address] [place] [address] 05/14/2024 10:00 AM EDT Office Visit Interventional Pain Center [facility] [address] [place] [phone] Natasha Lamar PA-C [address] [place] [address] 05/14/2024 11:45 AM EDT Hospital Encounter [facility], Endoscopy Room [facility] [address] [place] [phone] Madison Recinos DO [address] [place] [address] 05/14/2024 11:45 AM EDT - 05/14/2024 12:15 PM EDT Surgery [facility], Endoscopy Room [facility] [address] [place] [phone] Madison Recinos DO [address] [place] [address] COLONOSCOPY FLEXIBLE PROXIMAL DIAGNOSTIC 05/22/2024 2:40 PM EDT Office Visit [facility] [place] [address] [place] [address] Marta Bateman PA-C [address] [place] [address] [address] 06/05/2024 3:00 PM EDT Office Visit Hepatology, [facility] [address] [place] [address] Marah Bonner MD [address] [place] [address] Scheduled Procedures Name Priority Associated Diagnoses Date/Ti [...] filedocumented as of this encounter Care Teams Camera Systems Engineer Relationship Specialty Start Date End Date Gee Del Valle DO [address] [place] [address] PCP - General Family Medicine 10/20/23 documented as of this encounter
--- OUTSIDE RECORDS SUMMARY | 2024-05-05 17:02 | External Medical Summary | Summary of Care ---
Author Name Unknown Organization [facility] Address [address] [place] [address] Phone [phone] Care Team Providers Care Clinical Director Name Role Phone Gee Del Valle DO Primary Care Provider [phone] Encounter Details Date Type Department Care Team (Late st Contact Info) Description 03/19/2024 Population Health External Data Unspecified Department Allergies No known active allergiesdocumented as of this encounter (statuses as of 03/19/2024) Medications Vitamin D3 25 MCG (1000 UT) [...] Capsule by mouth in the morning. Active traZODone HCl 50 MG Oral Tablet (Desyrel)Indicatio ns:Alcohol-induced insomnia (HCC) Take 1 Tablet by mouth at bedtime as needed for Sleep. 30 Tablet 5 4 Active Triamcinolone Acetonide 0.1 % External Ointment [...] With food.. 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 Not on file documented as of this encounter Plan of Treatment Upcoming Encounters Date Type Department Care Team (Latest Contact Info) Description 03/29/2024 10:00 AM EST Office Visit Interventional Pain Center [facility] [address] [place] [phone] Natasha Lamar PA-C [address] [place] [address] 05/02/2024 3:40 PM EST Office Visit Family Practice [facility] [place] [address] [place] [address] Gee Del Valle, DO [address] [facility] [place] [address] 05/14/2024 11:45 AM EDT Hospital Encounter ENDO [facility], Endoscopy Room [facility] [address] [place] [address] [place] Recinos, [address] [place] [address] 05/14/2024 11:45 AM EDT - 05/14/2024 12:15 PM EDT Surgery ENDO [facility], Endoscopy Room [facility] [address] [place] [phone] [place] Recinos, [address] [place] [address] COLONOSCOPY FLEXIBLE PROXIMAL DIAGNOSTIC 05/22/2024 2:40 PM EDT Office Visit Family Practice [facility] [address] [facility] [place] [address] Marta Bateman PA-C [address] [facility] [place] [address] 06/05/2024 3:00 PM EDT Office Visit Hepatology, [facility] [address] [place] [address] Marah Bonner MD [address] [place] [address] [place] [id number] Scheduled Procedures Name Priority Associated Diagnoses Date/Ti [...] as of this encounter Care Teams Clinical Director Relationship Specialty Start Date End Date Gee Del Valle DO [address] [place] [address] PCP - General Family Medicine 10/20/23 documented as of this encounter
--- OUTSIDE RECORDS SUMMARY | 2024-05-05 17:02 | External Medical Summary | Summary of Care ---
Author Name Unknown Organization [facility] Address [address] [place] [address] Phone [phone] Care Team Providers Care Flight Security Specialist Name Role Phone Gee Del Valle DO Primary Care Provider [phone] Reason for Visit * Reason Onset Date Comments Medication Question 04/12/2024 Encounter Details Date Type Department Care Team (Late st Contact Info) Description 04/12/2024 Telephone Family Practice [facility] [address] [place] [address] Gee Del Valle DO 200 [facility] [place] [address] Medication Question Allergies No known active allergiesdocumented as of this encounter (statuses as of 04/12/2024) Medications Vitamin D3 25 MCG (1000 UT) [...] at bedtime. 180 Tablet 1 5 Active documented as of this encounter (statuses as of 04/12/2024) Active Problems Problem Noted Date Diagnosed Date Alcoholic hepatitis without ascites 11/29/2022 Generalized anxiety disorder 11/05/2022 Alcohol abuse 11/05/2022 Plaque psoriasis Insomnia documented as of this encounter (statuses as of 04/12/2024) Immunizations No known immunizationsdocumented as of this [...] No 07/13/2023 Does the household have a [facility] source of income? 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 Pt stated that SIG was supposed to be updated to 2 tabs per day. Pt advised [facility] will not fill this med, "too soon," and will not fill until May. Trazodone script was updated to Take 2 Tablets by mouth at bedtime and sent to Pharmacy on 04/10/2024. Pt advised pharmacy will still not refill. Reached out to Pt's pharmacy to speak with them, had to leave a voicemail for a call back. Thank you, Shelia Roque Field Geologist [facility] 04/12/2024,9:02 AM documented in this encounter Plan of Treatment Upcoming Encounters Date Type Department Care Team (Latest Contact Info) Description 05/02/2024 3:40 PM EST Office Visit [facility] 200 [facility] [place] [address] Gee Del Valle, 200 [facility] [place] [address] 05/14/2024 10:00 AM EDT Office Visit Interventional Pain Center [facility] [address] [place] [phone] Natasha Lamar PA-C [address] [place] [address] 05/14/2024 11:45 AM EDT Hospital Encounter ENDO [facility], Endoscopy Room [facility] [address] [place] [phone] [place] Recinos DO [address] [place] [address] 05/14/2024 11:45 AM EDT - 05/14/2024 12:15 PM EDT Surgery ENDO [facility], Endoscopy Room [facility] [address] [place] [phone] [place] Recinos DO [address] [place] [address] COLONOSCOPY FLEXIBLE PROXIMAL DIAGNOSTIC 05/22/2024 2:40 PM EDT Office Visit [facility] 200 [facility] [place] [address] Marta Bateman PA-C 200 [facility] [place] [address] 06/05/2024 3:00 PM EDT Office Visit Hepatology, [facility] [address] [place] [address] Marah Bonner MD [address] [place] [address] Scheduled Procedures Name Priority Associated Diagnoses Date/Ti [...] filedocumented as of this encounter Care Teams Flight Security Specialist Relationship Specialty Start Date End Date Gee Del Valle DO [address] [place] [address] PCP - General Family Medicine 10/20/23 documented as of this encounter
--- OUTSIDE RECORDS SUMMARY | 2024-05-05 17:02 | External Medical Summary | Summary of Care ---
Author Name Unknown Organization [facility] Address [address] [place] [address] Phone [phone] Care Team Providers Care Bi Lead Name Role Phone UcheMilton mariee Primary Care Provider [phone] Reason for Visit * Reason Comments eRx-Medication Refill Encounter Details Date Type Department Care Team (Late st Contact Info) Description 04/06/2024 Refill Family Practice [facility] 200 [facility] [place] [address] KimCraig howe III, MD 200 [place] [address] Alcohol-induced insomnia (HCC) Allergies No known active allergiesdocumented as of this encounter (statuses as of 04/07/2024) Medications Vitamin D3 25 MCG (1000 UT) [...] Oral Tablet (Desyrel)Indicati ons:Alcohol-induc ed insomnia (HCC) TAKE 1 TABLET BY MOUTH EVERY DAY AT BEDTIME NEEDED FOR SLEEP 90 Tablet 1 04/07/19 25 Active traZODone HCl 50 MG Oral Tablet (Desyrel)Indicati ons:Alcohol-induc ed insomnia (HCC) Take 1 Tablet by mouth at bedtime as needed for Sleep. 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 Not on file documented as of this encounter Miscellaneous Notes * Telephone Encounter - Lucio Alexander RPh - 04/07/2024 8:14 AM ESTSigned Prescriptions: Disp Refills traZODone HCl 50 MG Oral Tablet (Desyrel) 90 Tab*1 Sig: TAKE 1 TABLET BY MOUTH EVERY DAY AT BEDTIME NEEDED FOR SLEEPAuthorizing Provider: MILTON DEL VALLE User: LUCIO ALEXANDER documented in this encounter Plan of Treatment Upcoming Encounters Date Type Department Care Team (Latest Contact Info) Description 05/02/2024 3:40 PM EST Office Visit Family Practice [facility] 200 [facility] [place] [address] [place] Del Valle DO 200 [facility] [place] [address] 05/14/2024 10:00 AM EDT Office Visit Interventional Pain Center [facility] [address] [place] [phone] Natasha Lamar PA-C [address] [place] [address] 05/14/2024 11:45 AM EDT Hospital Encounter ENDO [facility], Endoscopy Room [facility] [address] [place] [address] [place] Recinos DO [address] [place] [address] 05/14/2024 11:45 AM EDT - 05/14/2024 12:15 PM EDT Surgery ENDO [facility], Endoscopy Room [facility] [address] [place] [address] [place] Recinos DO [address] [place] [address] COLONOSCOPY FLEXIBLE PROXIMAL DIAGNOSTIC 05/22/2024 2:40 PM EDT Office Visit Family Practice [facility] 200 [facility] [place] [address] Marta Bateman PA-C 200 [facility] [place] [address] 06/05/2024 3:00 PM EDT Office Visit Hepatology, [facility] [address] [place] [address] Marah Bonner MD [address] [place] [address] Scheduled Procedures Name Priority Associated Diagnoses Date/Ti [...] - Risk 3-dose series) 2022 COVID-19 Vaccine ( - season) 2023 Influenza Vaccine (FLU shot) [...] colon documented in this encounter Care Teams Bi Lead Relationship Specialty Start Date End Date [place] Del Valle DO [address] [place] [address] PCP - General Family Medicine 10/20/23 documented as of this encounter
--- OUTSIDE RECORDS SUMMARY | 2024-05-05 17:02 | External Medical Summary | Summary of Care ---
Author Name Unknown Organization [facility] Address [address] [place] [address] Phone [phone] Care Team Providers Care Drier Tender Naphthalene Name Role Phone Gee Del Valle DO Primary Care Provider [phone] Reason for Visit * Reason Onset Date Comments Advice 02/07/2024 Encounter Details Date Type Department Care Team (Late st Contact Info) Description 02/07/2024 Telephone Family Practice [facility] 200 [facility] [place] [address] Gee Del Valle DO 200 [facility] [place] [address] Advice Allergies No known active allergiesdocumented as of this encounter (statuses as of 04/17/2024) Medications Vitamin D3 25 MCG (1000 UT) [...] as of this encounter (statuses as of 04/17/2024) Active Problems Problem Noted Date Diagnosed Date Alcoholic hepatitis without ascites 11/29/2022 Generalized anxiety disorder 11/05/2022 Alcohol abuse 11/05/2022 Plaque psoriasis Insomnia documented as of this encounter (statuses as of 04/17/2024) Immunizations No known immunizationsdocumented as of this [...] No 07/13/2023 [facility] the [facility]? 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 * Telephone Encounter - Alysia Giles OSA - 03/13/2024 3:31 PM EST Lmm * Telephone Encounter - Isabela Walters OSA - 03/13/2024 1:59 PM EST Patient would like to schedule fibro scan at [place], please call back at [phone]. Thank you. * Telephone Encounter - Alysia Giles, EDEN - 02/14/2024 3:30 PM EST Lmm * Telephone Encounter - Perlita Monteiro OSA - 02/08/2024 8:40 AM EST Fibro scans are done in [place] and [place]. Not [facility]. Called patient and lmm to call office back. * Telephone Encounter - Randa Zee OSA - 02/07/2024 2:01 PM EST Patient is calling in today to schedule his fibroscan in [facility]. Please call patient back to schedule. documented in this encounter Plan of Treatment Upcoming Encounters Date Type Department Care Team (Latest Contact Info) Description 05/02/2024 3:40 PM EST Office Visit Family [facility] [facility] [place] [address] Gee Del Valle, DO [address] [facility] [place] [address] 05/14/2024 10:00 AM EDT Office Visit Interventional Pain Center [facility] [address] [place] [phone] Natasha Lamar PA-C [address] [place] [address] 05/14/2024 11:45 AM EDT Hospital Encounter ENDO [facility], Endoscopy Room [facility] [address] [place] [phone] [place] Recinos DO [address] [place] [address] 05/14/2024 11:45 AM EDT - 05/14/2024 12:15 PM EDT Surgery ENDO [facility], Endoscopy Room [facility] [address] [place] [phone] [place] Recinos DO [address] [place] [address] COLONOSCOPY FLEXIBLE PROXIMAL DIAGNOSTIC 05/22/2024 2:40 PM EDT Office Visit [facility] [address] [facility] [place] [address] Marta Bateman PA-C [address] [facility] [place] [address] 06/05/2024 3:00 PM EDT Office Visit Hepatology, [facility] [address] [place] [address] Marah Bonner MD [address] [place] [phone] Scheduled Procedures Name Priority Associated Diagnoses Date/Ti [...] filedocumented as of this encounter Care Teams Drier Tender Naphthalene Relationship Specialty Start Date End Date Gee Del Valle DO [address] [place] [address] PCP - General Family Medicine 10/20/23 documented as of this encounter
--- OUTSIDE RECORDS SUMMARY | 2024-05-05 17:03 | External Medical Summary | Summary of Care ---
Author Name Unknown Organization [facility] Address [address] [place] [address] Phone [phone] Care Team Providers Care Chain Hoist Operator Name Role Phone Gee Del Valle DO Primary Care Provider [phone] Reason for Visit * Reason Onset Date Comments Advice 02/07/2024 Encounter Details Date Type Department Care Team (Late st Contact Info) Description 02/07/2024 Telephone Family Practice [facility] 200 [facility] [place] [address] Gee Del Valle DO 200 [facility] [place] [address] Advice Allergies No known active allergiesdocumented as of this encounter (statuses as of 03/13/2024) Medications Vitamin D3 25 MCG (1000 UT) [...] as of this encounter (statuses as of 03/13/2024) Active Problems Problem Noted Date Diagnosed Date Alcoholic hepatitis without ascites 11/29/2022 Generalized anxiety disorder 11/05/2022 Alcohol abuse 11/05/2022 Plaque psoriasis Insomnia documented as of this encounter (statuses as of 03/13/2024) Immunizations No known immunizationsdocumented as of this [...] No 07/13/2023 Does the household have a [facility] source of income? 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 Thank you. * Telephone Encounter - Alysia Giles OSA - 02/14/2024 3:30 PM EST Lmm * Telephone Encounter - Perlita Monteiro OSA - 02/08/2024 8:40 AM EST Fibro scans are done in [facility]. Not [facility]. Called patient and lmm to call office back. * Telephone Encounter - Randa Zee OSA - 02/07/2024 2:01 PM EST Patient is calling in today to schedule his fibroscan in [facility]. Please call patient back to schedule. documented in this encounter Plan of Treatment Upcoming Encounters Date Type Department Care Team (Latest Contact Info) Description 03/29/2024 10:00 AM EST Office Visit Interventional Pain Center [facility] [address] [place] [phone] Natasha Lamar PA-C [address] [place] [address] 05/02/2024 3:40 PM EST Office Visit [facility] [address] [place] [address] Gee Del Valle, DO 200 [facility] [place] [address] 05/14/2024 11:45 AM EDT Hospital Encounter ENDO [facility], Endoscopy Room [facility] [address] [place] [phone] [place] Recinos DO [address] [place] [address] 05/14/2024 11:45 AM EDT - 05/14/2024 12:15 PM EDT Surgery ENDO [facility], Endoscopy Room O[facility] [address] [place] [phone] [place] Recinos DO [address] [place] [address] COLONOSCOPY FLEXIBLE PROXIMAL DIAGNOSTIC 05/22/2024 2:40 PM EDT Office Visit Family Practice [facility] 200 [facility] [place] [address] Marta Bateman PA-C 200 [facility] [place] [address] 06/05/2024 3:00 PM EDT Office Visit Hepatology, [facility] [address] [place] [address] Marah Bonner MD [address] [place] [address] Scheduled Procedures Name Priority Associated Diagnoses Date/Ti [...] filedocumented as of this encounter Care Teams Chain Hoist Operator Relationship Specialty Start Date End Date Gee Del Valle DO [address] [place] [address] PCP - General Family Medicine 10/20/23 documented as of this encounter
--- OUTSIDE RECORDS SUMMARY | 2024-05-05 17:03 | External Medical Summary | Summary of Care ---
Author Name Unknown Organization [facility] Address [address] [employer] [facility] [address] Phone [phone] Care Team Providers Care Township Supervisor Name Role Phone UcheGee mariee Primary Care Provider [phone] Encounter Details Date Type Department Care Team (Late st Contact Info) Description 01/02/2024 Telephone ENDO [facility], Endoscopy Room [facility] 132 [facility] [place] [address] Marah Bonner MD [address] [place] [address] [place] [address] Allergies No known active allergiesdocumented as of this encounter (statuses as of 01/27/2024) Medications Vitamin D3 25 MCG (1000 UT) [...] ANXIETY. 60 Capsule 5 12/19/19 24 Active Furosemide 40 MG Oral Tablet (Lasix) Take 1 Tablet by mouth daily as needed for Other (edema). 30 Tablet 5 08/03/19 24 024 Discontin ued(Medic ation List Clean Up) DULoxetine HCl 20 MG Oral Capsule Delayed Release Particles (duloxetine)Indica tions:Chronic midline low back pain without sciatica,Generaliz ed anxiety disorder Take 1 Capsule by mouth in the morning. Do not cut, crush or chew. 30 Capsule 5 08/03/19 24 024 Discontin ued(Medic ation List Clean Up) traZODone HCl 50 MG Oral Tablet (Desyrel)Indicatio ns:Alcohol-induced insomnia (HCC) Take 1 Tablet by mouth at bedtime as needed for Sleep. 90 Tablet 12/09/19 24 024 Discontin ued(Refil l) documented as of this encounter (statuses as of 01/27/2024) Active Problems Problem Noted Date Diagnosed Date Alcoholic hepatitis without ascites 11/29/2022 Generalized anxiety disorder 11/05/2022 Alcohol abuse 11/05/2022 Plaque psoriasis Insomnia documented as of this encounter (statuses as of 01/27/2024) Immunizations No known immunizationsdocumented as of this [...] No 07/13/2023 Does the household have a [facility] source of income? 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 Not on file documented as of this encounter Miscellaneous Notes * Telephone Encounter - Alysia Giles OSA - 01/27/2024 3:50 PM EST lmm * Telephone Encounter - Perlita Monteiro OSA - 01/12/2024 3:37 PM EST Called patient to set up fibro scan lmm * Telephone Encounter - Alysia Giles OSA - 01/02/2024 12:35 PM EST Lmm * Telephone Encounter - Marah Bonner MD - 01/02/2024 11:07 AM EST Evaluate for fibrosis documented in this encounter Plan of Treatment Upcoming Encounters Date Type Department Care Team (Latest Contact Info) Description 03/29/2024 10:00 AM EST Office Visit Interventional Pain Center, [facility] [address] [place] [address] Natasha Lamar PA-C [address] [place] [address] 05/02/2024 3:40 PM EST Office Visit [facility] [address] [place] [address] Gee Del Valle, DO 200 [facility] [place] [address] 05/14/2024 11:45 AM EDT Hospital Encounter ENDO [facility], Endoscopy Room [facility] [address] [place] [phone] [place] Recinos DO [address] [place] [address] 05/14/2024 11:45 AM EDT - 05/14/2024 12:15 PM EDT Surgery ENDO [facility], Endoscopy Room [facility] [address] [place] [phone] [place] Recinos DO [address] [place] [address] COLONOSCOPY FLEXIBLE PROXIMAL DIAGNOSTIC 05/22/2024 2:40 PM EDT Office Visit [facility] [address] [place] [address] Marta Bateman PA-C 200 [facility] [place] [address] Scheduled Orders Name Type Priority Associated Diagnoses Orde r Schedule LIVER ELASTOGRAPHY W/O IMAGING Procedures Routine Fatty liver Expected: 01/02/2024, Expires: 07/01/2024 Scheduled Procedures Name Priority Associated Diagnoses Date/Ti me COLONOSCOPY FLEXIBLE PROXIMAL DIAGNOSTIC Colon cancer screening 05/14/2024 11:45 AM EDT Health Maintenance Due Date Last Done Comments Pneumococcal Vaccine: Pediatrics (0 to 5 Years) and At-Risk Patients (6 to 64 Years) (1 of 2 - PCV) 1968 DTap/Tdap Vaccines (1 - Tdap) 1981 Cologuard 12/29/2007 [...] as of this encounter Visit Diagnoses Diagnosis Fatty liver- Primary Other chronic nonalcoholic liver disease Colon cancer screening Special screening for malignant neoplasms, colon documented in this encounter Care Teams Township Supervisor Relationship Specialty Start Date End Date Gee Del Valle DO 200 [facility] [place] [address] PCP - General Family Medicine 10/20/23 documented as of this encounter
--- OUTSIDE RECORDS SUMMARY | 2024-05-05 17:03 | External Medical Summary | Summary of Care ---
Author Name Unknown Organization [facility] Address [address] [place] [address] Phone [phone] Care Team Providers Care Corrections Sergeant Name Role Phone Gee Del Valle DO Primary Care Provider [phone] Reason for Visit * Reason Onset Date Comments Advice 02/07/2024 Encounter Details Date Type Department Care Team (Late st Contact Info) Description 02/07/[address] [facility] [place] [address] Gee Del Valle DO 200 [facility] [place] [address] Advice Allergies No known active allergiesdocumented as of this encounter (statuses as of 02/08/2024) Medications Vitamin D3 25 MCG (1000 UT) [...] as of this encounter (statuses as of 02/08/2024) Active Problems Problem Noted Date Diagnosed Date Alcoholic hepatitis without ascites 11/29/2022 Generalized anxiety disorder 11/05/2022 Alcohol abuse 11/05/2022 Plaque psoriasis Insomnia documented as of this encounter (statuses as of 02/08/2024) Immunizations No known immunizationsdocumented as of this [...] No 07/13/2023 Does the household have a [facility] source of income? 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 documented in this encounter Plan of Treatment Upcoming Encounters Date Type Department Care Team (Latest Contact Info) Description 03/29/2024 10:00 AM EST Office Visit Interventional Pain Center, [facility] [address] [place] [address] Natasha Lamar PA-C [address] [place] [address] 05/02/2024 3:40 PM EST Office Visit [facility] [address] [place] [address] [address] Gee Del Valle, DO [address] [place] [address] [address] 05/14/2024 11:45 AM EDT Hospital Encounter ENDO OSS[facility], Endoscopy Room [facility] [address] [place] [phone] Madison Recinos DO [address] [place] [address] 05/14/2024 11:45 AM EDT - 05/14/2024 12:15 PM EDT Surgery ENDO [facility], Endoscopy Room [facility] [address] [place] [phone] Madison Recinos DO [address] [place] [address] COLONOSCOPY FLEXIBLE PROXIMAL DIAGNOSTIC 05/22/2024 2:40 PM EDT Office Visit [facility] [address] [place] [address] [address] Marta Bateman PA-C [address] [place] [address] [address] 06/05/2024 3:00 PM EDT Office Visit Hepatology, [facility] [address] [place] [address] Marah Bonner MD [address] [place] [address] Scheduled Procedures Name Priority Associated Diagnoses Date/Ti [...] filedocumented as of this encounter Care Teams Corrections Sergeant Relationship Specialty Start Date End Date Gee Del Valle DO [address] [place] [address] PCP - General Family Medicine 10/20/23 documented as of this encounter
--- OUTSIDE RECORDS SUMMARY | 2024-05-05 17:03 | External Medical Summary | Summary of Care ---
Author Name Unknown Organization [facility] Address [address] [place] [address] Phone [phone] Care Team Providers Care Publications Production Supervisor Name Role Phone UcheGee mariee Primary Care Provider [phone] Reason for Visit * Reason Onset Date Comments Appointment 01/11/2024 Encounter Details Date Type Department Care Team (Late st Contact Info) Description 01/11/2024 Telephone Access Center, [place] [facility] [address] [facility] *DO NOT REMOVE THIS DEPARTMENT* [place] [address] Services, Scheduling [address] [place] [address] Appointment Allergies No known active allergiesdocumented as [...] affected area. 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 * Telephone Encounter - Madison Greer OSA - 01/11/2024 1:13 PM EST Pt. Has called in to schedule fibroscan please assist pt. With scheduling documented in this encounter Plan of Treatment Upcoming Encounters Date Type Department Care Team (Latest Contact Info) Description 03/29/2024 10:00 AM EST Office Visit Interventional Pain Center, [facility] [address] [place] [address] Natasha Lamar PA-C [address] [place] [address] 05/02/2024 3:40 PM EST Office Visit [facility] [address] [place] [address] Gee Del Valle, DO 200 [facility] [place] [address] 05/14/2024 11:45 AM EDT Hospital Encounter ENDO OSSC, Endoscopy Room [facility] [address] [place] [phone] Madison Recinos DO [address] [place] [address] 05/14/2024 11:45 AM EDT - 05/14/2024 12:15 PM EDT Surgery ENDO [facility], Endoscopy Room [facility] [address] [place] [address] Madison Recinos DO [address] [place] [address] COLONOSCOPY FLEXIBLE PROXIMAL DIAGNOSTIC 05/22/2024 2:40 PM EDT Office Visit [facility] [address] [place] [address] Marta Bateman PA-C [address] [place] [address] Scheduled Procedures Name Priority Associated Diagnoses Date/Ti [...] filedocumented as of this encounter Care Teams Publications Production Supervisor Relationship Specialty Start Date End Date Gee Del Valle DO [address] [place] [address] PCP - General Family Medicine 10/20/23 documented as of this encounter
--- OUTSIDE RECORDS SUMMARY | 2024-05-05 17:03 | External Medical Summary | Summary of Care ---
Author Name Unknown Organization [facility] Address [address] [place] [address] Phone [phone] Care Team Providers Care Gluer Machine Operator Name Role Phone Gee Del Valle DO Primary Care Provider [phone] Reason for Visit * Reason Onset Date Comments Advice 02/07/2024 Encounter Details Date Type Department Care Team (Late st Contact Info) Description 02/07/2024 Telephone Family Practice [facility] 200 [facility] [place] [address] Gee Del Valle DO 200 [facility] [place] [address] Advice Allergies No known active allergiesdocumented as of this encounter (statuses as of 02/14/2024) Medications Vitamin D3 25 MCG (1000 UT) [...] as of this encounter (statuses as of 02/14/2024) Active Problems Problem Noted Date Diagnosed Date Alcoholic hepatitis without ascites 11/29/2022 Generalized anxiety disorder 11/05/2022 Alcohol abuse 11/05/2022 Plaque psoriasis Insomnia documented as of this encounter (statuses as of 02/14/2024) Immunizations No known immunizationsdocumented as of this [...] No 07/13/2023 Does the household have a [facility] source of income? 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 Not [facility]. Called patient and lmm to call office back. * Telephone Encounter - Randa Zee OSA - 02/07/2024 2:01 PM EST Patient is calling in today to schedule his fibroscan in [facility]. Please call patient back to schedule. documented in this encounter Plan of Treatment Upcoming Encounters Date Type Department Care Team (Latest Contact Info) Description 03/29/2024 10:00 AM EST Office Visit Interventional Pain Center, [facility] [address] [place] [address] Natasha Lamar PA-C [address] [place] [address] 05/02/2024 3:40 PM EST Office Visit [facility] [address] [place] [address] Gee Del Valle, DO 200 [facility] [place] [address] 05/14/2024 11:45 AM EDT Hospital Encounter ENDO OSS[facility], Endoscopy Room [facility] [address] [place] [phone] Madison Recinos DO [address] [place] [address] 05/14/2024 11:45 AM EDT - 05/14/2024 12:15 PM EDT Surgery ENDO OSS[facility], Endoscopy Room [facility] [address] [place] [phone] Madison Recinos DO [address] [place] [address] COLONOSCOPY FLEXIBLE PROXIMAL DIAGNOSTIC 05/22/2024 2:40 PM EDT Office Visit [facility] [address] [place] [address] Marta Bateman PA-C [address] [place] [address] 06/05/2024 3:00 PM EDT Office Visit Hepatology, [facility] [address] [place] [address] Marah Bonner MD [address] [place] [...] filedocumented as of this encounter Care Teams Gluer Machine Operator Relationship Specialty Start Date End Date Gee Del Valle DO [address] [place] [address] PCP - General Family Medicine 10/20/23 documented as of this encounter
--- OUTSIDE RECORDS SUMMARY | 2024-05-05 17:03 | External Medical Summary | Summary of Care ---
Author Name Unknown Organization [facility] Address [address] [place] [address] Phone [phone] Care Team Providers Care Impregnator Carbon Products Name Role Phone Gee Del Valle DO Primary Care Provider [phone] Reason for Visit * Reason Onset Date Comments Advice 02/07/2024 Encounter Details Date Type Department Care Team (Late st Contact Info) Description 02/07/2024 Telephone Family Practice [facility] 200 [facility] [place] [address] Gee Del Valle DO 200 [facility] [place] [address] Advice Allergies No known active allergiesdocumented as [...] No 07/13/2023 Does the household have a [facility] source of income? 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 Thank you. * Telephone Encounter - Alysia Giles OSA - 02/14/2024 3:30 PM EST Lmm * Telephone Encounter - Perlita Monteiro OSA - 02/08/2024 8:40 AM EST Fibro scans are done in [facility]. Not [facility]. Called patient and lmm to call office back. * Telephone Encounter - Randa Zee OSA - 02/07/2024 2:01 PM EST Patient is calling in today to schedule his fibroscan in [facility]. Please call patient back to schedule. documented in this encounter Plan of Treatment Upcoming Encounters Date Type Department Care Team (Latest Contact Info) Description 03/29/2024 10:00 AM EST Office Visit Interventional Pain Center [facility] [address] [place] [phone] Natasha Lamar PA-C [address] [place] [address] 05/02/2024 3:40 PM EST Office Visit Family Practice [facility] [address] [place] [address] Gee Del Valle DO [address] [place] [address] 05/14/2024 11:45 AM EDT Hospital Encounter ENDO [facility], Endoscopy Room [facility] [address] [place] [phone] Madison Recinos DO [address] [place] [address] 05/14/2024 11:45 AM EDT - 05/14/2024 12:15 PM EDT Surgery ENDO [facility], Endoscopy Room [facility] [address] [place] [address] Madison Recinos DO [address] [place] [address] COLONOSCOPY FLEXIBLE PROXIMAL DIAGNOSTIC 05/22/2024 2:40 PM EDT Office Visit Family Practice [facility] 200 [place] [address] Marta Bateman PA-C [facility] [place] [address] 06/05/2024 3:00 PM EDT Office Visit Hepatology, [facility] [address] [place] [address] Marah Bonner MD [address] [place] [address] Scheduled Procedures Name Priority Associated Diagnoses Date/Ti [...] filedocumented as of this encounter Care Teams Impregnator Carbon Products Relationship Specialty Start Date End Date Gee Del Valle DO [address] [place] [address] PCP - General Family Medicine 10/20/23 documented as of this encounter
--- OUTSIDE RECORDS SUMMARY | 2024-05-05 17:03 | External Medical Summary | Summary of Care ---
Author Name Unknown Organization [facility] Address [address] [facility] [address] Phone [phone] Care Team Providers Care Institutional Cook Name Role Phone UcheGee mariee Primary Care Provider [phone] Encounter Details Date Type Department Care Team (Late st Contact Info) Description 01/02/2024 Telephone ENDO [facility], Endoscopy Room [facility] 132 [facility] [place] [address] Marah Bonner MD [address] [place] [address] [place] [address] Allergies No known active allergiesdocumented as [...] No 07/13/2023 [facility] the [facility] have a [facility] source [facility]? 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 Not on file documented as of this encounter Miscellaneous Notes * Telephone Encounter - Perlita Monteiro OSA [...] AM EST Office Visit Interventional Pain Center, [facility] [address] [place] [address] Natasha Lamar PA-C [address] [place] [address] 05/02/2024 3:40 PM EST Office Visit [facility] 200 [facility] [place] [address] Gee Del Valle DO 200 [facility] [place] [address] 05/14/2024 11:45 AM EDT Hospital Encounter ENDO OSSC, Endoscopy Room [facility] [address] [place] [phone] Madison Recinos DO [address] [place] [address] 05/14/2024 11:45 AM EDT - 05/14/2024 12:15 PM EDT Surgery ENDO [facility], Endoscopy Room [facility] [address] [place] [phone] Madison Recinos DO [address] [place] [address] COLONOSCOPY FLEXIBLE PROXIMAL DIAGNOSTIC 05/22/2024 2:40 PM EDT Office Visit [facility] [address] [place] [address] Marta Bateman PA-C [address] [place] [address] Scheduled Orders Name Type Priority Associated Diagnoses [...] colon documented in this encounter Care Teams Institutional Cook Relationship Specialty Start Date End Date Gee Del Valle DO 200 [facility] [place] [address] PCP - General Family Medicine 10/20/23 documented as of this encounter
--- OUTSIDE RECORDS SUMMARY | 2024-05-05 17:03 | External Medical Summary | Summary of Care ---
Author Name Unknown Organization [facility] Address [address] [place] [address] Phone [phone] Care Team Providers Care Foster Winder Name Role Phone Gee Del Valle DO Primary Care Provider [phone] Reason for Visit * Reason Onset Date Comments Med Request 02/06/2024 Encounter Details Date Type Department Care Team (Late st Contact Info) Description 02/06/2024 Telephone Family Practice [facility] 200 [facility] [place] [address] Gee Del Valle DO 200 [facility] [place] [address] Med Request (/) Allergies No known active allergiesdocumented as of this encounter (statuses as of 02/06/2024) Medications Vitamin D3 25 MCG (1000 UT) [...] as of this encounter (statuses as of 02/06/2024) Active Problems Problem Noted Date Diagnosed Date Alcoholic hepatitis without ascites 11/29/2022 Generalized anxiety disorder 11/05/2022 Alcohol abuse 11/05/2022 Plaque psoriasis Insomnia documented as of this encounter (statuses as of 02/06/2024) Immunizations No known immunizationsdocumented as of this [...] No 07/13/2023 Does the household have a [facility]? 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 Informed pt that RX is available at their pharmacy. Pt verbalized understanding and stated they will check with their pharmacy regarding this medication. Thank you, Cindi Fang CPhT [facility] 02/06/2024,4:25 PM documented in this encounter Plan of Treatment Upcoming Encounters Date Type Department Care Team (Latest Contact Info) Description 03/29/2024 10:00 AM EST Office Visit Interventional Pain Center, [facility] [address] [place] [address] Natasha Lamar PA-C [address] [place] [address] 05/02/2024 3:40 PM EST Office Visit [facility] [place] 200 [facility] [place] [address] Gee Del Valle, DO 200 [facility] [place] [address] 05/14/2024 11:45 AM EDT Hospital Encounter ENDO OSS, Endoscopy Room [facility] [address] [place] [phone] Madison Recinos DO [address] [place] [address] 05/14/2024 11:45 AM EDT - 05/14/2024 12:15 PM EDT Surgery ENDO [facility], Endoscopy Room [facility] [address] [place] [phone] Madison Recinos DO [address] [place] [address] COLONOSCOPY FLEXIBLE PROXIMAL DIAGNOSTIC 05/22/2024 2:40 PM EDT Office Visit [facility] [address] [place] [address] Marta Bateman PA-C 200 [facility] [place] [address] Scheduled Procedures Name Priority Associated Diagnoses Date/Ti [...] filedocumented as of this encounter Care Teams Foster [place] Relationship Specialty Start Date End Date Gee Del Valle DO [address] [place] [address] PCP - General Family Medicine 10/20/23 documented as of this encounter
--- OUTSIDE RECORDS SUMMARY | 2024-05-05 17:03 | External Medical Summary | Summary of Care ---
Author Name Unknown Organization [facility] Address [address] [place] [place] [address] Phone [phone] Care Team Providers Care Novelty Balloon Assembler And Packer Name Role Phone UcheGee mariee Primary Care Provider [phone] Reason for Visit * Reason Onset Date Comments Appointment 01/02/2024 Encounter Details Date Type Department Care Team (Late st Contact Info) Description 01/02/2024 Telephone ENDO [facility], Endoscopy Room [facility] 132 [facility] [place] [address] Marah Bonner MD [address] [place] [address] [place] [address] Appointment Allergies No known active allergiesdocumented as of this encounter (statuses as of 02/28/2024) Medications Vitamin D3 25 MCG (1000 UT) [...] as of this encounter (statuses as of 02/28/2024) Active Problems Problem Noted Date Diagnosed Date Alcoholic hepatitis without ascites 11/29/2022 Generalized anxiety disorder 11/05/2022 Alcohol abuse 11/05/2022 Plaque psoriasis Insomnia documented as of this encounter (statuses as of 02/28/2024) Immunizations No known immunizationsdocumented as of this [...] No 07/13/2023 Does the household have a [facility] source of income? 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 * Telephone Encounter - Alysia Giles OSA [...] AM EST Office Visit Interventional Pain Center [facility] [address] [place] [phone] Natasha Lamar PA-C [address] [place] [address] 05/02/2024 3:40 PM EST Office Visit Family Practice [facility] 200 [facility] [place] [address] Gee Del Valle, DO 200 [facility] [place] [address] 05/14/2024 11:45 AM EDT Hospital Encounter ENDO [facility], Endoscopy Room [facility] [address] [place] [phone] Madison Recinos DO [address] [address] 05/14/2024 11:45 AM EDT - 05/14/2024 12:15 PM EDT Surgery ENDO [facility], Endoscopy Room [facility] [address] [place] [address] Madison Recinos DO [address] [place] [address] COLONOSCOPY FLEXIBLE PROXIMAL DIAGNOSTIC 05/22/2024 2:40 PM EDT Office Visit Family Practice [facility] 200 [facility] [place] [address] Marta Bateman PA-C [address] [facility] [place] [address] 06/05/2024 3:00 PM EDT Office Visit Hepatology, [facility] [address] [place] [address] Marah Bonner MD [address] [place] [address] Scheduled Orders Name Type Priority Associated Diagnoses [...] colon documented in this encounter Care Teams Novelty Balloon Assembler And Packer Relationship Specialty Start Date End Date Gee Del Valle DO [address] [place] [address] PCP - General Family Medicine 10/20/23 documented as of this encounter
--- OUTSIDE RECORDS SUMMARY | 2024-05-05 17:03 | External Medical Summary | Summary of Care ---
Author Name Unknown Organization [facility] Address [address] [facility] [address] Phone [phone] Care Team Providers Care Clamp Truck Driver Name Role Phone UcheGee mariee Primary Care Provider [phone] Encounter Details Date Type Department Care Team (Late st Contact Info) Description 01/02/2024 Telephone ENDO [facility], Endoscopy Room [facility] [address] [facility] [place] [address] Marah Bonner MD [address] [place] [address] [place] [address] Allergies No known active allergiesdocumented as of this encounter (statuses as of 02/21/2024) Medications Vitamin D3 25 MCG (1000 UT) [...] NEEDED FOR ANXIETY. 60 Capsule 5 12/19/19 Active Furosemide 40 MG Oral Tablet (Lasix) Take 1 Tablet by mouth daily as needed for Other (edema). 30 Tablet 5 08/03/19 024 Discontin ued(Medic ation List Clean Up) [...] as needed for Sleep. 90 Tablet 12/09/19 024 Discontin ued(Refil l) documented as of this encounter (statuses as of 02/21/2024) Active Problems Problem Noted Date Diagnosed Date Alcoholic hepatitis without ascites 11/29/2022 Generalized anxiety disorder 11/05/2022 Alcohol abuse 11/05/2022 Plaque psoriasis Insomnia documented as of this encounter (statuses as of 02/21/2024) Immunizations No known immunizationsdocumented as of this [...] No 07/13/2023 Does the household have a [employer] source of income? 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 * Telephone Encounter - Alysia [...] AM EST Office Visit Interventional Pain Center [facility] [address] [place] [phone] Natasha Lamar PA-C [address] [place] [address] 05/02/2024 3:40 PM EST Office Visit [facility] [address] [facility] [address] [place] [address] Gee Del Valle DO [address] [facility] [place] [address] 05/14/2024 11:45 AM EDT Hospital Encounter ENDO [facility], Endoscopy Room [facility] [address] [place] [phone] [place] Recinos DO [address] [place] [address] 05/14/2024 11:45 AM EDT - 05/14/2024 12:15 PM EDT Surgery ENDO [facility], Endoscopy Room [facility] [address] [place] [phone] [place] Recinos DO [address] [place] [address] COLONOSCOPY FLEXIBLE PROXIMAL DIAGNOSTIC 05/22/2024 2:40 PM EDT Office Visit Family Practice [facility] [address] [facility] [place] [address] Marta Bateman PA-C [address] [facility] [place] [address] 06/05/2024 3:00 PM EDT Office Visit Hepatology, [facility] [address] [place] [address] Marah Bonner MD [address] [place] [address] Scheduled Orders Name Type Priority Associated Diagnoses Orde r Schedule LIVER ELASTOGRAPHY W/O IMAGING Procedures Routine Fatty liver Expected: 01/02/2024, Expires: 07/01/2024 Scheduled Procedures Name Priority Associated Diagnoses Date/Ti me COLONOSCOPY FLEXIBLE PROXIMAL DIAGNOSTIC Colon cancer screening 05/14/2024 11:45 AM EDT Health Maintenance Due Date Last Done Comments DTap/Tdap Vaccines (1 - Tdap) 1981 Pneumococcal Vaccine: Pediatrics (0 to 5 Years) and At-Risk Patients (6 to 64 Years) (1 of 2 - PCV) 1981 Cologuard [...] colon documented in this encounter Care Teams Clamp Truck Driver Relationship Specialty Start Date End Date Gee Del Valle DO [address] [place] [address] PCP - General Family Medicine 10/20/23 documented as of this encounter
--- OUTSIDE RECORDS SUMMARY | 2024-05-05 17:03 | External Medical Summary | Summary of Care ---
Author Name Unknown Organization [facility] Address [address] [place] [facility] [place] [address] Phone [phone] Care Team Providers Care Siding Installer Name Role Phone UcheGee mariee Primary Care Provider [phone] Reason for Visit * Reason Onset Date Comments Appointment 01/02/2024 Encounter Details Date Type Department Care Team (Late st Contact Info) Description 01/02/2024 Telephone ENDO [facility], Endoscopy Room [facility] 132 [facility] [place] [address] Marah Bonner MD [address] [place] [address] [place] [address] Appointment Allergies No known active allergiesdocumented as of this encounter (statuses as of 03/09/2024) Medications Vitamin D3 25 MCG (1000 UT) [...] as of this encounter (statuses as of 03/09/2024) Active Problems Problem Noted Date Diagnosed Date Alcoholic hepatitis without ascites 11/29/2022 Generalized anxiety disorder 11/05/2022 Alcohol abuse 11/05/2022 Plaque psoriasis Insomnia documented as of this encounter (statuses as of 03/09/2024) Immunizations No known immunizationsdocumented as of this [...] No 07/13/2023 Does the household have a [facility] source of income? 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 Not on file documented as of this encounter Miscellaneous Notes * Telephone Encounter - Perlita Monteiro OSA - 03/09/2024 12:17 PM EST Pt set up 05/07/24 * Telephone Encounter - Perlita Monteiro OSA [...] AM EST Office Visit [facility] [address] [place] [phone] Natasha Lamar PA-C [address] [place] [address] 05/02/2024 3:40 PM EST Office Visit Family Practice [facility] [address] [facility] [place] [address] Gee Del Valle, DO [address] [place] [place] [address] 05/14/2024 11:45 AM EDT Hospital Encounter ENDO [facility], Endoscopy Room [facility] [address] [place] [phone] Madison Recinos, [address] [place] [address] 05/14/2024 11:45 AM EDT - 05/14/2024 12:15 PM EDT Surgery ENDO [facility], Endoscopy Room [facility] [address] [place] [phone] Madison Recinos, [address] [place] [address] COLONOSCOPY FLEXIBLE PROXIMAL DIAGNOSTIC 05/22/2024 2:40 PM EDT Office Visit Family Practice [facility] [address] [facility] [place] [address] Marta Bateman PA-C [address] [facility] [place] [address] 06/05/2024 3:00 PM EDT Office Visit Hepatology, [facility] [address] [place] [address] Marah Bonner MD [address] [place] [phone] Scheduled Orders Name Type Priority Associated Diagnoses [...] colon documented in this encounter Care Teams Siding Installer Relationship Specialty Start Date End Date Gee Del Valle DO [address] [place] [address] PCP - General Family Medicine 10/20/23 documented as of this encounter
--- OUTSIDE RECORDS SUMMARY | 2024-05-05 17:03 | External Medical Summary | Summary of Care ---
Author Name Unknown Organization [facility] Address [address] [facility] [address] Phone [phone] Care Team Providers Care Bladder Tier Name Role Phone UcheGee mariee Primary Care Provider [phone] Encounter Details Date Type Department Care Team (Late st Contact Info) Description 01/02/2024 Telephone ENDO [facility], Endoscopy Room [facility] 132 [facility] [place] [phone] Marah Bonner MD [address] [place] [address] [place] [address] Allergies No known active allergiesdocumented as of this encounter (statuses as of 02/15/2024) Medications Vitamin D3 25 MCG (1000 UT) [...] as of this encounter (statuses as of 02/15/2024) Active Problems Problem Noted Date Diagnosed Date Alcoholic hepatitis without ascites 11/29/2022 Generalized anxiety disorder 11/05/2022 Alcohol abuse 11/05/2022 Plaque psoriasis Insomnia documented as of this encounter (statuses as of 02/15/2024) Immunizations No known immunizationsdocumented as of this [...] No 07/13/2023 Does the household have a [facility] source of income? 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 Not [...] AM EST Office Visit Inter[facility] Center, [facility] [address] [place] [address] Natasha Lamar PA-C [address] [place] [address] 05/02/2024 3:40 PM EST Office Visit [facility] [address] [place] [address] Gee Del Valle, DO [address] [facility] [place] [address] 05/14/2024 11:45 AM EDT Hospital Encounter ENDO [facility], Endoscopy Room [facility] [address] [place] [phone] [place] Recinos DO [address] [place] [address] 05/14/2024 11:45 AM EDT - 05/14/2024 12:15 PM EDT Surgery ENDO [facility], Endoscopy Room [facility] [address] [place] [phone] Madison Recinos DO [address] [place] [address] COLONOSCOPY FLEXIBLE PROXIMAL DIAGNOSTIC 05/22/2024 2:40 PM EDT Office Visit [facility] [address] [place] [address] Marta Bateman PA-C [address] [place] [address] 06/05/2024 3:00 PM EDT Office Visit Hepatology, [facility] [address] [place] [address] Marah Bonner MD [address] [place] [phone] Scheduled Orders Name Type Priority Associated Diagnoses [...] colon documented in this encounter Care Teams Bladder Tier Relationship Specialty Start Date End Date Gee Del Valle DO [address] [place] [address] PCP - General Family Medicine 10/20/23 documented as of this encounter
--- OUTSIDE RECORDS SUMMARY | 2024-05-05 17:03 | External Medical Summary | Summary of Care ---
Author Name Unknown Organization [facility] Address [address] [place] [address] Phone [phone] Care Team Providers Care Locomotive Boilermaker Name Role Phone Gee Del Valle DO Primary Care Provider [phone] Reason for Visit * Reason Onset Date Comments Advice 02/07/2024 Encounter Details Date Type Department Care Team (Late st Contact Info) Description 02/07/2024 Telephone Family Practice [facility] [address] [facility] [place] [address] Gee Del Valle DO 200 [facility] [place] [address] Advice Allergies No known active allergiesdocumented as [...] No 07/13/2023 Does the household have a [facility] source of income? 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 Not [facility]. Called patient and lmm to call office back. * Telephone Encounter - Randa Zee OSA - 02/07/2024 2:01 PM EST [facility] Please call patient back to schedule. documented in this encounter Plan of Treatment Upcoming Encounters Date Type Department Care Team (Latest Contact Info) Description 03/29/2024 10:00 AM EST Office Visit [facility] Center, [facility] [address] [place] [address] Natasha Lamar PA-C [address] [place] [address] 05/02/2024 3:40 PM EST Office Visit [facility] [place] [address] [place] [place] [address] Gee Del Valle DO [address] [place] [address] [address] 05/14/2024 11:45 AM EDT Hospital Encounter ENDO [facility], Endoscopy Room [facility] [address] [place] [phone] Madison Recinos DO [address] [place] [address] 05/14/2024 11:45 AM EDT - 05/14/2024 12:15 PM EDT Surgery ENDO [facility], Endoscopy Room [facility] [address] [place] [phone] Madison Recinos DO [address] [place] [address] COLONOSCOPY FLEXIBLE PROXIMAL DIAGNOSTIC 05/22/2024 2:40 PM EDT Office Visit [facility] [place] [address] [place] [address] Marta Bateman PA-C [address] [address] 06/05/2024 3:00 PM EDT Office Visit Hepatology, [facility] [address] [place] [address] Marah Bonner MD [address] [place] [address] Scheduled Procedures Name Priority Associated Diagnoses Date/Ti [...] filedocumented as of this encounter Care Teams Locomotive Boilermaker Relationship Specialty Start Date End Date Gee Del Valle DO [address] [place] [address] PCP - General Family Medicine 10/20/23 documented as of this encounter
--- OUTSIDE RECORDS SUMMARY | 2024-05-05 17:04 | External Medical Summary | Summary of Care ---
Author Name Unknown Organization [facility] Address [address] [place] [address] Phone [phone] Care Team Providers Care Utility Maintenance Worker Name Role Phone UcheGee mariee Primary Care Provider [phone] Reason for Visit * Reason Onset Date Comments Appointment 01/11/2024 Encounter Details Date Type Department Care Team (Late st Contact Info) Description 01/11/2024 Telephone Access Center, [place] [address] [facility] *DO NOT REMOVE THIS DEPARTMENT* [place] [address] Services, Scheduling [address] [place] [address] Appointment Allergies No known active allergiesdocumented as of this encounter (statuses as of 01/11/2024) Medications Vitamin D3 25 MCG (1000 UT) [...] as of this encounter (statuses as of 01/11/2024) Active Problems Problem Noted Date Diagnosed Date Alcoholic hepatitis without ascites 11/29/2022 Generalized anxiety disorder 11/05/2022 Alcohol abuse 11/05/2022 Plaque psoriasis Insomnia documented as of this encounter (statuses as of 01/11/2024) Immunizations No known immunizationsdocumented as of this [...] 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 [...] EST Office Visit [facility] [place] [address] [place] [address] Gee Del Valle, DO [address] [place] [address] 05/14/2024 11:45 AM EDT Hospital Encounter ENDO [facility], Endoscopy Room [facility] [address] [place], [place] [phone] Madison Recinos DO [address] [place] [address] 05/14/2024 11:45 AM EDT - 05/14/2024 12:15 PM EDT Surgery ENDO [facility], Endoscopy Room [facility] [address] [place] [phone] Madison Recinos DO [address] [place] [address] COLONOSCOPY FLEXIBLE PROXIMAL DIAGNOSTIC Scheduled Procedures Name Priority Associated Diagnoses Date/Ti [...] filedocumented as of this encounter Care Teams Utility Maintenance Worker Relationship Specialty Start Date End Date Gee Del Valle DO [address] [place] [address] PCP - General Family Medicine 10/20/23 documented as of this encounter
--- OUTSIDE RECORDS SUMMARY | 2024-05-05 17:04 | External Medical Summary | Summary of Care ---
Author Name Unknown Organization [facility] Address [address] [place] [address] Phone [phone] Care Team Providers Care Diversity Manager Name Role Phone IvonGee Primary Care Provider [phone] Reason for Visit * Reason Comments NEW PATIENT New pt ref by Leslee Maria/Dr Del Valle for elevated LFT's/cirrhosis. * Evaluate & Treat - Unlimited Visits (Within 30 days (routine)) - Authorized Specialty Diagnoses / Procedures Referred By Syed tineo Referred To Contact Gastroenterology Diagnoses Elevated LFTs Alcoholic hepatitis, unspecified whether ascites present Leslee Chiang CRNP [address] [place] [address] Referral ID Status Reason Start Date Expiration Date Visits Requested Visits Authorized [id number] Authorized Specialty Services Required 3 [phone] Encounter Details Date Type Department Care Team (Late st Contact Info) Description 12/09/2023 9:20 AM EDT Office Visit [facility], [facility] [place] [address] Marah Bonner MD [address] [place], [place] [address] [id number] Alcoholic hepatitis without ascites*; Fatty liver Allergies No known active allergiesdocumented as of this encounter (statuses as of 12/09/2023) Medications Medication Sig Dispensed Refills Start Date [...] or chew. 30 Capsule 5 08/03/2023 Active Additional Information Patient not taking.Reported on 12/09/2023 traZODone HCl 50 MG Oral Tablet (Desyrel)Indications :Alcohol-induced insomnia (HCC) Take 1 Tablet by mouth at bedtime as needed for Sleep. 90 Tablet 10/21/2023 Active Clobetasol Propionate 0.05 % External Cream (Temovate) Apply topically to affected area 2 times a day. 60 g 5 11/01/2023 Active B Complex Formula 1 (Lipotrop) Oral Tablet Take by mouth. Active Milk Thistle 87.5 MG Oral Capsule Take by mouth. Active Turmeric 500 MG Oral Capsule Take 1 Capsule by mouth in the morning. Active documented as of this encounter (statuses as of 12/09/2023) Active Problems Problem Noted Date Diagnosed Date Alcoholic hepatitis without ascites 11/29/2022 Generalized anxiety disorder 11/05/2022 Alcohol abuse 11/05/2022 Plaque psoriasis Insomnia documented as of this encounter (statuses as of 12/09/2023) Immunizations No known immunizationsdocumented as of this [...] Sign Reading Time Taken Comments Blood Pressure 134/82 12/09/2023 9:07 AM EDT Pulse 93 12/09/2023 9:07 AM EDT Temperature 36.6 C (97.9 F) 12/09/2023 9:07 AM ED T Respiratory Rate - - Oxygen Saturation - - Inhaled Oxygen Concentration - - Weight 96 kg (211 lb 9.6 oz) 12/09/2023 9:07 AM EDT Height - - Body Mass Index 30.36 07/07/2023 8:29 AM EDT documented in this encounter Progress Notes * Marah Bonner MD - 12/09/2023 9:11 AM EDT Images from the original note were not included. Hepatology Sari Brito CC: ethanol hepatiits in the past, ? cirrhosis Referred by Leslee Chiang, Dr. Del Valle HPI: 62 yo male with prior ethanol use, seen in fup in gi clinic thru [facility] in fall after a hospitalization at [facility] preceding that GI offfice fup visit that was for ethanol hepatitis. He had elevated lft's at that time thought to be from ethanol hepatitis - treated with a prednisonetaper. He also was noted to be ebv + but this was for igg (with a + antigen, negative ebv igm, and negative viral load) and cmv + for igg at that time. He is now here today for further discussion. Since the fall- reportedly has not been drinking regularly thought reports last drink was amonth ago (it was a slight setback in his own words where where he drank for a few days). His lft's have improved per last check in 08/21. No iv drugs, no intransal drugs. Never vomited up blood or blood in his stools. No swelling in his legs or belly. Had edema along time ago and was briefly on lasix. 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 He spoke about his unhappiness with a doctor he used to see that he states blew off his back pain and now he has to wear a binder when he was told by someone else he could have had cement put in but now it appears to late for that. He has since switched pcp's and is seeing them next month he believes for the first time. In terms of ethanol rehab - he has tried aa in the past ,does go to [facility] for some assistance withalcohol rehab but at times that is too latter day for him. He feels he is doing okay at that time with commitment to his sobriety, is not using ethanol as a pain reliever. Soc hx Lives alone Not working Past Medical History: Diagnosis Date Insomnia Psoriasis Tibia fracture 2014 6 pins and a plate Pshx: None Current Outpatient Medications Medication Sig Dispense Refill Vitamin D3 25 MCG (1000 UT) Oral Capsule Take 1 Capsule by mouth once. Melatonin 3 MG Oral Tablet Disintegrating Take by mouth. hydrOXYzine Pamoate 50 MG Oral Capsule (Vistaril) Take 1 Capsule by mouth 2 times a day as needed for Anxiety. 60 Capsule 5 traZODone HCl 50 MG Oral Tablet (Desyrel) Take 1 Tablet by mouth at bedtime as needed for Sleep. 90Tablet 0 B Complex Formula 1 (Lipotrop) Oral Tablet Take by mouth. Milk Thistle 87.5 MG Oral Capsule Take by mouth. Turmeric 500 MG Oral Capsule Take 1 Capsule by mouth in the morning. Furosemide 40 MG Oral Tablet (Lasix) Take 1 Tablet by mouth daily as needed for Other (edema). (Patient not taking: Reported on 08/23/2023) 30 Tablet 5 Triamcinolone Acetonide 0.1 % External Cream (Aristocort) Apply to psoriasis on the arms, legs, chest, and back twice daily 450 g 1 DULoxetine HCl 20 MG Oral Capsule Delayed Release Particles (duloxetine) Take 1 Capsule by mouth inthe morning. Do not cut, crush or chew. (Patient not taking: Reported on 12/09/2023) 30 Capsule 5 Clobetasol Propionate 0.05 % External Cream (Temovate) Apply topically to affected area 2 times a day. 60 g 5 No current facility-administered medications for this visit. 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[employer] Tobacco Use Smoking status: Never Smokeless tobacco: Never Vaping Use Vaping status: Never Used Substance and Sexual Activity Alcohol use: No Comment: Pt reports 1 pint of vodka a day for last month Drug use: No Sexual activity: Not on file Other Topics Concern Service Not Asked Blood Transfusions Not Asked Caffeine Concern Not Asked Occupational Exposure Not Asked Hobby Hazards Not Asked Sleep Concern Not Asked Stress Concern Not Asked Weight Concern Not Asked Special Diet Not Asked Back Care Not Asked Exercise Not Asked Bike Helmet Not Asked Seat Belt Yes Self-Exams Not Asked Social History Narrative Came to [place] in 2014. Came from [facility]. Born in [place]. Went to [facility]. 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 Social Determinants of Health Financial Resource Strain: Low Risk (07/13/2023) Financial Resource Strain Do you have any trouble paying for your medications, or do you think you might in the future? (Adult - for ages 18 years and over): No Does your family have trouble paying for medicine? (Household - for ages 0-17 years): Not on file Food Insecurity: No Food Insecurity (07/13/2023) Food Insecurity Do you need food for this week? (Adult - for ages 18 years and over): No Are you able to get enough food for your family? (Household - for ages 0-17 years): Not on file Does your family need food this week? (Household - for ages 0-17 years): Not on file Do you always have enough food for your family? (Household - for ages 0-17 years): Not on file Transportation Needs: No Transportation Needs (07/13/2023) Transportation Needs Do you have trouble getting a ride to medical visits or work? (Adult - for ages 18 years and over):Never True Does your family have a hard time getting a ride to doctors visits? (Household - for ages 0-17 years): Not on file Has lack of transportation kept you from medical appointments, meetings, work, or from getting things needed for daily living? Check all that apply. (Adult - for ages 18 years and over): Not on file Do you (or your family) have trouble finding or paying for a ride (transportation)? (Household - for ages 0-17 years): Not on file Social Connections: Socially Integrated (07/13/2023) Social Connections How often do you feel lonely or isolated from those around you? (Adult - for ages 18 years and over): Never Housing Stability: Low Risk (07/13/2023) Housing Stability Do you currently live in a detention or have no steady place to sleep at night? (Adult - for ages 18 years and over): No Do you think you are at risk of becoming homeless? (Adult - for ages 18 years and over): No Does your family worry about paying for your home or becoming homeless? (Household - for ages 0-17 years): Not on file Are you homeless or worried that you might be in the future? (Adult - for ages 18 years and over): Not on file Are you (or your family) homeless or worried that you might be in the future? (Household - for ages0-17 years): Not on file Family History Problem Relation Name Age of Onset Cancer Aunt (Unspecified) Colon Cancer Grandmother (Maternal) Uncertain ROS: Constitutional: No report of fever, chills, night sweats. There have been no non-intentional weightchanges. Eyes: No recent changes in visual acuity or blurring of vision. ENT: No change in auditory acuity, sense of smell or taste. CV: No chest pain, palpitations, dyspnea on exertion. Respiratory: No wheezing, cough, sputum production. : No dysuria, polyuria, change in urinary frequency. GI: Per HPI, otherwise negative. Psychiatric: No chronic changes in mood, affect or sensorium. Musculoskeletal: No myalgias, arthralgias, or joint pains. Neurological: No change in gait, change in maintenance of balance, neurologic injuries. Physical Exam Constitutional: BP 134/82 | Pulse 93 | Temp 36.6 C (97.9 F) | Wt 96 kg (211 lb 9.6 oz) | BMI 30.36 kg/m | BSA 2.18 m Well developed, well nourished male in no apparent distress. He has a very reddened face in his cheeks. Eyes: Conjunctivae and sclerae are clear and non-icteric. Pupils are equally round and reactive to light, extra-ocular movements intact. ENT: Nares are patent and without discharge. Neck: Supple; there is no adenopathy. No supraclavicular adenopathy is noted. CV: Heart is regular without murmur, rub or kim. Pulm: Clear to percussion and auscultation. GI: Abdomen is soft, non-tender, no ascites noted. Psychiatric: The patient is alert and oriented in all four spheres. Mood is euthymic. Affect is appropriate for the situation. Skin: No rashes were noted. Musculoskeletal: Gait is normal. Patient is able to transfer from sitting position to exam table without assistance. Latest Reference Range & Units 11/05/22 15:14 12/10/22 13:01 03/24/23 12:33 07/07/23 09:19 08/03/23 11:56 Albumin 3.8 - 5.0 g/dL 3.6 (L) 3.5 (L) 4.1 3.4 (L) 3.8 AST 10 - 50 U/L 96 (H) 72 (H) 48 38 31 ALT 10 - 50 U/L 36 65 (H) 43 19 15 Alkaline Phosphatase 35 - 130 U/L 170 (H) 144 (H) 138 (H) 135 (H) 103 Bilirubin, Total <=1.2 mg/dL 6.0 (H) 3.0 (H) 1.0 0.8 0.6 (L): Data is abnormally low (H): Data is abnormally high Component Ref Range & Units 4 mo ago Prothrombin Time 11.6 - 15.2 seconds 16.3 High INR 0.8 - 1.2 1.3 High No prior abdominal imaging available for images to review Last CT in 11/20 thru [facility] - report reviewed - states fatty liver and fatty pancreas and mild diverticulosis A/P: Ethanol hepatitis - now resolved ? Cirrhosis - not clear if he has that diagnosis, last ct abdomen in 2023 showed fatty liver and fatty pancreas thru [facility] per report review, if he does have cirrhosis then will arrange regular fup Fatty liver - bmi is 30, presumed to be from fatty liver, not known to be diabetic that he knows of, continued efforts to get bmi to a normal range- avoidance of ethanol is helpful, he reports his activity is limited due to his back issues, Colonoscopy was arranged for spring prior to this visit Fup in 6 months Marah Bonner MD documented in this encounter Nursing Notes * Miranda Gage CMA - 12/09/2023 9:07 AM EDT Chief Complaint Patient presents with NEW PATIENT New pt ref by Leslee Maria/Dr Del Valle for elevated LFT's/cirrhosis. documented in this encounter Plan of Treatment Upcoming Encounters Date Type Department Care Team (Latest Contact Info) Description 12/15/2023 10:45 AM EDT Imaging Radiology [facility] [address] [place] [address] 01/11/2024 10:40 AM EST Office Visit Family [facility] [address] [place] [address] Gee Del Valle DO [address] [place] [address] 05/14/2024 11:45 AM EDT Hospital Encounter ENDO [facility], Endoscopy Room [facility] [address] [place] [address] Madison Recinos DO [address] [place] [address] 05/14/2024 11:45 AM EDT - 05/14/2024 12:15 PM EDT Surgery ENDO [facility], Endoscopy Room [facility] [address] [place] [phone] Madison Recinos DO [address] [place] [address] COLONOSCOPY FLEXIBLE PROXIMAL DIAGNOSTIC Pending Results Name Type Priority Associated Diagnoses Date /Time COMPREHENSIVE METABOLIC PANEL Lab Routine Fatty liver 12/09/2023 9:35 AM EDT PT INR Lab Routine Fatty liver 12/09/2023 9:35 AM EDT Scheduled Orders Name Type Priority Associated Diagnoses Orde r Schedule US ABDOMEN LIMITED Medical Imaging Routine Alcoholic hepatitis without ascites Expected: 12/09/2023, Expires: 01/08/2025 COMPREHENSIVE METABOLIC PANEL Lab Routine Fatty liver Expected: 12/09/2023, Expires: 12/08/2024 PT INR Lab Routine Fatty liver Expected: 12/09/2023, Expires: 12/08/2024 Scheduled Procedures Name Priority Associated Diagnoses Date/Ti [...] filedocumented as of this encounter Results * CBC (12/09/2023 9:35 AM EDT) WBC 8.62 4.00 - 10.80 K/uL 12/09/2023 10:15 AM EDT [facility] [place] [facility]10 RBC 5.04 4.50 - 5.25 M/uL 12/09/2023 10:15 AM EDT [facility] [place] [facility]10 HGB 14.2 14.0 - 16.8 g/dL 12/09/2023 10:15 AM EDT [facility] [place] [facility]10 HCT 42.7 40.0 - 48.4 % 12/09/2023 10:15 AM EDT [facility] [place] [facility] MCV 84.7 82.0 - 99.5 fL 12/09/2023 10:15 AM EDT [facility] [place] [facility] MCH 28.2 27.0 - 34.0 pg 12/09/2023 10:15 AM EDT [facility] [place] [facility] MCHC 33.3 32.0 - 36.0 g/dL 12/09/2023 10:15 AM EDT [facility] [place] [facility] RDW 18.4 11.5 - 15.5 % 12/09/2023 10:15 AM EDT [facility] [place] [facility] PLT 157 140 - 400 K/uL 12/09/2023 10:15 AM EDT [facility] [place] [facility] MPV 9.8 6.6 - 11.1 fL 12/09/2023 10:15 AM EDT [facility] [place] [facility] Blood Venous blood specimen / Unknown Venipuncture / Unknown 12/09/2023 9:35 AM EDT 12/09/2023 9:35 AM EDT Marah Bonner MD LAB BLOOD ORDERABLES [facility] [place] [facility] [address] [facility] [place] [address] documented in this encounter Visit Diagnoses Diagnosis Alcoholic hepatitis without ascites- Primary Acute alcoholic hepatitis Fatty liver Other chronic nonalcoholic liver disease Colon cancer screening Special screening for malignant neoplasms, colon documented in this encounter Care Teams Diversity Manager Relationship Specialty Start Date End Date Gee Del Valle DO [address] [place] [address] [place] [address] PCP - General Family Medicine 10/20/23 documented as of this encounter"
--- OUTSIDE RECORDS SUMMARY | 2024-05-05 17:04 | External Medical Summary | Summary of Care ---
Author Name Unknown Organization [facility] Address [address] [place] [address] Phone [phone] Care Team Providers Care Bradley Linebacker Crewmember Name Role Phone Gee Del Valle DO Primary Care Provider [phone] Reason for Visit * Reason Onset Date Comments Advice 09/29/2023 Concerned father see my note. Encounter Details Date Type Department Care Team (Late st Contact Info) Description 09/29/2023 Telephone Family Practice [facility] [address] [facility] [place] [address] Kamilah Torres MD [address] [facility] [place] [address] Advice (Concerned father see my note. ) Allergies No known active allergiesdocumented as of this encounter (statuses as of 12/29/2023) Medications Medication Sig Dispensed Refills Start Date End Date Status Vitamin D3 25 MCG (1000 UT) Oral Capsule Take 1 Capsule by mouth once. Active Melatonin 3 MG Oral Tablet Disintegrating Take by mouth. Active Furosemide 40 MG Oral Tablet (Lasix) Take 1 Tablet by mouth daily as needed for Other (edema). 30 Tablet 5 4 Active Additional Information Patient not taking.Reported on 08/23/2023 Triamcinolone Acetonide 0.1 % External Cream (Aristocort)Indica tions:Plaque psoriasis Apply to psoriasis on the arms, legs, chest, and back twice daily 450 g 1 4 Active DULoxetine HCl 20 MG Oral Capsule Delayed Release Particles (duloxetine)Indica tions:Chronic midline low back pain without sciatica,Generaliz ed anxiety disorder Take 1 Capsule by mouth in the morning. Do not cut, crush or chew. 30 Capsule 5 4 Active Additional Information Patient not taking.Reported on 12/09/2023 hydrOXYzine Pamoate 50 MG Oral Capsule (Vistaril)Indicati ons:Generalized anxiety disorder Take 1 Capsule by mouth 2 times a day as needed for Anxiety. 60 Capsule 5 4 024 Discontinued Clobetasol Propionate 0.05 % External Gel (Temovate) Apply topically to affected area 2 times a day. Apply to scalp 60 g 5 4 024 Discontinued traZODone HCl 50 MG Oral Tablet (Desyrel)Indicatio ns:Alcohol-induced insomnia (HCC) Take 1 Tablet by mouth at bedtime as needed for Sleep. 30 Tablet 1 4 024 Discontinued(Re fill) documented as of this encounter (statuses as of 12/29/2023) Active Problems Problem Noted Date Diagnosed Date Alcoholic hepatitis without ascites 11/29/2022 Generalized anxiety disorder 11/05/2022 Alcohol abuse 11/05/2022 Plaque psoriasis Insomnia documented as of this encounter (statuses as of 12/29/2023) Immunizations No known immunizationsdocumented as of this [...] encounter Miscellaneous Notes * Telephone Encounter - Cheyenne May OSA - 09/29/2023 11:28 AM EDT Father calling to speak with patients Impress Associate Sofy Junior/Allan - father is concerned patient is being reclusive, not speaking to anyone about what is going on with him. Will not answer door. Dad is his transportation for appts, patient has difficulty with lower extremities, having difficulty walking and has edema. Dad tried to get him to be seen but he told him to leave and said "we're done.". Please return dads call. [phone] if dad is not available please leave number for directcontact on vm. Thank you. documented in this encounter Plan of Treatment Upcoming Encounters Date Type Department Care Team (Latest Contact Info) Description 01/11/2024 10:40 AM EST Office Visit Family [facility] [place] [address] [place] [address] Gee Del Valle, DO [address] [facility] [place] [address] 05/14/2024 11:45 AM EDT Hospital Encounter [facility]O [facility], Endoscopy Room [facility] [address] [place] [phone] Madison Recinos DO [address] [place] [address] 05/14/2024 11:45 AM EDT - 05/14/2024 12:15 PM EDT Surgery ENDO [facility], Endoscopy Room [facility] [address] [place] [phone] Madison Recinos DO [address] [place] [address] COLONOSCOPY FLEXIBLE PROXIMAL DIAGNOSTIC Scheduled Procedures Name Priority Associated Diagnoses Date/Ti pr COLONOSCOPY FLEXIBLE PROXIMAL DIAGNOSTIC Colon cancer screening [...] filedocumented as of this encounter Care Teams Bradley Linebacker Crewmember Relationship Specialty Start Date End Date Gee Del Valle DO [address] [place] [address] PCP - General Family Medicine 10/20/23 documented as of this encounter
--- OUTSIDE RECORDS SUMMARY | 2024-05-05 17:04 | External Medical Summary | Summary of Care ---
Author Name Unknown Organization [facility] Address [address] [place] [facility] [place] [address] Phone [phone] Care Team Providers Care Bed Teacher Name Role Phone Gee Del Valle DO Primary Care Provider [phone] Encounter Details Date Type Department Care Team (Late st Contact Info) Description 01/02/2024 Telephone [facility] [address] Marah Bonner MD [address] [place] [address] Allergies No known active allergiesdocumented as of this encounter (statuses as of 01/02/2024) Medications Medication Sig Dispensed Refills Start Date [...] Additional Information Patient not taking.Reported on 12/09/2023 Clobetasol Propionate 0.05 % External Cream (Temovate) Apply topically to affected area 2 times a day. 60 g 5 11/01/2023 Active traZODone HCl 50 MG Oral Tablet (Desyrel)Indications :Alcohol-induced insomnia (HCC) Take 1 Tablet by mouth at bedtime as needed for Sleep. 90 Tablet 12/09/2023 Active B Complex Formula 1 (Lipotrop) Oral Tablet Take by mouth. Active Milk Thistle 87.5 MG Oral Capsule Take by mouth. Active Turmeric 500 MG Oral Capsule Take 1 Capsule by mouth in the morning. Active hydrOXYzine Pamoate 50 MG Oral Capsule (Vistaril)Indication s:Generalized anxiety disorder TAKE 1 CAPSULE BY MOUTH 2 TIMES A DAY NEEDED FOR ANXIETY. 60 Capsule 5 12/19/2023 Active documented as of this encounter (statuses as of 01/02/2024) Active Problems Problem Noted Date Diagnosed Date Alcoholic hepatitis without ascites 11/29/2022 Generalized anxiety disorder 11/05/2022 Alcohol abuse 11/05/2022 Plaque psoriasis Insomnia documented as of this encounter (statuses as of 01/02/2024) Immunizations No known immunizationsdocumented as of this [...] 01/11/2024 10:40 AM EST Office Visit Family Practice [address] [place] [address] [place] [address] Gee Del Valle, DO [address] [place] [address] 05/14/2024 11:45 AM EDT Hospital Encounter [facility]O [facility], Endoscopy Room [facility] [address] [place], [place] [phone] Madison Recinos, DO [address] [place] [address] 05/14/2024 11:45 AM EDT - 05/14/2024 12:15 PM EDT Surgery ENDO [facility], Endoscopy [place] [facility] [address] [place] [phone] Madison Recinos, [address] [place] [address] COLONOSCOPY FLEXIBLE PROXIMAL DIAGNOSTIC Scheduled Orders Name Type Priority Associated Diagnoses [...] colon documented in this encounter Care Teams Bed Teacher Relationship Specialty Start Date End Date Gee Del Valle DO [address] [place] [address] PCP - General Family Medicine 10/20/23 documented as of this encounter
--- OUTSIDE RECORDS SUMMARY | 2024-05-05 17:04 | External Medical Summary ---
Author Name Unknown Address Unknown Organization [facility]:[facility] [place] [facility] [place] [address] Laboratory Report Ordering Provider Test Date Status SASHA BECK 12/09/2023 09:35:47 Final Observation Date Value Abnormality Reference (Units ) Status BUN 12/09/2023 09:35:47 13 6-20 (mg/dL) Final Creatinine 12/09/2023 09:35:47 0.7 0.6-1.2 (mg/dL) Final Glomerular filtration rate/1.73 sq M.predicted [Volume Rate/Area] in Serum, Plasma or Blood by Creatinine-based formula (CKD-EPI) 12/09/2023 09:35:47 >90 >=60 (mL/min) Final eGFR is calculated based on the CKD-EPI 2020 equation. Sodium 12/09/2023 09:35:47 137 135-146 (m mol/L) Final Potassium 12/09/2023 09:35:47 4.5 3.5-5.1 (m mol/L) Final Cl 12/09/2023 09:35:47 100 98-107 (mm ol/L) Final CO2 12/09/2023 09:35:47 22 22-32 (mmo l/L) Final Anion gap 12/09/2023 09:35:47 15 7-15 (mmol /L) Final Glucose 12/09/2023 09:35:47 143 Above high normal 70 -120 (mg/dL) Final Albumin 12/09/2023 09:35:47 4.3 3.8-5.0 (g /dL) Final AST (Aspartate aminotransferase) 12/09/2023 09:35:47 45 10-50 (U/L) Fin al Alk Phos 12/09/2023 09:35:47 161 Above high normal 35 -130 (U/L) Final Bilirubin, Total 12/09/2023 09:35:47 0.9 <=1 .2 (mg/dL) Final Calcium 12/09/2023 09:35:47 10.0 8.4-10.2 ( mg/dL) Final Protein 12/09/2023 09:35:47 8.8 Above high normal 6. 0-8.3 (g/dL) Final ALT (Alanine aminotransferase) 12/09/2023 09:35:47 40 10-50 (U/L) Mahad ignacio Performing Location [facility] [place] [facility] [facility] [address]
--- OUTSIDE RECORDS SUMMARY | 2024-05-05 17:04 | External Medical Summary | Summary of Care ---
Author Name Unknown Organization [facility] Address [address] [place] [address] Phone [phone] Care Team Providers Care Manager Programming Name Role Phone UcheMilton mariee DO Primary Care Provider [phone] Reason for Visit * Reason Onset Date Comments Medication Refill 10/20/2023 Encounter Details Date Type Department Care Team (Late st Contact Info) Description 10/20/2023 Refill Family Practice [facility] 200 [facility] [place] [address] Kamilah Torres MD 200 [facility] [place] [address] Alcohol-induced insomnia (HCC) Allergies No known active [...] for Anxiety. 60 Capsule 5 4 Active Furosemide 40 MG Oral Tablet [...] 12/09/2023 traZODone HCl 50 MG Oral Tablet (Desyrel)Indicatio ns:Alcohol-induced insomnia (HCC) Take 1 Tablet by mouth at bedtime as needed for Sleep. 90 Tablet 4 Active Clobetasol Propionate 0.05 % External Gel [...] No 07/13/2023 Does the household have a [facility] source of income? (Household - for ages [...] encounter Miscellaneous Notes * Telephone Encounter - Linnette Chamberlain [facility] - 10/21/2023 12:11 PM EDT Signed Prescriptions: Disp Refills traZODone HCl 50 MG Oral Tablet (Desyrel) 90 Tab*0 Sig: Take 1 Tablet by mouth at bedtime as needed for Sleep. Authorizing Provider: MILTON LOONEY User: LINNETTE CHAMBERLAIN * Telephone Encounter - She Barrett [facility]Ph[facility] - 10/20/2023 9:23 AM EDT Patient is requesting a 90-day supply, pre-edited RXs as such. Please review and approve if appropriate. Pending Prescriptions: Disp Refills traZODone HCl 50 MG Oral Tablet (Desyrel) 90 Tab*0 Sig: Take 1 Tablet by mouth at bedtime as needed for Sleep. Last Visit: 08/03/2023 (in office), Visit date not found (telemedicine) 11/30/2023 If no future appointments scheduled, and last appointment is greater than a year ago, please schedule patient for an appointment Last date the medication was ordered: [id number] Patient Phone Numbers Labs: Lab Results Component Value Date/Time CREAT 0.7 08/03/2023 11:56 AM CREAT 0.62 12/26/2017 12:00 AM CREAT 0.7 11/15/2014 09:18 AM POTASSIUM 4.7 08/03/2023 11:56 AM POTASSIUM 3.4 12/26/2017 12:00 AM POTASSIUM 4.6 11/15/2014 09:18 AM TSH 3.32 11/05/2022 03:14 PM TSH 1.070 12/26/2017 12:00 AM LDLCALC 115 11/05/2022 03:14 PM LDLCALC 65 11/15/2014 09:18 AM LDLDIRECT NOT APPLICABLE 11/15/2014 09:18 AM ALT 15 08/03/2023 11:56 AM HGBA1C 5.5 07/07/2023 09:19 AM documented in this encounter Plan of Treatment Upcoming Encounters Date Type Department Care Team (Latest Contact Info) Description 12/15/2023 10:45 AM EDT Imaging Radiology [facility] 132 [facility] [place] [address] 01/11/2024 10:40 AM EST Office Visit Family Practice [facility] 200 [place] [address] Milton Looney, DO [address] [place] [address] 05/14/2024 11:45 AM EDT Hospital Encounter ENDO [facility]SS[facility], Endoscopy Room [facility] [address] [place], [place] [phone] Madison Recinos DO [address] [place] [address] 05/14/2024 11:45 AM EDT - 05/14/2024 12:15 PM EDT Surgery ENDO [facility], Endoscopy Room [facility] [address] [place], [place] [phone] Madison Recinos DO [address] [place] [address] COLONOSCOPY FLEXIBLE PROXIMAL DIAGNOSTIC Scheduled Procedures Name [...] colon documented in this encounter Care Teams Manager Programming Relationship Specialty Start Date End Date Milton Looney DO [address] [place] [address] PCP - General Family Medicine 10/20/23 documented as of this encounter
--- OUTSIDE RECORDS SUMMARY | 2024-05-05 17:04 | External Medical Summary ---
Author Name Unknown Address Unknown Organization K[facility] [employer] [address] [place] [address] Laboratory Report Ordering Provider Test Date Status SASHA BECK 12/09/2023 09:35:47 Final Observation Date Value Abnormality Reference (Units ) Status WBC, Total 12/09/2023 09:35:47 8.62 4.00-10.8 0 (K/uL) Final RBC 12/09/2023 09:35:47 5.04 4.50-5.25 (M/uL) Final Hemoglobin 12/09/2023 09:35:47 14.2 14.0-16.8 (g/dL) Final HCT 12/09/2023 09:35:47 42.7 40.0-48.4 (%) Final MCV 12/09/2023 09:35:47 84.7 82.0-99.5 (fL) Final MCH 12/09/2023 09:35:47 28.2 27.0-34.0 (pg) Final MCHC 12/09/2023 09:35:47 33.3 32.0-36.0 (g/dL) Final RDW 12/09/2023 09:35:47 18.4 11.5-15.5 (%) Final Platelets 12/09/2023 09:35:47 157 140-400 (K /uL) Final MPV 12/09/2023 09:35:47 9.8 6.6-11.1 ( fL) Final Performing Location LABORATORY [facility] [employer] [address] [place] [address]
--- OUTSIDE RECORDS SUMMARY | 2024-05-05 17:04 | External Medical Summary | Summary of Care ---
Author Name Unknown Organization [facility] Address [address] [place] [facility] [place] [address] Phone [phone] Care Team Providers Care Transit Planner Name Role Phone Gee Del Valle DO Primary Care Provider [phone] Encounter Details Date Type Department Care Team (Late st Contact Info) Description 01/02/2024 Telephone ENDO [facility] [address] Marah Bonner MD [address] [place] [address] Allergies No known active allergiesdocumented as [...] encounter Miscellaneous Notes * Telephone Encounter - Marah Bonner MD - 01/02/2024 11:07 AM EST Evaluate for fibrosis documented in this encounter Plan of Treatment Upcoming Encounters Date Type Department Care Team (Latest Contact Info) Description 01/11/2024 10:40 AM EST Office Visit [facility] [place] [address] [place] [address] Gee Del Valle, DO [address] [place] [address] 05/14/2024 11:45 AM EDT Hospital Encounter ENDO [facility], Endoscopy Room [facility] 132 [facility] [place] [address] Madison Recinos, DO [address] [place] [address] 05/14/2024 11:45 AM EDT - 05/14/2024 12:15 PM EDT Surgery ENDO [facility], Endoscopy Room [facility] [address] [place] [address] Madison Recinos, DO [address] [place] [address] COLONOSCOPY FLEXIBLE PROXIMAL DIAGNOSTIC Scheduled Orders Name [...] colon documented in this encounter Care Teams Transit Planner Relationship Specialty Start Date End Date Gee Del Valle DO 200 [facility] [place] [address] PCP - General Family Medicine 10/20/23 documented as of this encounter
--- OUTSIDE RECORDS SUMMARY | 2024-05-05 17:04 | External Medical Summary | Summary of Care ---
Author Name Unknown Organization [facility] Address [address] [place] [address] Phone [phone] Care Team Providers Care Gl Accountant Name Role Phone UcheGee mariee Primary Care Provider [phone] Reason for Visit * Reason Onset Date Comments Appointment 01/11/2024 Encounter Details Date Type Department Care Team (Late st Contact Info) Description 01/11/2024 Telephone Access Center, [place] [address] [facility] *DO NOT REMOVE THIS DEPARTMENT* [place] [address] Services, Scheduling [address] [place] [address] Appointment Allergies No known active allergiesdocumented as [...] 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 [address] [place] [phone] Madison Recinos DO [address] [place] [address] 05/14/2024 11:45 AM EDT - 05/14/2024 12:15 PM EDT Surgery ENDO [facility], Endoscopy Room [facility] [address] [place] [phone] Madison Recinos DO [address] [place] [address] COLONOSCOPY FLEXIBLE PROXIMAL DIAGNOSTIC 05/22/2024 2:40 PM EDT Office Visit [facility] [address] [place] [address] Marta Bateman PA-C [facility] [place] [address] Scheduled Procedures Name Priority Associated Diagnoses Date/Ti [...] filedocumented as of this encounter Care Teams Gl Accountant Relationship Specialty Start Date End Date Gee Del Valle DO [address] [place] [address] PCP - General Family Medicine 10/20/23 documented as of this encounter
--- OUTSIDE RECORDS SUMMARY | 2024-05-05 17:04 | External Medical Summary | Summary of Care ---
Author Name Unknown Organization [facility] Address [address] [place] [address] Phone [phone] Care Team Providers Care Can Line Examiner Name Role Phone Milton Looney DO Primary Care Provider [phone] Reason for Visit * Reason Comments eRx-Medication Refill Encounter Details Date Type Department Care Team (Late st Contact Info) Description 12/17/2023 Refill Family Practice [facility] 200 [facility] [place] [address] Kamilah Torres MD 200 [place] [address] Generalized anxiety disorder Allergies No known active allergiesdocumented as of this encounter (statuses as of 12/19/2023) Medications Medication Sig Dispensed Refills Start Date [...] 08/23/2023 Triamcinolone Acetonide 0.1 % External Cream (Aristocort)Indicat [...] a day. 60 g 5 4 Active traZODone HCl 50 MG Oral Tablet (Desyrel)Indication s:Alcohol-induced insomnia (HCC) Take 1 Tablet by mouth at bedtime as needed for Sleep. 90 Tablet Active B Complex Formula 1 (Lipotrop) Oral Tablet Take by mouth. Active Milk Thistle 87.5 MG Oral Capsule Take by mouth. Activ e Turmeric 500 MG Oral Capsule Take 1 Capsule by mouth in the morning. Active hydrOXYzine Pamoate 50 MG Oral Capsule (Vistaril)Indicatio ns:Generalized anxiety disorder TAKE 1 CAPSULE BY MOUTH 2 TIMES A DAY NEEDED FOR ANXIETY. 60 Capsule 5 4 Active hydrOXYzine Pamoate 50 MG Oral Capsule (Vistaril)Indicatio ns:Generalized anxiety disorder Take 1 Capsule by mouth 2 times a day as needed for Anxiety. 60 Capsule 5 4 12/19/19 24 Discontinued documented as of this encounter (statuses as of 12/19/2023) Active Problems Problem Noted Date Diagnosed Date Alcoholic hepatitis without ascites 11/29/2022 Generalized anxiety disorder 11/05/2022 Alcohol abuse 11/05/2022 Plaque psoriasis Insomnia documented as of this encounter (statuses as of 12/19/2023) Immunizations No known immunizationsdocumented as of this [...] Miscellaneous Notes * Telephone Encounter - Milton Looney DO - 12/19/2023 1:14 PM EDTSigned Prescriptions: Disp Refills hydrOXYzine Pamoate 50 MG Oral Capsule (Vi*60 Cap*5 Sig: TAKE 1 CAPSULE BY MOUTH 2 TIMES A DAY NEEDED FOR ANXIETY. Authorizing Provider: MILTON LOONEY * Telephone Encounter - Immanuel Goel [facility] - 12/18/2023 3:19 PM EDTPending Prescriptions: Disp Refills hydrOXYzine Pamoate 50 MG Oral Capsule [Ph*60 Cap*5 Sig: Take 1 Capsule by mouth 2 times a day as needed for Anxiety. * Telephone Encounter - Immanuel Goel [facility] - 12/18/2023 3:19 PM EDT Telepharmacy cannot approve hydroxyzine indicated for anxiety. Will pend rx and forward for your review. Thanks Immanuel Goel [facility] Clinical Pharmacist Telepharmacy [phone] 12/18/2023 3:19 PM Last OV 08/03/23 documented in this encounter Plan of Treatment Upcoming Encounters Date Type Department Care Team (Latest Contact Info) Description 12/21/2023 10:45 AM EDT Imaging Radiology [facility] [address] [place] [address] 01/11/2024 10:40 AM EST Office Visit Family Practice [facility] [address] [place] [address] Milton Looney DO [address] [facility] [place] [address] 05/14/2024 11:45 AM EDT Hospital Encounter ENDO [facility], Endoscopy Room [facility] [address] [place] [phone] Madison Recinos DO [address] [place] [address] 05/14/2024 11:45 AM EDT - 05/14/2024 12:15 PM EDT Surgery ENDO [facility], Endoscopy Room [facility] [address] [place] [phone] Madison Recinos DO [address] [place] [address] COLONOSCOPY FLEXIBLE PROXIMAL DIAGNOSTIC Scheduled Procedures Name [...] as of this encounter Visit Diagnoses Diagnosis Generalized anxiety disorder Colon cancer screening Special screening for malignant neoplasms, colon documented in this encounter Care Teams Can Line Examiner Relationship Specialty Start Date End Date Milton Looney DO [address] [place] [address] PCP - General Family Medicine 10/20/23 documented as of this encounter
--- OUTSIDE RECORDS SUMMARY | 2024-05-05 17:04 | External Medical Summary | Summary of Care ---
Author Name Unknown Organization [facility] Address [address] [place] [address] Phone [phone] Care Team Providers Care Youth Nutritional Monitor Name Role Phone Gee Del Valle DO Primary Care Provider [phone] Reason for Referral * Evaluate & Treat - Unlimited Visits (Within 30 days (routine)) - Authorized Specialty Diagnoses / Procedures Referred By Syed tineo Referred To Contact Physical Therapy / Physical Medicine And Rehab Diagnoses Lumbar back pain Degenerative spondylolisthesis Gee Del Valle DO [address] [place] [address] Phone: tel: fax: Referral ID Status Reason Start Date Expiration Date Visits Requested Visits Authorized [id number] Authorized Specialty Services Required [phone] Question Answer Referral Priority Within 30 days (routine) Where should this appointment be scheduled? [facility] Reason for Visit * Reason Comments Follow Up Encounter Details Date Type Department Care Team (Late st Contact Info) Description 01/11/2024 10:40 AM EST Office Visit Family Practice [facility] [place] [address] [place] [address] Gee Del Valle DO [address] [place] [address] Alcohol-induced insomnia (HCC)*; Lumbar back pain; Degenerative spondylolisthesis; Plaque psoriasis; Impaired fasting glucose Allergies No known active allergiesdocumented as of [...] for Sleep. 30 Tablet 5 01/11/20 24 Active Triamcinolone Acetonide 0.1 % External Ointment (Aristocort) Apply topically to affected area 2 times a day. 30 g 5 01/11/20 24 Active Clobetasol Propionate 0.05 % External Ointment (Temovate) Apply topically to affected area 2 times a day. Apply to affected area. 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 Not on file Not on file documented as of this encounter Last Filed Vital Signs Vital Sign Reading Time Taken Comments Blood Pressure 148/88 01/11/2024 10:34 AM EST manual Pulse 113 01/11/2024 10:34 AM EST Temperature 36.9 C (98.4 F) 01/11/2024 1 0:34 AM EST Respiratory Rate 16 01/11/2024 10:3 4 AM EST Oxygen Saturation 97% 01/11/2024 10: 34 AM EST RA Inhaled Oxygen Concentration - - Weight 100.5 kg (221 lb 9.6 oz) 024 10:34 AM EST Height 177.8 cm (5' 10") 01/11/2024 10: 34 AM EST Body Mass Index 31.8 01/11/2024 10:34 AM EST documented in this encounter Progress Notes * Gee Del Valle, DO - 01/11/2024 10:54 AM EST Subjective: Owen Kiser is a 63 year old male. Chief Complaint Patient presents with Follow Up HPI: PT here in follow-up. He is wearing a binder for his back. Helps when walking. We discussed his visit with Dr. Troy. He is working hard to keep up with stretching. He reached out to PT at [place]. No drinking. None through the weekend. None since Labor Day. Dad saw him and was excited. His diet has been good. Less sugar. Rare dark chocolate. Mood has been good. He decided against Cymbalta. Rarely takes Vistaril, not as much anxiety. Tries to get out walking before. He does not feel like Clobetasol is helping. He is using ointment that does help. No swelling, acknowledges that it helps without alcohol. PMHx, meds, and allergies reviewed Patient Active Problem List Diagnosis Plaque psoriasis Insomnia Generalized anxiety disorder Alcohol abuse Alcoholic hepatitis without ascites Current Outpatient Medications Medication Sig Dispense Refill Vitamin D3 25 MCG (1000 UT) Oral Capsule Take 1 Capsule by mouth once. Melatonin 3 MG Oral Tablet Disintegrating Take by mouth. Triamcinolone Acetonide 0.1 % External Cream (Aristocort) Apply to psoriasis on the arms, legs, chest, and back twice daily 450 g 1 Clobetasol Propionate 0.05 % External Cream (Temovate) Apply topically to affected area 2 times a day. 60 g 5 traZODone HCl 50 MG Oral Tablet (Desyrel) Take 1 Tablet by mouth at bedtime as needed for Sleep. 90Tablet 0 B Complex Formula 1 (Lipotrop) Oral Tablet Take by mouth. Milk Thistle 87.5 MG Oral Capsule Take by mouth. hydrOXYzine Pamoate 50 MG Oral Capsule (Vistaril) TAKE 1 CAPSULE BY MOUTH 2 TIMES A DAY NEEDED FOR ANXIETY. 60 Capsule 5 NAC 600 MG Oral Capsule (Acetylcysteine) Take 1 Capsule by mouth in the morning. Turmeric 500 MG Oral Capsule Take 1 Capsule by mouth in the morning. (Patient not taking: Reported on 01/11/2024) No current facility-administered medications for this visit. Review of patient's allergies indicates: No Known Allergies OBJECTIVE: BP 148/88 Comment: manual | Pulse 113 | Temp 36.9 C (98.4 F) (Tympanic) | Resp 16 | Ht 1.778 m (5' 10") | Wt 100.5 kg (221 lb 9.6 oz) | SpO2 97% Comment: RA | BMI 31.80 kg/m | BSA 2.23 m Estimated body mass index is 31.8 kg/m as calculated from the following: Height as of this encounter: 1.778 m (5' 10"). Weight as of this encounter: 100.5 kg (221 lb 9.6 oz). BP Readings from Last 3 Encounters: 01/11/24 148/88 12/09/23 134/82 08/03/23 124/83 Wt Readings from Last 3 Encounters: 01/11/24 100.5 kg (221 lb 9.6 oz) 12/09/23 96 kg (211 lb 9.6 oz) 08/03/23 102.1 kg (225 lb) ROS: Negative except for above PHYSICAL EXAM: General: alert, healthy, and no distress Head: Normocephalic, No masses, lesions, tenderness or abnormalities ASSESSMENT/Plan Alcohol-induced insomnia (HCC) (Primary) - traZODone HCl 50 MG Oral Tablet (Desyrel); Take 1 Tablet by mouth at bedtime as needed for Sleep. Lumbar back pain - PHYSICAL THERAPY REFERRAL OP Degenerative spondylolisthesis - PHYSICAL THERAPY REFERRAL OP Plaque psoriasis Impaired fasting glucose - HEMOGLOBIN A1C; Future; Expected date: 01/11/2024 Other orders - Triamcinolone Acetonide 0.1 % External Ointment (Aristocort); Apply topically to affected area 2 times a day. - Clobetasol Propionate 0.05 % External Ointment (Temovate); Apply topically to affected area 2 times a day. Apply to affected area. I spent a total of 30 minutes on the date of service in preparation, delivery, and documentation ofthe care provided to this patient, excluding any time spent on the performance of any procedure or separately billable services. I'm so impressed by Owen's success! He is off of alcohol and feels so much better for it. He is much clearer and focused in conversation today. Hopefully he can get trazodone and ointments to help chronic issues. We discussed his upcoming fibroscan and getting in to PT. The above was discussed and understanding was expressed. Gee Del Valle DO documented in this encounter Nursing Notes * Shae Bowen NA - 01/11/2024 10:34 AM EST Owen Kiser presents for a follow-up. Patient states he would like to discuss screening for prediabetes and his liver. Patient would like to discuss weight gain since his back injury due to inability to exercise. Patient states he would like to avoid surgery regarding his back injury. Patient would like to review the results of his most recent U/S. Medications & HM reviewed. documented in this encounter Plan of Treatment Upcoming Encounters Date Type Department Care Team (Latest Contact Info) Description 05/02/2024 3:40 PM EST Office Visit [facility] [place] [address] [place] [address] Gee Del Valle, DO 200 [facility] [place] [address] 05/14/2024 11:45 AM EDT Hospital Encounter ENDO [facility], Endoscopy Room OSS [address] [place] [phone] Madison Recinos DO [address] [place] [address] 05/14/2024 11:45 AM EDT - 05/14/2024 12:15 PM EDT Surgery ENDO [facility], Endoscopy Room [facility] [address] [place] [phone] Madison Recinos DO [address] [place] [address] COLONOSCOPY FLEXIBLE PROXIMAL DIAGNOSTIC Scheduled Orders Name Type Priority Associated Diagnoses Orde r Schedule HEMOGLOBIN A1C Lab Routine Impaired fasting glucose Expected: 01/11/2024 (Approximate), Expires: 01/10/2025 Scheduled Procedures Name Priority Associated Diagnoses Date/Ti me COLONOSCOPY FLEXIBLE PROXIMAL DIAGNOSTIC Colon cancer screening 05/14/2024 11:45 AM EDT Scheduled Referrals Name Type Priority Associated Diagnoses Orde r Schedule PHYSICAL THERAPY REFERRAL OP Referral Within 30 days (routine) Lumbar back pain Degenerative spondylolisthesis Ordered: 01/11/2024 Health Maintenance Due Date Last Done Comments [...] Risk 3-dose series) 2022 COVID-19 Vaccine ( season) 2023 Influenza Vaccine (FLU shot) (#1) [...] this encounter Visit Diagnoses Diagnosis Alcohol-induced insomnia (HCC)- Primary Alcohol induced sleep disorders Lumbar back pain Lumbago Degenerative spondylolisthesis Acquired spondylolisthesis Plaque psoriasis Other psoriasis Impaired fasting glucose Colon cancer screening Special screening for malignant neoplasms, colon documented in this encounter Care Teams Youth Nutritional Monitor Relationship Specialty Start Date End Date Gee Del Valle DO [address] [place] [address] PCP - General Family Medicine 10/20/23 documented as of this encounter
--- OUTSIDE RECORDS SUMMARY | 2024-05-05 17:04 | External Medical Summary | Summary of Care ---
Author Name Unknown Organization [facility] Address [address] [facility] [address] Phone [phone] Care Team Providers Care Contract Engineer Name Role Phone Gee Del Valle DO Primary Care Provider [phone] Encounter Details Date Type Department Care Team (Late st Contact Info) Description 01/13/2024 Orders Only PATIENT PORTAL DO NOT DELETE THIS DEPT USED BY [place] [id number] Allergies No known active allergiesdocumented as of this encounter (statuses as of 01/13/2024) Medications Vitamin D3 25 MCG (1000 UT) [...] as of this encounter (statuses as of 01/13/2024) Active Problems Problem Noted Date Diagnosed Date Alcoholic hepatitis without ascites 11/29/2022 Generalized anxiety disorder 11/05/2022 Alcohol abuse 11/05/2022 Plaque psoriasis Insomnia documented as of this encounter (statuses as of 01/13/2024) Immunizations No known immunizationsdocumented as of this [...] 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 Not on file Not on file documented as of this encounter Plan of Treatment Upcoming Encounters Date Type Department Care Team (Latest Contact Info) Description 05/02/2024 3:40 PM EST Office Visit Family Practice [facility] [employer] [address] [place] [address] Gee Del Valle, DO [address] [place] [address] 05/14/2024 11:45 AM EDT Hospital Encounter ENDO [facility], Endoscopy Room O[facility] [address] [place] [phone] Madison Recinos DO [address] [place] [address] 05/14/2024 11:45 AM EDT - 05/14/2024 12:15 PM EDT Surgery ENDO [facility], Endoscopy Room [facility] [address] [place] [phone] Madison Recinos DO [address] [place] [address] COLONOSCOPY FLEXIBLE PROXIMAL DIAGNOSTIC Scheduled Procedures Name [...] filedocumented as of this encounter Care Teams Contract Engineer Relationship Specialty Start Date End Date Gee Del Valle DO [address] [place] [address] PCP - General Family Medicine 10/20/23 documented as of this encounter
--- OUTSIDE RECORDS SUMMARY | 2024-05-05 17:04 | External Medical Summary | Summary of Care ---
Author Name Unknown Organization [facility] Address [address] [place] [address] Phone [phone] Care Team Providers Care Pediatric Audiologist Name Role Phone Gee Del Valle DO Primary Care Provider [phone] Reason for Visit * Reason Onset Date Comments Medication Refill 12/05/2023 Encounter Details Date Type Department Care Team (Late st Contact Info) Description 12/05/2023 Refill Family Practice [facility] [address] [place] [address] Gee Del Valle DO [address] [place] [address] Alcohol-induced insomnia (HCC) Allergies No known active [...] needed for Sleep. 90 Tablet 12/09/2023 Active traZODone HCl 50 MG Oral Tablet (Desyrel)Indication s:Alcohol-induced insomnia (HCC) Take 1 Tablet by mouth at bedtime as needed for Sleep. 90 Tablet 10/21/2023 4 Discontinu ed(Refill) documented as of this encounter (statuses as [...] No 07/13/2023 Does the household have a [facility] source of income? (Household - for [...] encounter Miscellaneous Notes * Telephone Encounter - Lucila Lynn III, MD - 12/09/2023 4:22 PM EDTSigned Prescriptions: Disp Refills traZODone HCl 50 MG Oral Tablet (Desyrel) 90 Tab*0 Sig: Take 1 Tablet by mouth at bedtime as needed for Sleep.Authorizing Provider: LUCILA LYNN III * Telephone Encounter - Dilma Sterling CPhT - 12/09/2023 3:37 PM EDT Pt lost medication, [facility] states he picked up 90ds in October but pt does not have it Did you pend patient's preferred pharmacy and medication before forwarding?yes Pharmacy: [id number] [address] [facility] Pending Prescriptions: Disp Refills traZODone HCl 50 MG Oral Tablet (Desyrel) 90 Tab*0 Sig: Take 1 Tablet by mouth at bedtime as needed for Sleep. Last Visit: 08/03/2023 (in office), Visit date not found (telemedicine) Next Visit: 01/11/2024 If no future appointments scheduled, and last appointment is greater than a year ago, please schedule patient for a follow-up appointment Last date the medication was ordered: 10/21/23 Is this request for a controlled substance?No Urine Drug Screen:No results found for this or any previous visit. Patient Phone Numbers Labs: Lab Results Component Value Date/Time CREAT 0.7 12/09/2023 09:35 AM CREAT 0.62 12/26/2017 12:00 AM CREAT 0.7 11/15/2014 09:18 AM POTASSIUM 4.5 12/09/2023 09:35 AM POTASSIUM 3.4 12/26/2017 12:00 AM POTASSIUM 4.6 11/15/2014 09:18 AM TSH 3.32 11/05/2022 03:14 PM TSH 1.070 12/26/2017 12:00 AM LDL 115 11/05/2022 03:14 PM LDL 65 11/15/2014 09:18 AM LDL NOT APPLICABLE 11/15/2014 09:18 AM ALT 40 12/09/2023 09:35 AM HGBA1C 5.5 07/07/2023 09:19 AM * Telephone Encounter - Dilma Watt LPN - 12/07/2023 3:43 PM EDT I spoke to patient for a care gaps follow up and he inquired about this. I told him that [facility] confirmed he received 90 tablets. He said his bottle says 30. I told him he should call [facility] about the difference in the number of tablets. He will call reach out to them. Thank you, Dilma Watt LPN Care Gaps Department * Telephone Encounter - Madison Guillen CPhT - 12/05/2023 3:23 PM EDT Pt calling in for trazodone refill. Refused as of this morning because too soon. I called [facility] and they verified that the pt did receive a 3 month supply on 11/23/23, pt states he is down to 1 tablet as of today and needs refill. Says he only received a 30 day supply. If appropriate, please send refill to [id number] Thank you, Madison Guillen [facility] 12/05/2023,3:24 PM documented in this encounter Plan of Treatment Upcoming Encounters Date Type Department Care Team (Latest Contact Info) Description 12/15/2023 10:45 AM EDT Imaging Radiology [facility] 132 [facility] [place] [address] 01/11/2024 10:40 AM EST Office Visit Family Practice [facility] [address] [place] [address] Gee Del Valle DO 200 [facility] [place] [address] 05/14/2024 11:45 AM EDT Hospital Encounter [facility]O [facility], Endoscopy Room [facility] [address] [place] [phone] Madison Recinos DO [address] [place] [address] 05/14/2024 11:45 AM EDT - 05/14/2024 12:15 PM EDT Surgery ENDO [facility], Endoscopy Room [facility] [address] [place] [phone] Madison Recinos DO [address] [address] COLONOSCOPY FLEXIBLE PROXIMAL DIAGNOSTIC Scheduled Procedures Name [...] colon documented in this encounter Care Teams Pediatric Audiologist Relationship Specialty Start Date End Date Gee Del Valle DO [address] [place] [address] PCP - General Family Medicine 10/20/23 documented as of this encounter
--- OUTSIDE RECORDS SUMMARY | 2024-05-05 17:04 | External Medical Summary | Summary of Care ---
Author Name Unknown Organization [facility] Address [address] [place] [address] Phone [phone] Care Team Providers Care Broadcast Technician Name Role Phone IvonGee Primary Care Provider [phone] Reason for Visit * Reason Comments NEW PATIENT New pt ref by Leslee Maria/Dr Del Valle for elevated LFT's/cirrhosis. * Evaluate & Treat - Unlimited Visits (Within 30 days (routine)) - Authorized Specialty Diagnoses / Procedures Referred By Syed tineo Referred To Contact Gastroenterology Diagnoses Elevated LFTs Alcoholic hepatitis, unspecified whether ascites present Leslee Chiang CRNP [address] [facility] [place] [address] Referral ID Status Reason Start Date Expiration Date Visits Requested Visits Authorized [id number] Authorized Specialty Services Required [id number] [phone] Encounter Details Date Type Department Care Team (Late st Contact Info) Description 12/09/2023 9:20 AM EDT Office Visit [facility], [facility] [place] [address] Marah Bonner MD [address] [place], [place] [address] [address] Alcoholic hepatitis without ascites*; Fatty liver Allergies [...] No 07/13/2023 Does the household have a [facility] source of income? (Household - for [...] seen in fup in gi clinic thru [facility] in fall after a hospitalization at [facility] preceding that GI offfice fup visit that [...] on lasix. 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 Came from [facility]. Born in [place]. Went to [facility]. Did a lot of travelling with his [...] Stability Do you currently live in a mcc or have no steady place to sleep [...] to review Last CT in 11/20 thru [facility] - report reviewed - states fatty liver and fatty pancreas and mild diverticulosis A/P: Ethanol hepatitis - now resolved ? Cirrhosis - not clear if he has that diagnosis, last ct abdomen in 2023 showed fatty liver and fatty pancreas thru [facility] per report review, if he does have [...] Fup in 6 months Marah Bonner MD Labs reviewed on day of visit - INR returned at 1.2 CBC returned - wnl. documented in this encounter Nursing Notes * Miranda Gage CMA - 12/09/2023 9:07 AM EDT Chief Complaint Patient presents with NEW PATIENT New pt ref by Leslee Maria/Dr Del Valle for elevated LFT's/cirrhosis. documented in this encounter Plan of Treatment Upcoming Encounters Date Type Department Care Team (Latest Contact Info) Description 12/15/2023 10:45 AM EDT Imaging Radiology [facility] [address] [place] [address] 01/11/2024 10:40 AM EST Office Visit Family [facility] [address] [place] [address] Gee Del Valle, DO [address] [place] [address] 05/14/2024 11:45 AM EDT Hospital Encounter ENDO [facility], Endoscopy Room [facility] [address] [place] [address] Madison Recinos DO [address] [place] [address] 05/14/2024 11:45 AM EDT - 05/14/2024 12:15 PM EDT Surgery ENDO [facility], Endoscopy Room [facility] [address] [place] [phone] Madison Recinos DO [address] [place] [address] COLONOSCOPY FLEXIBLE PROXIMAL DIAGNOSTIC Pending Results Name [...] filedocumented as of this encounter Results * PT INR (12/09/2023 9:35 AM EDT) Prothrombin Time 14.9 11.6 - 15.2 seconds 12/09/2023 10:50 AM EDT [facility] [place] 57-10 INR 1.2 0.8 - 1.2 12/09/2023 10:50 AM EDT [facility] [place] 57-10 Blood Venous blood specimen / Unknown Venipuncture / Unknown 12/09/2023 9:35 AM EDT 12/09/2023 9:35 AM EDT Narrative [facility] [place] 57-10 - 12/09/2023 10:50 AM EDT Warfarin Therapy INR: 2.0-3.0 conventional anticoagulation INR: 2.5-3.5 high intensity anticoagulation Marah Bonner MD LAB BLOOD ORDERABLES [facility] [place] 57-[address] [place] [address] * CBC (12/09/2023 9:35 AM EDT) WBC [...] BLOOD ORDERABLES [facility] [place] 57-10 [address] [place] [address] documented in this encounter Visit Diagnoses Diagnosis Alcoholic hepatitis without ascites- Primary Acute alcoholic hepatitis Fatty liver Other chronic nonalcoholic liver disease Colon cancer screening Special screening for malignant neoplasms, colon documented in this encounter Care Teams Broadcast Technician Relationship Specialty Start Date End Date Gee Del Valle DO 200 [facility] [place] [address] PCP - General Family Medicine 10/20/23 documented as of this encounter"
--- OUTSIDE RECORDS SUMMARY | 2024-05-05 17:04 | External Medical Summary | Summary of Care ---
Author Name Unknown Organization [facility] Address [address] [place] [address] Phone [phone] Care Team Providers Care Fisher Crab Name Role Phone UcheGee mariee DO Primary Care Provider [phone] Reason for Visit * Reason Comments Outpatient Testing Encounter Details Date Type Department Care Team (Late st Contact Info) Description 12/09/2023 9:40 AM EDT Laboratory Laboratory, [facility] [address] [place] [address] [facility] 132 [place] [address] Fatty liver Allergies No known active allergiesdocumented [...] No 07/13/2023 Does the household have a [facility] source of income? (Household - for [...] Description 12/15/2023 10:45 AM EDT Imaging Radiology [facility] [address] [place] [address] 01/11/2024 10:40 AM EST Office Visit Family Practice [facility] [place] [address] [place] [address] Gee Del Valle, DO [address] [facility] [place] [address] 05/14/2024 11:45 AM EDT Hospital Encounter ENDO [facility], Endoscopy Room [facility] [address] [place] [phone] Madison Recinos, [address] [place] [address] 05/14/2024 11:45 AM EDT - 05/14/2024 12:15 PM EDT Surgery ENDO [facility], Endoscopy Room [facility] [address] [place] [phone] Madison Recinos, [address] [place] [address] COLONOSCOPY FLEXIBLE PROXIMAL DIAGNOSTIC Pending Results Name Type Priority Associated Diagnoses Date /Time CBC Lab Routine Fatty liver 12/09/2023 9:35 AM EDT COMPREHENSIVE METABOLIC PANEL Lab Routine Fatty liver 12/09/2023 9:35 AM EDT PT INR Lab Routine Fatty liver 12/09/2023 9:35 AM EDT Scheduled Procedures Name Priority Associated Diagnoses Date/Ti [...] of this encounter Visit Diagnoses Diagnosis Fatty liver Other chronic nonalcoholic liver disease Colon cancer screening Special screening for malignant neoplasms, colon documented in this encounter Care Teams Fisher Crab Relationship Specialty Start Date End Date Gee Del Valle DO [address] [place] [address] PCP - General Family Medicine 10/20/23 documented as of this encounter
--- OUTSIDE RECORDS SUMMARY | 2024-05-05 17:04 | External Medical Summary | Summary of Care ---
Author Name Unknown Organization [facility] Address [address] [facility] [address] Phone [phone] Care Team Providers Care Workplace Trainer And Assessor Name Role Phone UcheGee mariee Primary Care Provider [phone] Encounter Details Date Type Department Care Team (Late st Contact Info) Description 01/02/2024 Telephone ENDO [facility], Endoscopy Room [facility] 132 [facility] [place] [address] Marah Bonner MD [address] [place] [address] [place] [address] Allergies No known active allergiesdocumented as of this encounter (statuses as of 01/12/2024) Medications Vitamin D3 25 MCG (1000 UT) [...] as of this encounter (statuses as of 01/12/2024) Active Problems Problem Noted Date Diagnosed Date Alcoholic hepatitis without ascites 11/29/2022 Generalized anxiety disorder 11/05/2022 Alcohol abuse 11/05/2022 Plaque psoriasis Insomnia documented as of this encounter (statuses as of 01/12/2024) Immunizations No known immunizationsdocumented as of this [...] No 07/13/2023 Does the household have a [facility] source of income? 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 file Not [...] Description 05/02/2024 3:40 PM EST Office Visit [facility] [address] [place] [address] [place] [address] Gee Del Valle, DO [address] [place] [address] 05/14/2024 11:45 AM EDT Hospital Encounter ENDO [facility], Endoscopy Room [facility] [address] [place], [place] [phone] Madison Recinos DO [address] [place] [address] 05/14/2024 11:45 AM EDT - 05/14/2024 12:15 PM EDT Surgery ENDO [facility], Endoscopy Room [facility] [address] [place] [phone] Madison Recinos DO [address] [place] [address] [place] [address] COLONOSCOPY FLEXIBLE PROXIMAL DIAGNOSTIC Scheduled Orders Name [...] colon documented in this encounter Care Teams Workplace Trainer And Assessor Relationship Specialty Start Date End Date Gee Del Valle DO [address] [place] [address] PCP - General Family Medicine 10/20/23 documented as of this encounter
--- OUTSIDE RECORDS SUMMARY | 2024-05-05 17:04 | External Medical Summary | Summary of Care ---
Author Name Unknown Organization [facility] Address [address] [place] [address] Phone [phone] Care Team Providers Care Mill Beam Fitter Name Role Phone Gee Del Valle DO Primary Care Provider [phone] Reason for Visit * Reason Onset Date Comments Advice 01/11/2024 Encounter Details Date Type Department Care Team (Late st Contact Info) Description 01/11/2024 Telephone Family Practice [facility] [place] [address] Gee Del Valle DO 200 [facility] [place] [address] Advice Allergies No known active allergiesdocumented as of this encounter (statuses as of 01/25/2024) Medications Vitamin D3 25 MCG (1000 UT) [...] as of this encounter (statuses as of 01/25/2024) Active Problems Problem Noted Date Diagnosed Date Alcoholic hepatitis without ascites 11/29/2022 Generalized anxiety disorder 11/05/2022 Alcohol abuse 11/05/2022 Plaque psoriasis Insomnia documented as of this encounter (statuses as of 01/25/2024) Immunizations No known immunizationsdocumented as of this [...] 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 Pt was transferred to a Dedicated nurse for further advice. mm * Telephone Encounter - Shelia Francis LPN - 01/19/2024 4:11 PM EST Attempted to call patient, there was no answer, left voicemail. When patient returns call, ok for EDEN to relay message, please refer to below documentation. If needed, can transfer to dedicated nurse line. * Telephone Encounter - Gee Del Valle DO - 01/16/2024 3:44 PM EST We had talked about physical therapy and there is an order for that. Is that what he means? OR doeshe mean someone who would do injections in his back? * Telephone Encounter - Diego Rome OSA - 01/11/2024 1:26 PM EST Patient stated that he had an appointment with Gee Del Valle DO Today. It was mentioned about Pain Management at the visit. Patient would like to proceed with pain management. He stated that he is not sure what the process is. He would like a referral/order placed for that. Please advise. documented in this encounter Plan of Treatment Upcoming Encounters Date Type Department Care Team (Latest Contact Info) Description 03/29/2024 10:00 AM EST Office Visit Interventional Pain Center, [facility] [address] [place] [address] Natasha Lamar PA-C [address] [place] [address] 05/02/2024 3:40 PM EST Office Visit Family Practice [facility] [place] [address] [place] [address] Gee Del Valle DO [address] [place] [address] 05/14/2024 11:45 AM EDT Hospital Encounter ENDO [facility], Endoscopy Room [facility] [address] [place] [phone] Madison Recinos, [address] [place] [address] 05/14/2024 11:45 AM EDT - 05/14/2024 12:15 PM EDT Surgery ENDO [facility], Endoscopy Room [facility] [address] [place] [phone] Madison Recinos, [address] [place] [address] COLONOSCOPY FLEXIBLE PROXIMAL DIAGNOSTIC 05/22/2024 2:40 PM EDT Office Visit [facility] [place] 200 [facility] [place] [address] Marta Bateman PA-C 200 [facility] [place] [address] Scheduled Procedures Name Priority Associated Diagnoses Date/Ti [...] filedocumented as of this encounter Care Teams Mill Beam Fitter Relationship Specialty Start Date End Date Gee Del Valle DO [facility] [place] [address] PCP - General Family Medicine 10/20/23 documented as of this encounter
--- OUTSIDE RECORDS SUMMARY | 2024-05-05 17:05 | External Medical Summary | Summary of Care ---
Author Name Unknown Organization [facility] Address [address] [place] [address] Phone [phone] Care Team Providers Care Clean Up Supervisor Name Role Phone Gee Del Valle DO Primary Care Provider [phone] Reason for Visit * Reason Onset Date Comments Health Maintenance 12/06/2023 Encounter Details Date Type Department Care Team (Late st Contact Info) Description 12/06/2023 Telephone Family Practice [facility] [address] [place] [address] Gee Del Valle DO [address] [place] [address] Health Maintenance Allergies No known active allergiesdocumented as of this encounter (statuses as of 12/07/2023) Medications Medication Sig Dispensed Refills Start Date [...] or chew. 30 Capsule 5 08/03/2023 Active traZODone HCl 50 MG Oral Tablet (Desyrel)Indications :Alcohol-induced insomnia (HCC) Take 1 Tablet by mouth at bedtime as needed for Sleep. 90 Tablet 10/21/2023 Active Clobetasol Propionate 0.05 % External Cream (Temovate) Apply topically to affected area 2 times a day. 60 g 5 11/01/2023 Active documented as of this encounter (statuses as of 12/07/2023) Active Problems Problem Noted Date Diagnosed Date Alcoholic hepatitis without ascites 11/29/2022 Generalized anxiety disorder 11/05/2022 Alcohol abuse 11/05/2022 Plaque psoriasis Insomnia documented as of this encounter (statuses as of 12/07/2023) Immunizations No known immunizationsdocumented as of this [...] encounter Miscellaneous Notes * Telephone Encounter - Dilma Watt LPN - 12/07/2023 10:38 AM EDT Patient left a vm message left for patient to call back. * Telephone Encounter - Dilma Watt LPN - 12/06/2023 10:56 AM EDT Care Gaps Comprehensive Care Outreach Last Office/Telemedicine Visit: 08/03/2023 (in office), Visit date not found (telemedicine) Next Office Visit: 01/11/2024 Hemoglobin AIC Results: Lab Results Component Value Date/Time HEMOGLOBIN A1C - [facility] 5.5 07/07/2023 09:19 AM HEMOGLOBIN A1C - [facility] 5.7 (H) 11/05/2022 03:14 PM BP Readings from Last 1 Encounters: 08/03/23 124/83 Reviewed Health Maintenance below: Health Maintenance Topic Date Due Pneumococcal Vaccine: Pediatrics (0 to 5 Years) and At-Risk Patients (6 to 64 Years) (1 of 2 - PCV)Never done DTap/Tdap Vaccines (1 - Tdap) Never done Colorectal Cancer Screening Never done colon Care Gap Outreach Action Taken: Left message documented in this encounter Plan of Treatment Upcoming Encounters Date Type Department Care Team (Late st Contact Info) Description 12/09/2023 9:20 AM EDT Office Visit Hepatology, [facility] 132 [facility] [place] [address] Marah Bonner MD [address] [place] [address] 01/11/2024 10:40 AM EST Office Visit Family Practice [facility] [address] [place] [address] Gee Del Valle DO [address] [place] [address] Health Maintenance Due Date Last Done Comments [...] filedocumented as of this encounter Care Teams Clean Up Supervisor Relationship Specialty Start Date End Date Gee Del Valle DO [address] [place] [address] PCP - General Family Medicine 10/20/23 documented as of this encounter
--- OUTSIDE RECORDS SUMMARY | 2024-05-05 17:05 | External Medical Summary | Summary of Care ---
Author Name Unknown Organization [facility] Address [address] [place] [address] Phone [phone] Care Team Providers Care Computer Systems Design Analyst Name Role Phone Gee Del Valle DO Primary Care Provider [phone] Reason for Visit * Reason Comments eRx-Medication Refill Encounter Details Date Type Department Care Team (Late st Contact Info) Description 11/16/2023 Refill Family Practice [facility] [address] [place] [address] Gee Del Valle DO [address] [place] [address] Alcohol-induced insomnia (HCC) Allergies No known active allergiesdocumented as of this encounter (statuses as of 11/17/2023) Medications Medication Sig Dispensed Refills Start Date [...] as of this encounter (statuses as of 11/17/2023) Active Problems Problem Noted Date Diagnosed Date Alcoholic hepatitis without ascites 11/29/2022 Generalized anxiety disorder 11/05/2022 Alcohol abuse 11/05/2022 Plaque psoriasis Insomnia documented as of this encounter (statuses as of 11/17/2023) Immunizations No known immunizationsdocumented as of this [...] encounter Miscellaneous Notes * Telephone Encounter - Bhavna Elizabeth RPh - 11/17/2023 4:49 AM EDT Refused Prescriptions: Disp Refills traZODone HCl 50 MG Oral Tablet (Desyrel) 30 Tab*1 Sig: TAKE 1 TABLET BY MOUTH EVERY DAY AT BEDTIME NEEDED FOR SLEEPRefused By: BHAVNA ELIZABETH for Refusal: Too soon documented in this encounter Plan of Treatment Upcoming Encounters Date Type Department Care Team (Late st Contact Info) Description 11/24/2023 8:00 AM EDT Office Visit Interventional Pain Center, [facility] 132 [facility] [place] [address] August Brooks, DO [address] [place] [address] 11/30/2023 3:20 PM EDT Office Visit Family Practice [facility] [address] [place] [address] Gee Del Valle, DO [address] [place] [address] 12/09/2023 9:20 AM EDT Office Visit Hepatology, [facility] [address] [place] [address] Marah Bonner MD [address] [place] [address] Health Maintenance Due Date Last Done Comments [...] disorders documented in this encounter Care Teams Computer Systems Design Analyst Relationship Specialty Start Date End Date Gee Del Valle DO [address] [place] [address] PCP - General Family Medicine 10/20/23 documented as of this encounter
--- OUTSIDE RECORDS SUMMARY | 2024-05-05 17:05 | External Medical Summary ---
Author Name Unknown Address Unknown Organization [facility] [address] [place] [address] Laboratory Report Ordering Provider Test Date Status SASHA BECK 12/09/2023 09:35:47 Final Warfarin Therapy
INR: 2 .0-3.0 conventional anticoagulation
INR: 2.5- 3.5 high intensity anticoagulation Observation Date Value Abnormality Reference (Units ) Status PT 12/09/2023 09:35:47 14.9 11.6-15.2 (seconds) Final INR 12/09/2023 09:35:47 1.2 0.8-1.2 Final Performing Location [facility] [address] [place] [address]
--- OUTSIDE RECORDS SUMMARY | 2024-05-05 17:05 | External Medical Summary | Summary of Care ---
Author Name Unknown Organization [facility] Address [address] [place] [address] Phone [phone] Care Team Providers Care Job Placement Counselor Name Role Phone Gee Del Valle DO Primary Care Provider [phone] Reason for Visit * Reason Comments eRx-Medication Refill Encounter Details Date Type Department Care Team (Late st Contact Info) Description 12/02/[address] [facility] [address] [place] [address] Gee Del Valle DO [address] [place] [address] Alcohol-induced insomnia (HCC) Allergies No known active allergiesdocumented as of this encounter (statuses as of 12/05/2023) Medications Medication Sig Dispensed Refills Start Date [...] as of this encounter (statuses as of 12/05/2023) Active Problems Problem Noted Date Diagnosed Date Alcoholic hepatitis without ascites 11/29/2022 Generalized anxiety disorder 11/05/2022 Alcohol abuse 11/05/2022 Plaque psoriasis Insomnia documented as of this encounter (statuses as of 12/05/2023) Immunizations No known immunizationsdocumented as of this [...] encounter Miscellaneous Notes * Telephone Encounter - Joycelyn Gandara RPh - 12/05/2023 11:05 AM EDTRefused Prescriptions: Disp Refills traZODone HCl 50 MG Oral Tablet (Desyrel) 30 Tab*1 Sig: TAKE 1TABLET BY MOUTH EVERY DAY AT BEDTIME NEEDED FOR SLEEPRefused By: JOYCELYN GANDARA for Refusal: Too soon documented in this encounter Plan of Treatment Upcoming Encounters Date Type Department Care Team (Late st Contact Info) Description 12/09/2023 9:20 AM EDT Office Visit Hepatology, [address] [place] [id number] Marah Bonner MD [address] [place] [address] 01/11/2024 10:40 AM EST Office Visit [facility] [address] [place] [address] Gee Del Valle DO [address] [facility] [place] [address] Health Maintenance Due Date Last Done Comments [...] disorders documented in this encounter Care Teams Job Placement Counselor Relationship Specialty Start Date End Date Gee Del Valle DO [address] [place] [address] PCP - General Family Medicine 10/20/23 documented as of this encounter
--- OUTSIDE RECORDS SUMMARY | 2024-05-05 17:05 | External Medical Summary | Summary of Care ---
Author Name Unknown Organization [facility] Address [address] [place] [address] Phone [phone] Care Team Providers Care Cage Maker Name Role Phone Gee Del Valle DO Primary Care Provider [phone] Reason for Visit * Reason Onset Date Comments Health Maintenance 12/06/2023 Encounter Details Date Type Department Care Team (Late st Contact Info) Description 12/06/2023 Telephone Family Practice [facility] [address] [place] [address] Gee Del Valle DO [address] [place] [address] Health Maintenance Allergies No known active allergiesdocumented as of this encounter (statuses as of 12/06/2023) Medications Medication Sig Dispensed Refills Start Date [...] as of this encounter (statuses as of 12/06/2023) Active Problems Problem Noted Date Diagnosed Date Alcoholic hepatitis without ascites 11/29/2022 Generalized anxiety disorder 11/05/2022 Alcohol abuse 11/05/2022 Plaque psoriasis Insomnia documented as of this encounter (statuses as of 12/06/2023) Immunizations No known immunizationsdocumented as of this [...] 12/09/2023 9:20 AM EDT Office Visit Hepatology, [facility] [address] [place] [address] Marah Bonner MD [address] [place] [address] 01/11/2024 10:40 AM EST Office Visit Family Practice [facility] [place] [address] [place] [address] Gee Del Valle DO [address] [facility] [place] [address] Health Maintenance Due Date Last Done Comments [...] filedocumented as of this encounter Care Teams Cage Maker Relationship Specialty Start Date End Date Gee Del Valle DO [address] [place] [address] PCP - General Family Medicine 10/20/23 documented as of this encounter
--- NOTE | 2024-05-05 17:26 | Emergency Department Note ---
Impression & Plan Complete heart block, Alcohol intoxication, Pulmonary edema ED Provider Note HISTORY OF PRESENT ILLNESS: Patient is a 63-year-old male presenting with dizziness. Patient presents with EMS after he was trying to get on a bus and became dizzy and lightheaded and fell backwards trying to get onto the bus. He was caught by bystanders, who called 911. Patient did not hit his head or lose consciousness. Patient denies any chest pain or shortness of breath prior to the fall. He does report that he has been unable to lay flat secondary to shortness of breath over the last week. 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 He denies any recent changes in medications. He has been on trazodone and gabapentin over the last month for his neuropathy and low back pain. He does report that he has been doing well up until this morning. He denies any anticoagulation use. He does report that last night he "slipped up" and drank half a bottle of Listerine for the alcohol content. He reports that he has been previously sober. He has not had anything to drink today. ROS: as above PHYSICAL EXAM: Constitutional: Patient appears in no acute distress. HENT: Head: Normocephalic and atraumatic. Eyes: EOMI, PERRL Mouth/Throat: Mucous membranes moist. Neck: Trachea midline. Neck supple. Cardiovascular: Bradycardic. No murmurs, rubs or gallops. Intact distal pulses. Pulmonary/Chest: No respiratory distress. Breath sounds clear and equal bilaterally. No wheezes or rales. Abdominal: Abdomen soft, no tenderness, rebound or guarding. Musculoskeletal: No edema, tenderness or deformity noted. Skin: Warm and dry. No rash, erythema, pallor or cyanosis Psychiatric: Appropriate mood and affect for situation. Neurological: Alert and keenly responsive. CN II-XII grossly intact, moving all extremities equally and fully. MDM: - Vitals signs showed bradycardia. - History obtained via patient. History as above. - Chronic conditions affecting care: alcohol abuse; HTN; transaminitis; psoriasis - Differential diagnoses include, but are not limited to: Electrolyte abnormality; drug-induced cardiomyopathy; BNP; ACS; dysrhythmia; medication side-effect - Order placed for continuous cardiac monitoring. At this time, monitor showed rate of 33 bpm with irregular rhythm, per my interpretation. - External medical records reviewed. Discharge summary dated 10/16/2023 was reviewed. Patient was admitted at that time for alcohol intoxication and ambulatory dysfunction. - EKG image interpreted by myself showed normal sinus rhythm but with a complete heart block. Rate bradycardic at 32 bpm. QT 646. No acute ischemic changes. EKG was obtained at 17:06 and showed to me at 17:12. - Laboratory workup interpreted by myself showed normal WBC; chronic anemia (Hgb 11.2); normal PT/INR; stable electrolytes; elevated creatinine (Cr 1.2); normal troponin; normal TSH; normal magnesium; ; elevated alcohol (305.6) - CXR image interpreted by myself negative for pneumonia, per my interpretation. Radiology notes small pleural effusions with bilateral airspace opacities and findings consistent with CHF with cardiomegaly, pulmonary vascular congestion and mild pulmonary edema. - BNP added to workup - Discussed case with air twist operator on-call, Dr. Herman, at 17:26. He presented to bedside. We administered a total of 2 mg of IV atropine with minimal improvement in the patient's heart rate. He was then initiated on 5 mcg of IV dopamine again with little improvement in the heart rate. Dr. Herman discussed placement of a temporary pacemaker with the patient and patient was agreeable. Heart alert was initiated to call in the Sales Center Manager for temporary pacemaker placement. - Patient's heart rate remained in the low 30s despite the 5 mcg of dopamine, and dopamine was increased to 7.5 mcg. Patient has remained vitally stable otherwise with a blood pressure of 10 5-1 10 systolic. - Discussed case with [facility] service, who the patient will be admitted under after Sales Center Manager. Also sent a message to the ICU attending, as patient will be placed in the ICU post Sales Center Manager. - Patient taken to manufacturing laborer for temporary pacemaker placement. I have personally spent 62 minutes of critical care time in the direct management of this patient. This includes bedside care, interpretation of diagnostic studies, and testing, discussion with consultants, patient, and family members, and other required patient management activities. This 62 minutes is in excess of all separately billable procedures. ASSESSMENT AND PLAN: Diagnosis: Complete heart block; alcohol intoxication; pulmonary edema Plan: admit Past Med/Surg History Problem List (Updated 05/05/24 @ 18:21 by Joycelyn Alvarez MD) Pulmonary edema (Acute) Alcohol intoxication (Acute) Complete heart block (Acute) Alcoholic hepatitis Acute hypokalemia (Acute) Transaminitis (Acute) Hypokalemia Lab test negative for COVID-19 virus (Acute) Alcohol intoxication delirium (Acute) HTN (hypertension) Alcohol abuse (Acute) Mood disorder (Acute) Medical History Alcoholic intoxication Fx medial malleolus-closed Hypokalemia Mood disorder Psoriasis Surgical History No pertinent past surgical history Family History Other Colorectal cancer No pertinent family history Social History Smoking Status: Former smoker Second Hand Exposure: Yes; Do You Dip or Chew Tobacco: No; Hx Alcohol Use: Yes Alcohol type: hard liquor and other Alcohol Intake Frequency: 4 or More x per/Week Hx Substance Use: No Preferred Language: Khmer Communication Ability: Effective 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 Required: No Beliefs That Will Affect Care: None Current Living Situation: Alone Feels Safe at Home: Yes Assistive Devices: Walker Allergies Allergies Allergy/AdvReac Type Severity Reaction Status Date / Time No Known Allergies Allergy Verified 10/15/23 19:56 Home Meds Home Medications Medication Instructions Recorded Confirmed furosemide 40 mg tablet 40 mg PO DAILY PRN Edema 10/15/23 10/15/23 hydroxyzine pamoate 50 mg capsule 50 mg PO BID PRN Anxiety 10/15/23 10/15/23 trazodone 50 mg tablet 50 mg PO HS PRN Sleep 10/15/23 10/15/23 Results & Data (ED) Vital Signs Vital Signs - 24 hr 05/05/24 16:48 05/05/24 16:48 05/05/24 16:48 Temperature 36.5 C 36.4 C L Temperature Source Oral Oral Pulse Rate 43 L Pulse Rate [Right Brachial] 43 L Pulse Rhythm Regular Pulse Rhythm [Right Brachial] Regular Pulse Strength Normal Pulse Strength [Right Brachial] Normal Respiratory Rate 11 L 11 L Respiratory Effort / Characteristics Non-Labored Non-Labored Respiratory Depth Normal Normal Respiratory Pattern Regular Regular Blood Pressure 105/60 Blood Pressure [Right Arm] 105/60 Blood Pressure Mean 75 Blood Pressure Mean [Right Arm] 75 Blood Pressure Position Lying Blood Pressure Position [Right Arm] Lying Pulse Oximetry 95 95 Oxygen Delivery Method Room Air Room Air Room Air Sepsis Recent Fever Within 48 Hours No Sepsis New/Unexplained Change in Mental Status N/A Sepsis Action Taken by Nursing No Action Required 05/05/24 16:48 05/05/24 17:00 05/05/24 17:17 Temperature Temperature Source Pulse Rate 40 L Pulse Rate [Right Brachial] Pulse Rhythm Pulse Rhythm [Right Brachial] Pulse Strength Pulse Strength [Right Brachial] Respiratory Rate Respiratory Effort / Characteristics Respiratory Depth Respiratory Pattern Blood Pressure Blood Pressure [Right Arm] Blood Pressure Mean Blood Pressure Mean [Right Arm] Blood Pressure Position Blood Pressure Position [Right Arm] Pulse Oximetry 95 95 Oxygen Delivery Method Room Air Room Air Sepsis Recent Fever Within 48 Hours Sepsis New/Unexplained Change in Mental Status Sepsis Action Taken by Nursing Laboratory Data 05/05/24 17:20 05/05/24 17:20 Lab Results 05/05/24 05/05/24 Range/Units 17:20 17:24 WBC 6.00 (4.8-10.8) K/ul RBC 4.28 L (4.70-6.10) M/uL Hgb 11.2 L (14.0-18.0) g/dl POC Hgb 12.9 L (14.0-18.0) g/dl Hct 35.4 L (42.0-52.0) % POC Hct 38 L (42-52) % MCV 82.7 (80.0-100.0) fL MCH 26.2 (25.0-34.0) pg MCHC 31.6 L (32.0-36.0) g/dL RDW Std Deviation 70.1 H (36.4-46.3) fL RDW Coeff of Ramona 23.7 H (11.5-14.5) % Plt Count 233 (130-400) K/uL MPV 10.6 (9.4-12.4) fL Immature Gran % (Auto) 0.2 % Neut % (Auto) 63.8 % Lymph % (Auto) 25.2 % Twiggs % (Auto) 8.8 % Eos % (Auto) 0.0 % Baso % (Auto) 2.0 % Neut # (Auto) 3.83 (1.40-6.50) K/uL Lymph # (Auto) 1.51 (1.20-3.40) K/uL Twiggs # (Auto) 0.53 (0.11-0.59) K/uL Eos # (Auto) 0.00 (0.00-0.50) K/uL Baso # (Auto) 0.12 (0.00-0.20) K/uL Immature Gran # (Auto) 0.01 (0.01-0.20) K/uL Anisocytosis Present Tear Drop Cells 1+ Ovalocytes 2+ PT 11.4 (9.0-12.0) Seconds INR 1.1 (0.9-1.1) POC Sodium 139 (135-144) mmol/L Sodium 135 L (136-145) mmol/L POC Potassium 4.2 (3.3-5.0) mmol/L Potassium 4.1 (3.5-5.1) mmol/L POC Chloride 107 (101-112) mmol/L Chloride 106 (98-107) mmol/L Carbon Dioxide 21 (21-32) mmol/L POC Total CO2 18 L (24-31) mmol/L Anion Gap 8 (3-11) POC Anion Gap 19.0 (16-25) mmol/L POC BUN 21 H (7-18) mg/dl BUN 22 (6-23) mg/dl Creatinine 1.20 (0.6-1.4) mg/dl POC Creatinine 1.7 H (0.6-1.3) mg/dl Est Cr Clr Drug Dosing 80.5 ml/min eGFR 68.80 BUN/Creatinine Ratio 18.3 (10-20) Glucose 141 H (70-99(Fasting)) mg/dl POC Glucose (other) 138 H (70-99) mg/dl Calcium 8.8 (8.6-10.3) mg/dl POC Ioniz Calcium Lili 1.09 L (1.12-1.32) mmol/l Magnesium 1.8 (1.7-2.4) mg/dl Total Bilirubin 0.5 (0.2-1.0) mg/dl AST 31 (13-39) U/L ALT 29 (7-52) U/L Alkaline Phosphatase 130 H (34-104) U/L Troponin I High Sens 18.3 (0-20) pg/ml Total Protein 8.0 (6.0-8.3) gm/dl Albumin 3.9 (3.4-5.0) gm/dl Globulin 4.1 H (2.5-4.0) gm/dl Albumin/Globulin Ratio 1.0 (0.9-2) TSH 1.434 (0.300-4.500) uIu/ml Ethyl Alcohol mg/dL 305.6 H (<10.0) mg/dl Administered Medications Discontinued Medications Atropine Sulfate (Atropine So4 1 Mg/Ml 1ml Vial) Confirm Administered Dose 1 mg .ROUTE .STK-MED ONE Stop: 05/05/24 17:32 Last Admin: 05/05/24 17:40 Dose: 1 mg Documented By: ANGELLA Atropine Sulfate (Atropine So4 1 Mg/Ml 1ml Vial) Confirm Administered Dose 1 mg .ROUTE .STSpot Coffee-MED ONE Stop: 05/05/24 17:35 Last Admin: 05/05/24 17:40 Dose: 1 mg Documented By: ANGELLA Dopamine HCl/Dextrose (Dopamine 400mg / 250ml D5w) Confirm Administered Dose 400 mg IV .STK-MED ONE Stop: 05/05/24 17:34 Last Admin: 05/05/24 17:38 Dose: 5 mcg.per.kg Documented By: ANGELLA Imaging Data Radiologist's Impression: Chest X-Ray 05/05/24 17:00 HISTORY: Confusion. TECHNIQUE: Portable AP radiograph the chest COMPARISON: Chest radiograph dated 11/17/2022 FINDINGS: Small pleural effusions. Bilateral lower lung airspace opacities. Vascular congestion and possible mild pulmonary edema. Cardiomegaly. Left-sided aortic arch. Midline trachea. No acute osseous abnormality. Included upper abdomen is unremarkable IMPRESSION: 1. Findings suggesting CHF with cardiomegaly, pulmonary vascular congestion, and possible mild pulmonary edema. 2. Small effusions with bibasilar airspace opacity, which could represent atelectasis or pneumonia. Electronically signed by Craig Claros 05-05-2024 5:25 PM Discharge Plan Visit Data Chief Complaint: Altered Mental Status ED Provider: Joycelyn Alvarez Discharge Problem: Complete heart block, Alcohol intoxication, Pulmonary edema Patient Disposition: Admitted As Inpatient Discharge Instructions Interventions: ED Discharge Assessment Last Done: 05/05/24 18:11 Forms Stand Alone Forms: My [facility] Prescriptions Prescriptions: No Action furosemide 40 mg tablet 40 mg PO DAILY PRN (Reason: Edema) hydroxyzine pamoate 50 mg capsule 50 mg PO BID PRN (Reason: Anxiety) trazodone 50 mg tablet 50 mg PO HS PRN (Reason: Sleep) Referrals Referrals: Kamilah Torres MD [Primary Care Provider] -
[2024-05-05 17:36] LABS: iSTAT Creatinine 1.7 mg/dl (0.6-1.3); iSTAT Hemoglobin 12.9 g/dl (14.0-18.0); iSTAT Ionized Calcium 1.09 mmol/l (1.12-1.32); iSTAT Potassium 4.2 mmol/L (3.3-5.0)
[2024-05-05] MEDS: DOPamine 400MG / 250ML D5W IV ONE (17:38)
[2024-05-05] MEDS: ATROPINE SO4 1 MG/ML 1ML VIAL ONE ×2 (17:40)
[2024-05-05 17:42] LABS: Basophils # (auto) 0.12 K/uL (0.00-0.20); Hematocrit (blood only) 35.4 % (42.0-52.0); Hemoglobin 11.2 g/dl (14.0-18.0); Immature Granulocytes # (auto) 0.01 K/uL (0.01-0.20); Immature Granulocytes % (auto) 0.2 %; Lymphocytes # (auto) 1.51 K/uL (1.20-3.40); Lymphocytes % (auto) 25.2 %; Mean Corpuscular Hemoglobin 26.2 pg (25.0-34.0); Mean Corpuscular Hgb Conc 31.6 g/dL (32.0-36.0); Mean Corpuscular Volume 82.7 fL (80.0-100.0); Mean Platelet Volume 10.6 fL (9.4-12.4); Monocytes # (auto) 0.53 K/uL (0.11-0.59); Monocytes % (auto) 8.8 %; Neutrophils # (auto) 3.83 K/uL (1.40-6.50); Neutrophils % (auto) 63.8 %; Platelet Count 233 K/uL (130-400); RDW Coefficient of Variation 23.7 % (11.5-14.5); RDW Standard Deviation 70.1 fL (36.4-46.3); Red Blood Count 4.28 M/uL (4.70-6.10)
[2024-05-05 17:56] LABS: Albumin Level 3.9 gm/dl (3.4-5.0); BUN Creatinine Ratio 18.3 (10-20); Bilirubin,Total 0.5 mg/dl (0.2-1.0); Calcium 8.8 mg/dl (8.6-10.3); Creatinine Clr Calc Pharmacy 80.5 ml/min; Globulin 4.1 gm/dl (2.5-4.0); Magnesium 1.8 mg/dl (1.7-2.4); Potassium 4.1 mmol/L (3.5-5.1)
[2024-05-05 18:02] LABS: Troponin I High Sensitivity 18.3 pg/ml (0-20)
--- NOTE | 2024-05-05 18:03 | Pre Anesthesia Assessment ---
Date of Service May 05, 2024 Pre Sedation Assessment Vital Signs Temp Pulse Pulse Resp BP BP Pulse Ox 05/05/24 17:17 40 L 05/05/24 17:00 95 05/05/24 16:48 95 05/05/24 16:48 36.4 C L 43 L 11 L 105/60 95 05/05/24 16:48 05/05/24 16:48 36.5 C 43 L 11 L 105/60 95 O2 Del Method 05/05/24 17:17 05/05/24 17:00 Room Air 05/05/24 16:48 Room Air 05/05/24 16:48 Room Air 05/05/24 16:48 Room Air 05/05/24 16:48 Room Air Cardiovascular + bradycardic + murmur Respiratory normal respiratory effort, lungs clear to auscultation Pre-Sedation Airway Assessment Smoking Status: Former smoker Mallampati Class: III ASA: ASA3 Procedure Planning Current Medications Reviewed: Yes Notes The planned sedation has been discussed with the patient. Informed Consent was obtained. I have identified the patient, determined the appropriateness of sedation and have assessed the patient immediately prior to the procedure. All medicine(s) and interventions are by my order.
[2024-05-05 18:05] LABS: Anisocytosis Present; Ovalocytes 2+; Tear Drop Cells 1+
[2024-05-05 18:12] LABS: Thyroid Stimulating Hormone 1.434 uIu/ml (0.300-4.500)
[2024-05-05 18:14] LABS: INR 1.1 (0.9-1.1); Prothrombin Time 11.4 Seconds (9.0-12.0)
--- NOTE | 2024-05-05 18:14 | History & Physical Report ---
Date of Service May 05, 2024 Assessment & Plan (1) Complete heart block: (2) Alcohol intoxication: (3) Mood disorder: (4) Chronic back pain: Plan This is a 63 y/o male with history of alcohol abuse, generalized anxiety disorder, insomnia, and other history as outlined below who presented to the ED via EMS with dizziness, near-syncope. Work-up in the ED revealed complete heart block, rates in the upper 20s to low 30s. Given atropine 2 mg, dopamine gtt without significant response. Pt was referred for admission and emergently transferred to supervisor labor gang for temporary pacer placement. #Complete heart block Admit to ICU Temporary pacer placed in supervisor labor gang - spoke with interventional cardiology. Pt will need permanent pacer placed. Consult [facility] cardiology - pt is not established with cardio as outpatient per [facility] records. Consult critical care - appreciate assistance with management ECHO Labs in the AM #Alcohol intoxication #Alcohol use disorder Pt reportedly sober until last evening when he "slipped" and drank half a bottle of listerine Ativan prn per protocol for EtOH withdrawal Aspiration precautions IV thiamine, folic acid #Chronic back pain Continue outpatient gabapentin for now Holding diclofenac PRN acetaminophen ordered #Anxiety/mood disorder/insomnia Hold trazodone until evaluated by cardiology Has prn Ativan ordered Pt seen and reviewed with collaborating physician, Dr. Muniz. Plan of care discussed and as outlined above. Code status: full code DVT prophylaxis: Clifx I spent a total of 75 minutes coordinating, documenting, and providing care for this patient excluding time spent in the performance of separately billed services or time spent by another provider/QHP. Stacie Borges PA-C History of Present Illness Chief Complaint: Heart alert Primary Care Provider: Kamilah Torres MD This is a 63 y/o male with history of alcohol abuse, generalized anxiety disorder, insomnia, and other history as outlined below who presented to the ED via EMS with dizziness, near-syncope. History obtained from patient and from ED provider, review of the medical record. 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 He was caught by bystander who called 911. He reports 1-2 weeks of orthopnea but no other significant SOB. Pt is very concerned that his medications are contributing although he denies any new medications. He reports that he is not taking the furosemide consistently b/c doesn't think he needs it, doesn't like the increased urination. He denies chest pain, fevers, chills. He has a history of alcohol abuse but reports that he has been sober until last night when he drank half a bottle of Listerine for the alcohol in it. He reports that recently he has just felt "out of it" but repeatedly attributes to the medications he's taking. In the ED, his heart rate was in the upper 20s to low 30s, EKG c/w complete heart block. BP has been in low 100s systolic since arrival. He was given atropine 2 mg without response. Dopamine gtt started at 5 mcg/kg without significant response, increased by ED provider to 7.5 mcg/kg and pt urgently transferred to the supervisor labor gang for temporary pacer. Allergies Allergy/AdvReac Type Severity Reaction Status Date / Time No Known Allergies Allergy Verified 10/15/23 19:56 Home Medications Medication Instructions Recorded Confirmed Type furosemide 40 mg tablet 40 mg PO DAILY PRN Edema 10/15/23 05/05/24 History hydroxyzine pamoate 50 mg capsule 50 mg PO BID PRN Anxiety 10/15/23 05/05/24 History trazodone 50 mg tablet 100 mg PO HS 10/15/23 05/05/24 History diclofenac sodium 75 mg 75 mg PO BID 05/05/24 05/05/24 History tablet,delayed release gabapentin 300 mg capsule 300 mg PO BID 05/05/24 05/05/24 History Past Med/Surg History Problem List (Updated 05/05/24 @ 20:39 by Arline Borges PA-C) Chronic back pain Pulmonary edema (Acute) Alcohol intoxication (Acute) Complete heart block (Acute) Alcoholic hepatitis Acute hypokalemia (Acute) Transaminitis (Acute) Hypokalemia Lab test negative for COVID-19 virus (Acute) Alcohol intoxication delirium (Acute) HTN (hypertension) Alcohol abuse (Acute) Mood disorder (Acute) Medical History Alcoholic intoxication Fx medial malleolus-closed Hypokalemia Mood disorder Psoriasis Surgical History No pertinent past surgical history Family History Other Colorectal cancer No pertinent family history Social History Smoking Status: Former smoker Second Hand Exposure: Yes; Do You Dip or Chew Tobacco: No; Hx Alcohol Use: Yes Alcohol type: hard liquor and other Alcohol Intake Frequency: 4 or More x per/Week Hx Substance Use: No Preferred Language: Mongolian Communication Ability: Effective 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 Hoist 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 Required: No Beliefs That Will Affect Care: None Current Living Situation: Alone Feels Safe at Home: Yes Assistive Devices: Walker Review of Systems Review of Systems: All systems reviewed & are unremarkable except as noted in Subjective Physical Exam Physical Exam: General: awake, alert, NAD, disheveled HEENT: no scleral icterus, moist mucus membranes Neck: supple, trachea midline Heart: regular but bradycardic Lungs: no increased work of breathing, CTA bilaterally Abdomen: soft, +BS Extremities: distal pulses intact and equal Neurologic: Ox3, no focal deficits noted on gross exam Psychiatric: anxious mood, perseverating about his medications Results & Data Results & Data Vital Signs (Past 12 Hours) Vital Signs Temp Pulse Pulse Resp BP BP Pulse Ox 05/05/24 17:17 40 L 05/05/24 17:00 95 05/05/24 16:48 95 05/05/24 16:48 36.4 C L 43 L 11 L 105/60 95 05/05/24 16:48 05/05/24 16:48 36.5 C 43 L 11 L 105/60 95 O2 Del Method 05/05/24 17:17 05/05/24 17:00 Room Air 05/05/24 16:48 Room Air 05/05/24 16:48 Room Air 05/05/24 16:48 Room Air 05/05/24 16:48 Room Air Laboratory Results Lab Results 05/05/24 05/05/24 Range/Units 17:20 17:24 WBC 6.00 (4.8-10.8) K/ul RBC 4.28 L (4.70-6.10) M/uL Hgb 11.2 L (14.0-18.0) g/dl POC Hgb 12.9 L (14.0-18.0) g/dl Hct 35.4 L (42.0-52.0) % POC Hct 38 L (42-52) % MCV 82.7 (80.0-100.0) fL MCH 26.2 (25.0-34.0) pg MCHC 31.6 L (32.0-36.0) g/dL RDW Std Deviation 70.1 H (36.4-46.3) fL RDW Coeff of Ramona 23.7 H (11.5-14.5) % Plt Count 233 (130-400) K/uL MPV 10.6 (9.4-12.4) fL Immature Gran % (Auto) 0.2 % Neut % (Auto) 63.8 % Lymph % (Auto) 25.2 % Miner % (Auto) 8.8 % Eos % (Auto) 0.0 % Baso % (Auto) 2.0 % Neut # (Auto) 3.83 (1.40-6.50) K/uL Lymph # (Auto) 1.51 (1.20-3.40) K/uL Miner # (Auto) 0.53 (0.11-0.59) K/uL Eos # (Auto) 0.00 (0.00-0.50) K/uL Baso # (Auto) 0.12 (0.00-0.20) K/uL Immature Gran # (Auto) 0.01 (0.01-0.20) K/uL Anisocytosis Present Tear Drop Cells 1+ Ovalocytes 2+ POC Sodium 139 (135-144) mmol/L Sodium 135 L (136-145) mmol/L POC Potassium 4.2 (3.3-5.0) mmol/L Potassium 4.1 (3.5-5.1) mmol/L POC Chloride 107 (101-112) mmol/L Chloride 106 (98-107) mmol/L Carbon Dioxide 21 (21-32) mmol/L POC Total CO2 18 L (24-31) mmol/L Anion Gap 8 (3-11) POC Anion Gap 19.0 (16-25) mmol/L POC BUN 21 H (7-18) mg/dl BUN 22 (6-23) mg/dl Creatinine 1.20 (0.6-1.4) mg/dl POC Creatinine 1.7 H (0.6-1.3) mg/dl Est Cr Clr Drug Dosing 80.5 ml/min eGFR 68.80 BUN/Creatinine Ratio 18.3 (10-20) Glucose 141 H (70-99(Fasting)) mg/dl POC Glucose (other) 138 H (70-99) mg/dl Calcium 8.8 (8.6-10.3) mg/dl POC Ioniz Calcium Lili 1.09 L (1.12-1.32) mmol/l Magnesium 1.8 (1.7-2.4) mg/dl Total Bilirubin 0.5 (0.2-1.0) mg/dl AST 31 (13-39) U/L ALT 29 (7-52) U/L Alkaline Phosphatase 130 H (34-104) U/L Troponin I High Sens 18.3 (0-20) pg/ml Total Protein 8.0 (6.0-8.3) gm/dl Albumin 3.9 (3.4-5.0) gm/dl Globulin 4.1 H (2.5-4.0) gm/dl Albumin/Globulin Ratio 1.0 (0.9-2) TSH 1.434 (0.300-4.500) uIu/ml Ethyl Alcohol mg/dL 305.6 H (<10.0) mg/dl Diagnostic Findings Chest X-Ray 05/05/24 17:00 HISTORY: Confusion. TECHNIQUE: Portable AP radiograph the chest COMPARISON: Chest radiograph dated 11/17/2022 FINDINGS: Small pleural effusions. Bilateral lower lung airspace opacities. Vascular congestion and possible mild pulmonary edema. Cardiomegaly. Left-sided aortic arch. Midline trachea. No acute osseous abnormality. Included upper abdomen is unremarkable IMPRESSION: 1. Findings suggesting CHF with cardiomegaly, pulmonary vascular congestion, and possible mild pulmonary edema. 2. Small effusions with bibasilar airspace opacity, which could represent atelectasis or pneumonia. Electronically signed by Craig Claros 05-05-2024 5:25 PM Medications Administered Discontinued Medications Atropine Sulfate (Atropine So4 1 Mg/Ml 1ml Vial) Confirm Administered Dose 1 mg .ROUTE .STK-MED ONE Stop: 05/05/24 17:32 Last Admin: 05/05/24 17:40 Dose: 1 mg Documented By: ANGELLA Atropine Sulfate (Atropine So4 1 Mg/Ml 1ml Vial) Confirm Administered Dose 1 mg .ROUTE .STK-MED ONE Stop: 05/05/24 17:35 Last Admin: 05/05/24 17:40 Dose: 1 mg Documented By: ANGELLA Dopamine HCl/Dextrose (Dopamine 400mg / 250ml D5w) Confirm Administered Dose 400 mg IV .STK-MED ONE Stop: 05/05/24 17:34 Last Admin: 05/05/24 17:38 Dose: 5 mcg.per.kg Documented By: ANGELLA Code Status & VTE Plan VTE Prophylaxis Plan VTE Prophylaxis will be ordered: Yes Supervising Physician Co-Signing Physician Notes Attending Addendum: Case reviewed with the advanced practitioner. I have personally performed a history and physical examination on the patient. I have reviewed the advanced practitioner's documentation on the date of service referenced in note, and I agree with, and take responsibility for the plan of care. please refer to her notes for full details patient seen and examined, records reviewed by myself as well on exam, patient seen resting in bed, comfortable reports low back pain no chest pain, dyspnea, palpitations, dizziness no other symptoms VS noted and reviewed oriented x 3 , not in distress, speaks in sentences with no effort nor accessory muscle use neck: dressing on the r side in place- no bleeding, discharge normal rate, regular rhythm, no murmurs clear breath sounds bilaterally non distended, soft, nontender no bipedal edema, erythema, warmth no neuro deficits all labs, imaging noted and reviewed ASSESSMENT AND PLAN> COMPLETE HEART BLOCK S/P TEMPORARY PACEMAKER PLACEMENT Monitor closely in the ICU Cardiology service consulted Will need permanent pacemaker placement Check Lyme screen Hold trazodone for now Alcohol intoxication, alcoholism Alcohol level 300s Alcohol withdrawal protocol, as needed Ativan this evening Initiate gabapentin protocol tomorrow other diagnoses and plan of care as per advanced practitioner's notes I spent a total of 35 minutes coordinating, documenting, and providing care for this patient, excluding time spent in the performance of separately billed services or time spent by another provider/QHP. Pavel Muniz MD (2) Alcohol intoxication Complication of substance-induced condition: uncomplicated Qualified Code(s): F10.920 - Alcohol use, unspecified with intoxication, uncomplicated (4) Chronic back pain Back pain laterality: unspecified Back pain location: back pain in unspecified location Qualified Code(s): M54.9 - Dorsalgia, unspecified; G89.29 - Other chronic pain
[2024-05-05] MEDS: fentaNYL citrate PF 100 MCG/2 ML VIAL ONE (18:28)
[2024-05-05] MEDS: PHENYLEPHRINE HCL 25 MG/250 ML NSS IV ONE (18:28)
[2024-05-05] MEDS: MIDAZOLAM HCL 1 MG/ML 2ML VIAL ONE (18:28)
[2024-05-05 18:34] LABS: Adenovirus PCR Not Detected (NotDetected); Bordetella parapertussis PCR Not Detected (NotDetected); Bordetella pertussis PCR Not Detected (NotDetected); Chlamydia pneumoniae PCR Not Detected (NotDetected); Coronavirus 229E PCR Not Detected (NotDetected); Coronavirus CoV-2 (COVID19)PCR Not Detected (NotDetected); Coronavirus HKU1 PCR Not Detected (NotDetected); Coronavirus NL63 PCR Not Detected (NotDetected); Coronavirus OC43PCR Not Detected (NotDetected); Human Metapneumovirus PCR Not Detected (NotDetected); Influenza A PCR Not Detected (NotDetected); Influenza B PCR Not Detected (NotDetected); Mycoplasma pneumoniae PCR Not Detected (NotDetected); Parainfluenza Virus 1 PCR Not Detected (NotDetected); Parainfluenza Virus 2 PCR Not Detected (NotDetected); Parainfluenza Virus 3 PCR Not Detected (NotDetected); Parainfluenza Virus 4 PCR Not Detected (NotDetected); Respiratory Syncytial VirusPCR Not Detected (NotDetected); Rhinovirus/Enterovirus PCR Not Detected (NotDetected)
--- NOTE | 2024-05-05 18:37 | Cardiac Catheterization ---
Cardiac Cath Procedure Full Procedure Date May 05, 2024 Pre-Procedure Diagnosis Pre-Procedure Diagnosis: Arrhythmia (Complete heart block) AUC Score AUC Score: 9 Post-Procedure Diagnosis Post-Procedure Diagnosis: Cardiothoracic Finding (complete heart block) Procedure(s) Performed Procedure(s) Performed: Temporary Pacemaker (Patient was brought to the cardiac catheterization lab in emergent condition Patient was noted to be in complete heart block Emergent consent was obtained The right neck site was prepped in normal fashion 1% lidocaine was administered to the right neck region under ultrasound fluoroscopic guidance W) Casino Manager Bola Herman MD Estimated Blood Loss Estimated Blood Loss: None Medication(s) Medication(s): 1 mg versed 25 mcg of fentanyl Summary of Findings Patient was brought to the cardiac catheterization lab in emergent condition Patient was noted to be in complete heart block Emergent consent was obtained The right neck site was prepped in normal fashion 1% lidocaine was administered to the right neck region under ultrasound fluoroscopic guidance We then obtained access using a 21-gauge micropuncture needle in the right internal jugular vein This was done under ultrasound fluoroscopic guidance We then confirmed wire placement in the superior vena cava under fluoroscopic gu idance We then advanced a micropuncture sheath in the right internal jugular vein We then advanced a 7 Australian sheath in the right internal jugular vein replacing the micropuncture sheath under ultrasound and fluoroscopy guidance Following this a balloontipped 5 Australian temporary pacemaker was placed in the right ventricle After threshold testing was completed the pacemaker was set at 70 bpm Hemodynamics Rest Ao:: 105/54 mm of hg Final Ao: 124/78 mm of hg LV: NA Recommendations Recommendations: None (Temporary pacer is cleaned and dressed,no movement off the neck site. ) Radiation Exposure (mGy) 0.5 Contrast (mls) 0 Procedural Complication(s) none Disposition ICU I attest to the content of the Intraoperative Record and any orders documented therein. Any exceptions are noted below. ACC Data: Developmental Behavioral Physician Cardiac Status Clinical evaluation leading to the procedure CAD Presenation: No Sxs, No angina Diagnostic Physicians Name: Bola Herman MD Closure Device Recommendations: None (Temporary pacer is cleaned and dressed,no movement off the neck site. )
--- NOTE | 2024-05-05 18:48 | Post Anesthesia Assessment ---
Date of Service May 05, 2024 Post Sedation Assessment Vital Signs Temp Pulse Pulse Resp BP BP Pulse Ox 05/05/24 17:17 40 L 05/05/24 17:00 95 05/05/24 16:48 95 05/05/24 16:48 36.4 C L 43 L 11 L 105/60 95 05/05/24 16:48 05/05/24 16:48 36.5 C 43 L 11 L 105/60 95 O2 Del Method 05/05/24 17:17 05/05/24 17:00 Room Air 05/05/24 16:48 Room Air 05/05/24 16:48 Room Air 05/05/24 16:48 Room Air 05/05/24 16:48 Room Air Recovery Score Activity: Moves 4 extremities Respiration: Deep Breath/Cough Consciousness: Fully Awake Oxygen Saturation: > 92% On Room Air Discharge Sedation Level of Care: Higher Level of Care Post Sedation Plan On clinical assessment, the patient appears to have tolerated the sedation without complications. Patient is recovering as anticipated. Patient will continue to be monitored by nursing and may be discharged when sedation discharge criteria are met per below protocol. Upon Completions of procedure up to 15 minutes continue every 5 minute vital signs and the P.A.R. score; then discharge to a Phase I or Fast Track to Phase II per the following guidelines: * Discharge Patient to appropriate Phase II area if PAR is 8 or greater or return to pre- procedure baseline. The post - procedure orders will be as directed. * If PAR score is less than 8 or not return to pre-procedure baseline then patient will follow Phase I monitoring till PAR is reached for Phase II. The Phase I may be done in procedure room or may call to secure a Phase I area. * If naloxone or flumazenil are used for reversal, hold in Phase I for co ntinued monitoring from when last reversal dose was given for a minimum of 60 minutes or longer pending the nurse and/or physician discretion of patient condition before discharge to Phase II. Please call the Sedation Physician to re-evaluate and complete post-note for discharge to Phase II area. Do NOT discharge from procedure sedation or Phase 1 until post- sedation evaluation note is complete by procedure /sedation MD Sedation Discharge Instructions to be given to the patient at discharge to home.
[2024-05-05 19:39] LABS: Base Excess VBG -7.6 mEq/L; HCO3 VBG 20 mmol/L; Oxygen Saturation VBG < 60.0 %; PCO2 VBG 46 mmHg (38-50); PO2 VBG 29 mmHg; pH VBG 7.24 (7.36-7.41)
--- NOTE | 2024-05-05 20:09 | Critical Care Consultation ---
Date of Consultation May 05, 2024 Assessment & Plan (1) Complete heart block: (2) Alcohol intoxication: (3) Pulmonary edema: Plan Reason Critically Ill: 1. Complete heart block 2. Alcohol intoxication 3. Metabolic acidosis without respiratory compensation 4. Lactic acidosis 5. CHF exacerbation 2/2 #1 and medication noncompliance 6. JOAO 7. Acute toxic encephalopathy, ETOH +/- anticholinergic effect Neuro - CAM ICU: Negative RASS GOAL 0 Avoid sedating medications Aspiration precautions UDS pending High risk for withdrawal Consider restarting home Atarax and Trazodone, held for now Cardiac - Repeat EKG now TVP at 70bpm, capture is adequate Passport Support Manager on board, appreciate continued recommendations and PPM planning TTE Consider restarting home diuretic, monitor UOP No AVNB agents Respiratory - CXR as above Remains on room air SpO2 goal > 92% Monitor for signs of apnea HOB 30 or above GI - No acute concerns Diet: NPO, advance diet as tolerated SUP: N/A Bowel regimen: Miralax RENAL/LYTES - JOAO, prerenal Replete electrolytes as indicated No current indication for castellanos catheter Further IVF held Maintain net even to net negative ENDO - No acute concerns BG 140-180 per SCCM guidelines ISS if needed while inpatient HEME - No acute concerns ID - No acute concerns LINES/TUBES/DRAINS - PIV x2 RIJ TVP (Day #1) DVT PROPHYLAXIS - Enoxaparin in AM I have personally spent 30 minutes of critical care time in the direct management of this patient. This is a life/limb threatening event. This includes time spent evaluating patient, direct bedside care, chart review, placing orders, interpretation of diagnostic studies, discussion with consultants, patient, and family members, as well as other required patient management activities. This time is exclusive of all separately billable procedures, and teaching time and separate from and in addition to any other critical care service time. Thank you for allowing us to participate in the care of this patient. Please refer to my attending physician's documentation for any further recommendations. Supervising Physician Co-Signing Physician Notes Patient seen and examined. EMR reviewed. Discussed with critical care RODOLFO. Agree with assessment plan as noted. Please refer to my progress note from 05/06/2024 for additional details History of Present Illness Reason for Consultation: Complete heart block Requesting Physician: Flavio Attending Physician: Pavel Muniz MD History of Present Illness Mr. Owen Kiser is a 63YOM with a history significant for ETOH use disorder, anxiety, insomnia, ?CHF, hypertension who presented to [facility] ED due to dizziness and presyncope. Per report, patient was on the bus to head to [facility] to get his prescriptions when he became presyncopal. A bystander caught him and called 911. He was found to be in complete heart block with HR 20-30 in the emergency department. This was refractory to 2mg Atropine. He was placed on dopamine infusion at 7.5mcg/kg without significant improvement. He was emergently transferred to the cardiac catheterization lab where he underwent successful placement of a temporary pacemaker. Labs remarkable for mild JOAO, BNP of 650, ETOH 305. CXR consistent with volume overload, pulmonary edema. There are reports that patient is noncompliant with his loop diuretic because of how much it makes him pee. In addition, he admits to drinking half a bottle of Listerine last night for the alcohol content, states he had been sober for a while prior to this. He is admitted to ICU for continuation of care. Patient seen on arrival to ICU 102. Pacemaker with good capture at 70bpm. He is 100% dependent at this time. He is awake and alert. Oriented to person, not place. He has no current complaints. He is perseverating about picking up his prescriptions at [facility] and his back pain he saw a provider at [facility] for this week. Denies significant pain at this time. His pupils are 6mm and reactive, likely as effect of atropine. Confusion could also be attributed to this in addition to intoxication. Denies history of withdrawal or seizures. Allergies Allergy/AdvReac Type Severity Reaction Status Date / Time No Known Allergies Allergy Verified 10/15/23 19:56 Home Medications Medication Instructions Recorded Confirmed Type furosemide 40 mg tablet 40 mg PO DAILY PRN Edema 10/15/23 05/05/24 History hydroxyzine pamoate 50 mg capsule 50 mg PO BID PRN Anxiety 10/15/23 05/05/24 History trazodone 50 mg tablet 100 mg PO HS 10/15/23 05/05/24 History diclofenac sodium 75 mg 75 mg PO BID 05/05/24 05/05/24 History tablet,delayed release gabapentin 300 mg capsule 300 mg PO BID 05/05/24 05/05/24 History Patient History Medical History Alcoholic intoxication Fx medial malleolus-closed Hypokalemia Mood disorder Psoriasis Surgical History No pertinent past surgical history Family History Other Colorectal cancer No pertinent family history Social History Smoking Status: Never smoker Second Hand Exposure: Yes; Do You Dip or Chew Tobacco: No; Hx Alcohol Use: Yes Alcohol type: hard liquor Alcohol Intake Frequency: 4 or More x per/Week Hx Substance Use: No Preferred Language: Faroese Communication Ability: Effective Electrical Cad Designer Required: No Beliefs That Will Affect Care: None Current Living Situation: Alone Feels Safe at Home: Yes Safety Concerns: Feels Safe At This Time Assistive Devices: Walker Review of Systems Review of Systems: All systems reviewed & are unremarkable except as noted in Subjective Physical Exam Constitutional: + disheveled, cooperative and + overweig ht; no acute distress Eyes: reactive pupils and + abnormal pupil size; no conjunctival abnormality, sclerae not anicteric, no anisocoria and no nystagmus ENMT: dried food vs emesis on chin. MM normal. Dentition is fair Neck: normal visual inspection and trachea midline RIJ TVP in place, dressing C/D/I Respiratory: normal respiratory effort, + labored breathing and able to speak in complete sentences Auscultation: + diminished lung sounds and + crackles; no rhonchi and no wheezes Cardiovascular: Rate/Rhythm: regular rate and regular rhythm Heart Sounds: no murmur Vessels: no JVD and no carotid bruit Extremities: normal capillary refill; no edema Gastrointestinal (Abdomen): normal bowel sounds, soft, nontender, no hepatosplenomegaly Skin: normal turgor, + crusts, + dry skin, + erythema, + lichenification, + nails dystrophic and + white spots on nails; no wound, no fluctulance and no mottling Neurologic: moves all extremities, awake and + confused; no focal motor deficits Speech / Cognition: normal speech Motor/Sensory: no asterixis Psychiatric: Orientation: alert, oriented to person and cooperative Apperance: + disheveled Eye Contact: + fair eye contact Affect: + anxious affect Mood: + anxious mood Thought Process: + tangential thought process and + perseveration Genitourinary: Deferred Results & Data Results & Data Vital Signs (Past 12 Hours) Vital Signs Temp Pulse Pulse Resp BP BP Pulse Ox 05/05/24 17:17 40 L 05/05/24 17:00 95 05/05/24 16:48 95 05/05/24 16:48 36.4 C L 43 L 11 L 105/60 95 05/05/24 16:48 05/05/24 16:48 36.5 C 43 L 11 L 105/60 95 O2 Del Method 05/05/24 17:17 05/05/24 17:00 Room Air 05/05/24 16:48 Room Air 05/05/24 16:48 Room Air 05/05/24 16:48 Room Air 05/05/24 16:48 Room Air Laboratory Results Reviewed Diagnostic Findings Reviewed Medications Administered See [facility] Coding Level of Care Code 68188 CRITICAL CARE 1ST 30-74M Diagnoses Complete heart block I44.2 Alcohol intoxication F10.929 Pulmonary edema J81.1 Time Spent (min) 30
[2024-05-05] MEDS ORDERED: LORazepam 2 MG/1 ML VIAL IV PRN (20:24)
[2024-05-05] MEDS ORDERED: ACETAMINOPHEN 325 MG TAB PO PRN (20:58)
[2024-05-05] MEDS: GABAPENTIN 300 MG CAP PO SCH (21:25)
[2024-05-05] MEDS: ICU Protocol for HYPERglycemia SCH (21:26)
[2024-05-05] MEDS: traZODone HCL 100 MG TAB PO SCH (21:26)
[2024-05-05] MEDS: THIAMINE HCL 100 MG in SYRINGE 9 ML IV SCH (21:26)
[2024-05-05 22:17] VITALS: PULSE 70
[2024-05-05] MEDS: FOLIC ACID 1 MG in SYRINGE 9.8 ML IV SCH (22:41)
[2024-05-06 05:02] LABS: Basophils # (auto) 0.09 K/uL (0.00-0.20); Basophils % (auto) 1.8 %; Eosinophils # (auto) 0.19 K/uL (0.00-0.50); Eosinophils % (auto) 3.8 %; Hematocrit (blood only) 36.2 % (42.0-52.0); Hemoglobin 11.6 g/dl (14.0-18.0); Immature Granulocytes # (auto) 0.01 K/uL (0.01-0.20); Immature Granulocytes % (auto) 0.2 %; Lymphocytes # (auto) 1.26 K/uL (1.20-3.40); Mean Corpuscular Volume 81.2 fL (80.0-100.0); Mean Platelet Volume 9.9 fL (9.4-12.4); Monocytes # (auto) 0.62 K/uL (0.11-0.59); Monocytes % (auto) 12.3 %; Neutrophils # (auto) 2.87 K/uL (1.40-6.50); Neutrophils % (auto) 56.9 %; Platelet Count 171 K/uL (130-400); RDW Coefficient of Variation 23.5 % (11.5-14.5); RDW Standard Deviation 68.8 fL (36.4-46.3); Red Blood Count 4.46 M/uL (4.70-6.10); White Blood Count 5.04 K/ul (4.8-10.8)
[2024-05-06 05:22] LABS: Albumin Level 3.7 gm/dl (3.4-5.0); BUN Creatinine Ratio 19.8 (10-20); Bilirubin Direct 0.2 mg/dl (0-0.2); Bilirubin,Total 0.6 mg/dl (0.2-1.0); Calcium 8.8 mg/dl (8.6-10.3); Creatinine Clr Calc Pharmacy 112.3 ml/min; Magnesium 1.7 mg/dl (1.7-2.4); Phosphorus 4.1 mg/dl (2.5-4.9); Potassium 4.1 mmol/L (3.5-5.1); Total Protein 7.5 gm/dl (6.0-8.3)
[2024-05-06 05:38] LABS: Anisocytosis Present; Ovalocytes 1+; Polychromasia 1+
[2024-05-06] MEDS: MAGNESIUM SULFATE / D5W 1 GM/100 ML BAG IV SCH (06:37)
[2024-05-06] MEDS: ICU ELECTROLYTE REPLACEMENT PROTOCOL SCH (06:37)
[2024-05-06 07:11] LABS: Appearance Urine Clear (Clear); Bilirubin Urine Negative (Negative); Blood Urine Negative (Negative); Color Urine Yellow; Glucose Urine UA Negative (Negative); Ketones Urine Negative (Negative); Leukocyte Esterase Urine Negative (Negative); Nitrite Urine Negative (Negative); Protein Urine Negative (Negative); Specific Gravity Urine >= 1.030 (1.000-1.030); Urobilinogen Urine Negative (Negative)
--- NOTE | 2024-05-06 07:36 | Critical Care Progress Note ---
Date of Service May 06, 2024 Assessment & Plan (1) Complete heart block: (2) Alcohol intoxication: (3) Pulmonary edema: Plan Reason Critically Ill: 63-year-old male with history of significant alcohol abuse presenting with syncopal episode found to be in third-degree heart block requiring temporary pacing wire. 24-hour events: Patient presented to the emergency room. Was found to be in complete heart block. Received dopamine as well as atropine. Was taken to the [facility]. Temporary pacing wire placed. He was found to be acutely intoxicated as well. Hemodynamically stable in the ICU overnight Recommendations Neuro -patient has chronic back pain without significant worrisome features. He is requesting that his gabapentin be restarted as this eases his back pain. This may also offer some benefit with regards to his alcohol withdrawal. Continue thiamine and folate but transition to oral. If he has increasing symptoms low threshold for consideration of phenobarbital. Continue to observe for signs or symptoms of alcohol withdrawal, on AWSS Cardiac -complete heart block. Temporary pacing wire in place. Lyme serologies pending. Wire was paused this morning with persistent third-degree heart block as underlying rhythm. Pending EP/cardiology evaluation as well as echocardiogram. Will likely need permanent pacer if underlying rhythm fails to improve. No echo in our system, ordered and pending. BNP elevated. Start diuretics. Lactate initially elevated. Recheck today Respiratory -hypercarbic and hypoxemic respiratory failure. Chest x-ray with low lung volumes. Initiate incentive spirometry. Diuresis initiated GI -no current issues. Advancing diet as tolerated RENAL/LYTES -mixed metabolic and respiratory acidosis on blood gas. Lactate was elevated. ENDO - glycemic control per protocol HEME -mild anemia. No evidence of acute blood loss. May be some evidence of bone marrow suppression secondary to chronic alcohol use. Continue to trend. ID -following up on Lyme serologies. Hold antibiotics for now LINES/TUBES/DRAINS - PIV x2 RIJ TVP (Day #1) DVT PROPHYLAXIS - Enoxaparin Will continue to follow in the ICU as long as his temporary pacing wires in place. Admission and Anticipated Discharge Date Admission Date: May 05, 2024 Subjective Patient seen and examined. EMR reviewed. Discussed with overnight critical care RODOLFO as well as with bedside critical care nurse and on multidisciplinary rounds. The patient is currently awake alert and conversant. His biggest complaint currently is chronic back pain. He denies any syncope or presyncopal events. He is complaining some mild discomfort at the site of his temporary pacing wire insertion site. Review of Systems Review of Systems: All systems reviewed & are unremarkable except as noted in Subjective Physical Exam Constitutional: WD/WN, vitals as above Neck: trachea midline, no thyromegaly Respiratory: normal respiratory effort, lungs clear to auscultation Cardiovascular: RRR, no murmur, no edema Gastrointestinal (Abdomen): normal bowel sounds, soft, nontender, no hepatosplenomegaly Musculoskeletal: Extremities: extremities normal to inspection Skin: no rashes, warm and dry Neurologic: Nonfocal exam Lymphatic: no cervical lymphadenopathy Results & Data Results & Data Vital Signs (Past 12 Hours) Vital Signs Temp Pulse Pulse Resp BP BP Pulse Ox 05/06/24 05:30 96/57 L 05/06/24 05:30 96/57 L 05/06/24 05:30 96/57 L 05/06/24 05:24 70 13 92 05/06/24 05:21 70 13 92 05/06/24 05:00 102/75 05/06/24 04:57 69 16 94 05/06/24 04:30 118/63 05/06/24 04:30 118/63 05/06/24 04:30 118/63 05/06/24 04:09 70 29 H 97 05/06/24 04:00 36.8 C 05/06/24 04:00 123/74 05/06/24 03:54 69 12 97 05/06/24 03:09 70 13 95 05/06/24 01:30 70 9 L 93 05/06/24 01:30 89/64 L 05/06/24 01:30 89/64 L 05/06/24 01:00 103/63 05/06/24 01:00 103/63 05/06/24 01:00 70 11 L 05/06/24 00:30 70 11 L 95 05/06/24 00:30 125/66 05/06/24 00:30 125/66 05/06/24 00:06 70 8 L 97 05/06/24 00:02 131/88 05/06/24 00:00 70 05/05/24 23:51 69 9 L 96 05/05/24 23:30 115/54 L 05/05/24 23:30 70 10 L 93 05/05/24 23:24 70 8 L 94 05/05/24 23:00 111/61 05/05/24 23:00 111/61 05/05/24 23:00 111/61 05/05/24 23:00 69 11 L 94 05/05/24 22:38 36.6 C 05/05/24 22:30 98/60 L 05/05/24 22:30 70 10 L 94 05/05/24 22:21 70 12 96 05/05/24 22:12 70 18 97 05/05/24 22:00 119/87 05/05/24 22:00 119/87 05/05/24 22:00 119/87 05/05/24 22:00 70 15 95 05/05/24 21:30 140/91 05/05/24 21:06 73 23 97 05/05/24 21:00 134/81 05/05/24 21:00 134/81 05/05/24 21:00 134/81 05/05/24 20:48 70 10 L 90 05/05/24 20:30 137/84 05/05/24 20:27 70 18 92 05/05/24 20:15 139/100 05/05/24 20:15 139/100 05/05/24 20:15 139/100 05/05/24 20:15 139/100 05/05/24 20:09 76 14 92 05/05/24 20:00 136/89 05/05/24 20:00 136/89 05/05/24 19:48 73 25 H 92 05/05/24 19:45 140/92 05/05/24 19:45 140/92 05/05/24 19:45 140/92 05/05/24 19:45 140/92 05/05/24 19:31 128/97 05/05/24 19:31 128/97 05/05/24 19:31 128/97 05/05/24 19:30 05/05/24 19:30 36.7 C 70 18 140/91 98 05/05/24 19:30 70 13 94 05/05/24 19:17 70 O2 Del Method O2 Flow Rate 05/06/24 05:30 05/06/24 05:30 05/06/24 05:30 05/06/24 05:24 05/06/24 05:21 05/06/24 05:00 05/06/24 04:57 05/06/24 04:30 05/06/24 04:30 05/06/24 04:30 05/06/24 04:09 05/06/24 04:00 05/06/24 04:00 05/06/24 03:54 2 05/06/24 03:09 2 05/06/24 01:30 2 05/06/24 01:30 05/06/24 01:30 05/06/24 01:00 05/06/24 01:00 05/06/24 01:00 05/06/24 00:30 2 05/06/24 00:30 05/06/24 00:30 05/06/24 00:06 2 05/06/24 00:02 05/06/24 00:00 05/05/24 23:51 2 05/05/24 23:30 05/05/24 23:30 05/05/24 23:24 05/05/24 23:00 05/05/24 23:00 05/05/24 23:00 05/05/24 23:00 05/05/24 22:38 05/05/24 22:30 05/05/24 22:30 05/05/24 22:21 05/05/24 22:12 05/05/24 22:00 05/05/24 22:00 05/05/24 22:00 05/05/24 22:00 05/05/24 21:30 05/05/24 21:06 05/05/24 21:00 05/05/24 21:00 05/05/24 21:00 05/05/24 20:48 05/05/24 20:30 05/05/24 20:27 05/05/24 20:15 05/05/24 20:15 05/05/24 20:15 05/05/24 20:15 05/05/24 20:09 05/05/24 20:00 05/05/24 20:00 05/05/24 19:48 05/05/24 19:45 05/05/24 19:45 05/05/24 19:45 05/05/24 19:45 05/05/24 19:31 05/05/24 19:31 05/05/24 19:31 05/05/24 19:30 Room Air 05/05/24 19:30 Room Air 05/05/24 19:30 05/05/24 19:17 Critical Care Results & Data Vital Signs (Past 12 Hours) Vital Signs Temp Pulse Pulse Resp BP BP Pulse Ox 05/06/24 05:30 96/57 L 05/06/24 05:30 96/57 L 05/06/24 05:30 96/57 L 05/06/24 05:24 70 13 92 05/06/24 05:21 70 13 92 05/06/24 05:00 102/75 05/06/24 04:57 69 16 94 05/06/24 04:30 118/63 05/06/24 04:30 118/63 05/06/24 04:30 118/63 05/06/24 04:09 70 29 H 97 05/06/24 04:00 36.8 C 05/06/24 04:00 123/74 05/06/24 03:54 69 12 97 05/06/24 03:09 70 13 95 05/06/24 01:30 70 9 L 93 05/06/24 01:30 89/64 L 05/06/24 01:30 89/64 L 05/06/24 01:00 103/63 05/06/24 01:00 103/63 05/06/24 01:00 70 11 L 05/06/24 00:30 70 11 L 95 05/06/24 00:30 125/66 05/06/24 00:30 125/66 05/06/24 00:06 70 8 L 97 05/06/24 00:02 131/88 05/06/24 00:00 70 05/05/24 23:51 69 9 L 96 05/05/24 23:30 115/54 L 05/05/24 23:30 70 10 L 93 05/05/24 23:24 70 8 L 94 05/05/24 23:00 111/61 05/05/24 23:00 111/61 05/05/24 23:00 111/61 05/05/24 23:00 69 11 L 94 05/05/24 22:38 36.6 C 05/05/24 22:30 98/60 L 05/05/24 22:30 70 10 L 94 05/05/24 22:21 70 12 96 05/05/24 22:12 70 18 97 05/05/24 22:00 119/87 05/05/24 22:00 119/87 05/05/24 22:00 119/87 05/05/24 22:00 70 15 95 05/05/24 21:30 140/91 05/05/24 21:06 73 23 97 05/05/24 21:00 134/81 05/05/24 21:00 134/81 05/05/24 21:00 134/81 05/05/24 20:48 70 10 L 90 05/05/24 20:30 137/84 05/05/24 20:27 70 18 92 05/05/24 20:15 139/100 05/05/24 20:15 139/100 05/05/24 20:15 139/100 05/05/24 20:15 139/100 05/05/24 20:09 76 14 92 05/05/24 20:00 136/89 05/05/24 20:00 136/89 05/05/24 19:48 73 25 H 92 05/05/24 19:45 140/92 05/05/24 19:45 140/92 05/05/24 19:45 140/92 05/05/24 19:45 140/92 05/05/24 19:31 128/97 05/05/24 19:31 128/97 05/05/24 19:31 128/97 05/05/24 19:30 05/05/24 19:30 36.7 C 70 18 140/91 98 05/05/24 19:30 70 13 94 05/05/24 19:17 70 O2 Del Method O2 Flow Rate 05/06/24 05:30 05/06/24 05:30 05/06/24 05:30 05/06/24 05:24 05/06/24 05:21 05/06/24 05:00 05/06/24 04:57 05/06/24 04:30 05/06/24 04:30 05/06/24 04:30 05/06/24 04:09 05/06/24 04:00 05/06/24 04:00 05/06/24 03:54 2 05/06/24 03:09 2 05/06/24 01:30 2 03/09/25 01:30 05/06/24 01:30 05/06/24 01:00 05/06/24 01:00 05/06/24 01:00 05/06/24 00:30 2 05/06/24 00:30 05/06/24 00:30 05/06/24 00:06 2 05/06/24 00:02 05/06/24 00:00 05/05/24 23:51 2 05/05/24 23:30 05/05/24 23:30 05/05/24 23:24 05/05/24 23:00 05/05/24 23:00 05/05/24 23:00 05/05/24 23:00 05/05/24 22:38 05/05/24 22:30 05/05/24 22:30 05/05/24 22:21 05/05/24 22:12 05/05/24 22:00 05/05/24 22:00 05/05/24 22:00 05/05/24 22:00 05/05/24 21:30 05/05/24 21:06 05/05/24 21:00 05/05/24 21:00 05/05/24 21:00 05/05/24 20:48 05/05/24 20:30 05/05/24 20:27 05/05/24 20:15 05/05/24 20:15 05/05/24 20:15 05/05/24 20:15 05/05/24 20:09 05/05/24 20:00 05/05/24 20:00 05/05/24 19:48 05/05/24 19:45 05/05/24 19:45 05/05/24 19:45 05/05/24 19:45 05/05/24 19:31 05/05/24 19:31 05/05/24 19:31 05/05/24 19:30 Room Air 05/05/24 19:30 Room Air 05/05/24 19:30 05/05/24 19:17 Lab & Micro Results (Past 24 Hours) RBC 4.46 M/uL (4.70-6.10) L 05/06/24 WBC 5.04 K/ul (4.8-10.8) 05/06/24 Hgb 11.6 g/dl (14.0-18.0) L 05/06/24 Hct 36.2 % (42.0-52.0) L 05/06/24 MCV 81.2 fL (80.0-100.0) 05/06/24 MCH 26.0 pg (25.0-34.0) 05/06/24 MCHC 32.0 g/dL (32.0-36.0) 05/06/24 RDW Standard Deviation 68.8 fL (36.4-46.3) H 05/06/24 RDW Coefficient of Variation 23.5 % (11.5-14.5) H 05/06/24 Plt Count 171 K/uL (130-400) 05/06/24 MPV 9.9 fL (9.4-12.4) 05/06/24 Neutrophils (%) (Auto) 56.9 % 05/06/24 Lymphocytes (%) (Auto) 25.0 % 05/06/24 Monocytes # (Auto) 0.62 K/uL (0.11-0.59) H 05/06/24 Eosinophils # (Auto) 0.19 K/uL (0.00-0.50) 05/06/24 Immature Granulocyte % (Auto) 0.2 % 05/06/24 Neutrophils # (Auto) 2.87 K/uL (1.40-6.50) 05/06/24 Lymphocytes # (Auto) 1.26 K/uL (1.20-3.40) 05/06/24 Monocytes # (Auto) 0.62 K/uL (0.11-0.59) H 05/06/24 Eosinophils # (Auto) 0.19 K/uL (0.00-0.50) 05/06/24 Basophils # (Auto) 0.09 K/uL (0.00-0.20) 05/06/24 Immature Granulocyte # (Auto) 0.01 K/uL (0.01-0.20) 5 Polychromasia 1+ 05/06/24 Anisocytosis Present 05/06/24 Tear Drop Cells 1+ 05/05/24 Ovalocytes 1+ 05/06/24 Na 140 mmol/L (136-145) 05/06/24 K 4.1 mmol/L (3.5-5.1) 05/06/24 Cl 110 mmol/L (98-107) H 05/06/24 CO2 25 mmol/L (21-32) 05/06/24 Anion Gap 5 (3-11) 05/06/24 BUN 17 mg/dl (6-23) 05/06/24 Creatinine 0.86 mg/dl (0.6-1.4) 05/06/24 BUN/Creatinine Ratio 19.8 (10-20) 05/06/24 Glu 94 mg/dl (70-99(Fasting)) 05/06/24 Ca 8.8 mg/dl (8.6-10.3) 05/06/24 Phosphorus Level 4.1 mg/dl (2.5-4.9) 05/06/24 Total Bilirubin 0.6 mg/dl (0.2-1.0) 05/06/24 Direct Bilirubin 0.2 mg/dl (0-0.2) 05/06/24 AST 27 U/L (13-39) 05/06/24 ALT 26 U/L (7-52) 05/06/24 Alkaline Phosphatase 123 U/L (34-104) H 05/06/24 TP 7.5 gm/dl (6.0-8.3) 05/06/24 Albumin 3.7 gm/dl (3.4-5.0) 05/06/24 Globulin 4.1 gm/dl (2.5-4.0) H 05/05/24 Albumin/Globulin Ratio 1.0 (0.9-2) 05/05/24 Mg 1.7 mg/dl (1.7-2.4) 05/06/24 04:37 Calcium Level 8.8 mg/dl (8.6-10.3) 05/06/24 04:37 Prothromb Time International Ratio 1.1 (0.9-1.1) 05/05/24 17:2 0 Venous Blood pH 7.24 (7.36-7.41) L 05/05/24 19:25 Venous Blood Partial Pressure CO2 46 mmHg (38-50) 05/05/24 19:2 5 Venous Blood Partial Pressure O2 29 mmHg 05/05/24 19:25 Venous Blood HCO3 20 mmol/L 05/05/24 19:25 Venous Blood Base Excess -7.6 mEq/L 05/05/24 19:25 Venous Blood Oxygen Saturation < 60.0 % 05/05/24 19:25 Diagnostic Findings (Past 24 Hours) Chest X-Ray 05/05/24 17:00 HISTORY: Confusion. TECHNIQUE: Portable AP radiograph the chest COMPARISON: Chest radiograph dated 11/17/2022 FINDINGS: Small pleural effusions. Bilateral lower lung airspace opacities. Vascular congestion and possible mild pulmonary edema. Cardiomegaly. Left-sided aortic arch. Midline trachea. No acute osseous abnormality. Included upper abdomen is unremarkable IMPRESSION: 1. Findings suggesting CHF with cardiomegaly, pulmonary vascular congestion, and possible mild pulmonary edema. 2. Small effusions with bibasilar airspace opacity, which could represent atelectasis or pneumonia. Electronically signed by Craig Claros 05-05-2024 5:25 PM I & O Totals 24 Hours 05/05/24 05/06/24 05/07/24 05:59 06:59 06:59 Intake Total Output Total Balance Cumulative 05/05/24 16:48 thru 05/06/24 06:00 Intake Total 450 Output Total 110 Balance 340 RT Ventilator Mngmt (Last Documented) Ventilator Ordered Settings Respiratory Rate 13 05/06/24 05:24 Ventilator - PT Measurements Respiratory Rate 13 Coding Level of Care Code 77045 SUB INP/OBS CARE 3/50MIN Diagnoses Complete heart block I44.2 Alcoholic intoxication without complication F10.920 Complication of substance-induced condition: uncomplicated Pulmonary edema J81.1 (2) Alcohol intoxication Complication of substance-induced condition: uncomplicated Qualified Code(s): F10.920 - Alcohol use, unspecified with intoxication, uncomplicated
[2024-05-06 07:40] VITALS: TEMP 97.7
[2024-05-06 07:51] LABS: Amphetamines+Metham, Urine Neg (Neg); Barbiturates, Urine Neg (Neg); Benzodiazepine, Urine Neg (Neg); Cocaine, Urine Neg (Neg); Fentanyl, Urine Neg (Neg); MDMA (Ecstacy), Urine Pos (Neg); Marijuana, Urine Neg (Neg); Methadone, Urine Neg (Neg); Opiate, Urine Neg (Neg); Phencyclidine, Urine Neg (Neg)
[2024-05-06 08:14] LABS: Base Excess VBG -1.9 mEq/L; HCO3 VBG 24 mmol/L; Oxygen Saturation VBG < 60.0 %; PCO2 VBG 46 mmHg (38-50); PO2 VBG 26 mmHg; pH VBG 7.33 (7.36-7.41)
[2024-05-06] MEDS ORDERED: LORazepam 1 MG TAB PO PRN (08:18)
[2024-05-06] MEDS ORDERED: LORazepam 2 MG/1 ML VIAL IV PRN (08:18)
[2024-05-06] MEDS: ENOXAPARIN INJ 40 MG/0.4 ML SYR SQ SCH (08:53)
[2024-05-06] MEDS: FOLIC ACID 1 MG TAB PO SCH (08:54)
[2024-05-06] MEDS: FUROSEMIDE 40 MG/4 ML VIAL IV SCH (08:54)
[2024-05-06] MEDS: THIAMINE HCL 100 MG TAB PO SCH (08:55)
[2024-05-06] MEDS: GABAPENTIN 300 MG CAP PO SCH (08:55)
[2024-05-06] MEDS: MULTIVITAMIN TAB PO SCH (09:24)
[2024-05-06] MEDS: FAMOTIDINE 20 MG TAB PO SCH (09:29)
--- NOTE | 2024-05-06 09:37 | Cardiology Consultation ---
<Statement entered by Allison Walker MD - 05/06/24 16:27> I have reviewed the advanced practitioner's documentation on the date of service referenced in note, and I agree with, and take responsibility for the plan of care. I spent a total of 30 minutes coordinating, documenting, and providing care for this patient excluding time spent in the performance of separately billed services or time spent by another provider. 63-year-old with history of chronic alcohol abuse, alcohol hepatitis admitted with syncopal episode EKG with complete heart block underwent temporary pacemaker yesterday Echo revealed normal wall motion normal EF Is using a temporary wire 100% of the time. Underlying rhythm remains in complete heart block. Transfer to [facility] for EP pacemaker placement Date of Consultation May 06, 2024 Assessment & Plan (1) Complete heart block: (2) Alcohol intoxication: Plan Patient admitted with dizziness/weakness/near syncope and found to have 3rd degree AV block on EKG with HR's in the 30's. Taken to catheter builder for temporary pacemaker implantation. Etiology/cause of CHB not identified at this time. +Alcohol use. Lyme negative. Other tick borne screenings are pending. Electrolytes acceptable. Magnesium was low normal and has been supplemented. Echo with normal LVEF. HS troponin negative x 1 on admission. Unfortunately there are no EP services at this facility for the next 4-5 days. Recommend [place] [facility] [place] and likely need permanent pacemaker implantation. Discussed with hospitalist and transfer center contacted. [place] [facility] bed. Case discussed with Dr. Walker I spent a total of 60 minutes on the date of service in preparation, delivery, and documentation of the care provided to this patient, excluding any time spent in the performance of separately billed services. Gretel Marie PA-C Department of Cardiology, [facility] This chart was completed in part utilizing Speech Voice Recognition Software. Grammatical errors, random word insertions, pronoun errors, and incomplete sentences are an occasional consequence of this system due to software limitations, ambient noise, and hardware issues. Any formal questions or concerns about the content, text, or information contained within the body of this dictation should be directly addressed to the provider for clarification. History of Present Illness Reason for Consultation: CHB Requesting Physician: Delores Hospitalist Attending Physician: Dr. Walker History of Present Illness Patient is a 63 year old male admitted to [facility] after a fall/dizziness/weakness while getting on the bus. Assisted to the chair and EMS was summoned. Found to have complete/3rd degree AV block on admission with new LBBB. Interventional cardiology was notified and placed urgent temporary pacemaker. HS troponin negative on admission. Labs on admission demonstrated + alcohol. Patient reported drinking 1/2 bottle of Listerine yesterday due to alcohol content. Lyme negative. Other tick borne illnesses pending. ? Positive ecstasy screen. Patient denies drug use. Patient reports cough and flu like illness over the last few weeks. Respiratory panel negative so far. Head CT was unremarkable. No prior cardiac history. At time of consult, patient resting comfortably. Ventricular paced. No chest pain or SOB. Ongoing cough reported. History includes: 1. chronic alcohol abuse 2. Alcoholic hepatitis 3. Anxiety Allergies Allergy/AdvReac Type Severity Reaction Status Date / Time No Known Allergies Allergy Verified 10/15/23 19:56 Home Medications Medication Instructions Recorded Confirmed Type furosemide 40 mg tablet 40 mg PO DAILY PRN Edema 10/15/23 05/05/24 History hydroxyzine pamoate 50 mg capsule 50 mg PO BID PRN Anxiety 10/15/23 05/05/24 History trazodone 50 mg tablet 100 mg PO HS 10/15/23 05/05/24 History diclofenac sodium 75 mg 75 mg PO BID 05/05/24 05/05/24 History tablet,delayed release gabapentin 300 mg capsule 300 mg PO BID 05/05/24 05/05/24 History famotidine 20 mg tablet 20 mg PO BID #60 tabs 05/06/24 Rx folic acid 1 mg tablet 1 mg PO QAM #30 tabs 05/06/24 Rx multivitamin with folic acid 400 1 tab PO QAM #30 tabs 05/06/24 Rx mcg tablet (Daily-Frank (with folic acid)) thiamine HCl (vitamin B1) 100 mg 100 mg PO TID #30 tabs 05/06/24 Rx tablet Patient History Medical History Alcoholic intoxication Fx medial malleolus-closed Hypokalemia Mood disorder Psoriasis Surgical History No pertinent past surgical history Family History Other Colorectal cancer No pertinent family history Social History Smoking Status: Never smoker Second Hand Exposure: Yes; Do You Dip or Chew Tobacco: No; Hx Alcohol Use: Yes Alcohol type: hard liquor Alcohol Intake Frequency: 4 or More x per/Week Hx Substance Use: No Preferred Language: Honduran Communication Ability: Effective Sustainability Purchasing Agent Required: No Beliefs That Will Affect Care: None Current Living Situation: Alone Feels Safe at Home: Yes Safety Concerns: Feels Safe At This Time Assistive Devices: Walker Review of Systems Review of Systems: All systems reviewed & are unremarkable except as noted in HPI & below Physical Exam Constitutional: + disheveled; no acute distress Neck: Temporary pacer line in tact Respiratory: normal respiratory effort Auscultation: + diminished lung sounds Cardiovascular: Rate/Rhythm: regular rate and regular rhythm Heart Sounds: no murmur Extremities: + edema (1+ LE edema ) Gastrointestinal (Abdomen): normal bowel sounds, soft, nontender, no hepatosplenomegaly Musculoskeletal: no cyanosis or clubbing, extremities motor strength 5/5 Results & Data Vital Signs (Past 12 Hours) Vital Signs Temp Pulse Resp BP Pulse Ox O2 Del Method O2 Flow Rate 05/06/24 09:00 70 18 135/74 95 Room Air 05/06/24 08:30 70 18 121/83 97 Room Air 05/06/24 08:00 70 18 132/87 98 Room Air 05/06/24 08:00 Room Air 05/06/24 07:30 70 18 148/95 H 94 Room Air 05/06/24 07:30 70 19 148/95 H 95 Room Air 05/06/24 07:00 70 21 114/77 93 Room Air 05/06/24 07:00 36.5 C 05/06/24 05:30 96/57 L 05/06/24 05:30 96/57 L 05/06/24 05:30 96/57 L 05/06/24 05:24 70 13 92 05/06/24 05:21 70 13 92 05/06/24 05:00 102/75 05/06/24 04:57 69 16 94 05/06/24 04:30 118/63 05/06/24 04:30 118/63 03/09/25 04:30 118/63 05/06/24 04:09 70 29 H 97 05/06/24 04:00 36.8 C 05/06/24 04:00 123/74 05/06/24 03:54 69 12 97 2 05/06/24 03:09 70 13 95 2 05/06/24 01:30 70 9 L 93 2 05/06/24 01:30 89/64 L 05/06/24 01:30 89/64 L 05/06/24 01:00 103/63 05/06/24 01:00 103/63 05/06/24 01:00 70 11 L 05/06/24 00:30 70 11 L 95 2 05/06/24 00:30 125/66 05/06/24 00:30 125/66 05/06/24 00:06 70 8 L 97 2 05/06/24 00:02 131/88 05/06/24 00:00 70 05/05/24 23:51 69 9 L 96 2 05/05/24 23:30 115/54 L 05/05/24 23:30 70 10 L 93 05/05/24 23:24 70 8 L 94 05/05/24 23:00 111/61 05/05/24 23:00 111/61 05/05/24 23:00 111/61 05/05/24 23:00 69 11 L 94 05/05/24 22:38 36.6 C 05/05/24 22:30 98/60 L 05/05/24 22:30 70 10 L 94 05/05/24 22:21 70 12 96 05/05/24 22:12 70 18 97 05/05/24 22:00 119/87 05/05/24 22:00 119/87 05/05/24 22:00 119/87 05/05/24 22:00 70 15 95 05/05/24 21:30 140/91 05/05/24 21:06 73 23 97 05/05/24 21:00 134/81 05/05/24 21:00 134/81 05/05/24 21:00 134/81 05/05/24 20:48 70 10 L 90 Laboratory Results Cardiac Enzymes 05/05/24 05/06/24 Range/Units 17:20 04:37 AST 31 27 (13-39) U/L Troponin I High Sens 18.3 (0-20) pg/ml B-Natriuretic Peptide 650 H (0-100) pg/ml Coagulation 05/05/24 Range/Units 17:20 PT 11.4 (9.0-12.0) Seconds B-Natriuretic Peptide 650 H (0-100) pg/ml CBC 05/05/24 05/06/24 Range/Units 17:20 04:37 WBC 6.00 5.04 (4.8-10.8) K/ul RBC 4.28 L 4.46 L (4.70-6.10) M/uL Hgb 11.2 L 11.6 L (14.0-18.0) g/dl Hct 35.4 L 36.2 L (42.0-52.0) % Plt Count 233 171 (130-400) K/uL Neut # (Auto) 3.83 2.87 (1.40-6.50) K/uL Lymph # (Auto) 1.51 1.26 (1.20-3.40) K/uL Gonzales # (Auto) 0.53 0.62 H (0.11-0.59) K/uL Eos # (Auto) 0.00 0.19 (0.00-0.50) K/uL Baso # (Auto) 0.12 0.09 (0.00-0.20) K/uL Comprehensive Metabolic Panel 05/05/24 05/06/24 Range/Units 17:20 04:37 Sodium 135 L 140 (136-145) mmol/L Potassium 4.1 4.1 (3.5-5.1) mmol/L Chloride 106 110 H (98-107) mmol/L Carbon Dioxide 21 25 (21-32) mmol/L BUN 22 17 (6-23) mg/dl Creatinine 1.20 0.86 D (0.6-1.4) mg/dl Glucose 141 H 94 (70-99(Fasting)) mg/dl Calcium 8.8 8.8 (8.6-10.3) mg/dl Direct Bilirubin 0.2 (0-0.2) mg/dl AST 31 27 (13-39) U/L ALT 29 26 (7-52) U/L Alkaline Phosphatase 130 H 123 H (34-104) U/L Total Protein 8.0 7.5 (6.0-8.3) gm/dl Albumin 3.9 3.7 (3.4-5.0) gm/dl Intake and Output 05/05/24 05/06/24 05/06/24 21:59 06:59 14:59 Intake Total 100 / 100 Output Total 800 / 800 Balance -700 / -700 Intake: IV 100 / 100 Magnesium Sulfate / D5w 1 gm In 100 / 100 100 ml @ 50 mls/hr IV Q2H YFN Rx#:[id number] Oral Output: Urine 800 / 800 Other: # Unmeasured Voids Weight Weight Measurement Method Diagnostic Findings Telemetry reviewed: atrial sensed ventricular paced rhythm EKG reviewed from admission: 3rd degree AV block with a ventricular rate of 32 bmp; new LBBB Echo report reviewed from today 05/06/24: LVEF at 55-60% LV systolic function is normal. RV is mildly dilated Mild to moderate TR No pericardial effusion Prior EKG reviewed from September 2023: NSR with LAD, RBBB, LAFB Laboratory Results WBC 5.04 K/ul (4.8-10.8) 05/06/24 04:37 RBC 4.46 M/uL (4.70-6.10) L 05/06/24 04:37 Hgb 11.6 g/dl (14.0-18.0) L 05/06/24 04:37 POC Hgb 12.9 g/dl (14.0-18.0) L 05/05/24 17:24 Hct 36.2 % (42.0-52.0) L 05/06/24 04:37 POC Hct 38 % (42-52) L 05/05/24 17:24 MCV 81.2 fL (80.0-100.0) 05/06/24 04:37 MCH 26.0 pg (25.0-34.0) 05/06/24 04:37 MCHC 32.0 g/dL (32.0-36.0) 05/06/24 04:37 RDW Std Deviation 68.8 fL (36.4-46.3) H 05/06/24 04:37 RDW Coeff of Ramona 23.5 % (11.5-14.5) H 05/06/24 04:37 Plt Count 171 K/uL (130-400) 05/06/24 04:37 MPV 9.9 fL (9.4-12.4) 05/06/24 04:37 Immature Gran % (Auto) 0.2 % 05/06/24 04:37 Neut % (Auto) 56.9 % 05/06/24 04:37 Lymph % (Auto) 25.0 % 05/06/24 04:37 Gonzales % (Auto) 12.3 % 05/06/24 04:37 Eos % (Auto) 3.8 % 05/06/24 04:37 Baso % (Auto) 1.8 % 05/06/24 04:37 Neut # (Auto) 2.87 K/uL (1.40-6.50) 05/06/24 04:37 Lymph # (Auto) 1.26 K/uL (1.20-3.40) 05/06/24 04:37 Gonzales # (Auto) 0.62 K/uL (0.11-0.59) H 05/06/24 04:37 Eos # (Auto) 0.19 K/uL (0.00-0.50) 05/06/24 04:37 Baso # (Auto) 0.09 K/uL (0.00-0.20) 05/06/24 04:37 Immature Gran # (Auto) 0.01 K/uL (0.01-0.20) 05/06/24 04:37 Polychromasia 1+ 05/06/24 04:37 Anisocytosis Present 05/06/24 04:37 Tear Drop Cells 1+ 05/05/24 17:20 Ovalocytes 1+ 05/06/24 04:37 PT 11.4 Seconds (9.0-12.0) 05/05/24 17:20 INR 1.1 (0.9-1.1) 05/05/24 17:20 VBG pH 7.33 (7.36-7.41) L 05/06/24 08:03 VBG pCO2 46 mmHg (38-50) 05/06/24 08:03 VBG pO2 26 mmHg 05/06/24 08:03 VBG HCO3 24 mmol/L 05/06/24 08:03 VBG O2 Saturation < 60.0 % 05/06/24 08:03 VBG Base Excess -1.9 mEq/L 05/06/24 08:03 POC Sodium 139 mmol/L (135-144) 05/05/24 17:24 Sodium 140 mmol/L (136-145) 05/06/24 04:37 POC Potassium 4.2 mmol/L (3.3-5.0) 05/05/24 17:24 Potassium 4.1 mmol/L (3.5-5.1) 05/06/24 04:37 POC Chloride 107 mmol/L (101-112) 05/05/24 17:24 Chloride 110 mmol/L (98-107) H 05/06/24 04:37 Carbon Dioxide 25 mmol/L (21-32) 05/06/24 04:37 POC Total CO2 18 mmol/L (24-31) L 05/05/24 17:24 Anion Gap 5 (3-11) 05/06/24 04:37 POC Anion Gap 19.0 mmol/L (16-25) 05/05/24 17:24 POC BUN 21 mg/dl (7-18) H 05/05/24 17:24 BUN 17 mg/dl (6-23) 05/06/24 04:37 Creatinine 0.86 mg/dl (0.6-1.4) D 05/06/24 04:37 POC Creatinine 1.7 mg/dl (0.6-1.3) H 05/05/24 17:24 Est Cr Clr Drug Dosing 112.3 ml/min 05/06/24 04:37 eGFR 98.51 05/06/24 04:37 BUN/Creatinine Ratio 19.8 (10-20) 05/06/24 04:37 Glucose 94 mg/dl (70-99(Fasting)) 05/06/24 04:37 POC Glucose 90 mg/dl (70-99) 05/06/24 07:09 POC Glucose (other) 138 mg/dl (70-99) H 05/05/24 17:24 Lactate 1.9 mmol/L (0.4-2.0) 05/06/24 08:03 Calcium 8.8 mg/dl (8.6-10.3) 05/06/24 04:37 POC Ioniz Calcium Lili 1.09 mmol/l (1.12-1.32) L 05/05/24 17:24 Phosphorus 4.1 mg/dl (2.5-4.9) 05/06/24 04:37 Magnesium 1.7 mg/dl (1.7-2.4) 05/06/24 04:37 Total Bilirubin 0.6 mg/dl (0.2-1.0) 05/06/24 04:37 Direct Bilirubin 0.2 mg/dl (0-0.2) 05/06/24 04:37 AST 27 U/L (13-39) 05/06/24 04:37 ALT 26 U/L (7-52) 05/06/24 04:37 Alkaline Phosphatase 123 U/L (34-104) H 05/06/24 04:37 Troponin I High Sens 18.3 pg/ml (0-20) 05/05/24 17:20 B-Natriuretic Peptide 650 pg/ml (0-100) H 05/05/24 17:20 Total Protein 7.5 gm/dl (6.0-8.3) 05/06/24 04:37 Albumin 3.7 gm/dl (3.4-5.0) 05/06/24 04:37 Globulin 4.1 gm/dl (2.5-4.0) H 05/05/24 17:20 Albumin/Globulin Ratio 1.0 (0.9-2) 05/05/24 17:20 TSH 1.434 uIu/ml (0.300-4.500) 05/05/24 17:20 Urine Color Yellow 05/06/24 Unknown Urine Appearance Clear (Clear) 05/06/24 Unknown Urine pH 5.0 (4.5-7.5) 05/06/24 Unknown Ur Specific [place] >= 1.030 (1.000-1.030) 05/06/24 Unknown Urine Protein Negative (Negative) 05/06/24 Unknown Urine Glucose (UA) Negative (Negative) 05/06/24 Unknown Urine Ketones Negative (Negative) 05/06/24 Unknown Urine Blood Negative (Negative) 05/06/24 Unknown Urine Nitrite Negative (Negative) 05/06/24 Unknown Urine Bilirubin Negative (Negative) 05/06/24 Unknown Urine Urobilinogen Negative (Negative) 05/06/24 Unknown Ur Leukocyte Esterase Negative (Negative) 05/06/24 Unknown Urine WBC (Auto) Cancelled 05/05/24 21:00 Urine RBC (Auto) Cancelled 05/05/24 21:00 U Hyaline Cast (Auto) Cancelled 05/05/24 21:00 U Epithel Cells (Auto) Cancelled 05/05/24 21:00 Urine Bacteria (Auto) Cancelled 05/05/24 21:00 Ur Renal Epithelial Cell Cancelled 05/05/24 21:00 [place] Biurate Crystals Cancelled 05/05/24 21:00 Calcium Oxalate Crystal Cancelled 05/05/24 21:00 Leucine Crystals Cancelled 05/05/24 21:00 Cystine Crystals Cancelled 05/05/24 21:00 Uric Acid Crystals Cancelled 05/05/24 21:00 Triple Phos Crystals Cancelled 05/05/24 21:00 Sulfonamide Crystals Cancelled 05/05/24 21:00 Cholesterol Crystals Cancelled 05/05/24 21:00 Talc Crystals Cancelled 05/05/24 21:00 Tyrosine Crystals Cancelled 05/05/24 21:00 Hippuric Acid Crystals Cancelled 05/05/24 21:00 Unidentified Crystals Cancelled 05/05/24 21:00 Amorphous Sediment Cancelled 05/05/24 21:00 Epithelial Casts Cancelled 05/05/24 21:00 Hyaline Casts Cancelled 05/05/24 21:00 Granular Casts Cancelled 05/05/24 21:00 Waxy Casts Cancelled 05/05/24 21:00 RBC Casts Cancelled 05/05/24 21:00 WBC Casts Cancelled 05/05/24 21:00 Other Casts Cancelled 05/05/24 21:00 Urine Mucus Cancelled 05/05/24 21:00 Urine Other Cancelled 05/05/24 21:00 Urine Trichomonas Cancelled 05/05/24 21:00 Urine Yeast Cancelled 05/05/24 21:00 Urine Sperm Cancelled 05/05/24 21:00 Ur Oval Fat Bodies Cancelled 05/05/24 21:00 Nasal Screen MRSA (PCR) Negative (Negative) 05/05/24 19:20 Urine Butalbital Cancelled 05/05/24 21:00 Urine Opiates Screen Neg (Neg) 05/06/24 Unknown Ur Methadone, Qual Neg (Neg) 05/06/24 Unknown Urine Fentanyl Screen Neg (Neg) 05/06/24 Unknown Urine Barbiturates Neg (Neg) 05/06/24 Unknown Ur Phencyclidine (PCP) Neg (Neg) 05/06/24 Unknown U Amphetamin/Meth Scrn Neg (Neg) 05/06/24 Unknown MDMA (Ecstasy) Screen Pos (Neg) H 05/06/24 Unknown Urine Amobarbital Cancelled 05/05/24 21:00 Urine Pentobarbital Cancelled 05/05/24 21:00 Urine Phenobarbital Cancelled 05/05/24 21:00 Urine Secobarbital Cancelled 05/05/24 21:00 U Benzodiazepines Scrn Neg (Neg) 05/06/24 Unknown Ur Cocaine Metabolite Neg (Neg) 05/06/24 Unknown U Marijuana (THC) Screen Neg (Neg) 05/06/24 Unknown Drug Screen Comment Cancelled 05/05/24 21:00 Ethyl Alcohol mg/dL 305.6 mg/dl (<10.0) H 05/05/24 17:20 Adenovirus (PCR) Not Detected (NotDetected) 05/05/24 17:20 B. pertussis DNA (PCR) Not Detected (NotDetected) 05/05/24 17:20 B.parapertussis DNA PCR Not Detected (NotDetected) 05/05/24 17:20 Lyme Disease Screen Negative (Negative) 05/05/24 17:20 C. pneumoniae DNA (PCR) Not Detected (NotDetected) 05/05/24 17:20 Coronavirus OC43 (PCR) Not Detected (NotDetected) 05/05/24 17:20 Coronavirus HKU1 (PCR) Not Detected (NotDetected) 05/05/24 17:20 Coronavirus 229E (PCR) Not Detected (NotDetected) 05/05/24 17:20 SARS-CoV-2 (PCR) Not Detected (NotDetected) 05/05/24 17:20 Coronavirus NL63 (PCR) Not Detected (NotDetected) 05/05/24 17:20 Human Metapneumovir PCR Not Detected (NotDetected) 05/05/24 17:20 Influenza Type A (PCR) Not Detected (NotDetected) 05/05/24 17:20 Influenza Type B (PCR) Not Detected (NotDetected) 05/05/24 17:20 M. pneumoniae (PCR) Not Detected (NotDetected) 05/05/24 17:20 Parainfluenza 1 (PCR) Not Detected (NotDetected) 05/05/24 17:20 Parainfluenza 2 (PCR) Not Detected (NotDetected) 05/05/24 17:20 Parainfluenza 3 (PCR) Not Detected (NotDetected) 05/05/24 17:20 Parainfluenza 4 (PCR) Not Detected (NotDetected) 05/05/24 17:20 RSV (PCR) Not Detected (NotDetected) 05/05/24 17:20 Entero/Rhino (PCR) Not Detected (NotDetected) 05/05/24 17:20 Impressions Chest X-Ray 05/05/24 17:00 HISTORY: Confusion. TECHNIQUE: Portable AP radiograph the chest COMPARISON: Chest radiograph dated 11/17/2022 FINDINGS: Small pleural effusions. Bilateral lower lung airspace opacities. Vascular congestion and possible mild pulmonary edema. Cardiomegaly. Left-sided aortic arch. Midline trachea. No acute osseous abnormality. Included upper abdomen is unremarkable IMPRESSION: 1. Findings suggesting CHF with cardiomegaly, pulmonary vascular congestion, and possible mild pulmonary edema. 2. Small effusions with bibasilar airspace opacity, which could represent atelectasis or pneumonia. Electronically signed by Craig Claros 05-05-2024 5:25 PM Medications Administered Current Inpatient Medications Acetaminophen (Acetaminophen 325 Mg Tab) 650 mg PO Q4H PRN PRN Reason: Pain or Fever Stop: 06/04/24 20:57 Enoxaparin Sodium (Enoxaparin Inj 40 Mg/0.4 Ml Syr) 40 mg SQ QAM YFN Stop: 06/05/24 08:59 Last Admin: 05/06/24 08:53 Dose: 40 mg Famotidine (Famotidine 20 Mg Tab) 20 mg PO BID YFN Stop: 06/05/24 08:59 Last Admin: 05/06/24 09:29 Dose: 20 mg Folic Acid (Folic Acid 1 Mg Tab) 1 mg PO QAM YFN Stop: 06/05/24 08:59 Last Admin: 05/06/24 08:54 Dose: 1 mg Furosemide (Furosemide 40 Mg/4 Ml Vial) 40 mg IV DAILY YFN Stop: 06/05/24 08:59 Last Admin: 05/06/24 08:54 Dose: 40 mg Gabapentin (Gabapentin 300 Mg Cap) 300 mg PO QID YFN Stop: 06/05/24 08:59 Last Admin: 05/06/24 08:55 Dose: 300 mg Magnesium Sulfate/Dextrose (Magnesium Sulfate / D5w) 1 gm in 100 mls @ 50 mls/hr IV Q2H [facility] Stop: 05/06/24 13:44 Last Admin: 05/06/24 08:01 Dose: 50 mls/hr Lorazepam (Lorazepam 1 Mg Tab) 1 mg PO ONE PRN; Protocol PRN Reason: EtoH Withdrawal AWSS 6,7,8,9,10 Lorazepam (Lorazepam 2 Mg/1 Ml Vial) 1 mg IV ONE PRN; Protocol PRN Reason: EtoH Withdrawal AWSS 6-10 Miscellaneous ([facility] Protocol For Hyperglycemia) 1 each N/A ACHS [facility] Stop: 05/07/24 20:59 Last Admin: 05/06/24 07:32 Dose: Not Given Miscellaneous ([facility] Electrolyte Replacement Protocol) 1 each N/A BID@06,18 [facility]; Protocol Stop: 05/13/24 05:59 Last Admin: 05/06/24 06:37 Dose: 1 each Multivitamins (Multivitamin Tab) 1 tab PO QAM YFN Stop: 06/05/24 09:59 Last Admin: 05/06/24 09:24 Dose: 1 tab Thiamine HCl (Thiamine Hcl 100 Mg Tab) 100 mg PO TID [facility] Stop: 06/05/24 08:59 Last Admin: 05/06/24 08:55 Dose: 100 mg Trazodone HCl (Trazodone Hcl 100 Mg Tab) 100 mg PO HS [facility] Stop: 06/04/24 20:59 Last Admin: 05/05/24 21:26 Dose: Not Given (2) Alcohol intoxication Complication of substance-induced condition: uncomplicated Qualified Code(s): F10.920 - Alcohol use, unspecified with intoxication, uncomplicated
--- NOTE | 2024-05-06 11:01 | Discharge Summary ---
Discharge Summary Date of Service May 06, 2024 Principal Dx & Hospital Course #1 = Principal Diagnosis (1) Complete heart block: (2) Acute systolic heart failure: Due to bradycardia/heart block (3) Acute kidney injury: Resolved (4) Alcohol intoxication: (5) Mood disorder: (6) Alcohol abuse: (7) Peripheral neuropathy: (8) Failed back syndrome of lumbar spine: Plan Patient 63-year-old gentleman with known alcohol addiction and chronic intoxication. Presents to the emergency room after having an dizziness episode and falling backwards when trying to get on the bus. In the emergency room EKG revealed complete heart block. He was also noted to be intoxicated. Patient was immediately/urgently taken to the cardiac Siding Coreboard Inspector and temporary pacemaker was placed. He was admitted to the ICU and was being permanently paced. He was monitored for alcohol withdrawal but did not have any significant symptoms. Cardiology consultation was obtained. It was learned that there would be no EP services available here at [facility] and no ability to place a permanent pacemaker until the end of the week. It was recommend the patient be transferred to another facility for more immediate placement of a pacemaker. Transfer center was contacted, discussion with Dr. Parikh about the patient's condition. She graciously accepted the patient in transfer. Patient will be t ransferred to [facility] when bed available via ALS. Notes For Next Care Provider Medication Changes From Visit Folic acid, thiamine Ativan as needed Increased gabapentin for chronic peripheral neuropathy Pepcid Admission HPI Per Admitting Provider This is a 63 y/o male with history of alcohol abuse, generalized anxiety disorder, insomnia, and other history as outlined below who presented to the ED via EMS with dizziness, near-syncope. History obtained from patient and from ED provider, review of the medical record. 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 He was caught by bystander who called 911. He reports 1-2 weeks of orthopnea but no other significant SOB. Pt is very concerned that his medications are contributing although he denies any new medications. He reports that he is not taking the furosemide consistently b/c doesn't think he needs it, doesn't like the increased urination. He denies chest pain, fevers, chills. He has a history of alcohol abuse but reports that he has been sober until last night when he drank half a bottle of Listerine for the alcohol in it. He reports that recently he has just felt "out of it" but repeatedly attributes to the medications he's taking. In the ED, his heart rate was in the upper 20s to low 30s, EKG c/w complete heart block. BP has been in low 100s systolic since arriva l. He was given atropine 2 mg without response. Dopamine gtt started at 5 mcg/kg without significant response, increased by ED provider to 7.5 mcg/kg and pt urgently transferred to the labor law professor for temporary pacer. Admission Exam Per Admitting Provider See H&P Discharge Exam Constitutional: Alert, nontoxic, no acute distress HEENT: Mucous membranes moist., Temporary pacemaker wire in right jugular Lungs: Decreased breath sounds, some crackles throughout CV: S1-S2, regular Abdomen: Soft, nontender, nondistended Extremities: No significant edema Neuro: Significant peripheral neuropathy, generalized weakness, no significant tremor Psych: Cooperative, chronically irritable Updated Medication List Medication Instructions Recorded Confirmed Type furosemide 40 mg tablet 40 mg PO DAILY PRN Edema 10/15/23 05/05/24 History hydroxyzine pamoate 50 mg capsule 50 mg PO BID PRN Anxiety 10/15/23 05/05/24 History trazodone 50 mg tablet 100 mg PO HS 10/15/23 05/05/24 History diclofenac sodium 75 mg 75 mg PO BID 05/05/24 05/05/24 History tablet,delayed release gabapentin 300 mg capsule 300 mg PO BID 05/05/24 05/05/24 History famotidine 20 mg tablet 20 mg PO BID #60 tabs 05/06/24 Rx folic acid 1 mg tablet 1 mg PO QAM #30 tabs 05/06/24 Rx multivitamin with folic acid 400 1 tab PO QAM #30 tabs 05/06/24 Rx mcg tablet (Daily-Frank (with folic acid)) thiamine HCl (vitamin B1) 100 mg 100 mg PO TID #30 tabs 05/06/24 Rx tablet Hospital Stay Data Consultations 05/05/24 18:02 ED Decision to Admit Stat 05/05/24 18:05 Consult Cardiology Stat 05/05/24 19:17 Consult Pediatric Intensive Physician Routine 05/05/24 20:25 Consult Cardiology Routine Procedures Performed Operation Date: 05/05/24 18:00 Actual Procedures p Temporary Transcutaneous Pacing - Torin Wilson MD, PhD Diagnostic Imagining Performed 05/05/24 17:57 CL Cath Imgs for PACS use only Stat Reviewed imaging, laboratory and diagnostic studies. Pertinent findings as below. WBCs 5.0 Hemoglobin 11.6 Platelets of 171 INR 1.1 Electrolytes stable Creatinine 0.86, significantly improved from admission BNP 650 TSH 1.43 Urinalysis unremarkable Nasal MRSA negative Ethyl alcohol 305.6 on admission Respiratory viral panel negative Pending Results Patient Have Any Pending Studies at Discharge: Yes Discharge Instructions Given to Patient (Per Discharging Provider) You are being transferred to [facility] in [place] to be seen by the electrophysiology team for possible permanent pacemaker insertion Total Time Total Time Spent Total Time Spent (In Minutes): 48
[2024-05-06 14:02] VITALS: BP 105/79; RESP 21; O2SAT 93
--- NOTE | 2024-05-07 06:08 | Electrocardiogram Report ---
Test Reason : Blood Pressure : */* mmHG Vent. Rate : 70 BPM Atrial Rate : 73 BPM P-R Int : * ms QRS Dur : 224 ms QT Int : 560 ms P-R-T Axes : * 61 -7 degrees QTcB Int : 604 ms Ventricular-paced rhythm Abnormal ECG When compared with ECG of 05-May-2024 17:06, Electronic ventricular pacemaker has replaced Idioventricular rhythm Vent. rate has increased by 38 bpm Confirmed by Percy Warren ([id number]) on 05/07/2024 6:08:22 AM Referred By: REFERRED SELF Confirmed By: Percy Warren
--- NOTE | 2024-05-07 06:08 | Electrocardiogram Report ---
Test Reason : Blood Pressure : */* mmHG Vent. Rate : 32 BPM Atrial Rate : 91 BPM P-R Int : * ms QRS Dur : 180 ms QT Int : 646 ms P-R-T Axes : 53 -66 -50 degrees QTcB Int : 471 ms Sinus rhythm with complete heart block and Idioventricular rhythm Left axis deviation Left bundle branch block Abnormal ECG When compared with ECG of 16-Oct-2023 05:57, Idioventricular rhythm is now Present Sinus rhythm is now with complete heart block Vent. rate has decreased by 59 bpm Confirmed by Percy Warren ([id number]) on 05/07/2024 6:08:09 AM Referred By: REFERRED SELF Confirmed By: Percy Warren
== END 2024-05-06 14:18 | disposition short-term general hospital (02) | DRG 308 ==
LOC: ED 16:55 → SUATTDRO 18:11 → 1E 18:11
PROC: CLB.TTP (2024-05-05 18:00)

== ENCOUNTER 2024-12-14 23:10 | Inpatient (IN) ==
--- NOTE | 2024-12-14 23:59 | Emergency Department Note ---
Impression & Plan Alcohol intoxication delirium, Fall ED Provider Note HISTORY OF PRESENT ILLNESS: Patient is a 63-year-old male presenting after a syncopal episode and being found down. Patient arrives from his home via EMS. Patient is intoxicated but does provide a history. 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 He reports he was unable to get up on his own and crawled to the door where his neighbor found him. On EMS arrival, the patient reportedly was seated in a chair. Patient is emotionally labile and will be talking and start to cry during history taking. Patient reports he is on "a lot of blood pressure medications." He states that he "mixed this with alcohol." He states that he recently stopped taking his psychiatric medications. He states that tonight he had fallen asleep in his chair and he woke up and thought there was someone standing next to him who "swatted at me." He states "I know this person was not there but it was very scary." Patient states he "drank a lot of vodka and cranberry juice." He states his last drink was about 5 hours ago. He states "I do not drink every day." He states he has never had a seizure when he stops drinking. He states that his hallucinations are "due to my psych problems." He states that he had stopped taking his psychiatric medications about 3 days ago. Patient denies hearing any command hallucinations. Denies any suicidal or homicidal ideation. He reports that he is "scared." ROS: as above PHYSICAL EXAM: Constitutional: Patient appears in no acute distress. Intoxicated HENT: Head: Normocephalic and atraumatic. Eyes: EOMI, PERRL Mouth/Throat: Mucous membranes moist. Neck: Trachea midline. Neck supple. No midline cervical spine tenderness palpation. Cardiovascular: Paced rhythm. No murmurs, rubs or gallops. Intact distal pulses. Pulmonary/Chest: No respiratory distress. Breath sounds clear and equal bilaterally. No wheezes or rales. No chest wall tenderness to palpation. Abdominal: Abdomen soft, no tenderness, rebound or guarding. Back: No midline spinal tenderness, no paraspinal tenderness, no CVA tenderness. Back brace in place. Musculoskeletal: No edema, tenderness or deformity noted. Skin: Warm and dry. No rash, erythema, pallor or cyanosis Psychiatric: Emotionally labile - patient will start crying and then is able to speak in full and complete sentences. Intoxicated. Smells strongly of alcohol. Neurological: Alert. CN II-XII grossly intact, moving all extremities equally and fully. MDM: - Vitals signs showed hypertension. - History obtained via patient and EMS, given patient's intoxication. History as above. - Chronic conditions affecting care: mood disorder; HTN; alcoholic hepatitis; complete heart block (s/p pacemaker); alcohol use disorder; CHF - Differential diagnoses include, but are not limited to: intracranial hemorrhage; alcohol intoxication; alcohol withdrawal; electrolyte abnormality; UTI; dehydration; medication withdrawal - Order placed for continuous cardiac monitoring. At this time, monitor showed rate of 94 bpm with paced rhythm, per my interpretation. - External medical records reviewed. Discharge summary dated 05/06/2024 was reviewed. Patient was admitted at that time after having an episode of dizziness and falling off of the bus. He was found to be in complete heart block and intoxicated. He was transferred to a tertiary care facility for placement of a pacemaker. - EKG image interpreted by myself showed paced rhythm. Rate 91 bpm. - Alcohol withdrawal severity score was ordered, as patient is emotionally labile, does seem to be interacting with people who are not here and is very tremulous. His alcohol withdrawal score resulted at 16. He was given 2 mg of IV Ativan. He did have subsequent hypoxia after Ativan dosing. He was placed on 2 L nasal cannula. - Laboratory workup interpreted by myself showed normal WBC; stable electrolytes; elevated anion gap (16); normal troponin; elevated alcohol (397.9) - CT head wo contrast images reviewed by myself are negative for intracranial hemorrhage, per my interpretation. - Patient given LR, 1 mg IV folic acid and 100 mg IM thiamine in ER. Ativan IV order set was ordered for patient's alcohol withdrawal. - Discussion was had with rifle case repairer about patient's case and need for admission - Hospitalist consulted for admission - Patient admitted to [facility] Hospitalist service for further evaluation and management. ASSESSMENT AND PLAN: Diagnosis: alcohol intoxication delirium; fall Plan: admit Past Med/Surg History Problem List (Updated 12/15/24 @ 00:54 by Joycelyn Alvarez MD) Fall (Acute) Acute kidney injury Acute systolic heart failure Failed back syndrome of lumbar spine Peripheral neuropathy Chronic back pain Pulmonary edema (Acute) Alcohol intoxication (Acute) Complete heart block (Acute) Alcoholic hepatitis Acute hypokalemia (Acute) Transaminitis (Acute) Hypokalemia Lab test negative for COVID-19 virus (Acute) Alcohol intoxication delirium (Acute) HTN (hypertension) Alcohol abuse (Acute) Mood disorder (Acute) Medical History Alcoholic intoxication Fx medial malleolus-closed Hypokalemia Mood disorder Psoriasis Surgical History No pertinent past surgical history Family History Other Colorectal cancer No pertinent family history Social History Smoking Status: Unknown if ever smoked Second Hand Exposure: Yes; Do You Dip or Chew Tobacco: No; Hx Alcohol Use: Yes Alcohol type: hard liquor Alcohol Intake Frequency: 4 or More x per/Week Hx Substance Use: No Preferred Language: Kazakh Communication Ability: Effective Core Drill Operator Required: No Beliefs That Will Affect Care: None Current Living Situation: Alone Feels Safe at Home: No Is there a partner from a previous relationship who is making you feel unsafe now?: No Assistive Devices: Walker Allergies Allergies Allergy/AdvReac Type Severity Reaction Status Date / Time No Known Allergies Allergy Verified 12/15/24 01:21 Home Meds Home Medications Medication Instructions Recorded Confirmed hydroxyzine pamoate 50 mg capsule 50 mg PO BID PRN Anxiety 10/15/23 11/18/24 trazodone 50 mg tablet 100 mg PO HS Sleep 10/15/23 12/15/24 gabapentin 300 mg capsule 300 mg PO AMHS 05/05/24 12/15/24 acetylcysteine 600 mg capsule (NAC) 600 mg PO QAM 11/02/24 12/15/24 cholecalciferol (vitamin D3) 25 25 mcg PO DAILY 11/02/24 12/15/24 mcg (1,000 unit) capsule (Vitamin D3) clobetasol 0.05 % scalp solution 1 applic topical BID 11/02/24 12/15/24 furosemide 20 mg tablet 20 mg PO QAM 11/02/24 12/15/24 magnesium oxide 400 mg PO DAILY 11/02/24 12/15/24 milk thistle seed extract 87.5 mg 87.5 mg PO DAILY 11/02/24 12/15/24 capsule tizanidine 4 mg tablet 4 mg PO Q8H PRN MUSCLE SPASMS 11/02/24 12/15/24 triamcinolone acetonide 0.1 % 1 applic topical DIRECTED 11/02/24 12/15/24 topical cream PSORIASIS zinc acetate 50 mg (zinc) capsule 50 mg PO QAM 11/02/24 12/15/24 doxepin 10 mg capsule 10 mg PO HS 12/15/24 12/15/24 vitamin B complex 1 tab PO DAILY 12/15/24 12/15/24 Results & Data (ED) Vital Signs Vital Signs - 24 hr 12/14/24 23:15 12/14/24 23:15 12/14/24 23:24 Temperature Temperature Source Pulse Rate 94 H Pulse Rate from SpO2 Sensor Pulse Rhythm Pulse Strength Respiratory Rate Respiratory Effort / Characteristics Respiratory Depth Respiratory Pattern Blood Pressure Blood Pressure Mean Blood Pressure Position Pulse Oximetry 95 Oxygen Delivery Method Room Air Room Air Oxygen Flow Rate 0 Sepsis Recent Fever Within 48 Hours Sepsis New/Unexplained Change in Mental Status Sepsis Action Taken by Nursing Oxygen Flow Rate - Titration Pulse Oximetry Post Tiitration 95 12/14/24 23:30 12/14/24 23:30 12/14/24 23:34 Temperature 36.7 C 36.7 C Temperature Source Oral Oral Pulse Rate 97 H 98 H Pulse Rate from SpO2 Sensor 108 H Pulse Rhythm Regular Pulse Strength Normal Respiratory Rate 17 22 Respiratory Effort / Characteristics Non-Labored Spontaneous Respiratory Depth Normal Respiratory Pattern Regular Blood Pressure 141/99 H 141/102 H Blood Pressure Mean 113 115 Blood Pressure Position Lying Pulse Oximetry 93 93 Oxygen Delivery Method Room Air Room Air Oxygen Flow Rate Sepsis Recent Fever Within 48 Hours No Sepsis New/Unexplained Change in Mental Status N/A Sepsis Action Taken by Nursing No Action Required Oxygen Flow Rate - Titration Pulse Oximetry Post Tiitration 12/15/24 00:06 12/15/24 00:18 12/15/24 00:24 Temperature Temperature Source Pulse Rate 97 H 92 H 93 H Pulse Rate from SpO2 Sensor 97 H Pulse Rhythm Pulse Strength Respiratory Rate 22 24 24 Respiratory Effort / Characteristics Respiratory Depth Respiratory Pattern Blood Pressure 121/76 Blood Pressure Mean 91 Blood Pressure Position Pulse Oximetry 93 93 95 Oxygen Delivery Method Room Air Room Air Room Air Oxygen Flow Rate Sepsis Recent Fever Within 48 Hours Sepsis New/Unexplained Change in Mental Status Sepsis Action Taken by Nursing Oxygen Flow Rate - Titration Pulse Oximetry Post Tiitration 12/15/24 00:28 12/15/24 00:30 12/15/24 01:00 Temperature 36.9 C Temperature Source Oral Pulse Rate 91 H Pulse Rate from SpO2 Sensor 153 H Pulse Rhythm Pulse Strength Respiratory Rate 18 Respiratory Effort / Characteristics Respiratory Depth Respiratory Pattern Blood Pressure 129/86 Blood Pressure Mean 100 Blood Pressure Position Pulse Oximetry 83 L 99 Oxygen Delivery Method Room Air Nasal Cannula Nasal Cannula Oxygen Flow Rate 0 2 Sepsis Recent Fever Within 48 Hours Sepsis New/Unexplained Change in Mental Status Sepsis Action Taken by Nursing Oxygen Flow Rate - Titration 3 Pulse Oximetry Post Tiitration 96 12/15/24 01:00 Temperature Temperature Source Pulse Rate Pulse Rate from SpO2 Sensor Pulse Rhythm Pulse Strength Respiratory Rate Respiratory Effort / Characteristics Respiratory Depth Respiratory Pattern Blood Pressure Blood Pressure Mean Blood Pressure Position Pulse Oximetry 100 Oxygen Delivery Method Nasal Cannula Oxygen Flow Rate 2 Sepsis Recent Fever Within 48 Hours Sepsis New/Unexplained Change in Mental Status Sepsis Action Taken by Nursing Oxygen Flow Rate - Titration 1 Pulse Oximetry Post Tiitration 99 Laboratory Data 12/14/24 23:30 12/14/24 23:30 Lab Results 12/14/24 12/14/24 12/15/24 Range/Units 23:30 23:30 01:02 WBC 10.22 (4.8-10.8) K/ul RBC 4.83 (4.70-6.10) M/uL Hgb 13.5 L (14.0-18.0) g/dl Hct 41.0 L (42.0-52.0) % MCV 84.9 (80.0-100.0) fL MCH 28.0 (25.0-34.0) pg MCHC 32.9 (32.0-36.0) g/dL RDW Std Deviation 52.3 H (36.4-46.3) fL RDW Coeff of Ramona 17.2 H (11.5-14.5) % Plt Count 135 (130-400) K/uL MPV 10.0 (9.4-12.4) fL Immature Gran % (Auto) 0.4 % Neut % (Auto) 64.1 % Lymph % (Auto) 27.4 % [place] % (Auto) 7.3 % Eos % (Auto) 0.0 % Baso % (Auto) 0.8 % Neut # (Auto) 6.55 H (1.40-6.50) K/uL Lymph # (Auto) 2.80 (1.20-3.40) K/uL [place] # (Auto) 0.75 H (0.11-0.59) K/uL Eos # (Auto) 0.00 (0.00-0.50) K/uL Baso # (Auto) 0.08 (0.00-0.20) K/uL Immature Gran # (Auto) 0.04 (0.01-0.20) K/uL PT 11.3 (9.0-12.0) Seconds INR 1.1 (0.9-1.1) Sodium 136 (136-145) mmol/L Potassium TNP Chloride 95 L (98-107) mmol/L Carbon Dioxide 25 (21-32) mmol/L Anion Gap 16 H (3-11) BUN 19 (6-23) mg/dl Creatinine 1.30 (0.6-1.4) mg/dl Est Cr Clr Drug Dosing 67.1 ml/min eGFR 62.50 BUN/Creatinine Ratio 14.6 (10-20) Glucose 151 H (70-99(Fasting)) mg/dl Calcium 9.2 (8.6-10.3) mg/dl Magnesium 1.8 (1.7-2.4) mg/dl Total Bilirubin 0.8 (0.2-1.0) mg/dl AST TNP ALT 43 (7-52) U/L Alkaline Phosphatase 158 H (34-104) U/L Total Creatine Kinase 119 (30-223) U/L Troponin I High Sens 7.5 Cancelled (0-20) pg/ml Total Protein 8.3 (6.0-8.3) gm/dl Albumin 3.8 (3.4-5.0) gm/dl Globulin 4.5 H (2.5-4.0) gm/dl Albumin/Globulin Ratio 0.8 L (0.9-2) Lipase 17 (11-82) U/L Urine Comment Ethyl Alcohol mg/dL 397.9 H (<10.0) mg/dl Administered Medications Discontinued Medications Lorazepam (Lorazepam 1 Mg/1 Ml Syr Ed Inj Use) 2 mg IM ONE STA Stop: 12/15/24 00:09 Last Admin: 12/15/24 00:20 Dose: Not Given Documented By: ARIAN Lorazepam (Lorazepam 1 Mg/1 Ml Syr Ed Inj Use) 2 mg IV ONE STA Stop: 12/15/24 00:19 Last Admin: 12/15/24 00:23 Dose: 2 mg Documented By: ARIAN Discharge Plan Visit Data Chief Complaint: Alcohol Intoxication Stated Complaint: ETOH, Hallucinations ED Provider: Joycelyn Alvarez Discharge Problem: Alcohol intoxication delirium, Fall Condition: Fair Forms Stand Alone Forms: [employer] Prescriptions Prescriptions: No Action hydroxyzine pamoate 50 mg capsule 50 mg PO BID PRN (Reason: Anxiety) trazodone 50 mg tablet 100 mg PO HS Rx Instructions: NOT ON [facility] MED LIST, EXT MED HX FILLED 11/22/24 FOR 180 TABS/90 DAYS SUPPLY. gabapentin 300 mg capsule 300 mg PO AMHS zinc acetate 50 mg (zinc) Capsule 50 mg PO QAM tizanidine 4 mg tablet 4 mg PO Q8H PRN (Reason: MUSCLE SPASMS) triamcinolone acetonide 0.1 % cream 1 applic TOPICAL DIRECTED furosemide 20 mg tablet 20 mg PO QAM clobetasol 0.05 % solution 1 applic TOPICAL BID Rx Instructions: APPLY TO AFFECTED AREAS cholecalciferol (vitamin D3) [Vitamin D3] 25 mcg (1,000 unit) Capsule 25 mcg PO DAILY acetylcysteine [NAC] 600 mg Capsule 600 mg PO QAM milk thistle seed extract 87.5 mg Capsule 87.5 mg PO DAILY Rx Instructions: give with meal/snack magnesium oxide 400 mg magnesium Tablet 400 mg PO DAILY vitamin B complex Tablet 1 tab PO DAILY doxepin 10 mg Capsule 10 mg PO HS Rx Instructions: PER [facility], NOT ON EXT MED HX, NOT SURE IF EVER FILLED. Referrals Referrals: Gee Del Valle DO [Primary Care Provider] -
[2024-12-15 00:15] LABS: Hematocrit (blood only) 41.0 % (42.0-52.0); Hemoglobin 13.5 g/dl (14.0-18.0); Immature Granulocytes # (auto) 0.04 K/uL (0.01-0.20); Immature Granulocytes % (auto) 0.4 %; Mean Corpuscular Hemoglobin 28.0 pg (25.0-34.0); Mean Corpuscular Volume 84.9 fL (80.0-100.0); Platelet Count 135 K/uL (130-400); RDW Standard Deviation 52.3 fL (36.4-46.3); Red Blood Count 4.83 M/uL (4.70-6.10); White Blood Count 10.22 K/ul (4.8-10.8)
[2024-12-15] MEDS: LORazepam 1 MG/1 ML SYR ED Inj Use IM STA (00:20)
[2024-12-15] MEDS: LORazepam 1 MG/1 ML SYR ED Inj Use IV STA (00:23)
[2024-12-15 00:49] LABS: Alanine Aminotransferase 43 U/L (7-52); Albumin Globulin Ratio 0.8 (0.9-2); Albumin Level 3.8 gm/dl (3.4-5.0); Alkaline Phosphatase 158 U/L (34-104); Anion Gap 16 (3-11); Bilirubin,Total 0.8 mg/dl (0.2-1.0); Blood Urea Nitrogen 19 mg/dl (6-23); Calcium 9.2 mg/dl (8.6-10.3); Carbon Dioxide 25 mmol/L (21-32); Chloride 95 mmol/L (98-107); Creatine Kinase 119 U/L (30-223); Creatinine Clr Calc Pharmacy 67.1 ml/min; Globulin 4.5 gm/dl (2.5-4.0); Glucose 151 mg/dl (70-99(Fasting)); Lipase 17 U/L (11-82); Magnesium 1.8 mg/dl (1.7-2.4); Sodium 136 mmol/L (136-145); Total Protein 8.3 gm/dl (6.0-8.3)
[2024-12-15] MEDS ORDERED: LORazepam Inj 1 MG in SYRINGE 0.5 ML IV PRN ×2 (00:49→02:00)
[2024-12-15] MEDS ORDERED: LORazepam Inj 2 MG in SYRINGE 1 ML IV PRN (00:49)
[2024-12-15 00:58] LABS: INR 1.1 (0.9-1.1); Prothrombin Time 11.3 Seconds (9.0-12.0)
[2024-12-15 01:13] LABS: Appearance Urine Clear (Clear); Glucose Urine UA Negative (Negative)
--- NOTE | 2024-12-15 01:25 | History & Physical Report ---
Date of Service December 15, 2024 Assessment & Plan (1) Alcohol withdrawal: Plan: Assessment and plan below following discussion of case with ED provider and reviewing patient history/pertinent normal/abnormal diagnostic test results. Alcohol withdrawal Acute hypoxemic respiratory failure secondary to benzo administration Recurrent falls, history of orthostatic hypotension as per records, rule out pacemaker dysfunction, history complete heart block status post PPM RLE cellulitis, plaque psoriasis noted on extremities. mild TR orthostatic hypotension as per records chronic anemia, hemoglobin better than baseline likely secondary to hemoconcentration Visual hallucinations at home, possible psychosis anxiety/mood disorder Hyperglycemia likely prediabetes, hemoglobin A1c of 5.9 from July 2024 Admit to [facility]U [facility], DT precautions Gabapentin taper once patient more awake Supplemental O2 Baseline VBG Pacemaker interrogation PT OT eval once medically stable Doxycycline for RLE cellulitis May benefit from Psychiatry consultation if visual hallucinations persist once patient more awake DVT prophylaxis. Lovenox subcu Full code Patient's mother requesting for updates regarding patient's care. Ms. Gini Joyner, contact #[phone]. Text document was generated using [employer] voice recognition software. It may contain grammatical or spelling errors. Kindly contact undersigned for clarification of any documentation item in ques tion. History of Present Illness Chief Complaint: Confusion, fall as per records Primary Care Provider: Gee Del Valle, History obtained from patient's family, ED provider and records. Limited history from patient secondary to obtunded state post Ativan administration at the ER. Medical history significant for complete heart block status post PPM, mild TR, orthostatic hypotension as per records, chronic anemia (baseline hemoglobin 11- 12), plaque psoriasis, anxiety/mood disorder, alcohol abuse. Last confinement April 2024 for complete heart block. Patient transferred to [facility] for PPM. Patient with visual hallucinations 3 months ago. Patient seeing a woman and child in his room, snake in the kitchen and ants climbing on the wall. Frequent nighttime awakenings and sleep disturbance as per outpatient [facility] [place]. Patient falling at home. Patient evaluated by [facility] 2 weeks ago for possible psychosis Specialist recommended starting doxepin in place of hydroxyzine and trazodone medications. Patient noted by neighbor to be crawling on the ground outside his home yesterday. Patient noted to have visual hallucinations. Patient currently obtunded after being given 2 doses of IV Ativan at the ER for agitation. Transient O2 sats 80s after Ativan administration at the ER. 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 Allergies Allergy/AdvReac Type Severity Reaction Status Date / Time No Known Allergies Allergy Verified 12/15/24 01:21 Home Medications Medication Instructions Recorded Confirmed Type trazodone 50 mg tablet 100 mg PO HS Sleep 10/15/23 12/15/24 History gabapentin 300 mg capsule 300 mg PO AMHS 05/05/24 12/15/24 History acetylcysteine 600 mg capsule (NAC) 600 mg PO QAM 11/02/24 12/15/24 History cholecalciferol (vitamin D3) 25 25 mcg PO DAILY 11/02/24 12/15/24 History mcg (1,000 unit) capsule (Vitamin D3) clobetasol 0.05 % scalp solution 1 applic topical BID 11/02/24 12/15/24 History furosemide 20 mg tablet 20 mg PO QAM 11/02/24 12/15/24 History magnesium oxide 400 mg PO DAILY 11/02/24 12/15/24 History milk thistle seed extract 87.5 mg 87.5 mg PO DAILY 11/02/24 12/15/24 History capsule tizanidine 4 mg tablet 4 mg PO Q8H PRN MUSCLE SPASMS 11/02/24 12/15/24 History triamcinolone acetonide 0.1 % 1 applic topical DIRECTED 11/02/24 12/15/24 History topical cream PSORIASIS zinc acetate 50 mg (zinc) capsule 50 mg PO QAM 11/02/24 12/15/24 History doxepin 10 mg capsule 10 mg PO HS 12/15/24 12/15/24 History vitamin B complex 1 tab PO DAILY 12/15/24 12/15/24 History Past Med/Surg History Problem List (Updated 12/15/24 @ 02:47 by Obdulio Michaels MD) Alcohol withdrawal Fall (Acute) Acute kidney injury Acute systolic heart failure Failed back syndrome of lumbar spine Peripheral neuropathy Chronic back pain Pulmonary edema (Acute) Alcohol intoxication (Acute) Complete heart block (Acute) Alcoholic hepatitis Acute hypokalemia (Acute) Transaminitis (Acute) Hypokalemia Lab test negative for COVID-19 virus (Acute) Alcohol intoxication delirium (Acute) HTN (hypertension) Alcohol abuse (Acute) Mood disorder (Acute) Medical History Alcoholic intoxication Fx medial malleolus-closed Hypokalemia Mood disorder Psoriasis Surgical History No pertinent past surgical history Family History Other Colorectal cancer No pertinent family history Social History Smoking Status: Never smoker Second Hand Exposure: Yes; Do You Dip or Chew Tobacco: No; Hx Alcohol Use: Yes Alcohol type: hard liquor Alcohol Intake Frequency: 4 or More x per/Week Hx Substance Use: No Preferred Language: Burmese Communication Ability: Effective Automotive Refinish Technician Required: No Beliefs That Will Affect Care: None Current Living Situation: Alone Feels Safe at Home: Yes Safety Concerns: Feels Safe At This Time Assistive Devices: Walker Review of Systems Review of Systems: Could not be reliably obtained secondary to obtunded state Physical Exam Physical Exam: GENERAL: Obtunded, obese, no respiratory distress SKIN: Multiple scaly plaque lesions over the extremities, pallor, warm HEENT: Pale palpebral conjunctivae, no ptosis, dry buccal mucosa, nasal cannula in place NECK : Supple, no tenderness CHEST : Decreased breath sounds, no tenderness HEART : RRR, no obvious murmurs ABDOMEN: Some distention, nontender EXTREMITIES : Erythematous RLE swelling without tenderness, palpable pulses, no other conspicuous deformities noted NEUROLOGIC : Obtunded, no facial asymmetry, gait and stance not assessed Results & Data Results & Data Vital Signs (Past 12 Hours) Vital Signs Temp Pulse Resp BP Pulse Ox O2 Del Method O2 Flow Rate 12/15/24 01:00 100 Nasal Cannula 2 12/15/24 01:00 36.9 C 12/15/24 00:30 91 H 18 129/86 99 Nasal Cannula 2 12/15/24 00:28 83 L Room Air, Nasal Cannula 0 12/15/24 00:24 93 H 24 121/76 95 Room Air 12/15/24 00:18 92 H 24 93 Room Air 12/15/24 00:06 97 H 22 93 Room Air 12/14/24 23:34 36.7 C 98 H 22 141/102 H 93 Room Air 12/14/24 23:30 36.7 C 12/14/24 23:30 97 H 17 141/99 H 93 Room Air 12/14/24 23:24 94 H 12/14/24 23:15 95 Room Air 12/14/24 23:15 Room Air 0 Laboratory Results Laboratory Results WBC 10.22 K/ul (4.8-10.8) 12/14/24 23:30 RBC 4.83 M/uL (4.70-6.10) 12/14/24 23:30 Hgb 13.5 g/dl (14.0-18.0) L 12/14/24 23:30 Hct 41.0 % (42.0-52.0) L 12/14/24 23:30 MCV 84.9 fL (80.0-100.0) 12/14/24 23:30 MCH 28.0 pg (25.0-34.0) 12/14/24 23:30 MCHC 32.9 g/dL (32.0-36.0) 12/14/24 23:30 RDW Std Deviation 52.3 fL (36.4-46.3) H 12/14/24 23:30 RDW Coeff of Ramona 17.2 % (11.5-14.5) H 12/14/24 23:30 Plt Count 135 K/uL (130-400) 12/14/24 23:30 MPV 10.0 fL (9.4-12.4) 12/14/24 23:30 Immature Gran % (Auto) 0.4 % 12/14/24 23:30 Neut % (Auto) 64.1 % 12/14/24 23:30 Lymph % (Auto) 27.4 % 12/14/24 23:30 Buchanan % (Auto) 7.3 % 12/14/24 23:30 Eos % (Auto) 0.0 % 12/14/24 23:30 Baso % (Auto) 0.8 % 12/14/24 23:30 Neut # (Auto) 6.55 K/uL (1.40-6.50) H 12/14/24 23:30 Lymph # (Auto) 2.80 K/uL (1.20-3.40) 12/14/24 23:30 Buchanan # (Auto) 0.75 K/uL (0.11-0.59) H 12/14/24 23:30 Eos # (Auto) 0.00 K/uL (0.00-0.50) 12/14/24 23:30 Baso # (Auto) 0.08 K/uL (0.00-0.20) 12/14/24 23:30 Immature Gran # (Auto) 0.04 K/uL (0.01-0.20) 12/14/24 23:30 PT 11.3 Seconds (9.0-12.0) 12/14/24 23:30 INR 1.1 (0.9-1.1) 12/14/24 23:30 Sodium 136 mmol/L (136-145) 12/14/24 23:30 Potassium TNP 12/14/24 23:30 Chloride 95 mmol/L (98-107) L 12/14/24 23:30 Carbon Dioxide 25 mmol/L (21-32) 12/14/24 23:30 Anion Gap 16 (3-11) H 12/14/24 23:30 BUN 19 mg/dl (6-23) 12/14/24 23:30 Creatinine 1.30 mg/dl (0.6-1.4) 12/14/24 23:30 Est Cr Clr Drug Dosing 67.1 ml/min 12/14/24 23:30 eGFR 62.50 12/14/24 23:30 BUN/Creatinine Ratio 14.6 (10-20) 12/14/24 23:30 Glucose 151 mg/dl (70-99(Fasting)) H 12/14/24 23:30 Calcium 9.2 mg/dl (8.6-10.3) 12/14/24 23:30 Magnesium 1.8 mg/dl (1.7-2.4) 12/14/24 23:30 Total Bilirubin 0.8 mg/dl (0.2-1.0) 12/14/24 23:30 AST TNP 12/14/24 23:30 ALT 43 U/L (7-52) 12/14/24 23:30 Alkaline Phosphatase 158 U/L (34-104) H 12/14/24 23:30 Total Creatine Kinase 119 U/L (30-223) 12/14/24 23:30 Troponin I High Sens 7.5 pg/ml (0-20) 12/14/24 23:30 Troponin I High Sens Cancelled 12/14/24 23:30 Total Protein 8.3 gm/dl (6.0-8.3) 12/14/24 23:30 Albumin 3.8 gm/dl (3.4-5.0) 12/14/24 23:30 Globulin 4.5 gm/dl (2.5-4.0) H 12/14/24 23:30 Albumin/Globulin Ratio 0.8 (0.9-2) L 12/14/24 23:30 Lipase 17 U/L (11-82) 12/14/24 23:30 Urine Comment 12/15/24 01:02 Ethyl Alcohol mg/dL 397.9 mg/dl (<10.0) H 12/14/24 23:30 Diagnostic Findings Chest x-ray as per my interpretation cardiomegaly, atelectasis, PPM EKG as per my interpretation :
[2024-12-15] MEDS: LORazepam Inj 3 MG in SYRINGE 1.5 ML IV PRN (01:42)
[2024-12-15] MEDS: LACTATED RINGER'S 1,000 ML IV SCH (01:43)
[2024-12-15] MEDS: THIAMINE HCL 100 MG in SYRINGE 9 ML IV STA (01:48)
[2024-12-15] MEDS ORDERED: ACETAMINOPHEN 500 MG TAB PO PRN (02:03)
[2024-12-15] MEDS ORDERED: GABAPENTIN 1200MG ALCOHOL WITHDRAWAL LOAD PO STA (02:03)
[2024-12-15] MEDS ORDERED: MELATONIN 3 MG TAB PO PRN (02:07)
[2024-12-15] MEDS ORDERED: PROMETHAZINE 6.25 MG/50.25 ML BAG IV PRN (02:08)
[2024-12-15 02:12] LABS: Potassium 3.3 mmol/L (3.5-5.1)
--- NOTE | 2024-12-15 02:40 | XRay Report ---
EXAM: XR chest 1V portable CLINICAL HISTORY: low O2. TECHNIQUE: An X-ray image of the chest was obtained in the AP projection. The patient was rotated. COMPARISON: 11/02/2024 X-ray. FINDINGS: Unchanged left-sided pacemaker with transvenous leads extending to the right atrium and right ventricle. No obvious malposition or complication is identified. Pulmonary Parenchyma: The right upper and lower lung zones are stable, with a few atelectatic bands noted. The left lower lung zone and left costophrenic angle are obscured by cardiomegaly. The lungs are clear bilaterally. There is no evidence of consolidation, collapse, or focal opacities. No pulmonary nodules are identified. There is no evidence of right pleural effusion or pleural thickening. Heart and Mediastinum: Persistent cardiomegaly is present. There is no mediastinal widening or masses. No hilar or mediastinal lymphadenopathy is seen. Bony Thorax: The bony thorax appears intact without fractures or deformities. Soft Tissues: The soft tissues overlying the chest wall are unremarkable. IMPRESSION: 1. Stable cardiomegaly. 2. Unchanged pacemaker in satisfactory position. 3. The left lower lung zone and left costophrenic angle are obscured by cardiomegaly (limited assessment). 4. Otherwise, no acute cardiopulmonary abnormality is identified, and no significant interval changes are noted. Electronically signed by Gen Lewis 12-15-2024 02:40 AM
[2024-12-15 02:58] LABS: Base Excess VBG 1.6 mEq/L; HCO3 VBG 29 mmol/L; Oxygen Saturation VBG 93.3 %; PCO2 VBG 56 mmHg (38-50); PO2 VBG 70 mmHg; pH VBG 7.32 (7.36-7.41)
[2024-12-15] MEDS: GABAPENTIN 600 MG TAB PO STA (03:06)
[2024-12-15] MEDS: LACTATED RINGER'S 1,000 ML IV STA (03:07)
[2024-12-15] MEDS: DOXYCYCLINE HYCLATE 100 MG in DEXTROSE 5% MINI-B 100 ML IV STA (03:08)
[2024-12-15] MEDS: POTASSIUM CHLORIDE 20 MEQ in LACTATED RINGER'S 1,000 ML IV ONE ×2 (04:44→08:51)
[2024-12-15 04:51] LABS: Amphetamines+Metham, Urine Neg (Neg); MDMA (Ecstacy), Urine Pos (Neg); Marijuana, Urine Neg (Neg)
[2024-12-15 05:15] LABS: Base Excess VBG 5.2 mEq/L; HCO3 VBG 33 mmol/L; Oxygen Saturation VBG 60.8 %; PCO2 VBG 59 mmHg (38-50); PO2 VBG 43 mmHg; pH VBG 7.35 (7.36-7.41)
[2024-12-15 05:22] LABS: Hematocrit (blood only) 37.6 % (42.0-52.0); Hemoglobin 12.5 g/dl (14.0-18.0); Immature Granulocytes # (auto) 0.03 K/uL (0.01-0.20); Immature Granulocytes % (auto) 0.4 %; Mean Corpuscular Hemoglobin 28.2 pg (25.0-34.0); Mean Corpuscular Volume 84.9 fL (80.0-100.0); Platelet Count 107 K/uL (130-400); RDW Standard Deviation 52.2 fL (36.4-46.3); Red Blood Count 4.43 M/uL (4.70-6.10); White Blood Count 7.86 K/ul (4.8-10.8)
[2024-12-15 05:35] LABS: Anion Gap 11.0 (3-11); Blood Urea Nitrogen 17.0 mg/dl (6-23); Calcium 8.7 mg/dl (8.6-10.3); Carbon Dioxide 29.0 mmol/L (21-32); Chloride 99.0 mmol/L (98-107); Creatinine Clr Calc Pharmacy 73.7 ml/min; Glucose 114.0 mg/dl (70-99(Fasting)); Potassium 3.4 mmol/L (3.5-5.1); Sodium 139.0 mmol/L (136-145)
--- NOTE | 2024-12-15 06:34 | CT Scan Report ---
EXAM: CT head/brain wo con CLINICAL HISTORY: fall TECHNIQUE: Multiple axial images were obtained from the skull base to the vertex without contrast. CT scan was performed according to ALARA (as low as reasonably achievable). 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 FINDINGS: No evidence of space-occupying lesion, hemorrhage, edema, mass effect, midline shift, extra-axial collection, or hydrocephalus is noted. Basal cisterns are symmetric and normal in size and configuration. There are scattered periventricular hypodensities, as can be seen with chronic microvascular ischemic changes. The felix-white matter differentiation is preserved. The visualized paranasal sinuses and mastoid air cells are well aerated. The orbital contents are within normal limits. Bony structures are intact. IMPRESSION: 1. No evidence of acute intracranial abnormality is demonstrated. 2. Chronic microvascular ischemic changes with cerebral atrophy. 3. No significant interval change. Electronically signed by Jason Celaya 12-15-2024 06:33 AM
[2024-12-15 07:52] VITALS: BP 123/79; PULSE 94; RESP 17; TEMP 98.1; O2SAT 99
[2024-12-15] MEDS: GABAPENTIN 600 MG TAB PO SCH (08:00)
[2024-12-15] MEDS: MULTIVITAMIN TAB PO SCH (08:01)
[2024-12-15] MEDS: FOLIC ACID 1 MG TAB PO SCH (08:01)
[2024-12-15] MEDS: TRIAMCINOLONE ACET 0.1% CR 15 GM TUBE TOP SCH (08:52)
[2024-12-15] MEDS: POTASSIUM CHLORIDE CRTAB 20 MEQ TABCR PO STA (08:52)
[2024-12-15] MEDS ORDERED: FOLIC ACID 1 MG in SYRINGE 9.8 ML IV SCH (09:00)
--- NOTE | 2024-12-15 11:16 | Discharge Summary ---
Discharge Summary Date of Service December 15, 2024 Principal Dx & Hospital Course #1 = Principal Diagnosis (1) Alcohol withdrawal: Mr. Schafer is a 63M who was admitted to hospital last night after a possible syncopal episode in the setting of heavy alcohol use. He has a history of heavy alcohol use and was recently evaluated by psychiatry for visual and auditory hallucinations, third degree HB s/p PPM, orthostatic hypotension, psoriasis. In the ED last evening he was agitated and ED gave IV ativan which sedated him. He then required supplemental O2, 2L overnight. He was not in resp failure. He was seen this morning. He was taken off O2 and satting 96% on room air. He had no complaints. He was tremulous and looking to be in mild alcohol withdrawal. He stated he was not yet ready to quit drinking. He was thinking about going to AA [place]. Risks of continued alcohol use were discussed with patient and he was able to repeat these risks. His lactate was elevated on admission for unclear reasons. he did not appear to be septic. Patient was advised that he is to stay overnight for monitoring of his alcohol withdrawal and follow his lactic acid. About 30 minutes later, RN notified that patient wished to leave AMA. Author went down to discuss with patient once again. Advised patient of the importance of staying. patient acknowledged this and was able to state risks of him leaving including . Risks were then personally discussed with patient. He currently denies hallucinations. He did not display any delusional thinking. He denied SI/HI. Given this, patient has capacity to make his own medical decisions, including leaving AMA. There is no grounds for author to keep patient against his will. Despite author and RN's best efforts, patient left AMA this AM. He states he has a PCP appt on tuesday and will f/u with them. Since he has no intention of stopping drinking at this time, prescribing BZDs is contraindicated due to risks of mixing with alcohol. Notes For Next Care Provider Medication Changes From Visit none Admission HPI Per Admitting Provider History obtained from patient's family, ED provider and records. Limited history from patient secondary to obtunded state post Ativan administration at the ER. Medical history significant for complete heart block status post PPM, mild TR, orthostatic hypotension as per records, chronic anemia (baseline hemoglobin 11- 12), plaque psoriasis, anxiety/mood disorder, alcohol abuse. Last confinement April 2024 for complete heart block. Patient transferred to [facility] for PPM. Patient with visual hallucinations 3 months ago. Patient seeing a woman and child in his room, snake in the kitchen and ants climbing on the wall. Frequent nighttime awakenings and sleep disturbance as per outpatient [facility] Psychiatry note. Patient falling at home. Patient evaluated by [facility] psychiatrist 2 weeks ago for possible psychosis Specialist recommended starting doxepin in place of hydroxyzine and trazodone medications. Patient noted by neighbor to be crawling on the ground outside his home yesterday. Patient noted to have visual hallucinations. Patient currently obtunded after being given 2 doses of IV Ativan at the ER for agitation. Transient O2 sats 80s after Ativan administration at the ER. 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 No obvious deformities Ext: No Edema cyanosis Skin: Warm, Dry Neuro: AOx3 No focal deficits. mild UE tremors. no asterixis Psych: calm. no delusional thinking. speech was not tangential. Updated Medication List Medication Instructions Recorded Confirmed Type trazodone 50 mg tablet 100 mg PO HS Sleep 10/15/23 12/15/24 History gabapentin 300 mg capsule 300 mg PO AMHS 05/05/24 12/15/24 History acetylcysteine 600 mg capsule (NAC) 600 mg PO QAM 11/02/24 12/15/24 History cholecalciferol (vitamin D3) 25 25 mcg PO DAILY 11/02/24 12/15/24 History mcg (1,000 unit) capsule (Vitamin D3) clobetasol 0.05 % scalp solution 1 applic topical BID 11/02/24 12/15/24 History furosemide 20 mg tablet 20 mg PO QAM 11/02/24 12/15/24 History magnesium oxide 400 mg PO DAILY 11/02/24 12/15/24 History milk thistle seed extract 87.5 mg 87.5 mg PO DAILY 11/02/24 12/15/24 History capsule tizanidine 4 mg tablet 4 mg PO Q8H PRN MUSCLE SPASMS 11/02/24 12/15/24 History triamcinolone acetonide 0.1 % 1 applic topical DIRECTED 11/02/24 12/15/24 History topical cream PSORIASIS zinc acetate 50 mg (zinc) capsule 50 mg PO QAM 11/02/24 12/15/24 History doxepin 10 mg capsule 10 mg PO HS 12/15/24 12/15/24 History vitamin B complex 1 tab PO DAILY 12/15/24 12/15/24 History Hospital Stay Data Consultations 12/15/24 01:13 ED Decision to Admit Stat Diagnostic Imagining Performed 12/14/24 23:46 CT head/brain wo con Stat Total Time Total Time Spent Total Time Spent (In Minutes): 65
[2024-12-15] MEDS ORDERED: DOXYCYCLINE HYCLATE 100 MG CAP PO SCH (21:00)
[2024-12-15] MEDS ORDERED: GABAPENTIN 600 MG TAB PO SCH (22:15)
[2024-12-16] MEDS ORDERED: THIAMINE HCL 100 MG TAB PO SCH (09:00)
[2024-12-16] MEDS ORDERED: FOLIC ACID 1 MG TAB PO SCH (09:00)
--- NOTE | 2024-12-16 22:51 | Electrocardiogram Report ---
Test Reason : Blood Pressure : */* mmHG Vent. Rate : 91 BPM Atrial Rate : 91 BPM P-R Int : * ms QRS Dur : 164 ms QT Int : 460 ms P-R-T Axes : * -39 75 degrees QTcB Int : 565 ms Ventricular-paced rhythm Abnormal ECG When compared with ECG of 18-Nov-2024 00:43, Vent. rate has increased by 22 bpm Confirmed by Jared Cunningham ([id number]) on 12/16/2024 10:51:00 PM Referred By: REFERRED SELF Confirmed By: Jared Cunningham
[2024-12-17] MEDS ORDERED: GABAPENTIN 600 MG TAB PO SCH (02:15)
[2024-12-18] MEDS ORDERED: GABAPENTIN 600 MG TAB PO SCH (14:15)
== END 2024-12-15 10:57 | disposition left against medical advice (07) | DRG 894 ==
LOC: ED 23:10 → 2S 12-15 01:27

== ENCOUNTER 2024-12-15 20:54 | Inpatient (IN) ==
--- NOTE | 2024-12-15 21:00 | Emergency Department Note ---
ED Provider Note ED Provider Note NAME: TEJAL ROSS AGE:63 SEX: Male : 1960 ARRIVES VIA: EMS INFORMANT: Patient ED PROVIDER(s): Stephen Connor CHIEF COMPLAINT: Syncope HPI: 63-year-old male presents emergency room with complaints of syncope. Patient admits to EtOH abuse. Was seen here last night for similar. Had to more syncopal episodes earlier today, was contacted by EMS, then refused AGAINST MEDICAL ADVICE. He then was walking his dog tonight, and he had another syncopal event. Unable to really tell if this was a syncope versus a seizure. He had been brought in by EMS, was alert and oriented and interactive. He admits to some alcohol today. He states that he has not had any headache, no pain in his extremities. States that he was hesitant to come to the emergency room tonight. PAST MEDICAL HISTORY:See Below PAST SURGICAL HISTORY:See Below FAMILY HISTORY:See Below SOCIAL HISTORY:See Below HOME MEDICATIONS:See Below ALLERGIES:See Below VITALS:See Below PHYSICAL EXAMINATION: GENERAL: alert, well appearing, well nourished, no distress, non-toxic EYE EXAM: normal conjunctiva, PERRL and EOM's grossly intact OROPHARYNX: no exudate, no erythema, lips, buccal mucosa, and tongue normal and mucous membranes are moist NECK: supple, no nuchal rigidity, no adenopathy, non-tender LUNGS: Clear to auscultation. Normal chest wall mechanics, no w/r/r HEART: no murmurs, S1 normal and S2 normal ABDOMEN: abdomen soft, non-tender, normo-active bowel sounds, no masses, no rebound or guarding. BACK: Back is symmetrical on inspection and there is no deformity, no midline tenderness, no CVA tenderness. SKIN: no rashes, petechiae, orbruising UPPER EXTREMITIES: upper extremities are grossly normal. FROM, nml pulses b/l. LOWER EXTREMITIES: No pitting edema. FROM, nml pulses b/l. NEURO EXAM: Normal sensorium, cranial nerves II-XII grossly intact, normal speech, no facial droop,nogross weakness of arms, no gross weakness of legs. Gross sensation intact. No ataxia. Vital Signs: reviewed and remarkable Differential Diagnosis: Alcohol intoxication, toxicologic, infection, hypoglycemia, electrolyte abnormalities, cardiac sources, intracerebral event, neurologic, trauma, as well as other pathologies. Vasovagal event, dehydration, infection, hypoglycemia, electrolyte abnormalities, cardiac sources, intracerebral event, pulmonary embolism, seizure, toxicologic, neurologic, as well as other pathologies. MEDICAL DECISION MAKIN-year-old male presents emergency room with complaints of syncope. Consultation(s): [] ER Treatment Provided: See below Diagnostics Interpreted By Me: -ECG: EKG shows paced rhythm at a rate of [address] changes. -Cardiac Monitoring: An order was placed for continuous cardiac monitoring. The monitor shows a rate of 98 with paced rhythm. -Laboratory studies: As stated above and show below. -Imaging studies: [] Triage Nursing Note Reviewed Prior/Outside Records Reviewed Past Med/Surg History Problem List (Updated 12/15/24 @ 02:47 by Obdulio Michaels MD) Alcohol withdrawal Fall (Acute) Acute kidney injury Acute systolic heart failure Failed back syndrome of lumbar spine Peripheral neuropathy Chronic back pain Pulmonary edema (Acute) Alcohol intoxication (Acute) Complete heart block (Acute) Alcoholic hepatitis Acute hypokalemia (Acute) Transaminitis (Acute) Hypokalemia Lab test negative for COVID-19 virus (Acute) Alcohol intoxication delirium (Acute) HTN (hypertension) Alcohol abuse (Acute) Mood disorder (Acute) Medical History Alcoholic intoxication Fx medial malleolus-closed Hypokalemia Mood disorder Psoriasis Surgical History No pertinent past surgical history Family History Other Colorectal cancer No pertinent family history Social History Smoking Status: Never smoker Second Hand Exposure: Yes; Do You Dip or Chew Tobacco: No; Hx Alcohol Use: Yes Alcohol type: hard liquor Alcohol Intake Frequency: 4 or More x per/Week Hx Substance Use: No Preferred Language: Thai Communication Ability: Effective Solderer Dipper Required: No Beliefs That Will Affect Care: None Current Living Situation: Alone Feels Safe at Home: Yes Assistive Devices: Walker Allergies Allergies Allergy/AdvReac Type Severity Reaction Status Date / Time No Known Allergies Allergy Verified 12/15/24 01:21 Home Meds Home Medications Medication Instructions Recorded Confirmed trazodone 50 mg tablet 100 mg PO HS Sleep 10/15/23 12/15/24 gabapentin 300 mg capsule 300 mg PO AMHS 05/05/24 12/15/24 acetylcysteine 600 mg capsule (NAC) 600 mg PO QAM 11/02/24 12/15/24 cholecalciferol (vitamin D3) 25 25 mcg PO DAILY 11/02/24 12/15/24 mcg (1,000 unit) capsule (Vitamin D3) clobetasol 0.05 % scalp solution 1 applic topical BID 11/02/24 12/15/24 furosemide 20 mg tablet 20 mg PO QAM 11/02/24 12/15/24 magnesium oxide 400 mg PO DAILY 11/02/24 12/15/24 milk thistle seed extract 87.5 mg 87.5 mg PO DAILY 11/02/24 12/15/24 capsule tizanidine 4 mg tablet 4 mg PO Q8H PRN MUSCLE SPASMS 11/02/24 12/15/24 triamcinolone acetonide 0.1 % 1 applic topical DIRECTED 11/02/24 12/15/24 topical cream PSORIASIS zinc acetate 50 mg (zinc) capsule 50 mg PO QAM 11/02/24 12/15/24 doxepin 10 mg capsule 10 mg PO HS 12/15/24 12/15/24 vitamin B complex 1 tab PO DAILY 12/15/24 12/15/24 Results & Data (ED) Vital Signs Vital Signs - 24 hr 12/15/24 21:02 12/15/24 21:10 12/15/24 21:41 Temperature 36.4 C L Temperature Source Oral Pulse Rate 102 H 106 H Pulse Rate [Apical] 99 H Respiratory Rate 16 20 20 Respiratory Effort / Characteristics Non-Labored Spontaneous Respiratory Depth Normal Respiratory Pattern Regular Blood Pressure 166/110 H Blood Pressure [Right Arm] 163/129 H Blood Pressure Mean 128 Blood Pressure Mean [Right Arm] 140 Blood Pressure Position Lying Blood Pressure Position [Right Arm] Lying Pulse Oximetry 92 93 92 Oxygen Delivery Method Room Air Room Air Room Air Sepsis Recent Fever Within 48 Hours No Sepsis New/Unexplained Change in Mental Status N/A Sepsis Action Taken by Nursing No Action Required Laboratory Data 12/15/24 21:22 12/15/24 21:22 Lab Results 12/15/24 Range/Units 21:22 WBC 10.31 (4.8-10.8) K/ul RBC 4.50 L (4.70-6.10) M/uL Hgb 13.1 L (14.0-18.0) g/dl Hct 38.6 L (42.0-52.0) % MCV 85.8 (80.0-100.0) fL MCH 29.1 (25.0-34.0) pg MCHC 33.9 (32.0-36.0) g/dL RDW Std Deviation 53.2 H (36.4-46.3) fL RDW Coeff of Ramona 17.1 H (11.5-14.5) % Plt Count 113 L (130-400) K/uL MPV 8.9 L (9.4-12.4) fL Immature Gran % (Auto) 0.3 % Neut % (Auto) 78.9 % Lymph % (Auto) 12.6 % Crook % (Auto) 7.2 % Eos % (Auto) 0.0 % Baso % (Auto) 1.0 % Neut # (Auto) 8.14 H (1.40-6.50) K/uL Lymph # (Auto) 1.30 (1.20-3.40) K/uL Crook # (Auto) 0.74 H (0.11-0.59) K/uL Eos # (Auto) 0.00 (0.00-0.50) K/uL Baso # (Auto) 0.10 (0.00-0.20) K/uL Immature Gran # (Auto) 0.03 (0.01-0.20) K/uL Discharge Plan Visit Data Chief Complaint: Fall Stated Complaint: Fall, ETOH ED Provider: Kimmie Connor Forms Stand Alone Forms: My [facility] Prescriptions Prescriptions: No Action trazodone 50 mg tablet 100 mg PO HS Rx Instructions: NOT ON [facility] MED LIST, EXT MED HX FILLED 11/22/24 FOR 180 TABS/90 DAYS SUPPLY. gabapentin 300 mg capsule 300 mg PO AMHS zinc acetate 50 mg (zinc) Capsule 50 mg PO QAM tizanidine 4 mg tablet 4 mg PO Q8H PRN (Reason: MUSCLE SPASMS) triamcinolone acetonide 0.1 % cream 1 applic TOPICAL DIRECTED furosemide 20 mg tablet 20 mg PO QAM clobetasol 0.05 % solution 1 applic TOPICAL BID Rx Instructions: APPLY TO AFFECTED AREAS cholecalciferol (vitamin D3) [Vitamin D3] 25 mcg (1,000 unit) Capsule 25 mcg PO DAILY acetylcysteine [NAC] 600 mg Capsule 600 mg PO QAM milk thistle seed extract 87.5 mg Capsule 87.5 mg PO DAILY Rx Instructions: give with meal/snack magnesium oxide 400 mg magnesium Tablet 400 mg PO DAILY vitamin B complex Tablet 1 tab PO DAILY doxepin 10 mg Capsule 10 mg PO HS Rx Instructions: PER SHY, NOT ON EXT MED HX, NOT SURE IF EVER FILLED. Referrals Referrals: Gee Del Valle, [Primary Care Provider] -
[2024-12-15 21:39] LABS: Hematocrit (blood only) 38.6 % (42.0-52.0); Hemoglobin 13.1 g/dl (14.0-18.0); Immature Granulocytes # (auto) 0.03 K/uL (0.01-0.20); Immature Granulocytes % (auto) 0.3 %; Mean Corpuscular Hemoglobin 29.1 pg (25.0-34.0); Mean Corpuscular Volume 85.8 fL (80.0-100.0); Platelet Count 113 K/uL (130-400); RDW Standard Deviation 53.2 fL (36.4-46.3); Red Blood Count 4.50 M/uL (4.70-6.10); White Blood Count 10.31 K/ul (4.8-10.8)
[2024-12-15 22:01] LABS: Albumin Level 3.6 gm/dl (3.4-5.0); Anion Gap 14.0 (3-11); Bilirubin,Total 0.8 mg/dl (0.2-1.0); Calcium 9.3 mg/dl (8.6-10.3); Carbon Dioxide 28.0 mmol/L (21-32); Chloride 99.0 mmol/L (98-107); Potassium 4.0 mmol/L (3.5-5.1); Sodium 141.0 mmol/L (136-145)
[2024-12-15 22:07] LABS: Alanine Aminotransferase 43.0 U/L (7-52); Albumin Globulin Ratio 0.9 (0.9-2); Alkaline Phosphatase 148.0 U/L (34-104); Blood Urea Nitrogen 12.0 mg/dl (6-23); Creatine Kinase 205.0 U/L (30-223); Creatinine Clr Calc Pharmacy 105.2 ml/min; Globulin 4.1 gm/dl (2.5-4.0); Glucose 141.0 mg/dl (70-99(Fasting)); Lipase 13.0 U/L (11-82); Total Protein 7.7 gm/dl (6.0-8.3)
--- NOTE | 2024-12-15 23:48 | CT Scan Report ---
Exam(s): CT HEAD Without Contrast EXAM: CT Head Without Intravenous Contrast CLINICAL HISTORY: Reason for exam: syncope, ams. TECHNIQUE: Axial computed tomography images of the head/brain without intravenous contrast. CTDI is 34 mGy and DLP is 224 mGy-cm. Automated exposure control was utilized for the study. A dose lowering technique was utilized adhering to the principles of ALARA. COMPARISON: CT head on 12/15/2024 at 12:40 a.m. FINDINGS: Brain: No acute infarct or hemorrhage identified. No extra-axial fluid collection. No mass effect or midline shift. Scattered areas of hypoattenuation in the supratentorial white matter likely represent chronic small vessel ischemic changes. Ventricles and sulci: Prominence of the ventricles and sulci is likely secondary to cerebral volume loss. Bones: Hyperostosis frontalis interna. No bony lesion or acute fracture. Subcutaneous tissues: Normal. Sinuses: Small polyp versus mucous retention cyst in the left frontal sinus. Mastoid air cells: Postsurgical change of the left mastoid air cells. Orbits: Grossly unremarkable. Other: Atherosclerotic calcifications in the intracranial vasculature. IMPRESSION: 1. No acute intracranial abnormality. Further evaluation could be performed with MRI if clinically indicated. 2. Chronic small vessel ischemic changes and cerebral volume loss. Electronically signed by: Cesilia Rendon M.D. 12/15/24 23:46 PM
--- NOTE | 2024-12-16 00:02 | Emergency Department Note ---
ED Visit Note Date and Time: 12/15/2024 2310 Interval History: Sign out received from Dr. Connor who reviewed details of the encounter. Patient was pending Sobriety. Summary: There was significant concern for this patient's mental health. He stopped taking his medications 3 days ago. He has been seen here multiple times in the past month. The ED psychiatric outpatient case manager has done an extensive review of his medical records in [facility] as well as our records and he has a significant psychiatric history even though the patient denied this. The outpatient case manager met with the patient multiple times. He admits that he has significant hallucinations and episodes of psychosis. He does self medicate with alcohol and mouthwash. It seems that he has poor insight and judgment. The patient began to have significant withdrawal symptoms And required IV Ativan. He also complained of headache and was given Tylenol. I reviewed records in [facility] explaining the patient was to be evaluated by psychiatry for acute episodic psychosis but that has not yet happened. I am concerned for the patient's safety given that he is now off of his medications and he is becoming significantly intoxicated. I discussed the case with the [facility] Hospitalist and they will evaluate for further inpatient care. I did sign off on a 302 that had been petitioned by the police. .
--- NOTE | 2024-12-16 00:52 | XRay Report ---
Exam(s): XR CXR 1 VIEW EXAM: XR Chest, 1 View CLINICAL HISTORY: Reason for exam: Chest pain, nonspecific. TECHNIQUE: Frontal view of the chest. COMPARISON: Chest radiograph on 12/15/2024 at 1:29 a.m. FINDINGS: Hardware: None. Lungs/pleura: Normal. No focal consolidation. No pleural effusion or pneumothorax. Heart/mediastinum: Left-sided pacemaker. No cardiomegaly. Soft tissues: Unremarkable. Bones: No acute fracture. Upper abdomen: Normal. IMPRESSION: No acute disease identified. Electronically signed by: Cesilia Rendon M.D. 12/16/24 00:52 AM
[2024-12-16] MEDS: ACETAMINOPHEN 325 MG TAB PO STA (02:06)
[2024-12-16] MEDS: LORazepam 1 MG/1 ML SYR ED Inj Use IV STA (02:09)
[2024-12-16 04:10] LABS: Amphetamines+Metham, Urine Neg (Neg); MDMA (Ecstacy), Urine Neg (Neg); Marijuana, Urine Neg (Neg)
--- NOTE | 2024-12-16 04:47 | History & Physical Report ---
Date of Service December 16, 2024 Assessment & Plan (1) Alcohol withdrawal: Plan: Assessment and plan below following discussion of case with ED provider and reviewing patient history/pertinent normal/abnormal diagnostic test results. Alcohol withdrawal Recurrent falls, history of orthostatic hypotension as per records, rule out pacemaker dysfunction, history complete heart block status post PPM RLE redness, plaque psoriasis noted on extremities. Doxycycline given during confinements yesterday due to cellulitis concerns. Chronic RLE redness as per patient. mild TR chronic anemia, hemoglobin at baseline Visual hallucinations, possible psychosis anxiety/mood disorder Hyperglycemia likely prediabetes, hemoglobin A1c of 5.9 from July 2024 Admit to PCU LEODAN S, DT precautions Check orthostatic vitals Follow pacemaker interrogation report from yesterday's admission Psych consult re: visual hallucinations and insight evaluation PT OT eval once medically stable May benefit from Psychiatry consultation if visual hallucinations persist once patient more awake DVT prophylaxis. Lovenox subcu Full code Patient requesting for mother to be given updates regarding care. Ms. Gini Joyner, contact #[phone]. Text document was generated using [employer] voice recognition software. It may contain grammatical or spelling errors. Kindly contact undersigned for clarification of any documentation item in question. History of Present Illness Chief Complaint: Fall Primary Care Provider: Gee Del Valle, History obtained from patient's, ED provider and records. Limited history from patient secondary to obtunded state post Ativan administration at the ER. Medical history significant for complete heart block status post PPM, mild TR, orthostatic hypotension as per records, chronic anemia (baseline hemoglobin 11- 12), plaque psoriasis, anxiety/mood disorder, alcohol abuse. Recent confinement yesterday for alcohol withdrawal. Patient signed out AGAINST MEDICAL ADVICE. Patient felt faint while walking a dog in his neighborhood yesterday. Patient fell to the ground. No actual syncope as per patient. No seizures, tongue biting or incontinence as per patient. No head trauma, no chest pain, no SOB. Patient still with ongoing visual hallucinations over the last few months. EMS and law enforcement called by neighbors to evaluate patient. Patient brought to ER for evaluation due to concerns about patient insight and judgment as per ED provider account. 302 form completed at the ER by ED provider. 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, disabled Allergies Allergy/AdvReac Type Severity Reaction Status Date / Time No Known Allergies Allergy Verified 12/15/24 22:02 Home Medications Medication Instructions Recorded Confirmed Type gabapentin 300 mg capsule 300 mg PO AMHS 05/05/24 12/15/24 History acetylcysteine 600 mg capsule (NAC) 600 mg PO QAM 11/02/24 12/15/24 History cholecalciferol (vitamin D3) 25 25 mcg PO DAILY 11/02/24 12/15/24 History mcg (1,000 unit) capsule (Vitamin D3) clobetasol 0.05 % scalp solution 1 applic topical BID 11/02/24 12/15/24 History furosemide 20 mg tablet 20 mg PO QAM 11/02/24 12/15/24 History magnesium oxide 400 mg PO DAILY 11/02/24 12/15/24 History milk thistle seed extract 87.5 mg 87.5 mg PO DAILY 11/02/24 12/15/24 History capsule tizanidine 4 mg tablet 4 mg PO Q8H PRN MUSCLE SPASMS 11/02/24 12/15/24 History triamcinolone acetonide 0.1 % 1 applic topical DIRECTED 11/02/24 12/15/24 History topical cream PSORIASIS zinc acetate 50 mg (zinc) capsule 50 mg PO QAM 11/02/24 12/15/24 History vitamin B complex 1 tab PO DAILY 12/15/24 12/15/24 History Past Med/Surg History Problem List (Updated 12/15/24 @ 02:47 by Obdulio Michaels MD) Alcohol withdrawal Fall (Acute) Acute kidney injury Acute systolic heart failure Failed back syndrome of lumbar spine Peripheral neuropathy Chronic back pain Pulmonary edema (Acute) Alcohol intoxication (Acute) Complete heart block (Acute) Alcoholic hepatitis Acute hypokalemia (Acute) Transaminitis (Acute) Hypokalemia Lab test negative for COVID-19 virus (Acute) Alcohol intoxication delirium (Acute) HTN (hypertension) Alcohol abuse (Acute) Mood disorder (Acute) Medical History Alcoholic intoxication Fx medial malleolus-closed Hypokalemia Mood disorder Psoriasis Surgical History No pertinent past surgical history Family History Other Colorectal cancer No pertinent family history Social History Smoking Status: Never smoker Second Hand Exposure: No; Do You Dip or Chew Tobacco: No; Hx Alcohol Use: Yes Alcohol type: hard liquor and other Alcohol Intake Frequency: 4 or More x per/Week Hx Substance Use: No Preferred Language: Slovak Communication Ability: Effective Freight Forwarder Required: No Beliefs That Will Affect Care: None Current Living Situation: Alone Other Information That Helps Us Care for You: No Feels Safe at Home: Yes Safety Concerns: Feels Safe At This Time Assistive Devices: None Review of Systems Review of Systems: As per HPI, all other systems reviewed and negative Physical Exam Physical Exam: GENERAL: Comfortable, obese, slightly anxious, no respiratory distress SKIN: Multiple scaly plaque lesions over the extremities, pallor, warm HEENT: Pale palpebral conjunctivae, no ptosis, dry buccal mucosa, nasal cannula in place NECK : Supple, no tenderness CHEST : Decreased breath sounds, no tenderness HEART : Tachycardic, no obvious murmurs ABDOMEN: Some distention, nontender EXTREMITIES : Erythematous RLE swelling without tenderness (chronic as per patient), palpable pulses, no other conspicuous deformities noted NEUROLOGIC : Obtunded, no facial asymmetry, gait and stance not assessed Results & Data Results & Data Vital Signs (Past 12 Hours) Vital Signs Temp Pulse Pulse Resp BP BP Pulse Ox 12/16/24 04:00 112 H 15 154/98 H 91 12/16/24 03:00 36.4 C L 115 H 20 126/89 92 12/16/24 02:30 111 H 12/16/24 02:00 36.3 C L 112 H 18 170/109 H 97 12/16/24 01:00 36.4 C L 129 H 18 162/95 H 93 12/16/24 00:00 36.4 C L 107 H 20 136/99 92 12/15/24 23:30 36.5 C 104 H 20 149/97 H 90 12/15/24 22:31 102 H 12/15/24 22:22 36.5 C 115 H 20 147/103 H 94 12/15/24 21:41 99 H 20 163/129 H 92 12/15/24 21:10 106 H 20 93 12/15/24 21:02 36.4 C L 102 H 16 166/110 H 92 O2 Del Method 12/16/24 04:00 Room Air 12/16/24 03:00 Room Air 12/16/24 02:30 12/16/24 02:00 Room Air 12/16/24 01:00 Room Air 12/16/24 00:00 Room Air 12/15/24 23:30 Room Air 12/15/24 22:31 12/15/24 22:22 Room Air 12/15/24 21:41 Room Air 12/15/24 21:10 Room Air 12/15/24 21:02 Room Air Laboratory Results Laboratory Results WBC 10.31 K/ul (4.8-10.8) 12/15/24 21:22 RBC 4.50 M/uL (4.70-6.10) L 12/15/24 21:22 Hgb 13.1 g/dl (14.0-18.0) L 12/15/24 21:22 Hct 38.6 % (42.0-52.0) L 12/15/24 21:22 MCV 85.8 fL (80.0-100.0) 12/15/24 21: MCH 29.1 pg (25.0-34.0) 12/15/24 21:22 MCHC 33.9 g/dL (32.0-36.0) 12/15/24 21: RDW Std Deviation 53.2 fL (36.4-46.3) H 12/15/24 21:22 RDW Coeff of Ramona 17.1 % (11.5-14.5) H 12/15/24 21:22 Plt Count 113 K/uL (130-400) L 12/15/24 21:22 MPV 8.9 fL (9.4-12.4) L 12/15/24 21: Immature Gran % (Auto) 0.3 % 12/15/24: Neut % (Auto) 78.9 % 12/15/24 21:22 Lymph % (Auto) 12.6 % 12/15/24: Irwin % (Auto) 7.2 % 12/15/24 21: Eos % (Auto) 0.0 % 12/15/24 21: Baso % (Auto) 1.0 % 12/15/24: Neut # (Auto) 8.14 K/uL (1.40-6.50) H 12/15/24 21: Lymph # (Auto) 1.30 K/uL (1.20-3.40) 12/15/24: Irwin # (Auto) 0.74 K/uL (0.11-0.59) H 12/15/24 21: Eos # (Auto) 0.00 K/uL (0.00-0.50) 12/15/24: Baso # (Auto) 0.10 K/uL (0.00-0.20) 12/15/24: Immature Gran # (Auto) 0.03 K/uL (0.01-0.20) 12/15/24 21: Sodium 141 mmol/L (136-145) 12/15/24: Potassium 4.0 mmol/L (3.5-5.1) 12/15/24: Chloride 99 mmol/L (98-107) 12/15/24: Carbon Dioxide 28 mmol/L (21-32) 12/15/24: Anion Gap 14 (3-11) H 12/15/24: BUN 12 mg/dl (6-23) 12/15/24: Creatinine 0.89 mg/dl (0.6-1.4) 12/15/24: Est Cr Clr Drug Dosing 105.2 ml/min 12/15/24 21: eGFR 97.50 12/15/24 21: BUN/Creatinine Ratio 13.5 (10-20) 12/15/24: Glucose 141 mg/dl (70-99(Fasting)) H 12/15/24: Calcium 9.3 mg/dl (8.6-10.3) 12/15/24 21: Total Bilirubin 0.8 mg/dl (0.2-1.0) 12/15/24 21: AST 53 U/L (13-39) H 12/15/24 21: ALT 43 U/L (7-52) 12/15/24 21:22 Alkaline Phosphatase 148 U/L (34-104) H 12/15/24 21:22 Total Creatine Kinase 205 U/L (30-223) 12/15/24 21:22 Troponin I High Sens 7.1 pg/ml (0-20) 12/15/24 21:22 Total Protein 7.7 gm/dl (6.0-8.3) 12/15/24 21:22 Albumin 3.6 gm/dl (3.4-5.0) 12/15/24 21:22 Globulin 4.1 gm/dl (2.5-4.0) H 12/15/24 21:22 Albumin/Globulin Ratio 0.9 (0.9-2) 12/15/24 21:22 Lipase 13 U/L (11-82) 12/15/24 21:22 Urine Opiates Screen Neg (Neg) 12/16/24 02:14 Ur Methadone, Qual Neg (Neg) 12/16/24 02:14 Urine Fentanyl Screen Neg (Neg) 12/16/24 02:14 Urine Barbiturates Neg (Neg) 12/16/24 02:14 Ur Phencyclidine (PCP) Neg (Neg) 12/16/24 02:14 U Amphetamin/Meth Scrn Neg (Neg) 12/16/24 02:14 MDMA (Ecstasy) Screen Neg (Neg) 12/16/24 02:14 U Benzodiazepines Scrn Neg (Neg) 12/16/24 02:14 Ur Cocaine Metabolite Neg (Neg) 12/16/24 02:14 U Marijuana (THC) Screen Neg (Neg) 12/16/24 02:14 Ethyl Alcohol mg/dL 261.3 mg/dl (<10.0) H 12/15/24 21:22 Impressions Chest X-Ray 12/15/24 21:00 Exam(s): XR CXR 1 VIEW EXAM: XR Chest, 1 View CLINICAL HISTORY: Reason for exam: Chest pain, nonspecific. TECHNIQUE: Frontal view of the chest. COMPARISON: Chest radiograph on 12/15/2024 at 1:29 a.m. FINDINGS: Hardware: None. Lungs/pleura: Normal. No focal consolidation. No pleural effusion or pneumothorax. Heart/mediastinum: Left-sided pacemaker. No cardiomegaly. Soft tissues: Unremarkable. Bones: No acute fracture. Upper abdomen: Normal. IMPRESSION: No acute disease identified. Electronically signed by: Cesilia Rendon M.D. 12/16/24 00:[address] 12/15/24 21:00 Exam(s): CT HEAD Without Contrast EXAM: CT Head Without Intravenous Contrast CLINICAL HISTORY: Reason for exam: syncope, ams. TECHNIQUE: Axial computed tomography images of the head/brain without intravenous contrast. CTDI is 34 mGy and DLP is 224 mGy-cm. Automated exposure control was utilized for the study. A dose lowering technique was utilized adhering to the principles of ALARA. COMPARISON: CT head on 12/15/2024 at 12:40 a.m. FINDINGS: Brain: No acute infarct or hemorrhage identified. No extra-axial fluid collection. No mass effect or midline shift. Scattered areas of hypoattenuation in the supratentorial white matter likely represent chronic small vessel ischemic changes. Ventricles and sulci: Prominence of the ventricles and sulci is likely secondary to cerebral volume loss. Bones: Hyperostosis frontalis interna. No bony lesion or acute fracture. Subcutaneous tissues: Normal. Sinuses: Small polyp versus mucous retention cyst in the left frontal sinus. Mastoid air cells: Postsurgical change of the left mastoid air cells. Orbits: Grossly unremarkable. Other: Atherosclerotic calcifications in the intracranial vasculature. IMPRESSION: 1. No acute intracranial abnormality. Further evaluation could be performed with MRI if clinically indicated. 2. Chronic small vessel ischemic changes and cerebral volume loss. Electronically signed by: Cesilia Rendon M.D. 12/15/24 23:46 PM Diagnostic Findings EKG as per my interpretation :Rate 100, paced rhythm
[2024-12-16] MEDS ORDERED: LORazepam Inj 3 MG in SYRINGE 1.5 ML IV PRN (04:49)
[2024-12-16] MEDS ORDERED: LORazepam Inj 1 MG in SYRINGE 0.5 ML IV PRN (04:49)
[2024-12-16] MEDS: THIAMINE HCL 100 MG in SYRINGE 9 ML IV STA (05:09)
[2024-12-16] MEDS: METOPROLOL TARTRATE 1 MG/ML VIAL IV STA (05:09)
[2024-12-16] MEDS: SODIUM CHLORIDE 0.9% 1,000 ML IV ONE (05:09)
[2024-12-16] MEDS: LORazepam Inj 2 MG in SYRINGE 1 ML IV PRN (05:42)
[2024-12-16] MEDS ORDERED: PROMETHAZINE 6.25 MG/50.25 ML BAG IV PRN (05:49)
[2024-12-16 05:51] LABS: INR 1.1 (0.9-1.1); Prothrombin Time 11.4 Seconds (9.0-12.0)
[2024-12-16] MEDS: MAGNESIUM SULFATE / D5W 1 GM/100 ML BAG IV SCH (06:20)
[2024-12-16] MEDS: GABAPENTIN 300 MG CAP PO SCH (06:20)
[2024-12-16] MEDS: CHOLECALCIFEROL 25 MCG (1000 UNITS) TAB PO SCH (09:39)
[2024-12-16] MEDS: VITAMIN B COMPLEX TAB PO SCH (09:39)
[2024-12-16] MEDS: FOLIC ACID 1 MG TAB PO SCH (09:39)
[2024-12-16 10:13] LABS: Hematocrit (blood only) 36.2 % (42.0-52.0); Hemoglobin 11.7 g/dl (14.0-18.0); Immature Granulocytes # (auto) 0.01 K/uL (0.01-0.20); Immature Granulocytes % (auto) 0.2 %; Mean Corpuscular Hemoglobin 28.0 pg (25.0-34.0); Mean Corpuscular Volume 86.6 fL (80.0-100.0); Platelet Count 82 K/uL (130-400); RDW Standard Deviation 54.7 fL (36.4-46.3); Red Blood Count 4.18 M/uL (4.70-6.10); White Blood Count 6.52 K/ul (4.8-10.8)
--- NOTE | 2024-12-16 10:19 | Psychiatric Consultation ---
Date of Consultation December 16, 2024 Impression / Recommendations Impression Owen Kiser, who goes by Renzo, is a 63-year-old man with a history of chronic alcohol abuse, admitted on 12/15/24 for complications of alcohol withdrawal, including psychosis. He is presently on a 302 which was initiated in the emergency room for poor self-care related to altered mental status. Patient's description of the visual hallucinations he was experiencing intermittently at home is highly consistent with the kinds of hallucinations we see during complicated alcohol withdrawal. In addition, his attention and associations were impaired during our encounter, which does make me suspect he is going in and out of DTs. He certainly has a significant alcohol abuse history, and describes a recent history of starting and stopping alcohol abuse, which may be kindling worse withdrawal than what he is used to experiencing in the past. I do not see any evidence of him having developed a primary psychotic disorder, is as he has no history of these symptoms outside of alcohol withdrawal. The primary treatment for DTs of course is either a benzodiazepine or barbiturate taper, which was already initiated by his primary team. Adding scheduled gabapentin 300 mg 3 times daily is helpful addition, as it can offer some protection against alcohol withdrawal seizures, and may help decrease the total benzo load needed. he has previously been on gabapentin for neuropathy, and did not find it helpful for that indication. As a result, he does not need to stay on gabapentin upon discharge, but it could be can be continued for the 3 to 5 days that he is here. It is not required to treat the hallucinations, but he does describe that they have been distressing to him in the past, so I would also recommend adding add in as needed dose of Zyprexa 5 mg, which can be given if the hallucinations recur. Again, this does not need to be continued chronically for him, and is only for use during the detoxification. In reviewing his workup so far, I did find it notable that his CT of the head showed significant cerebellar loss. This could explain some of his recent falls and reports of generalized weakness. I would recommend, if possible and safe for him to do so, an MRI be obtained of the brain with and without contrast for closer evaluation. If there is significant abnormality seen on the MRI, we may want to involve neurology as well. Alcoholic cerebellar deterioration is certainly a possibility. He is also requesting a possible orthopedic evaluation while he is here, since he may have to miss/reschedule his office appointment which was scheduled for tomorrow. Finally, patient is on 302 which was initiated by the emergency room. He needs to remain on a 1-to-1 while the 302 is active. He is not allowed to leave AGAINST MEDICAL ADVICE. We did explain this to the patient while we are in the room, and we communicated our high level of concern for his physical health as he has had many complications of his chronic alcohol abuse. We reiterated that we need to make sure that his pacemaker is working correctly, we did like to further evaluate for cerebellar degeneration, and treat his detoxification before he leaves. it is true however, we do not have sufficient evidence continue the 302 for longer than the 5 days (ie - hold a hearing for a 303), since all of his symptoms are related to substance use, rather than a primary mental health condition. Additionally, he does not need transfer to the psychiatric unit, since his treatment is for alcohol withdrawal specifically. Today, patient did not express interest in rehab or outpatient treatment for substance use, but did express interest in trauma therapy. Before discharge, we will talk with him about options in the local area. finally, from a case management perspective, patient does have a legal hearing scheduled for either or 12/20. A letter may be sent so that he can reschedule that, if he remains here for treatment. Any assistance with notifying the orthopedic's final surgeons office that patient is in hospital and needs his appointment rescheduled but also be appreciated. (1) Delirium tremens: (2) Alcohol abuse: Plan recommendations: - continue alcohol withdrawal protocol with Ativan or phenobarbital as appropriate - consider adding gabapentin 300mg 3 times daily while in hospital - use Zyprexa 5 mg p.o. every 6 hour as needed for hallucinations - MRI of the brain with and without contrast, to assess possible cerebellar degeneration ( if possible given his pacemaker?) - case management assistance with rescheduling patient's hearing, and upcoming intake at the spinal surgeon in [place] overall, I spent a total of 80+ minutes on this patients care; 55 minutes in direct evaluation of and counseling of the patient, and 25+ minutes including review of chart, coordination with nursing, interdisciplinary team meeting, and documentation. Psych History Identifying Data Owen Kiser, who goes by Renzo, is a 63-year-old man with a history of chronic alcohol abuse, admitted on 12/15/24 for complications of alcohol withdrawal. Consult is by the hospitalist service for psychosis. Chief Complaint intermittent visual hallucinations x 2 months History of Present Illness Mr. Kiser is previously known to this department from past admission and past psychiatric consultations. He has a longstanding history of alcohol abuse, but no past descriptions of psychosis. Presently, he is admitted to the hospitalist service for treatment of alcohol withdrawal. He was admitted at the end of last week, and then discharged himself AGAINST MEDICAL ADVICE yesterday, then returned that same evening after a neighbor called EMS when they saw him crawling on the sidewalk outside. When he was evaluated in the emergency room, they did initiate a 302 given patient's recent AMA discharge and his poor self- care. At that time he also reported that he has been having hallucinations recently, prompting this consultation. He has been on alcohol withdrawal protocol, being medicated with Ativan. There also plans to interrogate his pacemaker, given his recent syncope and falls. In preparation for this consultation, I did review past records. He in 2018, he was briefly admitted to the psychiatric unit for depression, and was noted at that time to also be abusing alcohol. During that admission he did decline an antidepressant trial, and had minimal participation in treatment. He was discharged on the third day at his request, with plans to follow-up with [place]. at that time he had no reported history of psychosis, including hallucinations or delusions. I met with the patient in his room, along with the psychiatric liaison. Discussed his alcohol use over the last year. He says that in April, he fainted on a bus and "this gave me the reason to not drink at all." He further states that this year he has been "pretty good for the most part", clarifying this means he is been trying to drink less alcohol on a regular basis. He has had some times of sobriety but it has been brief. He said he did have a relapse for severe in September, which then progressed to binging on vodka for several days afterwards. He then stopped abruptly, and noted he had hallucinations for the first time, Which did occur along with other symptoms of alcohol withdrawal including insomnia, increased heart rate, shaking and anxiety. The hallucinations were visual, and he gives several examples of seeing animals. He saw a snake in the kitchen, ants on the wall, etc. He then started to see iker alfred, who did not speak to him or interact with him. He said when he tried to touch them they would usually disappear. The hallucinations would come and go from September till now. He does say he has had his alcohol use has fluctuated during that same time period. He described reality testing himself, and realizing "I know it was not real, but it scared me." He has been sleeping with the light on since then. He has actually had no recurrence of hallucinations in hospital yesterday or today. We also discussed why he left AGAINST MEDICAL ADVICE yesterday. He said he was responsible for watching his landlord's dog, and felt he had no choice but to leave. He says that he made sure that his liver and pancreas were at safe levels before he left. In fact he does describe ways he tries to care for his health, specifically by keeping a very healthy diet with no sugar and lots of vegetables, and taking all-natural supplements such as milk thistle and NAC. He does report stressors include his deteriorating physical health, specifically chronic pain from past vertebral fractures and severe neuropathy. He has an upcoming evaluation with orthopedic surgery this week, which he has been waiting for 6 months. He also has hearing this week and is concerned he will miss it if he is still admitted. Past Psychiatric History Previous Psych History: 1 past psych admission here at [facility], in 2018. Diagnosed with major depression and alcohol use disorder at that time. He does not currently follow with any outpatient psychiatry or therapy his PCP has been prescribing doxepin for him. His first drink was in his teenage years, but he did not start drinking regularly until college. Patient reports having attended a 28-day rehab in [facility] "a long time ago". It was challenging to get an estimate of his average use, as it seems has been fluctuating quite a lot. Also, I do suspect patient has been minimizing how much he has been drinking recently. he attends AA once a week, but did not report having a sponsor or working the steps. He does not feel particularly supported by AA. Allergies Allergy/AdvReac Type Severity Reaction Status Date / Time No Known Allergies Allergy Verified 12/15/24 22:02 Home Medications Medication Instructions Recorded Confirmed Type gabapentin 300 mg capsule 300 mg PO AMHS 05/05/24 12/15/24 History acetylcysteine 600 mg capsule (NAC) 600 mg PO QAM 11/02/24 12/15/24 History cholecalciferol (vitamin D3) 25 25 mcg PO DAILY 11/02/24 12/15/24 History mcg (1,000 unit) capsule (Vitamin D3) clobetasol 0.05 % scalp solution 1 applic topical BID 11/02/24 12/15/24 History furosemide 20 mg tablet 20 mg PO QAM 11/02/24 12/15/24 History magnesium oxide 400 mg PO DAILY 11/02/24 12/15/24 History milk thistle seed extract 87.5 mg 87.5 mg PO DAILY 11/02/24 12/15/24 History capsule tizanidine 4 mg tablet 4 mg PO Q8H PRN MUSCLE SPASMS 11/02/24 12/15/24 History triamcinolone acetonide 0.1 % 1 applic topical DIRECTED 11/02/24 12/15/24 History topical cream PSORIASIS zinc acetate 50 mg (zinc) capsule 50 mg PO QAM 11/02/24 12/15/24 History vitamin B complex 1 tab PO DAILY 12/15/24 12/15/24 History Patient History Medical History Alcoholic intoxication Fx medial malleolus-closed Hypokalemia Mood disorder Psoriasis Surgical History No pertinent past surgical history Family History Other Colorectal cancer No pertinent family history Social History Smoking Status: Never smoker Second Hand Exposure: No; Do You Dip or Chew Tobacco: No; Hx Alcohol Use: Yes Alcohol type: hard liquor and other Alcohol Intake Frequency: 4 or More x per/Week Hx Substance Use: No Preferred Language: Maltese Communication Ability: Effective Lens Finisher Required: No Beliefs That Will Affect Care: None Current Living Situation: Alone Other Information That Helps Us Care for You: No Feels Safe at Home: Yes Safety Concerns: Feels Safe At This Time Assistive Devices: None Physical Exam Psychiatric: Orientation: alert, oriented x 3 and oriented to person Apperance: + disheveled Eye Contact: + fair eye contact 1-2 beat horizontal nystagmus with later al gaze Motor Behavior: + tremor; + unsteady gait or station and + abnormal motor movements abnormal [id number] with notable intention tremor also dysdiadochokinesia present no asterixis noted Speech: normal rate/rhythm/volume of speech a bit slurred Affect: + blunted affect a little anxious, especially regarding upcoming hearing and appt Thought Process: + circumstantial thought process and + looseness of associations Thought Content: + cognitive distortions and reality based without delusions Suicidal Thoughts: denies suicidal thoughts, denies suicidal plan and denies suicidal intent Homicidal Thoughts: denies homicidal thoughts, denies homicidal plan and denies homicidal intent Hallucinations: + visual hallucinations Cognition: + attention not intact would get distracted and struggled to maintain a consistent timeline when recounting information Estimated Intelligence: average estimated intelligence Insight: + fair insight Judgment: + fair judgement Vital Signs (Past 24 Hours): Last Vital Signs Temp 36.6 C 12/16/24 07:43 Pulse 94 H 12/16/24 07:43 Resp 14 12/16/24 07:43 BP 160/94 H 12/16/24 07:43 Pulse Ox 95 12/16/24 07:43 O2 Del Method Nasal Cannula 12/16/24 07:43 O2 Flow Rate 2 12/16/24 07:43 Results & Data (PSY) Medications Administered Folic Acid (Folic Acid 1 Mg Tab) 1 mg PO QAM YFN Stop: 01/15/25 08:59 Last Admin: 12/16/24 09:39 Dose: 1 mg Documented By: CA Gabapentin (Gabapentin 300 Mg Cap) 300 mg PO AMHS YFN Stop: 01/15/25 05:49 Last Admin: 12/16/24 06:20 Dose: 300 mg Documented By: ELLE Sodium Chloride (Nss) 1,000 mls @ 60 mls/hr IV .[id number] ONE Stop: 12/16/24 21:24 Last Admin: 12/16/24 05:09 Dose: 60 mls/hr Documented By: ELLE Lorazepam 2 mg/ Syringe 2 mls @ 2 mls/min IV UD PRN; Protocol PRN Reason: EtOH Withdrawal AWSS Score 8,9 Stop: 01/15/25 04:48 Last Admin: 12/16/24 05:42 Dose: 2 mls/min Documented By: ELLE Miscellaneous ((Clobetasol 0.05 % Solution)~Order Awaiting Action) 1 each N/A QS YFN Stop: 01/15/25 07:59 Last Admin: 12/16/24 09:40 Dose: 1 each Documented By: KANWAL Vitamin B Complex (Vitamin B Complex Tab) 1 tab PO DAILY YFN Stop: 01/15/25 08:59 Last Admin: 12/16/24 09:39 Dose: 1 tab Documented By: KANWAL Vitamin D (Cholecalciferol 25 Mcg (1000 Units) Tab) 25 mcg PO DAILY YFN Stop: 01/15/25 08:59 Last Admin: 12/16/24 09:39 Dose: 25 mcg Documented By: KANWAL Coding Level of Care Code 91724 IN/OBS CONSULT LVL 5,80M Diagnoses Delirium tremens F10.931 Alcohol abuse F10.10
[2024-12-16 10:28] LABS: Alanine Aminotransferase 37.0 U/L (7-52); Albumin Globulin Ratio 0.8 (0.9-2); Albumin Level 3.1 gm/dl (3.4-5.0); Alkaline Phosphatase 133.0 U/L (34-104); Anion Gap 5.0 (3-11); Bilirubin,Total 0.9 mg/dl (0.2-1.0); Blood Urea Nitrogen 10.0 mg/dl (6-23); Calcium 8.9 mg/dl (8.6-10.3); Carbon Dioxide 31.0 mmol/L (21-32); Chloride 105.0 mmol/L (98-107); Creatinine Clr Calc Pharmacy 114.1 ml/min; Globulin 3.7 gm/dl (2.5-4.0); Glucose 154.0 mg/dl (70-99(Fasting)); Magnesium 2.2 mg/dl (1.7-2.4); Potassium 4.1 mmol/L (3.5-5.1); Sodium 141.0 mmol/L (136-145); Total Protein 6.8 gm/dl (6.0-8.3)
--- NOTE | 2024-12-16 16:25 | Hospitalist Progress Note ---
Date of Service December 16, 2024 Assessment & Plan (1) Alcohol withdrawal: Plan: #Alcohol withdrawal -AWSS score 9 currently Plan -Continue prn ativan -Add scheduled librium -If scores are high after librium, will initiate phenobarb #Hallucinations -ISO alcohol use disorder -CTH showing cerebellar volume loss Plan -Patient has 302. appreciate psych input -Patient may not leave AMA unless cleared by psych -Will order MRI brain but patient does have a PPM #Complete HB -S/p PPM -Has OP appt with cardio this week -Will order PPM interrogation #Anemia -POA. chronic -WIll check Fe panel, B12, folate in AM -No s/s acute blood loss #Elevated LFTs -Mildly elevated -Low suspicion for alcoholic hepatitis -Likely secondary to alcohol use -OP f/u I spent a total of 55 minutes coordinating, documenting, and providing care for this patient excluding time spent in the performance of separately billed services. This included personally reviewing all current laboratories and imaging studies, medical reconciliation, outpatient chart review and discussion with specialists Admission and Anticipated Discharge Date Admission Date: December 16, 2024 Subjective seen at bedside with sitter present. resting calmly in bed. Patient denies F/C, CP, palpitations, SOB, dyspnea, abd pain, N/V/D Physical Exam Physical Exam: Vitals and labs reviewed General: Well appearing, NAD HEENT: EOMI, PERRLA Neck: Supple Cardiac: RRR no rubs gallops or murmurs Lungs: CTA no rhonchi wheezing or rales Abd: S NT ND BS positive : Deffered MSK: Full ROM. No obvious deformities Ext: No Edema cyanosis Skin: Warm, Dry Neuro: AOx3 No focal deficits. resting tremors Psych: calm Results & Data Results & Data Vital Signs (Past 12 Hours) Vital Signs Temp Pulse Pulse Resp BP BP Pulse Ox 12/16/24 14:46 37 C 80 12 148/89 H 94 12/16/24 10:56 36.9 C 98 H 18 167/109 H 99 12/16/24 07:43 36.6 C 94 H 14 160/94 H 95 12/16/24 07:11 12/16/24 07:00 97 H 17 150/104 H 99 12/16/24 06:56 98 H 15 154/105 H 98 12/16/24 06:29 96 H 12/16/24 06:00 100 H 17 134/99 100 12/16/24 05:39 96 H 157/104 H 12/16/24 05:09 112 H 151/105 H 12/16/24 05:00 117 H 16 151/105 H 99 O2 Del Method O2 Flow Rate 12/16/24 14:46 Room Air 12/16/24 10:56 Nasal Cannula 2 12/16/24 07:43 Nasal Cannula 2 12/16/24 07:11 Room Air 12/16/24 07:00 Nasal Cannula 2 12/16/24 06:56 Room Air 12/16/24 06:29 12/16/24 06:00 Nasal Cannula 2 12/16/24 05:39 12/16/24 05:09 12/16/24 05:00 Nasal Cannula 2 Laboratory Results Abnormal lab results 12/15/24 12/16/24 12/16/24 Range/Units 21:22 04:59 09:52 RBC 4.50 L 4.18 L (4.70-6.10) M/uL Hgb 13.1 L 11.7 L (14.0-18.0) g/dl Hct 38.6 L 36.2 L (42.0-52.0) % RDW Std Deviation 53.2 H 54.7 H (36.4-46.3) fL RDW Coeff of Ramona 17.1 H 17.4 H (11.5-14.5) % Plt Count 113 L 82 L (130-400) K/uL MPV 8.9 L (9.4-12.4) fL Neut # (Auto) 8.14 H (1.40-6.50) K/uL Lymph # (Auto) 1.05 L (1.20-3.40) K/uL [place] # (Auto) 0.74 H 0.71 H (0.11-0.59) K/uL Anion Gap 14 H (3-11) Glucose 141 H 154 H (70-99(Fasting)) mg/dl Magnesium 1.4 L (1.7-2.4) mg/dl AST 53 H 44 H (13-39) U/L Alkaline Phosphatase 148 H 133 H (34-104) U/L Albumin 3.1 L (3.4-5.0) gm/dl Globulin 4.1 H (2.5-4.0) gm/dl Albumin/Globulin Ratio 0.8 L (0.9-2) Ethyl Alcohol mg/dL 261.3 H (<10.0) mg/dl
--- NOTE | 2024-12-16 19:50 | Electrocardiogram Report ---
Test Reason : Blood Pressure : */* mmHG Vent. Rate : 99 BPM Atrial Rate : 99 BPM P-R Int : 134 ms QRS Dur : 150 ms QT Int : 418 ms P-R-T Axes : 39 -46 80 degrees QTcB Int : 536 ms Atrial-sensed ventricular-paced rhythm Abnormal ECG When compared with ECG of 14-Dec-2024 23:25, (unconfirmed) Vent. rate has increased by 8 bpm Confirmed by Jared Cunningham ([id number]) on 12/16/2024 7:50:22 PM Referred By: REFERRED SELF Confirmed By: Jared Cunningham
[2024-12-16] MEDS ORDERED: DOXEPIN HCL 10 MG CAPSULE PO SCH (21:00)
[2024-12-17] MEDS: TRIAMCINOLONE ACET 0.1% CR 15 GM TUBE TOP PRN (05:44)
[2024-12-17 07:02] LABS: Iron 259 mcg/dl (35-175); Total Iron Binding Cap Calc 269 mcg/dl (250-450); Transferrin 192 mg/dl (200-360); Transferrin (FE) Percent Satur 96 % (20-50)
[2024-12-17 07:21] LABS: Folate (Folic Acid),Ser orPlas 17.18 ng/ml (>5.38); Vitamin B12 721.0 pg/ml (180-914)
[2024-12-17] MEDS: THIAMINE HCL 100 MG TAB PO SCH (08:01)
--- NOTE | 2024-12-17 09:26 | Hospitalist Progress Note ---
Date of Service December 17, 2024 Assessment & Plan (1) Alcohol withdrawal: Plan: #Alcohol withdrawal -AWSS scores low this AM -High risk for DTs given the amount of consumption and his ongoing hallucinations Plan -Continue prn ativan -Continue scheduled librium taper -If scores are high after librium, will initiate phenobarb #Hallucinations -ISO alcohol use disorder -CTH showing cerebellar volume loss Plan -Patient has 302. appreciate psych input -Patient may not leave AMA unless cleared by psych -Will order MRI brain, scheduled for tomorrow with pacer rep present #Complete HB -S/p PPM -Has OP appt with cardio this week -Will order PPM interrogation --pending #Anemia -POA. chronic -Fe panel, B12, and folate normal -No s/s acute blood loss -It was recommended he get routine colonoscopy for CRC surveillance #Elevated LFTs -Mildly elevated -Low suspicion for alcoholic hepatitis -Likely secondary to alcohol use -OP f/u I spent a total of 51 minutes coordinating, documenting, and providing care for this patient excluding time spent in the performance of separately billed services. This included personally reviewing all current laboratories and imaging studies, medical reconciliation, outpatient chart review and discussion with specialists Admission and Anticipated Discharge Date Admission Date: December 16, 2024 Subjective seen at bedside with sitter present. resting calmly in bed. Patient denies F/C, CP, palpitations, SOB, dyspnea, abd pain, N/V/D Physical Exam Physical Exam: Vitals and labs reviewed General: Well appearing, NAD HEENT: EOMI, PERRLA Neck: Supple Cardiac: RRR no rubs gallops or murmurs Lungs: CTA no rhonchi wheezing or rales Abd: S NT ND BS positive : Deffered MSK: Full ROM. No obvious deformities Ext: No Edema cyanosis Skin: Warm, Dry Neuro: AOx3 No focal deficits. resting tremors-improved. no asterixis Psych: calm Results & Data Results & Data Vital Signs (Past 12 Hours) Vital Signs Temp Pulse Pulse Resp BP Pulse Ox O2 Del Method 12/17/24 07:03 36.6 C 72 18 114/79 93 Room Air 12/17/24 06:55 Room Air 12/17/24 04:44 111/74 12/17/24 02:57 36.4 C L 76 18 100/69 91 Room Air 12/16/24 22:00 37.4 C 75 18 101/67 95 Room Air 12/16/24 21:40 78 Laboratory Results Abnormal lab results 12/16/24 12/17/24 Range/Units 09:52 05:39 RBC 4.18 L (4.70-6.10) M/uL Hgb 11.7 L (14.0-18.0) g/dl Hct 36.2 L (42.0-52.0) % RDW Std Deviation 54.7 H (36.4-46.3) fL RDW Coeff of Ramona 17.4 H (11.5-14.5) % Plt Count 82 L (130-400) K/uL Lymph # (Auto) 1.05 L (1.20-3.40) K/uL [place] # (Auto) 0.71 H (0.11-0.59) K/uL Glucose 154 H (70-99(Fasting)) mg/dl Iron 259 H (35-175) mcg/dl Transferrin 192 L (200-360) mg/dl Transferrin % Sat 96 H (20-50) % AST 44 H (13-39) U/L Alkaline Phosphatase 133 H (34-104) U/L Albumin 3.1 L (3.4-5.0) gm/dl Albumin/Globulin Ratio 0.8 L (0.9-2)
[2024-12-17] MEDS ORDERED: TRIAMCINOLONE ACET 0.1% OINT 80 GM TUBE EXT PRN (18:31)
--- NOTE | 2024-12-17 19:11 | Psychiatric Progress Note ---
Date of Service December 17, 2024 Impression / Recommendations Impression Owen Kiser, who goes by Renzo, is a 63-year-old man with a history of chronic alcohol abuse, admitted on 12/15/24 for complications of alcohol withdrawal, including psychosis. He is presently on a 302 which was initiated in the emergency room for poor self-care related to altered mental status. Patient's description of the visual hallucinations he was experiencing intermittently at home is highly consistent with the kinds of hallucinations we see during complicated alcohol withdrawal. In addition, his attention and associations were impaired during our encounter, which does make me suspect he is going in and out of DTs. He certainly has a significant alcohol abuse history, and describes a recent history of starting and stopping alcohol abuse, which may be kindling worse withdrawal than what he is used to experiencing in the past. I do not see any evidence of him having developed a primary psychotic disorder, is as he has no history of these symptoms outside of alcohol withdrawal. The primary treatment for DTs of course is either a benzodiazepine or barbiturate taper, which was already initiated by his primary team. Adding scheduled gabapentin 300 mg 3 times daily is helpful addition, as it can offer some protection against alcohol withdrawal seizures, and may help decrease the total benzo load needed. he has previously been on gabapentin for neuropathy, and did not find it helpful for that indication. As a result, he does not need to stay on gabapentin upon discharge, but it could be can be continued for the 3 to 5 days that he is here. It is not required to treat the hallucinations, but he does describe that they have been distressing to him in the past, so I would also recommend adding add in as needed dose of Zyprexa 5 mg, which can be given if the hallucinations recur. Again, this does not need to be continued chronically for him, and is only for use during the detoxification. In reviewing his workup so far, I did find it notable that his CT of the head showed significant cerebellar loss. This could explain some of his recent falls and reports of generalized weakness. I would recommend, if possible and safe for him to do so, an MRI be obtained of the brain with and without contrast for closer evaluation. If there is significant abnormality seen on the MRI, we may want to involve neurology as well. Alcoholic cerebellar deterioration is certainly a possibility. He is also requesting a possible orthopedic evaluation while he is here, since he may have to miss/reschedule his office appointment which was scheduled for tomorrow. Finally, patient is on 302 which was initiated by the emergency room. He needs to remain on a 1-to-1 while the 302 is active. He is not allowed to leave AGAINST MEDICAL ADVICE. We did explain this to the patient while we are in the room, and we communicated our high level of concern for his physical health as he has had many complications of his chronic alcohol abuse. We reiterated that we need to make sure that his pacemaker is working correctly, we did like to further evaluate for cerebellar degeneration, and treat his detoxification before he leaves. it is true however, we do not have sufficient evidence continue the 302 for longer than the 5 days (ie - hold a hearing for a 303), since all of his symptoms are related to substance use, rather than a primary mental health condition. Additionally, he does not need transfer to the psychiatric unit, since his treatment is for alcohol withdrawal specifically. Today, patient did not express interest in rehab or outpatient treatment for substance use, but did express interest in trauma therapy. Before discharge, we will talk with him about options in the local area. finally, from a case management perspective, patient does have a legal hearing scheduled for either or 12/20. A letter may be sent so that he can reschedule that, if he remains here for treatment. Any assistance with notifying the orthopedic's final surgeons office that patient is in hospital and needs his appointment rescheduled but also be appreciated. (1) Delirium tremens: (2) Alcohol abuse: Plan 12/17/24: - increasing concern for pt's memory. Liaison did complete a MOCA, which showed significant impairment at . It's not clear, however, whether this represents his baseline, as withdrawal and benzos may be impairing him further. However, this is further reason to continue to work up the cerebellar deterioration seen on CT. Recommend neuro consult. - during our encounter, pt did request documentation that he received therapy here, which he may have been required to obtain prior to his hearing. I did explain that psychiatric follow up here does not constitute substance abuse th erapy for court-related purposed. However, he should be provided documentation that he was medically admitted, in case his hearing needs rescheduled. - For now, he remains on a 302, so 1:1 should continue, and he cannot leave AMA. 12/16/24: - continue alcohol withdrawal protocol with Ativan or phenobarbital as appropriate - consider adding gabapentin 300mg 3 times daily while in hospital - use Zyprexa 5 mg p.o. every 6 hour as needed for hallucinations - MRI of the brain with and without contrast, to assess possible cerebellar degeneration ( if possible given his pacemaker?) - case management assistance with rescheduling patient's hearing, and upcoming intake at the spinal surgeon in [place] overall, I spent a total of 40 minutes on this patients care, including direct evaluation of and counseling of the patient, review of chart, coordination with nursing, interdisciplinary team meeting, and documentation. Interval History Identifying Information Owen Kiser, who goes by Renzo, is a 63-year-old man with a history of chronic alcohol abuse, admitted on 12/15/24 for complications of alcohol withdrawal, including psychosis. He is presently on a 302 which was initiated by police, then accepted in the emergency room for poor self-care related to altered mental status. Chief Complaint "I think everything came to a head recently". Subjective Subjective Patient was seen & assessed and interval progress reviewed with psychiatric liaison. Upon approach, pt was up in his bedside chair. He was notably less shaky and more alert today. With further discussion, he became quickly tearful. He said "everything has come to a head recently." Relayed feeling overwhelmed about upcoming appointments and the hearing later this week. 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 He also appeared to have altered recollection of his upcoming hearing date as well. Despite being tearful at times, he did deny suicidal ideation. He denied any further hallucinations since admission here. He reports withdrawal symptoms have improved significantly today. Physical Exam Psychiatric Orientation: alert and oriented x 3 Apperance: appropriately dressed and appropriately groomed Eye Contact: good eye contact Motor Behavior: + tremor Speech: normal rate/rhythm/volume of speech Affect: + labile affect Mood: + dysphoric mood Thought Process: + circumstantial thought process ?confabulation Thought Content: reality based without delusions Suicidal Thoughts: denies suicidal thoughts, denies suicidal plan and denies suicidal intent Homicidal Thoughts: denies homicidal thoughts, denies homicidal plan and denies homicidal intent Hallucinations: no auditory hallucinations and no visual hallucinations Cognition: remote memory grossly intact, attention grossly intact and language grossly intact; + recent memory not intact Estimated Intelligence: consistent with education level Insight: + fair insight Judgment: + fair judgement Vital Signs (Past 24 Hours) Last Vital Signs Temp 36.7 C 12/17/24 17:13 Pulse 73 12/17/24 17:13 Resp 18 12/17/24 17:13 BP 113/75 12/17/24 17:13 Pulse Ox 95 12/17/24 17:13 O2 Del Method Room Air 12/17/24 17:13 O2 Flow Rate 2 12/16/24 10:56 Results & Data ([facility]) Laboratory Results Laboratory Results - last 24 hr 12/17/24 05:39 Iron 259 H TIBC 269 Transferrin 192 L Transferrin % Sat 96 H Vitamin B12 721 Folate 17.18 Current Inpatient Medications Current Inpatient Medications: Current Inpatient Medications Acetaminophen (Acetaminophen 325 Mg Tab) 650 mg PO QID PRN PRN Reason: pain/fever Stop: 01/15/25 05:48 Chlordiazepoxide HCl (Chlordiazepoxide Hcl 10 Mg Cap) 10 mg PO TID YFN Stop: 01/15/25 20:59 Last Admin: 12/17/24 13:59 Dose: 10 mg Doxepin HCl (Doxepin Hcl 10 Mg Capsule) 10 mg PO HS PRN PRN Reason: insomnia Stop: 01/15/25 20:59 Folic Acid (Folic Acid 1 Mg Tab) 1 mg PO QAM YFN Stop: 01/15/25 08:59 Last Admin: 12/17/24 08:01 Dose: 1 mg Gabapentin (Gabapentin 300 Mg Cap) 300 mg PO AMHS [facility] Stop: 01/15/25 05:49 Last Admin: 12/17/24 08:01 Dose: 300 mg Lorazepam 2 mg/ Syringe 2 mls @ 2 mls/min IV UD PRN; Protocol PRN Reason: EtOH Withdrawal AWSS Score 8,9 Stop: 01/15/25 04:48 Last Admin: 12/17/24 17:23 Dose: 2 mls/min Lorazepam 3 mg/ Syringe 3 mls @ 2 mls/min IV ONCE PRN; Protocol PRN Reason: EtOH Withdrawal AWSS Score 10+ Promethazine HCl (Phenergan) 6.25 mg in 50.25 mls @ 201 mls/hr IV Q6H PRN PRN Reason: Nausea And Vomiting Stop: 01/15/25 05:48 Miscellaneous ((Clobetasol 0.05 % Solution)~Order Awaiting Action) 1 each N/A QS [facility] Stop: 01/15/25 07:59 Last Admin: 12/17/24 17:23 Dose: Not Given Thiamine HCl (Thiamine Hcl 100 Mg Tab) 100 mg PO QAM [facility] Stop: 01/16/25 08:59 Last Admin: 12/17/24 08:01 Dose: 100 mg Tizanidine HCl (Tizanidine Hcl 4 Mg Tablet) 4 mg PO TID PRN PRN Reason: muscle spasm Stop: 01/15/25 20:59 Last Admin: 12/17/24 08:01 Dose: 4 mg Triamcinolone Acetonide (Triamcinolone Acet 0.1% Oint 80 Gm Tube) 1 appln EXT BID PRN PRN Reason: psorasis patches Stop: 01/16/25 18:30 Vitamin B Complex (Vitamin B Complex Tab) 1 tab PO DAILY [facility] Stop: 01/15/25 08:59 Last Admin: 12/17/24 08:01 Dose: 1 tab Vitamin D (Cholecalciferol 25 Mcg (1000 Units) Tab) 25 mcg PO DAILY [facility] Stop: 01/15/25 08:59 Last Admin: 12/17/24 08:01 Dose: 25 mcg
[2024-12-18] MEDS: DOXEPIN HCL 10 MG CAPSULE PO PRN (00:08)
[2024-12-18] MEDS: ACETAMINOPHEN 325 MG TAB PO PRN (04:16)
--- NOTE | 2024-12-18 10:39 | Hospitalist Progress Note ---
Date of Service December 18, 2024 Assessment & Plan (1) Alcohol withdrawal: Plan: #Alcohol withdrawal -AWSS scores low this AM -High risk for DTs given the amount of consumption and his ongoing hallucinations Plan -Continue prn ativan -Continue scheduled librium taper. Decrease to BID today -Anticipate DC tomorrow if ok by psych and MRI brain is ok #Hallucinations -ISO alcohol use disorder -CTH showing cerebellar volume loss Plan -Patient has 302. appreciate psych input -Patient may not leave AMA unless cleared by psych -Will order MRI brain, scheduled for today with pacer rep present #Complete HB -S/p PPM -Has OP appt with cardio this week -Will order PPM interrogation --No significant abnormalities when reviewed by author #Anemia -POA. chronic -Fe panel, B12, and folate normal -No s/s acute blood loss -It was recommended he get routine colonoscopy for CRC surveillance #Elevated LFTs -Mildly elevated -Low suspicion for alcoholic hepatitis -Likely secondary to alcohol use -OP f/u I spent a total of 53 minutes coordinating, documenting, and providing care for this patient excluding time spent in the performance of separately billed services. This included personally reviewing all current laboratories and imaging studies, medical reconciliation, outpatient chart review and discussion with specialists Admission and Anticipated Discharge Date Admission Date: December 16, 2024 Subjective seen at bedside with sitter present. resting calmly in bed. Patient denies F/C, CP, palpitations, SOB, dyspnea, abd pain, N/V/D Physical Exam Physical Exam: Vitals and labs reviewed General: Well appearing, NAD HEENT: EOMI, PERRLA Neck: Supple Cardiac: RRR no rubs gallops or murmurs Lungs: CTA no rhonchi wheezing or rales Abd: S NT ND BS positive : Deffered MSK: Full ROM. No obvious deformities Ext: No Edema cyanosis Skin: Warm, Dry Neuro: AOx3 No focal deficits. resting tremors-improved. no asterixis Psych: calm Results & Data Results & Data Vital Signs (Past 12 Hours) Vital Signs Temp Pulse Pulse Resp BP Pulse Ox Pulse Ox 12/18/24 08:55 68 12/18/24 07:21 36.5 C 73 122/77 92 12/18/24 07:00 92 12/18/24 06:55 12/18/24 04:00 36.7 C 71 17 115/73 92 O2 Del Method O2 Del Method 12/18/24 08:55 12/18/24 07:21 Room Air 12/18/24 07:00 Room Air 12/18/24 06:55 Room Air 12/18/24 04:00 Room Air
[2024-12-18] MEDS: LORazepam Inj 1 MG in SYRINGE 0.5 ML IV PRN (11:12)
--- NOTE | 2024-12-18 12:32 | Magnetic Resonance Report ---
MRI OF THE BRAIN WITHOUT IV CONTRAST CLINICAL HISTORY: Psychosis. COMPARISON STUDY: CT of the brain dated 12/15/2024 TECHNIQUE: MRI of the brain was performed utilizing various T1 and T2-weighted sequences in the axial , sagittal, and coronal planes. IV contrast was not administered for this examination. FINDINGS: Brain parenchyma: There is age-related involutional change noting mild subcortical and periventricula r microangiopathic disease. There is no hemorrhage or mass effect. There is no restricted diffusion t o suggest acute ischemia. Sotelo-white matter differentiation is preserved. No extra-axial fluid collec tion is seen. The cerebellar tonsils are normal in configuration. Ventricles, sulci, and cisterns: Prominent secondary to involutional change. Pituitary and sella: Unremarkable. Intracranial vasculature: Normal flow voids are maintained at the skull base. Orbits: The bony orbits are grossly intact. Orbital contents are normal in appearance. Sinuses and mastoids: There is mild mucosal thickening within the maxillary antra. Trace mucosal thic kening is seen in this ethmoid sinuses. The mastoid air cells are clear. Calvarium: Unremarkable. Cervical cord: Partially visualized cervical spinal cord is normal in morphology and signal intensity . IMPRESSION: No acute intracranial abnormality. ACT 112: Negative or not required by law. Electronically signed by: Adam Hercules M.D. 12/18/2024 12:30 PM
[2024-12-19 08:38] VITALS: RESP 20; O2SAT 93
--- NOTE | 2024-12-19 13:40 | Hospitalist Progress Note ---
Date of Service December 19, 2024 Assessment & Plan (1) Alcohol withdrawal: Plan: #Alcohol withdrawal -AWSS scores low this AM -High risk for DTs given the amount of consumption and his ongoing hallucinations Plan Patient was admitted to medical floor; was started on Librium taper as well as Ativan with improvement in alcohol withdrawal symptoms. His alcohol withdrawal symptoms seems to be at resolved at this time. Appreciate psych's input regarding discharge #Hallucinations -ISO alcohol use disorder -CTH showing cerebellar volume loss -MRI brain- no acute findings Plan -Patient has 302. appreciate psych input -Patient may not leave AMA unless cleared by psych #Complete HB -S/p PPM -Has OP appt with cardio this week #Anemia -POA. chronic -Fe panel, B12, and folate normal -No s/s acute blood loss -It was recommended he get routine colonoscopy for CRC surveillance #Elevated LFTs -Mildly elevated -Low suspicion for alcoholic hepatitis -Likely secondary to alcohol use -OP f/u I spent a total of 50 minutes coordinating, documenting, and providing care for this patient excluding time spent in the performance of separately billed services. This included personally reviewing all current laboratories and imaging studies, medical reconciliation, outpatient chart review and discussion with specialists Admission and Anticipated Discharge Date Admission Date: December 16, 2024 Subjective Patient seen and examined at bedside. Comfortable; not in distress. Denies fever, chills, chest pain, shortness of breath, abdominal pain or urinary symptoms. No significant overnight events Review of Systems 2 Review of Systems: All systems reviewed & are unremarkable except as noted in Subjective Physical Exam Physical Exam: Vitals and labs reviewed General: Well appearing, NAD Cardiac: RRR no rubs gallops or murmurs Lungs: CTA no rhonchi wheezing or rales Abd: S NT ND BS positive MSK: Full ROM. No obvious deformities Ext: No Edema cyanosis Skin: Warm, Dry Neuro: AOx3 No focal deficits.no tremors Psych: calm Results & Data Results & Data Vital Signs (Past 12 Hours) Vital Signs Temp Pulse Pulse Resp BP Pulse Ox O2 Del Method 12/19/24 08:36 37.1 C 89 20 131/82 93 Room Air 12/19/24 08:00 80 12/19/24 07:00 12/19/24 04:00 36.9 C 77 18 121/78 92 Room Air O2 Del Method 12/19/24 08:36 12/19/24 08:00 12/19/24 07:00 Room Air 12/19/24 04:00
--- NOTE | 2024-12-19 14:42 | Psychiatric Progress Note ---
Date of Service December 19, 2024 Impression / Recommendations Impression Owen Kiser, who goes by Renzo, is a 63-year-old man with a history of chronic alcohol abuse, admitted on 12/15/24 for complications of alcohol withdrawal, including psychosis. He is presently on a 302 which was initiated in the emergency room for poor self-care related to altered mental status. Patient's description of the visual hallucinations he was experiencing intermittently at home is highly consistent with the kinds of hallucinations we see during complicated alcohol withdrawal. In addition, his attention and associations were impaired during our encounter, which does make me suspect he is going in and out of DTs. He certainly has a significant alcohol abuse history, and describes a recent history of starting and stopping alcohol abuse, which may be kindling worse withdrawal than what he is used to experiencing in the past. I do not see any evidence of him having developed a primary psychotic disorder, is as he has no history of these symptoms outside of alcohol withdrawal. The primary treatment for DTs of course is either a benzodiazepine or barbiturate taper, which was already initiated by his primary team. Adding scheduled gabapentin 300 mg 3 times daily is helpful addition, as it can offer some protection against alcohol withdrawal seizures, and may help decrease the total benzo load needed. he has previously been on gabapentin for neuropathy, and did not find it helpful for that indication. As a result, he does not need to stay on gabapentin upon discharge, but it could be can be continued for the 3 to 5 days that he is here. It is not required to treat the hallucinations, but he does describe that they have been distressing to him in the past, so I would also recommend adding add in as needed dose of Zyprexa 5 mg, which can be given if the hallucinations recur. Again, this does not need to be continued chronically for him, and is only for use during the detoxification. In reviewing his workup so far, I did find it notable that his CT of the head showed significant cerebellar loss. This could explain some of his recent falls and reports of generalized weakness. I would recommend, if possible and safe for him to do so, an MRI be obtained of the brain with and without contrast for closer evaluation. If there is significant abnormality seen on the MRI, we may want to involve neurology as well. Alcoholic cerebellar deterioration is certainly a possibility. He is also requesting a possible orthopedic evaluation while he is here, since he may have to miss/reschedule his office appointment which was scheduled for tomorrow. Finally, patient is on 302 which was initiated by the emergency room. He needs to remain on a 1-to-1 while the 302 is active. He is not allowed to leave AGAINST MEDICAL ADVICE. We did explain this to the patient while we are in the room, and we communicated our high level of concern for his physical health as he has had many complications of his chronic alcohol abuse. We reiterated that we need to make sure that his pacemaker is working correctly, we did like to further evaluate for cerebellar degeneration, and treat his detoxification before he leaves. it is true however, we do not have sufficient evidence continue the 302 for longer than the 5 days (ie - hold a hearing for a 303), since all of his symptoms are related to substance use, rather than a primary mental health condition. Additionally, he does not need transfer to the psychiatric unit, since his treatment is for alcohol withdrawal specifically. Today, patient did not express interest in rehab or outpatient treatment for substance use, but did express interest in trauma therapy. Before discharge, we will talk with him about options in the local area. finally, from a case management perspective, patient does have a legal hearing scheduled for either or 12/20. A letter may be sent so that he can reschedule that, if he remains here for treatment. Any assistance with notifying the orthopedic's final surgeons office that patient is in hospital and needs his appointment rescheduled but also be appreciated. (1) Delirium tremens: (2) Alcohol abuse: Plan 12/19/24: - MRI obtained and read as "age related volume loss". Pt's cognition has cleared some, with improved attention and memory notable during the encounter today. - Medically stable for discharge. - Pt's insight has improved and he plans to pursue sobriety. He has no SI, HI, active psychosis or other reason to need further hospitalization from a psychiatric standpoint. - He can be discharged off the 302. - Zyprexa does not need continued upon d/c. - Referral to [facility] was made for outpatient D+A treatment. 12/17/24: - increasing concern for pt's memory. Liaison did complete a MOCA, which showed significant impairment at . It's not clear, however, whether this represents his baseline, as withdrawal and benzos may be impairing him further. However, this is further reason to continue to work up the cerebellar deterioration seen on CT. Recommend neuro consult. - during our encounter, pt did request documentation that he received therapy here, which he may have been required to obtain prior to his hearing. I did explain that psychiatric follow up here does not constitute substance abuse therapy for court-related purposed. However, he should be provided documentation that he was medically admitted, in case his hearing needs rescheduled. - For now, he remains on a 302, so 1:1 should continue, and he cannot leave AMA. 12/16/24: - continue alcohol withdrawal protocol with Ativan or phenobarbital as appropriate - consider adding gabapentin 300mg 3 times daily while in hospital - use Zyprexa 5 mg p.o. every 6 hour as needed for hallucinations - MRI of the brain with and without contrast, to assess possible cerebellar degeneration ( if possible given his pacemaker?) - case management assistance with rescheduling patient's hearing, and upcoming intake at the spinal surgeon in [place] overall, I spent a total of 40 minutes on this patients care, including direct evaluation of and counseling of the patient, review of chart, coordination with nursing, interdisciplinary team meeting, and documentation. Interval History Identifying Information Owen Kiser, who goes by Renzo, is a 63-year-old man with a history of chronic alcohol abuse, admitted on 12/15/24 for complications of alcohol withdrawal, including psychosis. He is presently on a 302 which was initiated by police, then accepted in the emergency room for poor self-care related to altered mental status. Chief Complaint "[]". Subjective Subjective Patient was seen & assessed and interval progress reviewed with psychiatric liaison. We did visit the patient briefly yesterday as well, but pt declined to meet. Liaison did return later and discussed outpatient treatment options with pt, and made a referral to [facility]. Met with the pt today in his room. He says he is feeling much better. Also states "I think with the hallucinations I've had now, it's time to quit drinking" for good. He is looking forward to outpatient treatment. Discussed at length his triggers for drinking, and he does have some insight into situations that triggered relapse (such as recent citation, and ongoing medical issues). He struggled to identify alternative coping or changes he can make to adapt differently to those stressors. Encouraged him to discuss this in his therapy. Also reviewed his expectations of initiating treatment, and reminded him it takes time. He reports mood is euthymic and anxiety is minimal. He is glad to be d/c to attend his hearing tomorrow. No hallucinations have occurred since admission. Physical Exam Psychiatric Orientation: alert, oriented x 3 and cooperative Apperance: appropriately dressed and appropriately groomed Eye Contact: good eye contact Motor Behavior: no abnormal motor movements Speech: normal rate/rhythm/volume of speech Affect: euthymic affect euthymic Thought Process: goal directed thought process, linear/logical thought process and clear/coherent thought process Thought Content: + cognitive distortions and reality based without delusions Suicidal Thoughts: denies suicidal thoughts, denies suicidal plan and denies suicidal intent Homicidal Thoughts: denies homicidal thoughts, denies homicidal plan and denies homicidal intent Hallucinations: no auditory hallucinations and no visual hallucinations Cognition: attention grossly intact and language grossly intact improved from earlier in stay. Memory also appears to have improved. Estimated Intelligence: consistent with education level Insight: good insight Judgment: good judgement Vital Signs (Past 24 Hours) Last Vital Signs Temp 37.1 C 12/19/24 08:36 Pulse 89 12/19/24 08:36 Resp 20 12/19/24 08:36 BP 131/82 12/19/24 08:36 Pulse Ox 93 12/19/24 08:36 O2 Del Method Room Air 12/19/24 08:36 O2 Flow Rate 2 12/16/24 10:56 Results & Data ([facility]) Current Inpatient Medications Current Inpatient Medications: Current Inpatient Medications Acetaminophen (Acetaminophen 325 Mg Tab) 650 mg PO QID PRN PRN Reason: pain/fever Stop: 01/15/25 05:48 Last Admin: 12/19/24 10:23 Dose: 650 mg Chlordiazepoxide HCl (Chlordiazepoxide Hcl 10 Mg Cap) 10 mg PO BID YNF Stop: 01/17/25 20:59 Last Admin: 12/19/24 07:43 Dose: 10 mg Doxepin HCl (Doxepin Hcl 10 Mg Capsule) 10 mg PO HS PRN PRN Reason: insomnia Stop: 01/15/25 20:59 Last Admin: 12/18/24 23:28 Dose: 10 mg Folic Acid (Folic Acid 1 Mg Tab) 1 mg PO QAM YFN Stop: 01/15/25 08:59 Last Admin: 12/19/24 07:43 Dose: 1 mg Gabapentin (Gabapentin 300 Mg Cap) 300 mg PO AMHS YFN Stop: 01/15/25 05:49 Last Admin: 12/19/24 07:43 Dose: 300 mg Lorazepam 2 mg/ Syringe 2 mls @ 2 mls/min IV UD PRN; Protocol PRN Reason: EtOH Withdrawal AWSS Score 8,9 Stop: 01/15/25 04:48 Last Admin: 12/18/24 04:41 Dose: 2 mls/min Lorazepam 3 mg/ Syringe 3 mls @ 2 mls/min IV ONCE PRN; Protocol PRN Reason: EtOH Withdrawal AWSS Score 10+ Promethazine HCl (Phenergan) 6.25 mg in 50.25 mls @ 201 mls/hr IV Q6H PRN PRN Reason: Nausea And Vomiting Stop: 01/15/25 05:48 Thiamine HCl (Thiamine Hcl 100 Mg Tab) 100 mg PO QAM [facility] Stop: 01/16/25 08:59 Last Admin: 12/19/24 07:43 Dose: 100 mg Tizanidine HCl (Tizanidine Hcl 4 Mg Tablet) 4 mg PO TID PRN PRN Reason: muscle spasm Stop: 01/15/25 20:59 Last Admin: 12/18/24 14:49 Dose: 4 mg Triamcinolone Acetonide (Triamcinolone Acet 0.1% Oint 80 Gm Tube) 1 appln EXT BID PRN PRN Reason: psorasis patches Stop: 01/16/25 18:30 Vitamin B Complex (Vitamin B Complex Tab) 1 tab PO DAILY [facility] Stop: 01/15/25 08:59 Last Admin: 12/19/24 07:43 Dose: 1 tab Vitamin D (Cholecalciferol 25 Mcg (1000 Units) Tab) 25 mcg PO DAILY [facility] Stop: 01/15/25 08:59 Last Admin: 12/19/24 07:43 Dose: 25 mcg
--- NOTE | 2024-12-19 14:54 | Discharge Summary ---
Date of Service December 19, 2024 Admission HPI Per Admitting Provider History obtained from patient's, ED provider and records. Limited history from patient secondary to obtunded state post Ativan administration at the ER. Medical history significant for complete heart block status post PPM, mild TR, orthostatic hypotension as per records, chronic anemia (baseline hemoglobin 11- 12), plaque psoriasis, anxiety/mood disorder, alcohol abuse. Recent confinement yesterday for alcohol withdrawal. Patient signed out AGAINST MEDICAL ADVICE. Patient felt faint while walking a dog in his neighborhood yesterday. Patient fell to the ground. No actual syncope as per patient. No seizures, tongue biting or incontinence as per patient. No head trauma, no chest pain, no SOB. Patient still with ongoing visual hallucinations over the last few months. EMS and law enforcement called by neighbors to evaluate patient. Patient brought to ER for evaluation due to concerns about patient insight and judgment as per ED provider account. 302 form completed at the ER by ED provider. 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, disabled Admission Exam Per Admitting Provider GENERAL: Comfortable, obese, slightly anxious, no respiratory distress SKIN: Multiple scaly plaque lesions over the extremities, pallor, warm HEENT: Pale palpebral conjunctivae, no ptosis, dry buccal mucosa, nasal cannula in place NECK : Supple, no tenderness CHEST : Decreased breath sounds, no tenderness HEART : Tachycardic, no obvious murmurs ABDOMEN: Some distention, nontender EXTREMITIES : Erythematous RLE swelling without tenderness (chronic as per patient), palpable pulses, no other conspicuous deformities noted NEUROLOGIC : Obtunded, no facial asymmetry, gait and stance not assessed Principal Diagnosis Alcohol withdrawal Alcohol use disorder Discharge Exam Vitals and labs reviewed General: Well appearing, NAD Cardiac: RRR no rubs gallops or murmurs Lungs: CTA no rhonchi wheezing or rales Abd: S NT ND BS positive MSK: Full ROM. No obvious deformities Ext: No Edema cyanosis Skin: Warm, Dry Neuro: AOx3 No focal deficits.no tremors Psych: calm Discharge Data Allergies Allergy/AdvReac Type Severity Reaction Status Date / Time No Known Allergies Allergy Verified 12/15/24 22:02 Consultations 12/16/24 04:42 ED Decision to Admit Stat 12/16/24 05:48 Consult Psychiatry Routine Ordered Studies 12/15/24 21:00 CT head/brain wo con Stat 12/18/24 07:12 MR brain wo con Routine Hospital Course (1) Alcohol withdrawal: #Alcohol withdrawal #Alcohol use disorder Patient presented to the hospital with signs and symptoms of alcohol withdrawal including tremors and hallucination. Patient was admitted to medical floor; was started on Librium taper as well as Ativan with improvement in alcohol withdrawal symptoms. His alcohol withdrawal symptoms seems to be at resolved at this time. Psychiatry was consulted during the hospitalization; was on 302 on admission; was discharged of 302 at the time of the discharge. Patient was discharged home with instructions to follow-up with outpatient D + A treatment. Please note the above document was generated using voice recognition software. It may contain grammatical, syntax or spelling errors. Any formal questions or concerns about the content, text or information contained within the body of this dictation should be directly addressed to the provider for clarification Total Time Total Time Spent Total Time Spent (In Minutes): 34 Total Time Includes: Examination of the Patient, Discharge Planning, Medication Reconciliation, Communication With Other Providers and Other Discharge Plan Discharge Items Patient Disposition: Home - Self-Care Reason For Visit: ALCOHOL WITHDRAWAL Discharge Diagnosis: ALCOHOL WITHDRAWAL Alcohol Use Disorder Activity: Resume your previous activity Non-emergency contact: Primary Care Provider Call non-emergency contact if: you have any medication questions and your symptoms worsen Follow-up/Referrals: Gee Del Valle, [Primary Care Provider] - ( ) Aurelio Good CRNP [Nurse Practitioner] - 12/25/24 3:30 pm ([facility] at 2:30pm followed by appt at 3:30pm) Diet: Regular Addtl Attending Provider Instructions: Please follow-up with your PCP and cardiology as scheduled Pending Studies at Discharge: No Stand-Alone Forms: My [employer], Smoking Cessation Medications and DC Order Prescriptions: Continued gabapentin 300 mg capsule 300 mg PO AMHS zinc acetate 50 mg (zinc) Capsule 50 mg PO QAM tizanidine 4 mg tablet 4 mg PO Q8H PRN (Reason: MUSCLE SPASMS) triamcinolone acetonide 0.1 % cream 1 applic TOPICAL DIRECTED furosemide 20 mg tablet 20 mg PO QAM clobetasol 0.05 % solution 1 applic TOPICAL BID Rx Instructions: APPLY TO AFFECTED AREAS cholecalciferol (vitamin D3) [Vitamin D3] 25 mcg (1,000 unit) Capsule 25 mcg PO DAILY acetylcysteine [NAC] 600 mg Capsule 600 mg PO QAM milk thistle seed extract 87.5 mg Capsule 87.5 mg PO DAILY Rx Instructions: give with meal/snack magnesium oxide 400 mg magnesium Tablet 400 mg PO DAILY vitamin B complex Tablet 1 tab PO DAILY Discharge Orders: Discharge Order (Routine); Ordered 12/19/24 Ordered By: Nael Olmos Admission Data Admit Date/Time: 12/16/24 04:48 Attending Provider: Nael Olmos Admit Provider: Obdulio Michaels Primary Care Provider: Gee Del Valle Other Providers: Obdulio Michaels; Lianet Hernandez Other Interventions: Discharge Summary Assessment (RN) Last Done: 12/19/24 15:09
[2024-12-19 15:05] VITALS: BP 145/94; PULSE 98; TEMP 98.6
== END 2024-12-19 15:26 | disposition home or self-care (01) | DRG 897 ==
LOC: ED 20:54 → 2S 12-16 04:48 → SUATTDRO 12-16 04:48 → 2S 12-16 07:11